=== PATIENT | male | born 1950 | race Caucasian/White ===

== ENCOUNTER → 2016-05-31 | Outpatient (CLI) | payer MEDICARE, OTHER ==
[~2016-05-31] MED LIST: /WARF25TA OR; /WARF5TA OR; ACTO15TA OR; ACTOPLUS MET; ACTOPLUS MET OR; AMLO10TA OR; ASPI81TA83 OR; AZOPT 1% OD; B6 OR; BACT800T5 PO; BYST2.5T2 PO; BYSTOLIC OR; BYSTOLIC PO; CELE100C OR; CHLORTHALIDONE OR; CIAL20TA PO; CLON1TAB PO; COMBIGAN OD; Cyclobenzaprine OR; DILT240C75 PO; DIOV160T5 OR; DIOVAN OR; DITR1TAB PO; GINSING OR; GLUC850T OR; HCT OR; HYDR25TA6 OR; LASI20TA PO; LEVE1INJ5 SC; MAGN250T OR; MELOXICAM 15 MG OR; METF1000 PO; MIRA1TAB3 PO; MULTCAP PO; MULTIVIT OR; NEUR600T OR; NEVANAC OD; NORV5TAB OR; OMEGA 3 OR; OMEP10CA45 PO; OMEP20TA7 OR; PLAV75TA2 OR; PRAV1TAB39 PO; PRAVASTATIN OR; PREDNISOLINE OD; PREG50CA PO; Potassium Chloride PO; REQU2TAB3 OR; REQU4TAB3 OR; ROPI2TAB PO; SKEL-29 PO; SPIR25TA2 PO; TORS10TA3 PO; TRAM50TA2 OR; TYLE500T78 PO; VALS1TAB47 PO; VICT18IN SC; VICTOZA SQ; VOLT1GEL24 TOP; XARE20TA PO; ZEBE5TAB OR; ZYMAR OD; [UNRECOGNIZED DRUG - OTHER]; hydrochlorothiazide OR; potassium chloride PO
--- NOTE | 2016-06-12 00:10 | ECWPNPC ---
PATIENT NAME: QUINTEN STONE : 1950 GENDER: MALE VISIT DATE: 05/31/2016 DISCHARGE DATE: 05/31/16 1018 VISIT LOCKED DATE TIME: PHYSICIAN: REINA MELTON RESOURCE: REINA MELTON REASON FOR APPOINTMENT 1. F/U POST PROC HISTORY OF PRESENT ILLNESS HISTORY OF PRESENT ILLNESS: HERE FOR POST PROCEDURE F/U.HAD BILAT. L4/5-L5/S1 THERAPEUTIC FACET BLOCK ON 01-24-16.REPORTS >3 MONTHS IMPROVEMENT IN PAIN .PAIN RETURNED 2WEEKS AGO AFTER DOING YARDWORK.PAIN IS LOCATED LOW BACK WITH RADIATION INTO LEFT THIGH.RATING PAIN VAS 7/10. PAIN THE PATIENT DESCRIBES THE PAIN... FALL RISK SCREENING: SCREENING :NO FALLS IN THE PAST YEAR CURRENT MEDICATIONS TAKING TORSEMIDE 10 MG TABLET 1 TABLET ORALLY EVERY OTHER DAY TAKING CIALIS 20 MG TABLET 1 TABLET ORALLY NEEDED TAKING CLONAZEPAM 1 MG TABLET 1 TABLET ORALLY TID TAKING DILTIAZEM HCL 240 MG ORALLY DAILY TAKING METFORMIN HCL 1000 MG TABLET 1 TABLET WITH MEALS ORALLY TWICE A DAY TAKING LEVEMIR 100 UNIT/ML SOLUTION 64 UNITS SUBCUTANEOUS DAILY TAKING MULTIVITAMIN ORALLY TWICE DAILY TAKING OMEPRAZOLE 20 MG 1 CAPSULE ORALLY ONCE A DAY TAKING REQUIP 2 MG TABLET 2 TABS AT 6 P.M. AND 2 @ HS ORALLY DIRECTED TAKING SPIRONOLACTONE 25 MG TABLET 1 TABLET ORALLY DAILY TAKING DIOVAN 160 MG TABLET 1 TABLET ORALLY ONCE A DAY TAKING BYSTOLIC 2.5 MG TABLET 1 TABLET ORALLY ONCE A DAY TAKING PRAVASTATIN SODIUM 20 MG TABLET 1 TABLET ORALLY ONCE A DAY TAKING VICTOZA 18 MG/3ML SOLUTION 1.8 SUBCUTANEOUS ONCE A DAY TAKING XARELTO 20 MG TABLET 1 TABLET WITH FOOD ORALLY ONCE A DAY TAKING OXYBUTYNIN CHLORIDE ER 10 MG TABLET EXTENDED RELEASE 24 HOUR 1 TABLET ORALLY ONCE A DAY TAKING TIZANIDINE HCL 2 MG TABLET 1 TABLET NEEDED ORALLY TWICE DAILY NEEDED TAKING LYRICA 50 MG CAPSULE 1 CAPSULE ORALLY 2 TABS AT 6 P.M AND 2 AT HS MEDICATION LIST REVIEWED AND RECONCILED WITH THE PATIENT PAST MEDICAL HISTORY STROKE NEUROPATHY RESTLESS LEG AGENT ORANGE EXPOSURE DIABETIC ERECTILE DYSFUNCTION CATARACTS SLEEP APNEA - USES CPAP ATRIAL FIBRILLATION HTN ALLERGIES N.K.D.A. SOCIAL HISTORY GENERAL: PAIN CLINIC PFS, CLERGY, PUBLIC HEALTH REFERRALS CLERGY REFERRAL NEEDED?NO WAS THE PROVIDER NOTIFIED OF ANY PERTINENT INFO?NO PFS REFERRAL NEEDED?NO PUBLIC HEALTH REFERRAL NEEDED?NO PATIENT: ____. REVIEW OF SYSTEMS CONSTITUTIONAL: ANY CHANGE IN YOUR MEDICAL CONDITION? NO . CHILLS NO . FEVER NO . INFECTION: DO YOU HAVE NEW INFECTIONS? NO . DO YOU HAVE HISTORY OF MRSA? NO . MUSCULOSKELETAL: ANY NEW PATTERNS OF PAIN OR NUMBNESS? NO . GASTROENTEROLOGY: ANY NEW CHANGE IN BOWEL CONTROL? NO . GENITOURINARY: ANY NEW CHANGE IN BLADDER CONTROL? NO . IS THERE A CHANCE YOU COULD BE ? NO . HEMATOLOGY/LYMPH: DO YOU TAKE ANY BLOOD THINNERS? (FOR EXAMPLE- COUMADIN, PLAVIX, AGGRENOX, PLATEL, PRADAXA, OR XARELTO) NO . WHEN WAS YOUR LAST DOSE? DATE: TIME: . NEUROLOGY: HAVE YOU FALLEN IN THE PAST 6 MONTHS? NO . ANY NEW EXTREMITY NUMBNESS OR WEAKNESS? NO . CARDIOLOGY: DO YOU HAVE A PACEMAKER OR DEFIBRILLATOR? NO . RESPIRATORY: HAVE YOU BEEN SICK IN THE PAST WEEK? NO . FEVER NO . FLU LIKE SYMPTOMS? NO . COUGH NO . INTEGUMENTARY: DO YOU HAVE ANY RASHES OR OPEN SORES? NO . ALLERGIC/IMMUNO: ARE YOU ALLERGIC TO SHELLFISH OR IV DYE? NO . ANY NEW ALLERGIES? NO . PSYCHIATRIC: DO YOU HAVE THOUGHTS OF HURTING YOURSELF OR SOMEONE ELSE? NO . ARE YOU ABUSED, NEGLECTED, OR IN AN UNSAFE ENVIRONMENT? NO . ENDOCRINOLOGY: ARE YOU DIABETIC? YES . OTHER: DO YOU NEED ANY PRESCRIPTIONS? NO . IF YES, PLEASE LIST: ____ . ANY NEW PROBLEMS WITH YOUR MEDICATIONS? NO . WHEN DID YOU LAST EAT? ____ . WHEN DID YOU LAST DRINK? ____ . WHAT DID YOU LAST DRINK? ____ . NAME OF PERSON DRIVING YOU HOME? ____ . DO YOU HAVE ANY OTHER QUESTIONS OR CONCERNS HAD SPASMS IN LEFT HAND AND ARMS--L. [employer]ICKEY SAFETY TECHNICIAN STARTED HIM ON TIZANIDINE WHICH HAS SEEMED TO HELP. THE FACET 01/24/16 GAVE HIM RELIEF UP TO 2-3 WEEKS AGO. HE HAS BEEN DOING YARD WORK WHICH HAS AGGREVATED EVERYTHING. . REVIEWED BY: PROVIDER: REINA BRISCOE . VITAL SIGNS WT 272.8 LBS, HT 71.5 IN, BMI 37.51 INDEX, BP 135/71 MM HG, HR 67 /MIN, RR 16 /MIN, TEMP 97.6 F, OXYGEN SAT % 97%, NA INITIALS AW 0906, REVIEWED BY: AD. EXAMINATION GENERAL EXAMINATION: LUNGS:LUNG SOUNDS ARE CLEAR. HEART:HEART RATE REGULAR. MUSCULOSKELETAL:*, MUSCLE STRENGTH TESTING 5/5 BILATERAL LOWER EXTREMITIES. PALPATION:POSITIVE FOR PAIN WITH PALPATION OVER RIGHT LUMBAR PARASPINAL.NEGATIVE FOR PAIN OVER LEFT PARASPINAL REGION.. ASSESSMENTS PROTRUSION OF LUMBAR INTERVERTEBRAL DISC - M51.26 (PRIMARY) LUMBAR FACET ARTHROPATHY - M46.96 TREATMENT PROTRUSION OF LUMBAR INTERVERTEBRAL DISC LUMBAR FACET REINA HESS 05/31/2016 10:05:27 AM > L4/5-L5/S1 NOTES: PATIENT WAS ADVISED TO START A WALKING PROGRAM TO STRENGTHEN LUMBAR PARASPINAL MUSCLES AND IMPROVE MOBILITY. THEY WERE ADVISED THAT THIS WILL IMPROVE WEIGHT LOSS AND ALSO DEPRESSION/FIBROMYALGIA SYMPTOMS. ADVISED TO WALK 10 MINUTES EVERY OTHER DAY ON A FLAT SURFACE. EMPHASIZED THE IMPORTANCE OF DOING THIS CONSISTANTLY AND NOT SPORATICALLY TO AVOID INJURY. STRONGLY ADVISED NOT TO DO MORE THAN 10 MINUTES EVERY OTHER DAY FOR THE FIRST 4 WEEKS. CLINICAL NOTES: INFORMATION ON HCP GIVEN TO PATIENT. PREVENTIVE MEDICINE PAIN CLINIC TEACHING: PROCEDURE TEACHING PATIENT DECLINED PRINTED INFORMATION ON FACET BLOCK STATING HE HAS HAD THEM AND IS FAMILIAR WITH IT. PRE-PROCEDURE INSTRUCTIONS REVIEWED WITH PATIENT AND HE VERBALIZED UNDERSTANDING. AD. PROCEDURE CODES FA211 ESTABILISHED PATIENT [facility] FACILITY CHARGE G8783 BP SCR PRFRM RCMDD DEFIND SCR INTVL G8730 PAIN ASSESS POS TOOL F/U PLAN DOC 3016F PT SCRND UNHLTHY [place] USE 1123F ACP DISCUSS/DSCN MKR DOCD 1036F TOBACCO NON-USER 0518F FALL PLAN OF CARE DOCD G8427 DOC MEDS VERIFIED W/PT OR RE G8417 BMI >=30 CALCUATE W/FOLLOWUP 3288F FALL RISK ASSESSMENT DOCD DISPOSITION & COMMUNICATION FOLLOW UP 2WK POST (REASON: L4/5-L5/S1 BILAT. LUMBAR THERAPEUTIC FACET BLOCK) ELECTRONICALLY SIGNED BY LUIS FELIPE DAHL ON 06/11/2016 AT 12:15 PM EDT DISCLAIMER : THIS IS A VISIT SUMMARY EXTRACTED FROM THE [employer] CHART. IT IS NOT A COPY OF THE [employer] PROGRESS NOTE. MTDD
== END | disposition home or self-care (01) ==
LOC: M PAIN 09:00
PROVIDERS: ATTEND Nurse Practitioner Family
DX: G89.29 Other chronic pain (principal); M51.26 Other intervertebral disc displacement, lumbar region; M46.96 Unspecified inflammatory spondylopathy, lumbar region; I10 Essential (primary) hypertension; E11.40 Type 2 diabetes mellitus with diabetic neuropathy, unspecified; G47.30 Sleep apnea, unspecified; I48.91 Unspecified atrial fibrillation; N52.9 Male erectile dysfunction, unspecified; Z79.899 Other long term (current) drug therapy; Z79.84 Long term (current) use of oral hypoglycemic drugs; Z79.4 Long term (current) use of insulin; Z79.01 Long term (current) use of anticoagulants

== ENCOUNTER → 2016-06-14 | Outpatient (CLI) | payer MEDICARE, OTHER ==
[~2016-06-14] MED LIST changes: +BUPIVACAINE HCL 0.25% 30 ML VIAL As Ordered ONE; +ISOVUE-M 300 61% 15ML VIAL (Q9967) As Ordered ONE; +LIDOCAINE 1% SDV INJ 30 ML VIAL As Ordered ONE; +TRIAMCINOLONE ACETONIDE SUSP 40 MG/ML VIAL (J3301) As Ordered ONE
--- NOTE | 2016-06-14 18:11 | REP ---
FACET BLOCK: The images were reviewed with Dr. Herrera. The patient has a history of low back pain. The portable C-ARM was provided in the OR for Dr. Damon for fluoroscopic guidance. 2 intraoperative fluoroscopic spot films were obtained for needle placement verification for bilateral lumbar facet injection. The films are on the PACs system and are available for review. 12 seconds of fluoroscopic time was utilized for this procedure. Reviewed by MATTHIEU Corado 06/15/2016 08:27 AEdited and Signed by Shahram Herrera MD 06/15/2016 05:08 P
--- NOTE | 2016-06-19 01:17 | ECWPNPC ---
PATIENT NAME: QUINTEN STONE : 1950 GENDER: MALE VISIT DATE: 06/14/2016 DISCHARGE DATE: 06/14/16 1135 VISIT LOCKED DATE TIME: PHYSICIAN: CONNIE CALLAWAY RESOURCE: CONNIE CALLAWAY REASON FOR APPOINTMENT 1. BILAT. LUMBAR THERAPEUTIC FACET BLOCK HISTORY OF PRESENT ILLNESS HISTORY OF PRESENT ILLNESS: PAIN THE PATIENT DESCRIBES THE PAIN... FALL RISK SCREENING: SCREENING :NO FALLS IN THE PAST YEAR CURRENT MEDICATIONS TAKING TORSEMIDE 10 MG TABLET 1 TABLET ORALLY EVERY OTHER DAY, NOTES: 06-12-16799 TAKING CIALIS 20 MG TABLET 1 TABLET ORALLY NEEDED, NOTES: NONE TAKING CLONAZEPAM 1 MG TABLET 1 TABLET ORALLY TID, NOTES: 06-13-162099 TAKING DILTIAZEM HCL 240 MG ORALLY DAILY, NOTES: 06-13-16799 TAKING METFORMIN HCL 1000 MG TABLET 1 TABLET WITH MEALS ORALLY TWICE A DAY, NOTES: 06-13-162099 TAKING LEVEMIR 100 UNIT/ML SOLUTION 64 UNITS SUBCUTANEOUS DAILY, NOTES: 06-13-16799 TAKING MULTIVITAMIN ORALLY TWICE DAILY, NOTES: 06-13-162099 TAKING OMEPRAZOLE 20 MG 1 CAPSULE ORALLY ONCE A DAY, NOTES: 06-13-16799 TAKING REQUIP 2 MG TABLET 2 TABS AT 6 P.M. AND 2 @ HS ORALLY DIRECTED, NOTES: 06-13-162099 TAKING SPIRONOLACTONE 25 MG TABLET 1 TABLET ORALLY DAILY, NOTES: 06-13-16799 TAKING DIOVAN 160 MG TABLET 1 TABLET ORALLY ONCE A DAY, NOTES: 06-13-162099 TAKING BYSTOLIC 2.5 MG TABLET 1 TABLET ORALLY ONCE A DAY, NOTES: 06-13-16799 TAKING PRAVASTATIN SODIUM 20 MG TABLET 1 TABLET ORALLY ONCE A DAY, NOTES: 06-13-16799 TAKING VICTOZA 18 MG/3ML SOLUTION 1.8 SUBCUTANEOUS ONCE A DAY, NOTES: 06-13-16799 TAKING XARELTO 20 MG TABLET 1 TABLET WITH FOOD ORALLY ONCE A DAY, NOTES: 2299 TAKING OXYBUTYNIN CHLORIDE ER 10 MG TABLET EXTENDED RELEASE 24 HOUR 1 TABLET ORALLY ONCE A DAY, NOTES: 06-13-16799 TAKING TIZANIDINE HCL 2 MG TABLET 1 TABLET NEEDED ORALLY TWICE DAILY NEEDED, NOTES: 06-13-162099 TAKING LYRICA 50 MG CAPSULE 1 CAPSULE ORALLY 2 TABS AT 6 P.M AND 2 AT HS, NOTES: 06-13-162099 TAKING TRULICITY 1.5 MG/0.5ML SOLUTION PEN-INJECTOR 0.5 ML SUBCUTANEOUS WEEKLY, NOTES: NEW MED MEDICATION LIST REVIEWED AND RECONCILED WITH THE PATIENT PAST MEDICAL HISTORY STROKE NEUROPATHY RESTLESS LEG AGENT ORANGE EXPOSURE DIABETIC ERECTILE DYSFUNCTION CATARACTS SLEEP APNEA - USES CPAP ATRIAL FIBRILLATION HTN ALLERGIES CODEINE SULFATE: JITTERY: SIDE EFFECTS REVIEW OF SYSTEMS CONSTITUTIONAL: ANY CHANGE IN YOUR MEDICAL CONDITION? NO . CHILLS NO . FEVER NO . INFECTION: DO YOU HAVE NEW INFECTIONS? NO . DO YOU HAVE HISTORY OF MRSA? NO . MUSCULOSKELETAL: ANY NEW PATTERNS OF PAIN OR NUMBNESS? NO . GASTROENTEROLOGY: ANY NEW CHANGE IN BOWEL CONTROL? NO . GENITOURINARY: ANY NEW CHANGE IN BLADDER CONTROL? NO . IS THERE A CHANCE YOU COULD BE ? NO . HEMATOLOGY/LYMPH: DO YOU TAKE ANY BLOOD THINNERS? (FOR EXAMPLE- COUMADIN, PLAVIX, AGGRENOX, PLATEL, PRADAXA, OR XARELTO) YES, XARELTO 06-10-162299 . WHEN WAS YOUR LAST DOSE? DATE: TIME: 06-10-162299 . NEUROLOGY: HAVE YOU FALLEN IN THE PAST 6 MONTHS? NO . ANY NEW EXTREMITY NUMBNESS OR WEAKNESS? NO . CARDIOLOGY: DO YOU HAVE A PACEMAKER OR DEFIBRILLATOR? NO . RESPIRATORY: HAVE YOU BEEN SICK IN THE PAST WEEK? NO . FEVER NO . FLU LIKE SYMPTOMS? NO . COUGH NO . INTEGUMENTARY: DO YOU HAVE ANY RASHES OR OPEN SORES? NO . ALLERGIC/IMMUNO: ARE YOU ALLERGIC TO SHELLFISH OR IV DYE? NO . ANY NEW ALLERGIES? NO . PSYCHIATRIC: DO YOU HAVE THOUGHTS OF HURTING YOURSELF OR SOMEONE ELSE? NO . ARE YOU ABUSED, NEGLECTED, OR IN AN UNSAFE ENVIRONMENT? NO . ENDOCRINOLOGY: ARE YOU DIABETIC? YES, FSBS 121 CHANGING MEDS. . OTHER: DO YOU NEED ANY PRESCRIPTIONS? NO . IF YES, PLEASE LIST: ____ . ANY NEW PROBLEMS WITH YOUR MEDICATIONS? NO . WHEN DID YOU LAST EAT? 06-13-16 9PM . WHEN DID YOU LAST DRINK? 06-14-16 MIDNIGHT . WHAT DID YOU LAST DRINK? WATER . NAME OF PERSON DRIVING YOU HOME? GABINO QUINTANA . DO YOU HAVE ANY OTHER QUESTIONS OR CONCERNS NO . REVIEWED BY: PROVIDER: . VITAL SIGNS WT 272.8 LBS, HT 71.5 IN, BMI 37.51 INDEX, BP 145/67 MM HG, HR 63 /MIN, RR 16 /MIN, TEMP 97.6 F, OXYGEN SAT % 97%, NA INITIALS SC 09:25, REVIEWED BY: CM. ASSESSMENTS SPONDYLOSIS WITHOUT MYELOPATHY OR RADICULOPATHY, LUMBAR REGION - M47.816 (PRIMARY) SPONDYLOSIS WITHOUT MYELOPATHY OR RADICULOPATHY, LUMBOSACRAL REGION - M47.817 PROCEDURES PN LUMBAR FACET BLOCK THERAPEUTIC PRE PROCEDURE DIAGNOSIS LUMBAR SPONDYLOSIS, LUMBOSACRAL SPONDYLOSIS POST PROCEDURE DIAGNOSIS LUMBAR SPONDYLOSIS, LUMBOSACRAL SPONDYLOSIS PROCEDURE BILATERAL L4-L5 AND L5-S1 LUMBAR FACET THERAPEUTIC BLOCK SURGEON DR. OCNNIE CALLAWAY CATALOGUE MAKER NONE ANESTHESIA LOCAL PRE PROCEDURE NOTE THE PATIENT HAS A HISTORY OF CHRONIC LOW BACK PAIN. I EVALUATE THE PATIENT AND REVIEWED THE CHART. I WENT OVER THE RISKS, ALTERNATIVES, AND BENEFITS ASSOCIATED WITH THIS PROCEDURE. THE PATIENT WOULD LIKE TO PROCEED AND GIVE CONSENT TO PERFORMED THE PROCEDURE. THE PATIENT DENIES UNEXPLAINABLE WEIGHT LOSS, FEVER, CHILLS, OR NEW CHANGES IN URINARY OR BOWEL CONTROL DESCRIPTION OF PROCEDURE THE PATIENT WAS BROUGHT TO THE PROCEDURE ROOM AND PLACED IN THE PRONE POSITION. THE LUMBOSACRAL AREA WAS CLEANED WITH CHLORAPREP SOLUTION AND DRAPED ASEPTICALLY. THE PROCEDURE WAS DONE UNDER STERILE CONDITIONS. I CHECKED LATERALITY AND THE LEVEL WHERE THE PROCEDURE WAS GOING TO BE PERFORMED WITH THE PATIENT AND THE SUPPORTING STAFF AT THE MOMENT OF THE TIME OUT IN THE PROCEDURE ROOM. UNDER FLUOROSCOPIC GUIDANCE, THE TARGET POINT WAS SELECTED AT THE RIGHT AND LEFT L4-L5 AND L5-S1 FACET JOINT. TARGET POINT WAS SELECTED AFTER LATERAL ROTATION AND TILT OF THE MAGNIFIER OF THE C-ARM. LIDOCAINE 0.5% WAS USED TO NUMB THE SKIN AND THE SUBCUTANEOUS TISSUE BELOW IT. SPINAL NEEDLES, 22-GAUGE, WERE ADVANCED UNDER FLUOROSCOPIC GUIDANCE AND FOLLOWING PATIENT FEEDBACK UNTIL THE TARGETS WERE TOUCHED. THE POSITION OF THE NEEDLES WAS VERIFIED WITH AP AND LATERAL VIEWS. AFTER PROPER POSITION OF THE NEEDLES WAS ACHIEVED, ISOVUE-M DYE 30% 0.1 ML WAS INJECTED SHOWING ADEQUATE SPREAD OF THE DYE. THEN A SOLUTION OF 1.9 ML OF BUPIVACAINE 0.125% OF KENALOG 10 MG WAS INJECTED AT EACH SITE. THERE WAS NO EVIDENCE OF BLOOD, PARESTHESIA OR CEREBROSPINAL FLUID DURING THE PROCEDURE. THE PATIENT WAS SENT TO THE RECOVERY ROOM. THE PATIENT WAS MOVING THE EXTREMITIES AND DOING WELL. THERE WAS NO COMPLICATION DURING THE PROCEDURE. FLUOROSCOPY TIME WAS 12 SECONDS POST PROCEDURE NOTE THE PATIENT WILL BE SEEN IN A FOLLOW UP IN THE NEXT FEW WEEKS. INSTRUCTIONS WERE GIVEN, QUESTIONS WERE ANSWERED, AND THE PATIENT EXPRESSED UNDERSTANDING AND AGREES WITH THE PLAN. I, ADAN DELGADO, DOCUMENTED THE ABOVE INFORMATION ACTING A SCRIBE FOR DR. CALLAWAY. I HAVE REVIEWED THE ABOVE DOCUMENT, WRITTEN BY ADAN DELGADO SCRIBE AND I VERIFY THAT IT IS ACCURATE. DIAGNOSTIC IMAGING [facility] FACET BLOCK (PAIN)[id number] PROCEDURE CODES 54698 INJ PARAVERT F JNT L/S 1 LEV 85569 INJ PARAVERT F JNT L/S 2 LEV 6045F RADXPS IN END [id number] PXD DISPOSITION & COMMUNICATION FOLLOW UP 3 WEEKS ELECTRONICALLY SIGNED BY CONNIE CALLAWAY MD ON 06/18/2016 AT 08:58 PM EDT DISCLAIMER : THIS IS A VISIT SUMMARY EXTRACTED FROM THE [employer] CHART. IT IS NOT A COPY OF THE [employer] PROGRESS NOTE. MTDD
== END | disposition home or self-care (01) ==
LOC: M PAIN 09:00
PROVIDERS: ATTEND Anesthesiology
DX: G89.29 Other chronic pain (principal); M47.816 Spondylosis without myelopathy or radiculopathy, lumbar region; M47.817 Spondylosis without myelopathy or radiculopathy, lumbosacral region; I10 Essential (primary) hypertension; E11.40 Type 2 diabetes mellitus with diabetic neuropathy, unspecified; G47.30 Sleep apnea, unspecified; I48.91 Unspecified atrial fibrillation; N52.9 Male erectile dysfunction, unspecified; Z79.899 Other long term (current) drug therapy; Z79.84 Long term (current) use of oral hypoglycemic drugs; Z79.4 Long term (current) use of insulin; Z79.01 Long term (current) use of anticoagulants; Z88.2 Allergy status to sulfonamides; Z88.5 Allergy status to narcotic agent
CPT/HCPCS: 64493; 64494; J3301; Q9967

== ENCOUNTER → 2016-06-25 | Outpatient (CLI) | payer MEDICARE, OTHER ==
[~2016-06-25] MED LIST changes: -BUPIVACAINE HCL 0.25% 30 ML VIAL As Ordered ONE; -ISOVUE-M 300 61% 15ML VIAL (Q9967) As Ordered ONE; -LIDOCAINE 1% SDV INJ 30 ML VIAL As Ordered ONE; -TRIAMCINOLONE ACETONIDE SUSP 40 MG/ML VIAL (J3301) As Ordered ONE
== END ==
LOC: M SMT 13:41
PROVIDERS: ATTEND Urology
DX: Z12.5 Encounter for screening for malignant neoplasm of prostate (principal)
CPT/HCPCS: 36415; G0103; G0463

== ENCOUNTER → 2016-09-13 | Outpatient (REF) | payer MEDICARE, OTHER ==
[~2016-09-13] MED LIST changes: -METF1000 PO; +METF10004 PO; -SKEL-29 PO; +SKEL800T97 PO; +VOLT1GEL15 TOP; -VOLT1GEL24 TOP
[2016-09-13 17:48] LABS: PERCENT SATURATION 21.4 % (19.7-50.0)
== END ==
LOC: M LAB REF 16:33
PROVIDERS: ATTEND Nurse Practitioner Adult Health
DX: D50.9 Iron deficiency anemia, unspecified (principal)

== ENCOUNTER 2017-01-06 13:18 | Inpatient (IN) | payer MEDICARE, OTHER ==
[~2017-01-06] VITALS: Ht 182.9 cm; Wt 111.6 kg
[2017-01-06] MEDS ORDERED: SKEL800T97 PO (13:54)
[2017-01-06] MEDS ORDERED: MECL-86 PO (13:54)
[2017-01-06] MEDS ORDERED: FLOM5CAP PO (13:54)
[2017-01-06] MEDS ORDERED: TRAM50TA2 PO (13:54)
[2017-01-06] MEDS ORDERED: TIZA2CAP3 PO (13:54)
[2017-01-06 14:38] LABS: BASO % 0.2 % (0.0-1.0); EOS # 0.1 10^3/uL (0.0-0.50); EOS % 1.1 % (0.0-3.0); IMMATURE GRANULOCYTE % 0.2 % (0-0); LYMPH # 0.4 10^3/uL (1.5-4.5); MEAN CORPUSCULAR HEMOGLOBIN 26.8 pg (27.0-33.0); MEAN CORPUSCULAR HGB CONC 32.6 g/dl (32.0-36.5); MEAN CORPUSCULAR VOLUME 82.3 fl (80.0-96.0); MONO # 0.8 10^3/uL (0.0-0.8); MONO % 6.1 % (0.0-5.0); NEUTROPHILS # 10.9 10^3/uL (1.8-7.7); NEUTROPHILS % 89.4 % (36.0-66.0); PLATELET COUNT, AUTOMATED 560 10^3/uL (150-450); RED CELL DISTRIBUTION WIDTH 13.7 % (11.5-14.5); WHITE BLOOD COUNT 12.2 10^3/uL (4.0-10.0)
[2017-01-06 14:48] LABS: INR 1.48
[2017-01-06 14:55] LABS: ANION GAP 9 MEQ/L (8-16); BLOOD UREA NITROGEN 18 MG/DL (7-18); CALCIUM LEVEL 9.1 MG/DL (8.8-10.2); CARBON DIOXIDE LEVEL 26 MEQ/L (21-32); CHLORIDE LEVEL 101 MEQ/L (98-107); CREATININE FOR GFR 0.76 MG/DL (0.70-1.30); GLOMERULAR FILTRATION RATE > 60.0 (>49); GLUCOSE, FASTING 160 MG/DL (80-110); POTASSIUM SERUM 4.3 MEQ/L (3.5-5.1); SODIUM LEVEL 136 MEQ/L (136-145)
--- NOTE | 2017-01-06 15:09 | REP ---
Clinical: Left calf pain with recent arthroplasty . Technique: Herrera scale and color Doppler evaluation using linear high frequency transducer. Findings: Ultrasound examination of the left lower extremity deep venous structures from the common femoral vein to the popliteal vein demonstrates normal compressibility flow and wave patterns in response to respiration and augmentation. There is no evidence for deep venous thrombosis. Impression: No evidence for deep venous thrombosis. Signed by Shawn Robledo MD 01/06/2017 03:01 P
[2017-01-06] MEDS ORDERED: ONDANSETRON 4MG/2ML VIAL (J2405) IV ONE (15:30)
[2017-01-06] MEDS ORDERED: VANCOMYCIN HCL 1,000 MG, VIAL MATE ADAPTER 1 EACH in D5W 250 ML IV ONE (16:00)
[2017-01-06] MEDS ORDERED: ROPI2TAB24 PO (16:52)
[2017-01-06] MEDS ORDERED: TIZA2TA PO (16:52)
[2017-01-06] MEDS ORDERED: ACET1TAB17 PO (16:52)
[2017-01-06] MEDS ORDERED: MYRB50TA PO (16:52)
[2017-01-06] MEDS ORDERED: CIAL20TA PO (16:52)
[2017-01-06] MEDS ORDERED: PERCOCET 5MG/325MG TAB PO ONE (18:30)
[2017-01-06] MEDS ORDERED: GLUCAGON FOR INJ 1 MG VIAL (J1610) SC PRN (20:00)
[2017-01-06] MEDS ORDERED: GLUCOSE 4 GM CHEW TABLET PO PRN (20:00)
[2017-01-06] MEDS ORDERED: DEXTROSE 50% 50 ML SYRINGE IV PRN (20:00)
[2017-01-06] MEDS ORDERED: traMADol 50 MG TAB PO PRN (20:00)
[2017-01-06] MEDS ORDERED: ISOVUE-370 76% 100ML VIAL (Q9967) As Ordered ONE (20:01)
[2017-01-06] MEDS ORDERED: ONDANSETRON 4MG/2ML VIAL (J2405) IV PRN (20:15)
--- NOTE | 2017-01-06 20:32 | REP ---
Clinical: Abdominal pain with nausea, vomiting and diarrhea. Technique: Axial contrast enhanced images from the lung bases to the pubic symphysis using 100 ml Isovue 370 intravenous contrast material with coronal and sagittal re-formations. Findings: Lung bases are clear. Atherosclerotic changes to the coronary arteries noted without evidence for cardiomegaly or pericardial effusion. Liver, spleen, pancreas, bilateral adrenal glands and kidneys are normal. Prior cholecystectomy with compensatory biliary ductal dilatation noted. The enteric system is without obstruction and a normal terminal ileum and appendix are identified in the right lower quadrant. Mild mural thickening to the small bowel in the left mid abdomen and pelvis may reflect a mild enteritis and should be correlated clinically. Pelvis demonstrates normal bladder and age appropriate prostate/seminal vesicles. No pelvic fluid or ascites. No adenopathy. No free air. Mild atherosclerotic changes of the aorta without aneurysm. Surrounding musculoskeletal structures demonstrate age-related degenerative changes without focal osseous abnormality. Impression: 1. Mild enteritis cannot be excluded and should be correlated clinically. No associated bowel obstruction, free air / perforation, or free fluid. 2. No further acute abdominopelvic pathology appreciated. 3. Chronic changes as noted above. Signed by Shawn Robledo MD 01/06/2017 08:22 P
--- NOTE | 2017-01-06 20:49 | REP ---
Clinical: Pain, swelling and redness with recent knee replacement. Technique: Axial contrast enhanced images extending from the distal femoral diaphysis to the proximal tibiofemoral metaphyses with coronal and sagittal re-formations using 100 ml Isovue 370 intravenous contrast material. Findings: Extensive soft tissue and subcutaneous inflammatory/infectious stranding is appreciated beginning above the visualized distal femoral diaphysis through the level of the knee and tibial metaphysis with a rim enhancing suprapatellar effusion measuring greater than 6.9 x 2.3 x 7.7 cm consistent with infected effusion/abscess. No subcutaneous emphysema. Further evaluation is significantly limited due to severe beam-hardening artifact despite the use of metallic artifact reduction algorithm (O-MAR technique). Impression: Findings are consistent with septic arthritis and synovitis including extensive soft tissue inflammatory/infectious stranding and a [id number] rim enhancing suprapatellar effusion. Signed by Shawn Robledo MD 01/06/2017 08:41 P
[2017-01-06] MEDS: HumaLOG INSULIN (NovoLOG) PER UNIT SC SCH (21:00)
[2017-01-06 21:45] VITALS: BP 126/75
--- NOTE | 2017-01-06 22:00 | PHACANCOPD ---
PHARMACY VANCOMYCIN DOSING Pt Demographics Demographics Patient Age:66 , Weight:113.900 , Gender: male Adjusted Body Weight Date: 01/06/17, Adjusted Body Weight: [90.2] Kg Events Past 24 Hours Events Past 24 Hours: NO: Dialysis, Diuretic Therapy, Change in CrCl, Fever, Elevation in WBC, Pending Diagnostics, Pending Procedures, Other Vancomycin Vancomycin Target Ranges: 15-20 mcg/ml Vancomycin Load Y/N: Yes Load Dose Date Time Vancomycin Load Dose: 1000MG each Date: 01-06 Time: 1700+2200 Vancomycin Dose Date: 01/06/17. Current Vancomycin Dose: [1000mg q8h] Intermittent Dosing?: No Labs Labs Item Value Date Time White Blood Count 12.2 10^3/uL H 01/06/17 1409 Creatinine 0.76 MG/DL 01/06/17 1409 Blood Urea Nitrogen 18 MG/DL 01/06/17 1409 Vital Signs Label Value Date Time Patient Temperature 98.3 degrees F 01/06/172144 Temperature Source Temporal 01/06/172144 Micro Microbiology 01/06/17 Gastrointestinal Tract Panel (PCR) - Final, Complete Creatinine Clearance Date:01/06/17. Creatinine Clearance: [78-103]. Pending Labs trough 11-27 @1300 Assessment and Plan Maintaining Current Dose?: Yes Reason for dose change: No Dose Change Pharmacist Note Pharmacist Note Date: 01/06/17. Pharmacist note:Dosed at 1000mg q8h with a trough ordered for 11 -27 @1300. Will continue to monitor and make adjustments as needed. [facility] Jan 06, 2017 22:00
[2017-01-06] MEDS: VALSARTAN 80 MG TAB (DIOVAN) PO SCH (22:26)
[2017-01-06] MEDS: rOPINIRole 1MG TAB PO SCH (22:26)
[2017-01-06] MEDS: PREGABALIN 50 MG CAP (LYRICA) PO SCH (22:26)
[2017-01-06] MEDS: RIVAROXABAN 20 MG TAB (XARELTO) PO SCH (22:26)
[2017-01-06] MEDS: VANCOMYCIN HCL 1,000 MG, VIAL MATE ADAPTER 1 EACH in D5W 250 ML IV SCH (22:27)
[2017-01-06] MEDS: MULTIVITAMINS/MINERALS THERAP 1 TAB PO SCH (22:27)
[2017-01-06] MEDS: LACTOBACILLUS ACIDOPHILUS CAP (BACID) PO SCH (22:27)
[2017-01-06] MEDS: clonazePAM 1 MG TAB PO SCH (22:27)
--- NOTE | 2017-01-06 22:47 | HPE ---
DATE OF ADMISSION: 01/06/2017 PRIMARY CARE PROVIDER: [facility] orthopedic surgeon, Dr. Brown, covered by Dr. Tejada. Inpatient orthopedic surgeon, Dr. Trevor Santana. CHIEF COMPLAINT: Nausea, vomiting and diarrhea, as well as left lower extremity erythema and warmth and pain. HISTORY OF PRESENT ILLNESS: This is a 66-year-old male patient with underlying medical history of atrial fibrillation on anticoagulation, previous history of cerebrovascular accident (CVA) with right upper and lower extremity weakness 2009, hypertension, dyslipidemia, low back pain, diabetes type 2, peripheral neuropathy, restless leg syndrome, recently had orthopedic surgery at [place] by Dr. Brown for left total knee replacement. Subsequently was discharged on 01/01 with an erythematous lesion on the mott of the left lower extremity that is getting progressively worse for the past one day. The patient also reported nausea, vomiting, and diarrhea about 5-6 times, greenish, watery for the past 24 hours, nausea and vomiting about three times since this morning with thin brownish stuff that is foul-smelling. Otherwise, the patient denies any chest pain, pressure or discomfort, fevers, chills, abdominal pain. Denies any sick contact. ALLERGIES: No known drug allergies. PAST MEDICAL HISTORY: 1. Atrial fibrillation on anticoagulation. 2. CVA with right-sided upper and lower extremity weakness 2009. 3. Hypertension. 4. Dyslipidemia. 5. Low back pain. 6. Diabetes type 2. 7. Neuropathy. 8. Restless leg syndrome. PAST SURGICAL HISTORY: 1. Previous surgery attempted gallbladder removal unsuccessful. 2. LASIK eye surgery both eyes. 3. Right total knee replacement surgery twice, as well as left knee repair of meniscus and left total knee replacement surgery that is recent in December 2016. SOCIAL HISTORY: The patient denies any history of smoking. Drinks a beer once in a while, but not every day. FAMILY HISTORY: Father with myocardial infarction (NH) age 69, mother with stroke age 70s. REVIEW OF SYSTEMS: Reported erythema and pain left lower extremity, and also nausea, vomiting and diarrhea. All other review of systems negative. HOME MEDICATIONS: - acetaminophen 975 by mouth every six hour as needed - clonazepam 1 mg by mouth twice a day - diltiazem 240 mg by mouth daily - Levemir insulin 45 units subcutaneous daily - Victoza 1.8 mg subcutaneous daily - metaxalone 800 mg by mouth three times a day as needed - metformin 1000 mg by mouth twice a day - mirabegron 50 mg by mouth daily - multivitamin one tablet by mouth twice a day - Bystolic 2.5 mg by mouth daily - pravastatin 20 mg by mouth daily - Lyrica 100 mg by mouth twice a day - Xarelto 20 mg by mouth at bedtime - Requip 4 mg by mouth twice a day - spironolactone 12.5 mg by mouth every morning - Cialis 20 mg by mouth daily as needed - Flomax 0.4 mg by mouth daily - tizanidine 2 mg by mouth three times a day - torsemide 10 mg by mouth every two days - tramadol 50 mg by mouth every six hours as needed - valsartan 160 mg by mouth at bedtime PHYSICAL EXAMINATION: VITAL SIGNS: Temperature 98.7, pulse 82, respirations 16, blood pressure 145/70, pulse oximetry 99% on room air. GENERAL: Patient alert and oriented times three, in no acute distress. HEENT: Normocephalic, atraumatic. PULMONARY: Bilaterally clear to auscultation. CARDIAC: Regular rate and rhythm. Normal S1, S2. ABDOMEN: Soft, nontender. Positive bowel sounds. EXTREMITIES: Left lower extremity surgical site intact. Mild warmth and mild swelling. Below the surgical site on the patient's mott, there is an area of erythema and warmth, 1+ edema left lower extremity, and trace edema right lower extremity. NEUROLOGIC: No focal deficits. IMAGING: Ultrasound Doppler negative for DVT. CT scan is suspicious for possible septic arthritis. Abdominal CT shows mild enteritis, questionable. LABORATORY DATA: WBC 12.2, hemoglobin and hematocrit 12.1 over 37.1. ESR 20. Sodium 136, potassium 4.3, chloride 101, bicarbonate 26, BUN 18, creatinine 0.76. C-reactive protein 0.7. ASSESSMENT AND PLAN: This is a 66-year-old male patient with underlying medical history of atrial fibrillation on anticoagulation, cerebrovascular accident (CVA) with right-sided weakness 2009, hypertension, dyslipidemia, chronic lower back pain, diabetes type 2, neuropathy, restless legs and recently had in December 2016, a left total knee replacement, presented with nausea, vomiting and diarrhea with erythematous patch on the patient's left lower mott. 1. Nausea, vomiting and diarrhea. Patient currently reported improvement. Gastrointestinal (GI) panel negative. The patient currently tolerating diet. CT scan appreciated. We will place the patient on diet, consistent carbohydrate, holding diuretics. Monitor. If patient's condition worsens, we will put the patient on clear liquid diet, Zofran as needed. Stool study has been sent. 2. Cellulitis of the patient's left lower extremity, recent surgery, possibly septic infected prosthesis with septic arthritis. CT scan appreciated. Consulted Dr. Trevor Santana. Initially the patient was offered to be transferred to [facility] as per Dr. Tejada, covering for Dr. Brown. The patient elected to stay at the hospital. The patient is aware of the potential delay for treatment, given the potential of infected prosthesis, but elected to stay at [facility] on intravenous (IV) antibiotics until they can reach Dr. Brown themselves. Subsequently the patient is aware of the risk in potentially delaying care. Risks and benefits have been discussed with patient and family, and Dr. Tejada is also aware. Patient placed on vancomycin. Erythrocyte sedimentation rate (ESR), C-reactive protein (CRP) only minimally elevated. Consider infectious disease consultation. Dr. Trevor Santana in-house orthopedics, was also consulted for further evaluation. Cultures were ordered. Vancomycin. If confirmed, will consider transfer. 3. History of atrial fibrillation. Continue diltiazem as well as Xarelto for anticoagulation. Continue to monitor. Continue Bystolic. 4. Previous cerebrovascular accident (CVA). Continue anticoagulation. Patient baseline has right-sided weakness. Will monitor patient closely. 5. Hypertension. Holding diuretics. Continue angiotensin receptor blockers (ARBs), Bystolic and Cardizem. Monitor blood pressure. Continue spironolactone. 6. Dyslipidemia. Continue statin. 7. History of cerebrovascular accident (CVA). Continue Xarelto and statin. 8. Type 2 diabetes. Basal bolus insulin at reduced dose. Followup fingersticks. Consistent carbohydrate diet. 9. Peripheral neuropathy. Continue current medication. 10. Restless leg syndrome. Continue current medication. 11. Benign prostatic hypertrophy (BPH). Continue current medication. 12. Deep venous thrombosis (DVT) prophylaxis. Patient on Xarelto for atrial fibrillation. DISPOSITION: Pending orthopedic consultation. Consider infectious disease (ID) consultation, and family will be contacting Dr. Brown for further recommendations. Potential for transfer to [facility] to patient's own orthopedic surgeon, but as of right now, patient and family refuse the transfer, even though the patient is accepted by an orthopedic surgeon, Dr. Tejada.
[2017-01-07] VITALS: BP 133/82
[2017-01-07] MEDS: METAXALONE 800 MG TABLET PO PRN ×3 (02:48→22:11)
[2017-01-07] MEDS: PERCOCET 5MG/325MG TAB PO PRN ×4 (02:48→22:12)
[2017-01-07] MEDS: VANCOMYCIN HCL 1,000 MG, VIAL MATE ADAPTER 1 EACH in D5W 250 ML IV SCH ×3 (06:11→22:09)
--- NOTE | 2017-01-07 07:08 | IPNPDOC ---
Text Note Date of Service The patient was seen on 01/07/17. NOTE Subjective: Patient seen and examined at bedside. Is feeling better today. N/V have resolved. His leg pain has much improved. He explained in detail his concerns regarding the care provided to him in [place]. He wishes to remain here at [facility], but is agreeable to be transferred if 'absolutely necessary'. PHYSICAL EXAMINATION: GENERAL: NAD, lying comfortably in bed, pleasant. HEENT: Normocephalic, atraumatic, EOMI, PERRL PULMONARY: Bilaterally clear to auscultation. CARDIAC: Irregular, +S1S2. ABDOMEN: Soft, nontender. Positive bowel sounds. EXTREMITIES: Left lower extremity surgical site intact. Mild warmth and mild swelling. Below the surgical site on the patient's mott, there is an area of erythema and warmth, improved from delineated markings, 1+ edema left lower extremity, and trace edema right lower extremity. NEUROLOGIC: No focal deficits. ASSESSMENT AND PLAN: This is a 66-year-old male patient with underlying medical history of atrial fibrillation on anticoagulation, cerebrovascular accident (CVA) with right-sided weakness 2009, hypertension, dyslipidemia, chronic lower back pain, diabetes type 2, neuropathy, restless legs and recently had in December 2016, a left total knee replacement, presented with nausea, vomiting and diarrhea with erythematous patch on the patient's left lower mott. 1. Nausea, vomiting and diarrhea. Resolved. GI panel negative. Tolerating diet. CT scan appreciated. Stool study has been sent. 2. Cellulitis of the patient's left lower extremity, recent surgery, possibly septic infected prosthesis with septic arthritis. CT scan appreciated. Initially the patient was offered to be transferred to [facility] as per Dr. Tejada, covering for Dr. Brown. The patient elected to stay at the hospital. The patient is aware of the potential delay for treatment, given the potential of infected prosthesis, but elected to stay at [facility] on intravenous (IV) antibiotics until they can reach Dr. Brown themselves. Subsequently the patient is aware of the risk in potentially delaying care. Risks and benefits have been discussed with patient and family, and Dr. Tejada is also aware. Patient placed on vancomycin. Erythrocyte sedimentation rate (ESR), C-reactive protein (CRP) only minimally elevated. ID consultation pending. Ortho c/s pending. 3. History of atrial fibrillation. Continue diltiazem as well as Xarelto for anticoagulation. Continue to monitor. Continue Bystolic. 4. Previous cerebrovascular accident (CVA). Continue anticoagulation. Patient baseline has right-sided weakness. Will monitor patient closely. 5. Hypertension. Holding diuretics. Continue angiotensin receptor blockers (ARBs), Bystolic and Cardizem. Monitor blood pressure. Continue spironolactone. 6. Dyslipidemia. Continue statin. 7. History of cerebrovascular accident (CVA). Continue Xarelto and statin. 8. Type 2 diabetes. Basal bolus insulin at reduced dose. Followup fingersticks. Consistent carbohydrate diet. 9. Peripheral neuropathy. Continue current medication. 10. Restless leg syndrome. Continue current medication. 11. Benign prostatic hypertrophy (BPH). Continue current medication. 12. Deep venous thrombosis (DVT) prophylaxis. Patient on Xarelto for atrial fibrillation. DISPOSITION: Pending ID and ortho c/s. Family will be contacting their orthopedist Dr. Brown for further recommendations, but still prefer to remain here. VS,Yanci, I+O VS, Yanci, I+O Laboratory Tests 01/06/17 14:09 Red Blood Count 4.51, Mean Corpuscular Volume 82.3, Mean Corpuscular Hemoglobin 26.8 L, Mean Corpuscular Hemoglobin Concent 32.6, Red Cell Distribution Width 13.7, Neutrophils (%) (Auto) 89.4 H, Lymphocytes (%) (Auto) 3.0 L, Monocytes (% ) (Auto) 6.1 H, Eosinophils (%) (Auto) 1.1, Basophils (%) (Auto) 0.2, Neutrophils # (Auto) 10.9 H, Lymphocytes # (Auto) 0.4 L, Monocytes # (Auto) 0.8 , Eosinophils # (Auto) 0.1, Basophils # (Auto) 0.0, Calcium Level 9.1 Vital Signs Date Time Temp Pulse Resp B/P (MAP) Pulse Ox O2 Delivery O2 Flow Rate FiO2 01/07/17 03:18 18 94 Room Air 01/07/17 00:00 98.5 81 133/82 (99) I&O- Last 24 Hours up to 6 AM 01/08/17 06:00 Intake Total 270 ml Balance 270 ml VINNIE POLLARD MD Jan 07, 2017 07:08
[2017-01-07 07:37] LABS: MEAN CORPUSCULAR HGB CONC 32.2 g/dl (32.0-36.5); MEAN CORPUSCULAR VOLUME 83.9 fl (80.0-96.0); PLATELET COUNT, AUTOMATED 524 10^3/uL (150-450); WHITE BLOOD COUNT 6.9 10^3/uL (4.0-10.0)
[2017-01-07 07:56] LABS: ANION GAP 7 MEQ/L (8-16); BLOOD UREA NITROGEN 10 MG/DL (7-18); CALCIUM LEVEL 8.6 MG/DL (8.8-10.2); CARBON DIOXIDE LEVEL 29 MEQ/L (21-32); CHLORIDE LEVEL 104 MEQ/L (98-107); CREATININE FOR GFR 0.78 MG/DL (0.70-1.30); GLOMERULAR FILTRATION RATE > 60.0 (>49); GLUCOSE, FASTING 129 MG/DL (80-110); MAGNESIUM LEVEL 1.8 MG/DL (1.8-2.4); POTASSIUM SERUM 4.3 MEQ/L (3.5-5.1); SODIUM LEVEL 140 MEQ/L (136-145)
[2017-01-07 08:00] VITALS: BP 128/77
[2017-01-07] MEDS: LACTOBACILLUS ACIDOPHILUS CAP (BACID) PO SCH ×2 (08:34→22:11)
[2017-01-07] MEDS: HumaLOG INSULIN (NovoLOG) PER UNIT SC SCH ×4 (08:34→21:00)
[2017-01-07] MEDS: NEBIVOLOL 5 MG TAB (BYSTOLIC) PO SCH (08:35)
[2017-01-07] MEDS: PRAVASTATIN 20 MG TAB PO SCH (08:35)
[2017-01-07] MEDS: MULTIVITAMINS/MINERALS THERAP 1 TAB PO SCH ×2 (08:35→22:11)
[2017-01-07] MEDS: TAMSULOSIN 0.4 MG CAP PO SCH (08:35)
[2017-01-07] MEDS: LEVEMIR (INSULIN DETEMIR) 1 UNITS/0.01ML SC SCH (08:36)
[2017-01-07] MEDS ORDERED: SPIRONOLACTONE 25 MG TAB PO SCH (09:00)
[2017-01-07] MEDS: SPIRONOLACTONE 12.5MG PER 1/2 TABLET PO SCH (10:12)
[2017-01-07] MEDS: ACETAMINOPHEN TAB 650MG DOSE (2X325MG) PO PRN ×2 (13:30→20:13)
--- NOTE | 2017-01-07 14:14 | PHACANCOPD ---
PHARMACY VANCOMYCIN DOSING Pt Demographics Demographics Patient Age:66 , Weight:111.591 , Gender: male Adjusted Body Weight Date: 01/06/17, Adjusted Body Weight: [90.2] Kg Events Past 24 Hours Events Past 24 Hours: NO: Dialysis, Diuretic Therapy, Change in CrCl, Fever, Elevation in WBC, Pending Diagnostics, Pending Procedures, Other Vancomycin Vancomycin Target Ranges: 15-20 mcg/ml Vancomycin Load Y/N: Yes Load Dose Date Time Vancomycin Load Dose: 1000MG each Date: 01-06 Time: 1700+2200 Vancomycin Dose Date: 01/06/17. Current Vancomycin Dose: [1000mg q8h] Intermittent Dosing?: No Labs Labs Vital Signs Label Value Date Time Patient Temperature 98.3 degrees F 01/07/17 0800 Temperature Source Temporal 01/07/17 0800 Patient Temperature 98.5 degrees F 01/07/17 0000 Temperature Source Temporal 01/07/17 0000 Patient Temperature 98.3 degrees F 01/06/17 2145 Temperature Source Temporal 01/06/17 2145 Item Value Date Time White Blood Count 6.9 10^3/uL 01/07/17 0649 White Blood Count 12.2 10^3/uL H 01/06/17 1409 Micro Microbiology 01/06/17 Blood Culture, Received Pending 01/06/17 Blood Culture, Received Pending 01/06/17 Gastrointestinal Tract Panel (PCR) - Final, Complete Creatinine Clearance Date:01/06/17. Creatinine Clearance: [78-103]. Pending Labs trough 01-07 @1300 Assessment and Plan Maintaining Current Dose?: Yes Reason for dose change: Trough too low Pharmacist Note Pharmacist Note 01/07/17: Trough drawn today @1259 came back at 12.6mcg/ml. This trough is below our goal of 15-20, however, patient is 110kg and will continue to accumulate. I have rescheduled the trough for tomorrow@1300. We will continue his current treatment of 1G Q8H. We will re-evaluate tomorrow after next scheduled trough. We will continue to monitor and adjust dose as needed. Date: 01/06/17. Pharmacist note:Dosed at 1000mg q8h with a trough ordered for @1300. Will continue to monitor and make adjustments as needed. HUSAM OROURKE PHARMACY Jan 07, 2017 14:14
[2017-01-07 16:00] VITALS: BP 104/56
[2017-01-07] MEDS: rOPINIRole 1MG TAB PO SCH ×2 (17:17→23:23)
[2017-01-07] MEDS: clonazePAM 1 MG TAB PO SCH ×2 (17:17→23:19)
[2017-01-07] MEDS: PREGABALIN 50 MG CAP (LYRICA) PO SCH ×2 (17:18→23:22)
[2017-01-07] MEDS ORDERED: LINE600T PO (17:51)
--- NOTE | 2017-01-07 19:03 | CR.PDOC ---
[facility] Consultation Consultation Infectious Disease Consult Note Date of Consultation: 01/07/2017 Reason for Consultation: Left mott cellulitis Referring Provider: Dr. Maicol Mcneil PCP: Medina Britt HISTORY OF PRESENT ILLNESS: Mr. Cruz is a 66-year-old male who recently had a left knee replacement performed on 12/20/[address] Brown orthopedic surgeon was associated with [facility]. Apparently after surgery he was roomed with another patient for approximately 4 days prior to discovering that this other patient had an infectious disease requiring contact precautions, the patient does believe that he may have contracted his current skin infection from that other patient with whom he shared a room, as he also did have multiple skin lesions that were being treated. Mr. Cruz was discharged from rehabilitation last Saturday, he felt fine until last Saturday/Saturday when he began to develop nausea , vomiting, and diarrhea as well as left lower extremity erythema and warmth and pain surrounding the site of 2 puncture wounds where a "satellite" was anchored during his knee surgery. He presented to the emergency department here at [facility] last night, and because of his previous experience did not wish to be transferred back to [place]. He was empirically started on IV vancomycin, and has shown interval improvement since last night; he no longer has any nausea or vomiting, his diarrhea has improved, and the area of erythema has receded approximately 1 inch on all margins as compared to the area demarcated in the emergency department ALLERGIES: No known drug allergies PAST MEDICAL HISTORY: Atrial fibrillation History of CVA with right-sided upper and lower extremity weakness since 2009 Hypertension Dyslipidemia Chronic low back pain Diabetes type 2 with neuropathy Restless leg syndrome PAST SURGICAL HISTORY: 1985 attempt a gallbladder removal which was unsuccessful, though the gallbladder removed the stones closes it again, and he has not had any problems since. Lasix eye surgery both eyes Right total knee replacement 2 Left knee meniscus repair in the past A recent left total knee replacement 12/20/2016 SOCIAL HISTORY: He does not smoke, drinks alcohol occasionally, and denies any recreational drug use FAMILY HISTORY: Father had a heart attack at the age of 69, mother had a stroke in her 70s REVIEW OF SYSTEMS: Constitutional: Patient currently denies fevers, chills, night sweats, recent weight gain/loss. HEENT: Patient denies blurred or double vision, denies hearing changes. Cardiovascular: Patient denies chest discomfort/pain, palpitations, exertional dyspnea, orthopnea. He does have chronic mild edema of the right lower extremity ever since his right knee surgery Respiratory: Patient denies dyspnea, wheezing, cough, hemoptysis, sputum production. Gastrointestinal: Patient currently denies nausea, vomiting, diarrhea, constipation, abdominal pain, melena, hematochezia, hematemesis, jaundice. Musculoskeletal: His left knee is still stiff from the surgery, however he does not have pain in the knee, and he is able to bend it and move around without pain. He does have pain in the anterior mott, although this is largely subsided unless it is palpated. PHYSICAL EXAMINATION: Vitals: Temperature 98.4, pulse 73, respiratory rate 18, blood pressure 104/56, pulse oximetry is 96% on room air General: Awake, alert, oriented 3. He is in no acute distress at this time. HEENT: Head normocephalic atraumatic, Hearing is grossly intact to conversation. Respiratory: Clear to auscultation bilaterally with no wheezes, rales, or rhonchi. Cardiovascular: Regular rate and rhythm, with no rubs, gallops, or murmur. Abdomen: Soft, nontender, nondistended, no hepatosplenomegaly appreciated. Bowel sounds present. Extremities: He does have an area of erythema surrounding the 2 puncture sites on the left anterior mid mott. The erythema extends from approximately 3 inches inferior of the knee incision down to just above the ankle at the sock line and it is approximately 3 inches wide at maximum medial to lateral diameter. He does have a large midline incision of the left knee that is covered in Steri- Strips, few the Steri-Strips were removed and the incision appears to be healing wonderfully, and there is no surrounding erythema or edema, there is no drainage, denice have already been removed, the joint itself does feel slightly warmer than his other knee. He is able to bend his knee approximately 30-40 and is limited by stiffness, no pain. 1+ pulses in the dorsalis pedis bilaterally. No evidence of clubbing or cyanosis. MICROBIOLOGY: Blood cultures are still pending, and GI panel negative ASSESSMENT/PLAN: 1. Cellulitis the left anterior mott. Given the story, and his response to vancomycin, we cannot rule out MRSA and we will need to treat it as such. There is no abscess or other site wherewith we can obtain a culture either. Therefore , I recommend switching him over to linezolid 600 mg twice a day 10 days upon discharge. I have already sent the prescription to his pharmacy [facility]. I would recommend calling the pharmacy in the morning to see if it will be covered under his insurance, if it is covered then he would be okay to be discharged from an infectious disease standpoint and he can follow up with me as an outpatient. If a prior approval is needed then we may need to ask PFS to see if they can get it approved. 2. Recent left total knee replacement. Given that he is able to move the knee without any pain, and the site does not look infected, I do not believe that he has a septic joint. Orthopedics has been consulted and I would defer to their judgment. My preceptor for this patient encounter was physically present in the building during the encounter and was fully available. As needed, all aspects of the patient interview, examination, medical decision making process, and medical care plan development were reviewed and approved by the preceptor. Preceptor is aware and concurs with the plan as stated in the body of this note and will attest to such by his/her cosignature. Laboratory Data Labs 24H Laboratory Tests 2 01/06/17 22:06: Bedside Glucose (Misc Panel) 118H 01/07/17 06:49: Nucleated Red Blood Cells % (auto) 0.0 01/07/17 06:53: Erythrocyte Sedimentation Rate 21H, Anion Gap 7L, Glomerular Filtration Rate > 60.0, Blood Urea Nitrogen 10, Creatinine 0.78, Sodium Level 140, Potassium Level 4.3, Chloride Level 104, Carbon Dioxide Level 29, Calcium Level 8.6L, Magnesium Level 1.8, C-Reactive Protein, Quantitative 3.02H, Hepatitis C Antibody Index 0.0, HIV Antigen/Antibody Combo Qual NEGATIVE 01/07/17 11:26: Bedside Glucose (Misc Panel) 108 01/07/17 12:59: Vancomycin Level Trough 12.6 01/07/17 16:59: Bedside Glucose (Misc Panel) 114 CBC/BMP Laboratory Tests 01/07/17 06:49 Red Blood Count 4.04 L, Mean Corpuscular Volume 83.9, Mean Corpuscular Hemoglobin 27.0, Mean Corpuscular Hemoglobin Concent 32.2, Red Cell Distribution Width 14.0 01/07/17 06:53 Calcium Level 8.6 L Microbiology Microbiology 01/06/17 Blood Culture, Received Pending 01/06/17 Blood Culture, Received Pending 01/06/17 Gastrointestinal Tract Panel (PCR) - Final, Complete Allergies Coded Allergies: No Known Allergies (Verified Allergy, Unknown, 01/13/03) Home Medications Scheduled (Multivitamins) 1 Cap Cap, 1 CAP PO BID, (Reported) Clonazepam (Clonazepam) 1 Mg Tab, 1 MG PO BID, (Reported) takes at 1800 and 2300 Diltiazem HCl (Diltiazem Cd) 240 Mg Cap, 240 MG PO DAILY, (Reported) Insulin Detemir (Levemir Flextouch) 100 Unit/Ml Inj, 45 UNIT SC DAILY, (Reported ) Linezolid (Linezolid) 600 Mg Tab, 600 MG PO BID for 10 Days, #20 Liraglutide (Victoza) 18 Mg/3 Ml Inj, 1.8 MG SC DAILY, (Reported) Metformin Hydrochloride (Metformin HCl) 1,000 Mg Tab, 1,000 MG PO BID, (Reported ) Mirabegron Base (Myrbetriq) 50 Mg Tab, 50 MG PO DAILY, (Reported) Nebivolol (Bystolic) 2.5 Mg Tab, 2.5 MG PO DAILY, (Reported) Pravastatin Sodium (Pravachol) 20 Mg Tab, 20 MG PO DAILY, (Reported) Pregabalin (Lyrica) 50 Mg Cap, 100 MG PO BID, (Reported) takes @1800 and at bedtime Rivaroxaban (Xarelto) 20 Mg Tab, 20 MG PO QHS, (Reported) Ropinirole Hydrochloride (Ropinirole ER) 2 Mg Tab, 4 MG PO BID, (Reported) TAKES 1800 AND AT BEDTIME Spironolactone (Spironolactone) 25 Mg Tab, 12.5 MG PO QAM, (Reported) Tamsulosin Hydrochloride (Flomax) 0.4 Mg Cap, 0.4 MG PO DAILY, (Reported) Tizanidine HCl (Tizanidine HCl) 2 Mg Tab, 2 MG PO TID, (Reported) Torsemide (Torsemide) 10 Mg Tab, 10 MG PO Q2D, (Reported) Valsartan (Valsartan) 160 Mg Tab, 160 MG PO QHS, (Reported) Scheduled PRN Acetaminophen (Acetaminophen) 325 Mg Tab, 975 MG PO Q6H PRN for PAIN, (Reported) Metaxalone (Skelaxin) 800 Mg Tab, 800 MG PO TID PRN for MUSCLE SPASMS, (Reported ) Tadalafil (Cialis) 20 Mg Tab, 20 MG PO DAILY PRN for ERECTILE DYSFUNCTION, ( Reported) Tramadol HCl (Tramadol HCl) 50 Mg Tab, 50 MG PO Q6H PRN for PAIN, (Reported) AZUCENA ADAM DO Jan 07, 2017 19:03
[2017-01-07 20:00] VITALS: BP 120/69
[2017-01-07] MEDS: VALSARTAN 80 MG TAB (DIOVAN) PO SCH (22:10)
[2017-01-07] MEDS: RIVAROXABAN 20 MG TAB (XARELTO) PO SCH (22:11)
[2017-01-08] VITALS: BP 105/62
[2017-01-08 04:00] VITALS: BP 121/74
[2017-01-08] MEDS: METAXALONE 800 MG TABLET PO PRN (05:37)
[2017-01-08] MEDS: PERCOCET 5MG/325MG TAB PO PRN ×2 (05:38→11:22)
[2017-01-08] MEDS: VANCOMYCIN HCL 1,000 MG, VIAL MATE ADAPTER 1 EACH in D5W 250 ML IV SCH (05:38)
[2017-01-08 07:33] LABS: MEAN CORPUSCULAR HEMOGLOBIN 27.1 pg (27.0-33.0); MEAN CORPUSCULAR HGB CONC 32.1 g/dl (32.0-36.5); MEAN CORPUSCULAR VOLUME 84.6 fl (80.0-96.0); PLATELET COUNT, AUTOMATED 441 10^3/uL (150-450); RED CELL DISTRIBUTION WIDTH 13.8 % (11.5-14.5); WHITE BLOOD COUNT 5.5 10^3/uL (4.0-10.0)
[2017-01-08 07:46] LABS: ANION GAP 6 MEQ/L (8-16); BLOOD UREA NITROGEN 11 MG/DL (7-18); CALCIUM LEVEL 8.3 MG/DL (8.8-10.2); CARBON DIOXIDE LEVEL 29 MEQ/L (21-32); CHLORIDE LEVEL 104 MEQ/L (98-107); CREATININE FOR GFR 0.68 MG/DL (0.70-1.30); GLOMERULAR FILTRATION RATE > 60.0 (>49); GLUCOSE, FASTING 156 MG/DL (80-110); MAGNESIUM LEVEL 1.8 MG/DL (1.8-2.4); POTASSIUM SERUM 3.6 MEQ/L (3.5-5.1); SODIUM LEVEL 139 MEQ/L (136-145)
[2017-01-08 08:00] VITALS: BP 117/62
[2017-01-08 08:55] LABS: ERYTHROCYTE SEDIMENTATION RATE 18 mm/hr (0-20)
[2017-01-08] MEDS ORDERED: PREVNAR 13 VACCINE SYRINGE (CPT CODE:90670) IM ONE (09:00)
[2017-01-08] MEDS ORDERED: PNEUMOCOCCAL VACCINE 0.5ML SYRINGE(90732) PNEUMOVAX 23 IM ONE (09:00)
[2017-01-08] MEDS: PRAVASTATIN 20 MG TAB PO SCH (09:05)
[2017-01-08] MEDS: MULTIVITAMINS/MINERALS THERAP 1 TAB PO SCH (09:05)
[2017-01-08] MEDS: SPIRONOLACTONE 12.5MG PER 1/2 TABLET PO SCH (09:05)
[2017-01-08] MEDS: LACTOBACILLUS ACIDOPHILUS CAP (BACID) PO SCH (09:05)
[2017-01-08] MEDS: HumaLOG INSULIN (NovoLOG) PER UNIT SC SCH ×2 (09:05→12:33)
[2017-01-08 09:06] VITALS: BP 117/62
[2017-01-08] MEDS: TAMSULOSIN 0.4 MG CAP PO SCH (09:06)
[2017-01-08] MEDS: NEBIVOLOL 5 MG TAB (BYSTOLIC) PO SCH (09:07)
[2017-01-08] MEDS: LEVEMIR (INSULIN DETEMIR) 1 UNITS/0.01ML SC SCH (09:08)
--- NOTE | 2017-01-08 11:39 | CR ---
DATE OF CONSULTATION: 01/07/2017 REASON FOR CONSULTATION: Rule out septic left knee. HISTORY OF PRESENT ILLNESS: He is a 66-year-old male who is about 3 weeks or so from left total knee arthroplasty, intraoperative navigation and he presented to the emergency room with some nausea and vomiting several days after being discharged from the rehabilitation unit. At the time of discharge, he noted there was some redness around what appears to be a puncture wound distally over his mott where the navigation device was inserted and he had noted in addition that it seems to have gotten more red as he was admitted through the emergency room for his nausea and vomiting. He was noted to have this redness and orthopedics was consulted. He has otherwise been doing well with his knee. Otherwise his past medical history consists of atrial fibrillation, history of right sided stroke, high blood pressure, hyperlipidemia, chronic back pain, type 2 diabetes with some neuropathy, restless leg syndrome he relates secondary to his [place] experience. PAST SURGICAL HISTORY: He has had: Cholecystectomy. Lasik surgery. Right total knee arthroplasty. Left total knee arthroplasty. He has had left knee arthroscopy in the past. He does not smoke or drink alcohol excessively. REVIEW OF SYSTEMS: Health survey is amended to the chart. When I examine him initially, he had no fevers and his nausea and vomiting had resolved. His vital signs when I initially examined him on 01/07/2017, temperature was 98.4 and his blood pressure 104/56, oxygen saturation 96% on room air. His left lower extremity showed a well healing left total knee arthroplasty incision. There is no significant swelling or erythema around the arthroplasty site. Minimal postsurgical tenderness as normally expected this far out from left total knee arthroplasty. Below that on his mott, there are two punctate holes. There is no drainage. There is some surrounding erythema, however, the erythema has been diminishing compared to how it was outlined through the emergency room and his skin is wrinkling nicely indicative of resolving induration and swelling. Distal neurovascular systems essentially showed good pulses. Normal motor strength. LABORATORY STUDIES: His Sed rate was normal at 20, CRP was just barely elevated at 0.7. White count was 6.9 down from 12.2 in the emergency room. IMPRESSION: My impression overall is he has a small resolving cellulitis around the navigation pin site over his distal mott. He has been placed on vancomycin. I discussed with Dr. Brown, his orthopedic surgeon in [place] and told him our plan and he agrees and we are going to continue to follow this on his antibiotics and probably send him home on an oral regimen. He is going to call Dr. Brown's office to make a sooner followup visit than 1 month just to follow the cellulitic area. cc: Fred Brown MD *Chidi Arshad MD
--- NOTE | 2017-01-09 11:28 | DS.PDOC ---
Discharge Summary General Date of Admission Jan 06, 2017 at 20:02 Date of Discharge 01/08/17 Attending Physician: Geovanny Specialist/Consultants Involve: Christina Santana Specialist/Consultants Involve NURIA - Dr. Castro Discharge Summary PROCEDURES PERFORMED DURING STAY: [None]. DISCHARGE DIAGNOSES: 1. Cellulitis, r/o septic arthritis. COMPLICATIONS/CHIEF COMPLAINT: Cellulitis,Gastroenteritis. HISTORY OF PRESENT ILLNESS: This is a 66-year-old male patient with underlying medical history of atrial fibrillation on anticoagulation, previous history of cerebrovascular accident (CVA) with right upper and lower extremity weakness 2009, hypertension, dyslipidemia, low back pain, diabetes type 2, peripheral neuropathy, restless leg syndrome, recently had orthopedic surgery at [facility] by Dr. Brown for left total knee replacement. Subsequently was discharged on 01/01 with an erythematous lesion on the mott of the left lower extremity that is getting progressively worse for the past one day. The patient also reported nausea, vomiting, and diarrhea about 5-6 times, greenish, watery for the past 24 hours, nausea and vomiting about three times since this morning with thin brownish stuff that is foul-smelling. Otherwise, the patient denies any chest pain, pressure or discomfort, fevers, chills, abdominal pain. Denies any sick contact. HOSPITAL COURSE: Patient was admitted for further evaluation and treatment with concerns for septic knee s/p recent knee surgery. Patient was adamant regarding his desire to remain at [facility] as he was not happy with his care in [place]. Patient was seen and evaluated by orthopedics and infectious disease. His infection was deemed to be cellulitic, and patient discharged home with oral antibiotics and outpatient follow up. Hospital stay otherwise unremarkable. DISCHARGE MEDICATIONS: Please see below. ALLERGIES: Please see below. PHYSICAL EXAMINATION ON DISCHARGE: VITAL SIGNS: Please see below. GENERAL: NAD, lying comfortably in bed, pleasant. HEENT: Normocephalic, atraumatic, EOMI, PERRL PULMONARY: Bilaterally clear to auscultation. CARDIAC: Irregular, +S1S2. ABDOMEN: Soft, nontender. Positive bowel sounds. EXTREMITIES: Left lower extremity surgical site intact. Mild warmth and mild swelling. Below the surgical site on the patient's mott, there is an area of erythema and warmth, much improved from delineated markings, 1+ edema left lower extremity, and trace edema right lower extremity. NEUROLOGIC: No focal deficits. LABORATORY DATA: Please see below. ACTIVITY: [As tolerated]. DIET: 2 gram sodium, carb consistent DISCHARGE PLAN: DISPOSITION: 01 Home, Self-Care. ITEMS TO FOLLOWUP ON ON OUTPATIENT: 1. Follow up with PCP in 1-5 days. 2. Follow up with orthopedics as scheduled. DISCHARGE CONDITION: [Stable]. TIME SPENT ON DISCHARGE: Greater than 30 minutes. Vital Signs/I&Os Vital Signs Date Time Temp Pulse Resp B/P (MAP) Pulse Ox O2 Delivery O2 Flow Rate FiO2 01/08/17 12:22 18 01/08/17 09:06 76 117/62 01/08/17 08:00 98.1 93 Room Air Microbiology Microbiology 01/06/17 Blood Culture - Preliminary, Resulted No Growth after 48 hours. All Specime... 01/06/17 Blood Culture - Preliminary, Resulted No Growth after 48 hours. All Specime... 01/06/17 Gastrointestinal Tract Panel (PCR) - Final, Complete Discharge Medications Scheduled (Multivitamins) 1 Cap Cap, 1 CAP PO BID, (Reported) Clonazepam (Clonazepam) 1 Mg Tab, 1 MG PO BID, (Reported) takes at 1800 and 2300 Diltiazem HCl (Diltiazem Cd) 240 Mg Cap, 240 MG PO DAILY, (Reported) Insulin Detemir (Levemir Flextouch) 100 Unit/Ml Inj, 45 UNIT SC DAILY, (Reported ) Linezolid (Linezolid) 600 Mg Tab, 600 MG PO BID Liraglutide (Victoza) 18 Mg/3 Ml Inj, 1.8 MG SC DAILY, (Reported) Metformin Hydrochloride (Metformin HCl) 1,000 Mg Tab, 1,000 MG PO BID, (Reported ) Mirabegron Base (Myrbetriq) 50 Mg Tab, 50 MG PO DAILY, (Reported) Nebivolol (Bystolic) 2.5 Mg Tab, 2.5 MG PO DAILY, (Reported) Pravastatin Sodium (Pravachol) 20 Mg Tab, 20 MG PO DAILY, (Reported) Pregabalin (Lyrica) 50 Mg Cap, 100 MG PO BID, (Reported) takes @1800 and at bedtime Rivaroxaban (Xarelto) 20 Mg Tab, 20 MG PO QHS, (Reported) Ropinirole Hydrochloride (Ropinirole ER) 2 Mg Tab, 4 MG PO BID, (Reported) TAKES 1800 AND AT BEDTIME Spironolactone (Spironolactone) 25 Mg Tab, 12.5 MG PO QAM, (Reported) Tamsulosin Hydrochloride (Flomax) 0.4 Mg Cap, 0.4 MG PO DAILY, (Reported) Tizanidine HCl (Tizanidine HCl) 2 Mg Tab, 2 MG PO TID, (Reported) Torsemide (Torsemide) 10 Mg Tab, 10 MG PO Q2D, (Reported) Valsartan (Valsartan) 160 Mg Tab, 160 MG PO QHS, (Reported) Scheduled PRN Acetaminophen (Acetaminophen) 325 Mg Tab, 975 MG PO Q6H PRN for PAIN, (Reported) Metaxalone (Skelaxin) 800 Mg Tab, 800 MG PO TID PRN for MUSCLE SPASMS, (Reported ) Tadalafil (Cialis) 20 Mg Tab, 20 MG PO DAILY PRN for ERECTILE DYSFUNCTION, ( Reported) Tramadol HCl (Tramadol HCl) 50 Mg Tab, 50 MG PO Q6H PRN for PAIN, (Reported) Allergies Coded Allergies: No Known Allergies (Verified Allergy, Unknown, 01/13/03) VINNIE POLLARD MD Jan 09, 2017 11:28
== END 2017-01-08 13:05 | disposition home or self-care (01) | DRG 863 ==
LOC: M ED 13:18 → M ED INP 20:02 → M PED 21:27
PROVIDERS: ADMIT Hospitalist; ATTEND Internal Medicine
DX: T81.4XXA Infection following a procedure, initial encounter (principal); I69.351 Hemiplegia and hemiparesis following cerebral infarction affecting right dominant side; L03.116 Cellulitis of left lower limb; R11.2 Nausea with vomiting, unspecified; R19.7 Diarrhea, unspecified; I48.91 Unspecified atrial fibrillation; I10 Essential (primary) hypertension; E78.5 Hyperlipidemia, unspecified; B95.62 Methicillin resistant Staphylococcus aureus infection as the cause of diseases classified elsewhere; M54.5 Low back pain; E11.42 Type 2 diabetes mellitus with diabetic polyneuropathy; N40.0 Benign prostatic hyperplasia without lower urinary tract symptoms; Y83.1 Surgical operation with implant of artificial internal device as the cause of abnormal reaction of the patient, or of later complication, without mention of misadventure at the time of the procedure; G25.81 Restless legs syndrome; Z96.653 Presence of artificial knee joint, bilateral; Z79.4 Long term (current) use of insulin; Z79.01 Long term (current) use of anticoagulants; Z79.891 Long term (current) use of opiate analgesic; Z79.899 Other long term (current) drug therapy

== ENCOUNTER 2017-01-14 10:35 | Outpatient (RCR) | payer MEDICARE, OTHER | END 2017-02-10 | LOC: M PT 10:35 | DX: Z96.652 Presence of left artificial knee joint (principal) | CPT/HCPCS: 97110 ==

== ENCOUNTER 2017-01-23 02:21 | Emergency (ER) | payer MEDICARE, OTHER ==
[~2017-01-23] VITALS: Ht 182.9 cm; Wt 112.3 kg
[~2017-01-23 02:21] MED LIST changes: +ACET1TAB17 PO; +FLOM5CAP PO; +LINE600T PO; +MECL-86 PO; +MYRB50TA PO; +ROPI2TAB24 PO; +TIZA2CAP3 PO; +TIZA2TA PO; +TRAM50TA2 PO
[2017-01-23 02:31] VITALS: BP 119/58
[2017-01-23] MEDS ORDERED: DITR1TAB PO (02:37)
[2017-01-23] MEDS ORDERED: OMEP20CA3 PO (02:37)
[2017-01-23] MEDS ORDERED: METOCLOPRAMIDE INJ 10MG/2ML VIAL (J2765) IV ONE (03:15)
[2017-01-23] MEDS ORDERED: NS 1,000 ML IV ONE (03:15)
[2017-01-23] MEDS: MORPHINE 4 MG/ML 1ML SYRINGE IV PRN ×2 (03:20→04:40)
[2017-01-23 03:38] LABS: BASO % 0.2 % (0.0-1.0); EOS # 0.4 10^3/uL (0.0-0.50); EOS % 4.9 % (0.0-3.0); IMMATURE GRANULOCYTE % 0.2 % (0-0); LYMPH # 1.1 10^3/uL (1.5-4.5); LYMPH % 12.8 % (24.0-44.0); MEAN CORPUSCULAR HEMOGLOBIN 27.6 pg (27.0-33.0); MEAN CORPUSCULAR HGB CONC 32.8 g/dl (32.0-36.5); MONO # 0.5 10^3/uL (0.0-0.8); MONO % 6.3 % (0.0-5.0); NEUTROPHILS # 6.4 10^3/uL (1.8-7.7); NEUTROPHILS % 75.6 % (36.0-66.0); PLATELET COUNT, AUTOMATED 233 10^3/uL (150-450); RED CELL DISTRIBUTION WIDTH 14.4 % (11.5-14.5); WHITE BLOOD COUNT 8.5 10^3/uL (4.0-10.0)
[2017-01-23 03:41] LABS: ALBUMIN 3.6 GM/DL (3.2-5.2); ALBUMIN/GLOBULIN RATIO 1.03 (1.00-1.93); ALKALINE PHOSPHATASE 128 U/L (45-117); ALT/SGPT 28 U/L (12-78); ANION GAP 8 MEQ/L (8-16); AST/SGOT 12 U/L (7-37); BILIRUBIN,DIRECT 0.2 MG/DL (0.0-0.2); BILIRUBIN,TOTAL 0.4 MG/DL (0.2-1.0); BLOOD UREA NITROGEN 16 MG/DL (7-18); CALCIUM LEVEL 8.4 MG/DL (8.8-10.2); CARBON DIOXIDE LEVEL 27 MEQ/L (21-32); CHLORIDE LEVEL 105 MEQ/L (98-107); CREATININE FOR GFR 0.76 MG/DL (0.70-1.30); GLOMERULAR FILTRATION RATE > 60.0 (>49); GLUCOSE, FASTING 175 MG/DL (80-110); POTASSIUM SERUM 3.9 MEQ/L (3.5-5.1); SODIUM LEVEL 140 MEQ/L (136-145); TOTAL PROTEIN 7.1 GM/DL (6.4-8.2)
[2017-01-23 04:03] LABS: ERYTHROCYTE SEDIMENTATION RATE 13 mm/hr (0-20)
--- NOTE | 2017-01-23 04:20 | REPUSA ---
CLINICAL HISTORY: Edema. COMMENTS: Real time sonography with duplex doppler of the left lower extremity was performed with attention to the major deep venous structures. Evaluation reveals the left common femoral, superficial femoral and popliteal veins to be completely compressible without intraluminal thrombus. There is normal spontaneous phasic flow and augmentation. The greater saphenous/common femoral vein junction is patent. IMPRESSION: No evidence of DVT in left lower extremity.. Thank you for your kind referral of this patient.
[2017-01-23] MEDS ORDERED: BACT800T5 PO ×2 (04:53→06:02)
[2017-01-23] MEDS ORDERED: ZOFR4TAB3 PO ×2 (04:53→06:02)
[2017-01-23] MEDS ORDERED: BACTRIM 160MG/800MG DS TAB PO ONE (05:00)
== END 2017-01-23 06:07 | disposition home or self-care (01) ==
LOC: EDBD 02:21 → M ED 02:21
DX: L03.116 Cellulitis of left lower limb (principal); M79.89 Other specified soft tissue disorders; F17.210 Nicotine dependence, cigarettes, uncomplicated; Z79.4 Long term (current) use of insulin; Z79.899 Other long term (current) drug therapy; Z79.84 Long term (current) use of oral hypoglycemic drugs; Z87.2 Personal history of diseases of the skin and subcutaneous tissue
CPT/HCPCS: 80048; 80076; 83690; 85025; 85652; 86140; 87040; 93971; 96374; 96375; 96376; 99284; J2765

== ENCOUNTER → 2017-02-06 | Outpatient (REF) | payer MEDICARE, OTHER | LOC: M LAB REF 16:56 | DX: L03.90 Cellulitis, unspecified (principal); L81.8 Other specified disorders of pigmentation | CPT/HCPCS: 86803 ==

== ENCOUNTER 2017-02-13 11:10 | Outpatient (RCR) | payer MEDICARE, OTHER | END 2017-03-13 | LOC: M PT 11:10 | DX: Z51.89 Encounter for other specified aftercare (principal); Z96.652 Presence of left artificial knee joint | CPT/HCPCS: 97110 ==

== ENCOUNTER → 2017-03-16 | Outpatient (CLI) | payer MEDICARE, OTHER ==
[2017-03-16 13:14] LABS: BLOOD UREA NITROGEN 15 MG/DL (7-18)
[2017-03-16 13:14] LABS: CREATININE FOR GFR 0.75 MG/DL (0.70-1.30); GLOMERULAR FILTRATION RATE > 60.0 (>49)
== END ==
LOC: M LAB 12:25
DX: I15.9 Secondary hypertension, unspecified (principal)
CPT/HCPCS: 82565

== ENCOUNTER 2017-03-18 11:20 | Outpatient (RCR) | payer MEDICARE, OTHER | END 2017-04-10 | LOC: M PT 11:20 | DX: Z51.89 Encounter for other specified aftercare (principal); Z96.652 Presence of left artificial knee joint | CPT/HCPCS: 97110 ==

== ENCOUNTER 2017-04-15 11:08 | Outpatient (RCR) | payer MEDICARE, OTHER | END 2017-05-11 | LOC: M PT 11:08 | DX: Z51.89 Encounter for other specified aftercare (principal); Z96.652 Presence of left artificial knee joint; S39.012D Strain of muscle, fascia and tendon of lower back, subsequent encounter; X58.XXXD Exposure to other specified factors, subsequent encounter; Y92.89 Other specified places as the place of occurrence of the external cause; M51.36 Other intervertebral disc degeneration, lumbar region; M79.9 Soft tissue disorder, unspecified | CPT/HCPCS: 97110 ==

== ENCOUNTER 2017-05-14 10:27 | Outpatient (RCR) | payer MEDICARE, OTHER | END 2017-06-10 | LOC: M PT 10:27 | DX: Z47.89 Encounter for other orthopedic aftercare (principal); Z96.652 Presence of left artificial knee joint | CPT/HCPCS: 97110 ==

== ENCOUNTER → 2017-12-29 | Outpatient (REF) | payer MEDICARE, OTHER | LOC: M LAB REF 21:31 | DX: L98.9 Disorder of the skin and subcutaneous tissue, unspecified (principal) | CPT/HCPCS: 87186 ==

== ENCOUNTER 2018-03-22 21:03 | Emergency (ER) | payer MEDICARE, OTHER ==
[~2018-03-22] VITALS: Ht 182.9 cm; Wt 122.3 kg
[~2018-03-22 21:03] MED LIST changes: -ACET1TAB17 PO; +ACET1TAB55 PO; +AUGM500T34 PO; -CLON1TAB PO; +CLON1TAB8 PO; +DILT240C14 PO; -DILT240C75 PO; +FLOM0.4C39 PO; -FLOM5CAP PO; -LASI20TA PO; +LASI20TA3 PO; -LINE600T PO; +LINE600T11 PO; +OMEP20CA3 PO; +SPIR-10 PO; -SPIR25TA2 PO; +TIZA2CAP PO; -TIZA2CAP3 PO; +ZOFR4TAB14 PO
[2018-03-22] MEDS ORDERED: DIOV160T6 PO (21:57)
[2018-03-22] MEDS ORDERED: ALB2.5NEB NEB (21:57)
[2018-03-22] MEDS ORDERED: SILD50TA PO (21:57)
[2018-03-22] MEDS ORDERED: MYRB50TA PO (21:57)
[2018-03-22] MEDS ORDERED: ASPIRIN 325 MG TAB PO ONE (22:15)
[2018-03-22 22:19] LABS: BASO # 0.1 10^3/uL (0.0-0.2); BASO % 0.6 % (0.0-1.0); EOS # 0.3 10^3/uL (0.0-0.50); EOS % 3.7 % (0.0-3.0); HEMATOCRIT 36.5 % (42.0-52.0); HEMOGLOBIN 12.2 g/dl (13.5-17.5); LYMPH # 1.8 10^3/uL (1.5-4.5); MEAN CORPUSCULAR HEMOGLOBIN 28.2 pg (27.0-33.0); MEAN CORPUSCULAR HGB CONC 33.4 g/dl (32.0-36.5); MEAN CORPUSCULAR VOLUME 84.5 fl (80.0-96.0); MONO # 0.5 10^3/uL (0.0-0.8); MONO % 5.9 % (0.0-5.0); NEUTROPHILS # 6.1 10^3/uL (1.8-7.7); NEUTROPHILS % 69.3 % (36.0-66.0); PLATELET COUNT, AUTOMATED 286 10^3/uL (150-450); RED BLOOD COUNT 4.32 10^6/uL (4.30-6.10); WHITE BLOOD COUNT 8.8 10^3/uL (4.0-10.0)
[2018-03-22 22:31] LABS: INR 1.55; PROTHROMBIN TIME 18.8 SECONDS (12.1-14.4)
[2018-03-22 22:32] LABS: PARTIAL THROMBOPLASTIN TIME 35.1 SECONDS (25.4-37.6)
--- NOTE | 2018-03-22 22:47 | REPVR ---
EXAM: CT Head Without Contrast EXAM DATE/TIME: 03/22/2018 10:32 PM CLINICAL HISTORY: 67 years old, male; Pain; Headache; Additional info: MYRES TECHNIQUE: Axial computed tomography images of the head/brain without contrast. All CT scans at this facility use at least one of these dose optimization techniques: automated exposure control; mA and/or kV adjustment per patient size (includes targeted exams where dose is matched to clinical indication); or iterative reconstruction. COMPARISON: CT Head without contrast 07/25/2015 12:41 PM FINDINGS: Brain: There is parenchymal volume loss. White matter changes are demonstrated in the subcortical, centrum semiovale and periventricular white matter consistent with small vessel white matter angiopathic gliosis. Chronic lacunar infarct left periventricular region. Ventricles: The degree of ventricular dilatation is normal for age. No pathologic enlargement demonstrated. Bones/joints: Unremarkable. No acute fracture. Sinuses: Visualized sinuses are unremarkable. No acute sinusitis. Mastoid air cells: Visualized mastoid air cells are unremarkable. No mastoid effusion. Soft tissues: Unremarkable. Vasculature: Atherosclerotic changes of the 4 segments of the vertebral arteries. Atherosclerotic changes in the basilar artery. Atherosclerotic changes in both intracranial carotid arteries. IMPRESSION: There is parenchymal volume loss. White matter changes are demonstrated in the subcortical, centrum semiovale and periventricular white matter consistent with small vessel white matter angiopathic gliosis. Electronically signed by: Ariel Araujo On 03/22/2018 22:47:21 PM
[2018-03-22 22:55] LABS: BLOOD UREA NITROGEN 27 MG/DL (7-18); CALCIUM LEVEL 8.1 MG/DL (8.8-10.2); CARBON DIOXIDE LEVEL 28 MEQ/L (21-32); CHLORIDE LEVEL 106 MEQ/L (98-107); CPK CREATINE PHOSPHOKINASE 129 U/L (39-308); CREATININE FOR GFR 1.27 MG/DL (0.70-1.30); GLUCOSE, FASTING 157 MG/DL (70-100); MB/CK RELATIVE INDEX 1.16 (< OR =4); POTASSIUM SERUM 3.9 MEQ/L (3.5-5.1); SODIUM LEVEL 140 MEQ/L (136-145); TROPONIN I < 0.02 NG/ML (< 0.10)
[2018-03-22] MEDS ORDERED: NS 500 ML IV ONE (23:00)
[2018-03-23 02:12] LABS: CPK CREATINE PHOSPHOKINASE 120 U/L (39-308); MB/CK RELATIVE INDEX 0.92 (< OR =4); TROPONIN I < 0.02 NG/ML (< 0.10)
[2018-03-23] MEDS ORDERED: KETOROLAC 30 MG/ML VIAL (J1885) IV ONE (02:30)
[2018-03-23] MEDS ORDERED: ISOVUE-370 76% 100ML VIAL (Q9967) As Ordered ONE (02:35)
--- NOTE | 2018-03-23 03:10 | REPVR ---
EXAM: CT Angiography Chest With Contrast EXAM DATE/TIME: 03/23/2018 2:53 AM CLINICAL HISTORY: 67 years old, male; Chest pain TECHNIQUE: Axial computed tomographic angiography images of the chest with intravenous contrast using CT angiography protocol. All CT scans at this facility use at least one of these dose optimization techniques: automated exposure control; mA and/or kV adjustment per patient size (includes targeted exams where dose is matched to clinical indication); or iterative reconstruction. Coronal and sagittal reformatted images were created and reviewed. MIP reconstructed images were created and reviewed. CONTRAST: 75 ml of ISOVUE 370 administered intravenously. COMPARISON: CR Chest, 1 view 03/22/2018 10:27 PM FINDINGS: Pulmonary arteries: No pulmonary embolism is identified. Aorta: There is no thoracic aortic aneurysm, pseudoaneurysm, penetrating atherosclerotic ulcer, or dissection. Thyroid: The thyroid gland is heterogeneous in appearance and contains a 17 mm nodule in the right lobe. There is also an 8 mm nodule in the left lobe of the thyroid gland. The thyroid gland was not fully imaged. Lungs: There is a 2 mm calcified granuloma in the right upper lobe (image 40 of the axial series 401). There is a 3 mm calcified granuloma in the right middle lobe (image 94 of the axial series 401). There is a 3 mm calcified granuloma in the left lower lobe (image 59 of the coronal MIP series 405). The lungs are otherwise clear. There is no lung consolidation, pulmonary infarct, or mass. No emphysematous changes or interstitial lung disease is noted. The major airways are patent. Pleural space: Normal. No pneumothorax. No pleural effusion. Heart: The heart is mildly enlarged. There are coronary artery calcifications. No pericardial effusion is noted. Mediastinum: No mediastinal mass, hemorrhage, or pneumomediastinum is noted. Gallbladder: There are surgical clips in the gallbladder fossa. Lymph nodes: Normal. No enlarged lymph nodes. Bones/joints: The imaged bony structures are intact. There is no suspicious osteolytic or osteoblastic lesion. There are bridging paraspinal osteophytes at multiple contiguous levels in the thoracic spine, which is compatible with diffuse idiopathic skeletal hyperostosis. Soft tissues: Unremarkable. IMPRESSION: 1. No acute findings in the chest. No pulmonary embolism. 2. Thyroid nodules as described above measuring up to 17 mm. Further evaluation with a thyroid ultrasound is recommended. COMMENT: Consistent with the [employer] [place] [employer]'s Incidental Findings Committee Report (J Am Jo Radiol 2015): Unless the patient has clinical risk factors for thyroid cancer or has suspicious findings characterized in this report, for patients under 35 years old any thyroid nodule less than 1.0 cm, and for patients at least 35 years old any thyroid nodule less than 1.5 cm is highly likely to be benign and does not require follow-up imaging or biopsy. Patients with limited life expectancy and/or comorbidities do not require follow up imaging or biopsy for nodules of any size. Consistent with the [employer] [place] [employer]'s Incidental Findings Committee Report (J Am Jo Radiol 2015): Thyroid nodules greater than or equal to 1 cm in patients under 35 years old, or greater than or equal to 1.5 cm in patients over 35 years old, should undergo ultrasound. Patients with limited life expectancy and/or comorbidities do not require follow up imaging or biopsy for nodules of any size. Electronically signed by: Christiano Zelaya On 03/23/2018 03:09:45 AM
[2018-03-23] MEDS ORDERED: PANTOPRAZOLE 40MG INJ (PROTONIX) (C9113) IV ONE (03:15)
[2018-03-23] MEDS ORDERED: GI COCKTAIL 50ML BTL(HYOSCYAMINE/MAALOX/LIDOCAINE VISCOUS)(1:3:1) PO ONE (03:15)
[2018-03-23 03:45] VITALS: BP 124/86
[2018-03-23] MEDS ORDERED: PROT1TAB2 PO (03:59)
--- NOTE | 2018-03-23 06:38 | ECGEPIP ---
Stationary ECG Study [facility] - ED Test Date: 2018-03-22 Pat Name: QUINTEN STONE Department: Room: - Gender: M Welfare Eligibility Interviewer: ARTEMIO : 1950 Requested By: DEEPTI KELLER Order Number: [id number] Reading MD: Jaime Cooper Measurements Intervals [place] Rate: 74 P: MI: 0 QRS: 43 QRSD: 120 T: 51 QT: 409 QTc: 456 Interpretive Statements ATRIAL FIBRILLATION MODERATE INTRAVENTRICULAR CONDUCTION DELAY ABNORMAL RHYTHM ECG PROLONGED QTC NONSPECIFIC ST T WAVE CHANGES CW 10/13/14 RATE INCREASED RHYHTM CHANGE CLINICALLY CORRELATE Electronically Signed On 03-23-2018 6:38:03 EST by Jaime Cooper
--- NOTE | 2018-03-23 06:43 | ECGEPIP ---
Stationary ECG Study [facility] - ED Test Date: 2018-03-23 Pat Name: QUINTEN STONE Department: Room: - Gender: M White Sourer: EDE : 1950 Requested By: DEEPTI KELLER Order Number: [id number] Reading MD: Jaime Cooper Measurements Intervals [place] Rate: 72 P: NV: 0 QRS: 45 QRSD: 116 T: 44 QT: 407 QTc: 448 Interpretive Statements ATRIAL FIBRILLATION MODERATE INTRAVENTRICULAR CONDUCTION DELAY ABNORMAL RHYTHM ECG NONSPECIFIC ST T WAVE CHANGES CW 03/22/[address] T WAVE CHANGES Electronically Signed On 03-23-2018 6:42:43 EST by Jaime Cooper
--- NOTE | 2018-03-24 11:34 | REP ---
CHEST: Single view. There is no evidence of acute infiltrate. No pleural effusion is seen. The heart is normal in size. The mediastinal silhouette is unremarkable. The visualized osseous structures are intact. IMPRESSION: No acute pulmonary disease. Electronically Signed by Shahram Herrera MD 03/24/2018 10:56 P
--- NOTE | 2018-03-25 09:07 | ED PDOC ---
Post-Departure Follow-Up [facility] faxed formal report of cta chest for fu Jaime Cabezas MD Mar 25, 2018 09:07
== END 2018-03-23 04:11 | disposition home or self-care (01) ==
LOC: EDBD 21:03 → M ED 21:03
DX: R07.89 Other chest pain (principal); K21.9 Gastro-esophageal reflux disease without esophagitis; R51 Headache; I48.91 Unspecified atrial fibrillation; I10 Essential (primary) hypertension; E78.5 Hyperlipidemia, unspecified; E11.9 Type 2 diabetes mellitus without complications; M54.9 Dorsalgia, unspecified; Z88.5 Allergy status to narcotic agent; Z79.899 Other long term (current) drug therapy; Z79.01 Long term (current) use of anticoagulants; Z79.4 Long term (current) use of insulin; Z79.84 Long term (current) use of oral hypoglycemic drugs
CPT/HCPCS: 70450; 71045; 71275; 80048; 82550; 82553; 84484; 85025; 85610; 85730; 93005; 93041; 94760; 96361; 96374; 96375; 99285; C9113; J1885; Q9967

== ENCOUNTER 2018-08-21 01:19 | Observation (INO) | payer MEDICARE, OTHER ==
[~2018-08-21] VITALS: Ht 182.9 cm; Wt 117.0 kg
[~2018-08-21 01:19] MED LIST changes: -/WARF25TA OR; -/WARF5TA OR; +ALB2.5NEB NEB; +COUM1TAB17 OR; +COUM1TAB18 OR; -DILT240C14 PO; +DILT240C82 PO; +DIOV160T6 PO; +LINE1TAB6 PO; -LINE600T11 PO; +OMEP10CA PO; -OMEP10CA45 PO; -OMEP20CA3 PO; +OMEP20CA4 PO; +PROT1TAB2 PO; +SILD50TA PO; -VALS1TAB47 PO; +VALS1TAB67 PO
[2018-08-21 02:33] LABS: BASO # 0.1 10^3/uL (0.0-0.2); BASO % 0.8 % (0.0-1.0); EOS # 0.3 10^3/uL (0.0-0.50); EOS % 4.9 % (0.0-3.0); HEMATOCRIT 35.6 % (42.0-52.0); HEMOGLOBIN 11.9 g/dl (13.5-17.5); LYMPH # 1.7 10^3/uL (1.5-4.5); MEAN CORPUSCULAR HEMOGLOBIN 29.3 pg (27.0-33.0); MEAN CORPUSCULAR HGB CONC 33.4 g/dl (32.0-36.5); MEAN CORPUSCULAR VOLUME 87.7 fl (80.0-96.0); MONO # 0.4 10^3/uL (0.0-0.8); MONO % 6.8 % (0.0-5.0); NEUTROPHILS # 3.5 10^3/uL (1.8-7.7); NEUTROPHILS % 59.3 % (36.0-66.0); PLATELET COUNT, AUTOMATED 221 10^3/uL (150-450); RED BLOOD COUNT 4.06 10^6/uL (4.30-6.10); WHITE BLOOD COUNT 5.9 10^3/uL (4.0-10.0)
[2018-08-21 02:52] LABS: BLOOD UREA NITROGEN 23 MG/DL (7-18); CALCIUM LEVEL 8.3 MG/DL (8.8-10.2); CARBON DIOXIDE LEVEL 28 MEQ/L (21-32); CHLORIDE LEVEL 108 MEQ/L (98-107); CREATININE FOR GFR 0.94 MG/DL (0.70-1.30); GLOMERULAR FILTRATION RATE > 60.0 (>49); GLUCOSE, FASTING 292 MG/DL (70-100); POTASSIUM SERUM 3.5 MEQ/L (3.5-5.1); SODIUM LEVEL 143 MEQ/L (136-145)
[2018-08-21 03:14] LABS: C REACTIVE PROTEIN QUANTITATIV 0.38 MG/DL (0.00-0.30)
[2018-08-21] MEDS ORDERED: GLUCOSE 4 GM CHEW TABLET PO PRN (04:15)
[2018-08-21] MEDS ORDERED: GLUCAGON FOR INJ 1 MG VIAL (J1610) SC PRN (04:15)
[2018-08-21] MEDS ORDERED: DEXTROSE 50% 50 ML SYRINGE IV PRN (04:15)
[2018-08-21] MEDS ORDERED: IPRATROPIUM 0.5MG/ALBUTEROL 2.5MG INH SOL UD 3ML (DUONEB)(J7620) NEB PRN (04:15)
[2018-08-21] MEDS ORDERED: VANCOMYCIN HCL 1,000 MG, VIAL MATE ADAPTER 1 EACH in D5W 250 ML IV ONE (04:30)
--- NOTE | 2018-08-21 04:45 | HPEPDOC ---
General Date of Admission Aug 21, 2018 at 04:07 Date of Service: Aug 21, 2018 Chief Complaint The patient is a 68-year-old male admitted with a reason for visit of Cellulitis. History of Present Illness 68-year-old male with past medical history of hypertension, dyslipidemia, diabetes, diabetic neuropathy, restless leg syndrome, CVA, obesity, and atrial fibrillation on anticoagulation presented to the ER with a chief complaint of lower extremity redness and pain. The patient states that he was painting on Saturday, and noticed that he was getting bitten by multiple mosquitoes. Over the next 24 hours, the patient states that both of his legs from the knees down or red and irritated, with the right extremity being worse. He denies any fevers, chills, chest pain, palpitations, shortness of breath, PND, orthopnea, abdominal pain, or any nausea/vomiting/diarrhea. Home Medications Scheduled Albuterol Sulfate (Albuterol Sulfate) 2.5 Mg/0.5 Ml Neb, 1 VIAL NEB Q6H for shortness of breath, (Reported) Clonazepam (Clonazepam) 1 Mg Tab, 1 MG PO BID, (Reported) takes at 1800 and 2300 Diltiazem HCl (Diltiazem 24Hr ER) 240 Mg Cap, 240 MG PO DAILY, (Reported) Insulin Detemir (Levemir Flextouch) 100 Unit/Ml Inj, 47 UNIT SC DAILY, (Reported) Liraglutide (Victoza 2-Tab) 18 Mg/3 Ml Inj, 1.8 MG SC DAILY, (Reported) Metformin HCl (Metformin HCl) 1,000 Mg Tab, 1,000 MG PO BID, (Reported) Mirabegron (Myrbetriq) 50 Mg Tab, 50 MG PO DAILY, (Reported) Multivitamin (Multivitamins) 1 Cap Cap, 1 CAP PO BID, (Reported) Nebivolol HCl (Bystolic) 2.5 Mg Tab, 2.5 MG PO DAILY, (Reported) Omeprazole (Omeprazole) 20 Mg Cap, 20 MG PO DAILY, (Reported) Pantoprazole Sodium (Protonix) 40 Mg Tab, 40 MG PO DAILY Pravastatin Sodium (Pravachol) 20 Mg Tab, 20 MG PO DAILY, (Reported) Pregabalin (Lyrica) 50 Mg Cap, 100 MG PO BID, (Reported) takes @1800 and at bedtime Rivaroxaban (Xarelto) 20 Mg Tab, 20 MG PO QHS, (Reported) Ropinirole HCl (Ropinirole ER) 2 Mg Tab, 4 MG PO BID, (Reported) TAKES 1800 AND AT BEDTIME Sildenafil Citrate (Viagra) 50 Mg Tab, 50 MG PO ASDIRECTED for erectile dysfunction, (Reported) 1 hour before sexual activity Spironolactone (Spironolactone) 25 Mg Tab, 12.5 MG PO QAM, (Reported) Tizanidine HCl (Tizanidine HCl) 2 Mg Tab, 2 MG PO TID, (Reported) Valsartan (Diovan) 160 Mg Tab, 160 MG PO DAILY, (Reported) Scheduled PRN Acetaminophen (Acetaminophen) 325 Mg Tab, 975 MG PO Q6H PRN for PAIN, (Reported) Tramadol HCl (Tramadol HCl) 50 Mg Tab, 50 MG PO Q6H PRN for PAIN, (Reported) Allergies Coded Allergies: codeine (Verified Allergy, Intermediate, jitters, 08/21/18) oxycodone (Verified Adverse Reaction, Mild, nightmares, 08/21/18) Past Medical History Medical History As noted in HPI. Surgical History 1. Previous surgery attempted gallbladder removal unsuccessful. 2. LASIK eye surgery both eyes. 3. Right total knee replacement surgery twice, as well as left knee repair of meniscus and left total knee replacement surgery in December 2016. Social History * Smoker: Denies Alcohol: Denies Review of Systems Other systems 10 point review of systems negative unless otherwise specified in HPI. Physical Examination General Exam: Positive: Alert, Cooperative, No Acute Distress ENT Exam: Positive: Atraumatic, Mucous membr. moist/pink Neck Exam: Negative: JVD Chest Exam: Positive: Clear to auscultation, Normal air movement Heart Exam: Positive: Rate Normal, Normal S1, Normal S2 Abdomen Exam: Positive: Soft; Negative: Tenderness Extremity Exam: Positive: Other (bilateral lower extremity erythematous changes consistent with cellulitis noted right greater than left extending from the distal aspect of the knee downward measuring approximately 6 cm across. No open wounds or drainage noted.) Psych Exam: Positive: Oriented x 3 Vital Signs Vital Signs Date Time Temp Pulse Resp B/P (MAP) Pulse Ox O2 Delivery O2 Flow Rate FiO2 08/21/18 04:01 74 16 148/96 (113) 97 08/21/18 01:20 96.5 Room Air Laboratory Data Labs 24H Laboratory Tests 2 08/21/18 02:24: Immature Granulocyte % (Auto) 0.2, White Blood Count 5.9, Red Blood Count 4.06L, Hemoglobin 11.9L, Hematocrit 35.6L, Mean Corpuscular Volume 87.7, Mean Corpuscular Hemoglobin 29.3, Mean Corpuscular Hemoglobin Concent 33.4, Red Cell Distribution Width 14.0, Platelet Count 221, Neutrophils (%) (Auto) 59.3, Lymphocytes (%) (Auto) 28.0, Monocytes (%) (Auto) 6.8H, Eosinophils (%) (Auto) 4.9H, Basophils (%) (Auto) 0.8, Neutrophils # (Auto) 3.5, Lymphocytes # (Auto) 1.7, Monocytes # (Auto) 0.4, Eosinophils # (Auto) 0.3, Basophils # (Auto) 0.1, Nucleated Red Blood Cells % (auto) 0.0, Anion Gap 7L, Glomerular Filtration Rate > 60.0, Blood Urea Nitrogen 23H, Creatinine 0.94, Sodium Level 143, Potassium Level 3.5, Chloride Level 108H, Carbon Dioxide Level 28, Calcium Level 8.3L, C- Reactive Protein, Quantitative 0.38H CBC/BMP Laboratory Tests 08/21/18 02:24 Red Blood Count 4.06 L, Mean Corpuscular Volume 87.7, Mean Corpuscular Hemoglobin 29.3, Mean Corpuscular Hemoglobin Concent 33.4, Red Cell Distribution Width 14.0, Neutrophils (%) (Auto) 59.3, Lymphocytes (%) (Auto) 28.0, Monocytes (%) (Auto) 6.8 H, Eosinophils (%) (Auto) 4.9 H, Basophils (%) (Auto) 0.8, Neutrophils # (Auto) 3.5, Lymphocytes # (Auto) 1.7, Monocytes # (Auto) 0.4, Eosinophils # (Auto) 0.3, Basophils # (Auto) 0.1, Calcium Level 8.3 L Microbiology Microbiology 08/21/18 Blood Culture, Received Pending 08/21/18 Blood Culture, Received Pending Plan / VTE VTE Prophylaxis Ordered?: Yes Plan Plan Lower Extremity Cellulitis WBC wnl, patient Afebrile CRP marker borderline elevated Offered the patient PO Abx and discharge from the ER, however he states that he has had multiple lower extremity cellulitic infections in the past that worsened and eventually required inpatient IV antibiotics. Blood cultures ordered in the ER IV Vanco for empiric coverage Diabetes mellitus Continue insulin regimen as ordered Hypertension Continue current regimen Atrial fibrillation Continue bystolic, xarelto Diabetic neuropathy Continue Lyrica GERD Continue PPI Dyslipidemia Continue statin DVT Prophylaxis On Xalynetteto LINDA CORDOVA MD Aug 21, 2018 04:45
[2018-08-21] MEDS ORDERED: ALBU83IN INH (04:58)
[2018-08-21] MEDS ORDERED: PREG100CA PO (04:58)
[2018-08-21] MEDS ORDERED: VITMTA PO (04:58)
[2018-08-21] MEDS ORDERED: ACET650T3 PO (04:58)
[2018-08-21] MEDS ORDERED: PILL CUTTER 1 EACH XX PRN (05:30)
[2018-08-21] MEDS ORDERED: VANCOMYCIN HCL 750 MG, VIAL MATE ADAPTER 1 EACH in D5W 250 ML IV ONE (05:30)
--- NOTE | 2018-08-21 06:30 | PHACANCOPD ---
PHARMACY VANCOMYCIN DOSING Pt Demographics Demographics Patient Age:68 , Weight:115.000 , Gender: male Adjusted Body Weight Date: 08/21/18, Adjusted Body Weight: [95.3] Kg Vancomycin Vancomycin indication: RIGHT LEG CELLULITIS Vancomycin Target Ranges: 10-20 mcg/ml Vancomycin Load Y/N: Yes Load Dose Date Time Vancomycin Load Dose: 1750MG Date: 08/20 Time: 2300 Vancomycin Dose Date: 08/21/18. Current Vancomycin Dose: [1 GM Q8H] Intermittent Dosing?: No Labs Labs Laboratory Tests 08/21/18 02:24 Red Blood Count 4.06 L, Mean Corpuscular Volume 87.7, Mean Corpuscular Hemoglobin 29.3, Mean Corpuscular Hemoglobin Concent 33.4, Red Cell Distribution Width 14.0, Neutrophils (%) (Auto) 59.3, Lymphocytes (%) (Auto) 28.0, Monocytes (%) (Auto) 6.8 H, Eosinophils (%) (Auto) 4.9 H, Basophils (%) (Auto) 0.8, Neutrophils # (Auto) 3.5, Lymphocytes # (Auto) 1.7, Monocytes # (Auto) 0.4, Eosinophils # (Auto) 0.3, Basophils # (Auto) 0.1, Calcium Level 8.3 L Micro Microbiology 08/21/18 Blood Culture, Received Pending 08/21/18 Blood Culture, Received Pending Creatinine Clearance Date:08/21/18. Creatinine Clearance: [99.9].CALCULATED Pending Labs Date: 08/21/18. Pharmacist note:68YOM ,SCR=0.94,CRCL=99.9ALLERGIES:CODEINE,OXYCODONE,ADMITTED W/ROGHT LEG CELLULITIS.ADMINISTERED VANCOMYCIN 1750MG LOAD,FOLLOWED BY REGIMEN OF 1 GRAM IV [id number].FIRST TROUGH IS SCHEDULED FOR 08/22@0500-PRIOR TO THE 4TH DOSE- WILL CONTINUE TO FOLLOW LABS AND ADJUST DOSE NEEDED Assessment and Plan Maintaining Current Dose?: Yes Reason for dose change: No Dose Change Pharmacist Note Pharmacist Note Date: 08/21/18. Pharmacist note: [facility] Aug 21, 2018 06:30
[2018-08-21] MEDS: HumaLOG INSULIN (NovoLOG) PER UNIT SC SCH ×4 (07:43→22:07)
[2018-08-21 09:00] VITALS: BP 139/93
[2018-08-21] MEDS: MULTIVITAMINS/MINERALS THERAP 1 TAB PO SCH ×2 (10:34→22:06)
[2018-08-21] MEDS: OMEPRAZOLE 20 MG CAP PO SCH (10:34)
[2018-08-21] MEDS: PRAVASTATIN 20 MG TAB PO SCH (10:34)
[2018-08-21] MEDS: tiZANidine 4 MG TAB PO SCH ×3 (10:35→22:05)
[2018-08-21] MEDS: NEBIVOLOL 5 MG TAB (BYSTOLIC) PO SCH (10:36)
[2018-08-21] MEDS: SPIRONOLACTONE 12.5MG PER 1/2 TABLET PO SCH (10:36)
[2018-08-21] MEDS: LEVEMIR (INSULIN DETEMIR) 1 UNITS/0.01ML SC SCH (10:47)
[2018-08-21] MEDS: ACETAMINOPHEN 650MG ER TAB (TYLENOL ARTHRITIS) PO PRN (13:56)
[2018-08-21 14:00] VITALS: BP 130/80
[2018-08-21] MEDS: VANCOMYCIN HCL 1,000 MG, VIAL MATE ADAPTER 1 EACH in D5W 250 ML IV SCH ×2 (14:51→22:06)
[2018-08-21] MEDS: diphenhydrAMINE 25 MG CAP PO PRN (15:41)
[2018-08-21 22:00] VITALS: BP 131/72
[2018-08-21] MEDS: rOPINIRole 2MG TAB PO SCH (22:02)
[2018-08-21] MEDS: traMADol 50 MG TAB PO PRN (22:03)
[2018-08-21] MEDS: VALSARTAN 80 MG TAB (DIOVAN) PO SCH (22:04)
[2018-08-21] MEDS: clonazePAM 1 MG TAB PO SCH (22:05)
[2018-08-21] MEDS: PREGABALIN 100 MG CAP (LYRICA) PO SCH (22:05)
[2018-08-21] MEDS: RIVAROXABAN 20 MG TAB (XARELTO) PO SCH (22:06)
[2018-08-22] MEDS: traMADol 50 MG TAB PO PRN (04:15)
[2018-08-22 05:42] LABS: HEMATOCRIT 33.8 % (42.0-52.0); HEMOGLOBIN 11.4 g/dl (13.5-17.5); MEAN CORPUSCULAR HEMOGLOBIN 28.5 pg (27.0-33.0); MEAN CORPUSCULAR HGB CONC 33.7 g/dl (32.0-36.5); MEAN CORPUSCULAR VOLUME 84.5 fl (80.0-96.0); PLATELET COUNT, AUTOMATED 201 10^3/uL (150-450); WHITE BLOOD COUNT 6.1 10^3/uL (4.0-10.0)
[2018-08-22 05:57] LABS: BLOOD UREA NITROGEN 12 MG/DL (7-18); CALCIUM LEVEL 8.1 MG/DL (8.8-10.2); CARBON DIOXIDE LEVEL 28 MEQ/L (21-32); CHLORIDE LEVEL 112 MEQ/L (98-107); CREATININE FOR GFR 0.85 MG/DL (0.70-1.30); GLOMERULAR FILTRATION RATE > 60.0 (>49); GLUCOSE, FASTING 123 MG/DL (70-100); MAGNESIUM LEVEL 1.7 MG/DL (1.8-2.4); POTASSIUM SERUM 3.6 MEQ/L (3.5-5.1); SODIUM LEVEL 144 MEQ/L (136-145); VANCOMYCIN LEVEL TROUGH 13.8 UG/ML (10.0-20.0)
[2018-08-22 06:00] VITALS: BP 113/73
[2018-08-22] MEDS: VANCOMYCIN HCL 1,000 MG, VIAL MATE ADAPTER 1 EACH in D5W 250 ML IV SCH ×3 (06:34→23:00)
[2018-08-22] MEDS: HumaLOG INSULIN (NovoLOG) PER UNIT SC SCH ×4 (08:14→21:00)
[2018-08-22] MEDS: SPIRONOLACTONE 12.5MG PER 1/2 TABLET PO SCH (08:14)
[2018-08-22] MEDS: OMEPRAZOLE 20 MG CAP PO SCH (08:15)
[2018-08-22] MEDS: tiZANidine 4 MG TAB PO SCH ×3 (08:15→21:55)
[2018-08-22] MEDS: PRAVASTATIN 20 MG TAB PO SCH (08:15)
[2018-08-22] MEDS: LEVEMIR (INSULIN DETEMIR) 1 UNITS/0.01ML SC SCH (08:15)
[2018-08-22] MEDS: MULTIVITAMINS/MINERALS THERAP 1 TAB PO SCH ×2 (08:15→21:55)
[2018-08-22] MEDS: NEBIVOLOL 5 MG TAB (BYSTOLIC) PO SCH (08:18)
[2018-08-22] MEDS: diphenhydrAMINE 25 MG CAP PO PRN (11:29)
[2018-08-22 14:00] VITALS: BP 126/69
--- NOTE | 2018-08-22 14:34 | PHACANCOPD ---
PHARMACY VANCOMYCIN DOSING Pt Demographics Demographics Patient Age:68 , Weight:117.000 , Gender: male Adjusted Body Weight Date: 08/21/18, Adjusted Body Weight: [95.3] Kg Events Past 24 Hours Events Past 24 Hours: NO: Dialysis, Diuretic Therapy, Change in CrCl, Fever, Elevation in WBC, Pending Diagnostics, Pending Procedures, Other Vancomycin Vancomycin indication: RIGHT LEG CELLULITIS Vancomycin Target Ranges: 10-20 mcg/ml Vancomycin Load Y/N: Yes Load Dose Date Time Vancomycin Load Dose: 1750MG Date: 08/20 Time: 2300 Vancomycin Dose Date: 08/21/18. Current Vancomycin Dose: [1 GM Q8H @14] Intermittent Dosing?: No Labs Labs Item Value Date Time White Blood Count 6.1 10^3/uL 08/22/18517 White Blood Count 5.9 10^3/uL 08/21/18 0224 Creatinine 0.94 MG/DL 08/21/18223 Creatinine 0.85 MG/DL 08/22/1818 Glomerular Filtration Rate > 60.0 08/22/18517 Glomerular Filtration Rate > 60.0 08/21/18 0224 C-Reactive Protein, Quantitative 0.30 MG/DL 08/22/1818 Vancomycin Level Trough 13.8 UG/ML 08/22/1818 Micro Microbiology 08/21/18 Blood Culture - Preliminary, Resulted No growth after 24 hours . All specim... 08/21/18 Blood Culture - Preliminary, Resulted No growth after 24 hours . All specim... Creatinine Clearance Date:08/21/18. Creatinine Clearance: [99.9].CALCULATED Pending Labs Date: 08/21/18. Pharmacist note:68YOM ,SCR=0.94,CRCL=99.9ALLERGIES:CODEINE,OX YCODONE,ADMITTED W/ROGHT LEG CELLULITIS.ADMINISTERED VANCOMYCIN 1750MG LOAD,FOLLOWED BY REGIMEN OF 1 GRAM IV [id number].FIRST TROUGH IS SCHEDULED FOR 08/22@0500-PRIOR TO THE 4TH DOSE- WILL CONTINUE TO FOLLOW LABS AND ADJUST DOSE NEEDED Assessment and Plan Maintaining Current Dose?: Yes Reason for dose change: No Dose Change Pharmacist Note Pharmacist Note Note: 08/22/18: Trough from today at 0500 came back at 13.8, well within the target range. No changes in patient status or severity of disease. If the prescriber decides to continue on the current vanco dosing, a trough was ordered for 08/23/18 @1300 to assess steady-state level. We will continue to monitor and make adjustments as needed. Date: 08/21/18. Pharmacist note:Date: 08/21/18. Pharmacist note:68YOM ,SCR=0.94,CRCL=99.9ALLERGIES:CODEINE,OXYCODONE,ADMITTED W/ROGHT LEG CELLULITIS.ADMINISTERED VANCOMYCIN 1750MG LOAD,FOLLOWED BY REGIMEN OF 1 GRAM IV [id number].FIRST TROUGH IS SCHEDULED FOR 08/22@0500-PRIOR TO THE 4TH DOSE- WILL CONTINUE TO FOLLOW LABS AND ADJUST DOSE NEEDED FAHAD [facility] Aug 22, 2018 14:34
--- NOTE | 2018-08-22 16:51 | IPNPDOC ---
Text Note Date of Service The patient was seen on 08/22/18. NOTE Mr. Cruz is a 68-year-old male admitted with bilateral lower extremity cell ulitis. He has had episodes in the past. He has no underlying history of zia-ukyfczd-gsuxlmwma diabetes mellitus. This episode appears to have been triggered by insect bites. Physical exam Vital signs: Please see below. HENT: Neck is supple with no adenopathy or thyromegaly, oral mucosa is moist, no scleral icterus or injection. Cardiovascular: Regular rate and rhythm with a normal S1 and S2. Respiratory: Clear to auscultation, no rhonchi, rales or wheezes. Abdomen: Soft, nondistended, moderate central obesity, bowel tones present. Extremities: Asymmetric edema, greater on the right than on the left, this is chronic, erythema to both lower extremities is receding within demarcation lines, patient reports intermittent burning sensation, distally, pedal pulses are palpable Neuro: Patient reports occasional paresthesias to his lower extremities, otherwise has no focal neuromotor deficit 1. Lower extremity cellulitispatient has been placed on vancomycin empirically based on past experience. He has not had fever, leukocytosis or positive cultures to date. C-reactive protein is 0.3. We will treat him for an additional day with IV and then transition to oral antibiotics. 2. Hqu-pztqogp-guyhgoffs diabetes mellitusthis likely makes him more susceptible to cellulitis. We currently have reasonable glycemic control with his current sliding scale insulin. VS,Fishbone, I+O VS, Fishbone, I+O Laboratory Tests 08/22/18 05:18 Red Blood Count 4.00 L, Mean Corpuscular Volume 84.5, Mean Corpuscular Hemoglobin 28.5, Mean Corpuscular Hemoglobin Concent 33.7, Red Cell Distribution Width 14.0, Calcium Level 8.1 L Vital Signs Date Time Temp Pulse Resp B/P (MAP) Pulse Ox O2 Delivery O2 Flow Rate FiO2 08/22/18 14:00 96.0 56 20 126/69 (88) 96 08/21/18 01:20 Room Air I&O- Last 24 Hours up to 6 AM 08/22/18 05:59 Intake Total 1020 ml Output Total 1975 ml Balance -955 ml ADONIS PARKINSON MD Aug 22, 2018 16:51
[2018-08-22] MEDS: RIVAROXABAN 20 MG TAB (XARELTO) PO SCH (21:55)
[2018-08-22] MEDS: clonazePAM 1 MG TAB PO SCH (21:55)
[2018-08-22] MEDS: rOPINIRole 2MG TAB PO SCH (21:56)
[2018-08-22] MEDS: PREGABALIN 100 MG CAP (LYRICA) PO SCH (21:56)
[2018-08-22] MEDS: VALSARTAN 80 MG TAB (DIOVAN) PO SCH (21:57)
[2018-08-22 22:00] VITALS: BP 123/78
[2018-08-23 06:00] VITALS: BP 151/88
[2018-08-23] MEDS: VANCOMYCIN HCL 1,000 MG, VIAL MATE ADAPTER 1 EACH in D5W 250 ML IV SCH (06:16)
[2018-08-23] MEDS: traMADol 50 MG TAB PO PRN (06:22)
[2018-08-23] MEDS: PRAVASTATIN 20 MG TAB PO SCH (07:39)
[2018-08-23] MEDS: SPIRONOLACTONE 12.5MG PER 1/2 TABLET PO SCH (07:39)
[2018-08-23] MEDS: OMEPRAZOLE 20 MG CAP PO SCH (07:41)
[2018-08-23 07:42] VITALS: BP 169/97
[2018-08-23] MEDS: tiZANidine 4 MG TAB PO SCH (07:42)
[2018-08-23] MEDS: MULTIVITAMINS/MINERALS THERAP 1 TAB PO SCH (07:42)
[2018-08-23] MEDS: NEBIVOLOL 5 MG TAB (BYSTOLIC) PO SCH (07:42)
[2018-08-23] MEDS: LEVEMIR (INSULIN DETEMIR) 1 UNITS/0.01ML SC SCH (07:43)
[2018-08-23] MEDS: HumaLOG INSULIN (NovoLOG) PER UNIT SC SCH (07:43)
[2018-08-23 09:01] VITALS: BP 125/75
[2018-08-23] MEDS: ACETAMINOPHEN 650MG ER TAB (TYLENOL ARTHRITIS) PO PRN (09:24)
[2018-08-23] MEDS: diphenhydrAMINE 25 MG CAP PO PRN (09:24)
[2018-08-23 09:33] VITALS: BP 125/75
[2018-08-23] MEDS ORDERED: CLIN150C14 PO (10:31)
--- NOTE | 2018-08-23 21:27 | DS.PDOC ---
Discharge Summary General Date of Admission Aug 21, 2018 at 04:07 Date of Discharge 08/23/2018 Discharge Summary PROCEDURES PERFORMED DURING STAY: None. ADMITTING DIAGNOSES: 1. Bilateral lower extremity cellulitis. DISCHARGE DIAGNOSES: 1. Bilateral lower extremity cellulitis resolving, iua-futjfwd-pejarolef diabetes mellitus, essential hypertension, chronic atrial fibrillation with chronic anticoagulation with Xarelto, gastroesophageal reflux disease, dyslipidemia. COMPLICATIONS/CHIEF COMPLAINT: Cellulitis. HISTORY OF PRESENT ILLNESS/HOSPITAL COURSE: This is a 68-year-old male who presented to the emergency room with bilateral lower extremity erythema. There is also pain and edema. Symptoms are greater to the right lower extremity than the left lower extremity. Findings were attributed to multiple insect bites. The patient was admitted to the medical floor. He was started on empiric antibiotics for cellulitis with vancomycin. The patient did not have any fever or chills. He did not have leukocytosis. He did not have remarkably elevated inflammatory indicators; CRP was normal at 0.3 The erythema to his legs did recede to within drawn demarcations. There is decreased sensitivity to the skin. Blood cultures obtained were negative. It was then felt the patient would be able to be transitioned to oral antibiotics for discharge to home.. DISCHARGE MEDICATIONS: Please see below. ALLERGIES: Please see below. PHYSICAL EXAMINATION ON DISCHARGE: VITAL SIGNS: Please see below. GENERAL: The patient appears younger than stated age HENT: Neck is supple with no adenopathy or thyromegaly, oral mucosa is moist, no scleral icterus or injection. Cardiovascular: Regular rate and rhythm with a normal S1 and S2. Respiratory: Clear to auscultation, no rhonchi, rales or wheezes. Abdomen: Soft, nondistended, moderate central obesity, bowel tones present. Extremities: Asymmetric edema, greater on the right than on the left, this is chronic, erythema to both lower extremities is receding within demarcation lines, patient reports intermittent burning sensation, distally, pedal pulses are palpable Neuro: Patient reports occasional paresthesias to his lower extremities, othe rwise has no focal neuromotor deficit LABORATORY DATA: Please see below. IMAGING: PROGNOSIS: Good ACTIVITY: As tolerated. DIET: Consistent carbohydrate DISCHARGE PLAN: The patient is stable for discharge to home. He has been transitioned to oral antibiotics in the form of clindamycin. He can follow-up with his primary care provider Medina Huang in one week. DISPOSITION: 01 Home, Self-Care. DISCHARGE INSTRUCTIONS: 1. . ITEMS TO FOLLOWUP ON ON OUTPATIENT: 1. . DISCHARGE CONDITION: Stable. TIME SPENT ON DISCHARGE: Greater than 35 minutes. Vital Signs/I&Os Vital Signs Date Time Temp Pulse Resp B/P (MAP) Pulse Ox O2 Delivery O2 Flow Rate FiO2 08/23/18 09:33 96.4 125/75 08/23/18 09:01 74 24 100 08/21/18 01:20 Room Air I&O- Last 24 Hours up to 6 AM 08/23/18 06:00 Intake Total 3280 ml Output Total 2825 ml Balance 455 ml Laboratory Data Labs 24H Laboratory Tests 2 08/23/18 05:59: Bedside Glucose (Misc Panel) 145H FSBS Laboratory Tests Test 08/23/18 05:59 Range/Units Bedside Glucose (Misc Panel) 145 80-115 MG/DL Microbiology Microbiology 08/21/18 Blood Culture - Preliminary, Resulted No Growth after 48 hours. All Specime... 08/21/18 Blood Culture - Preliminary, Resulted No Growth after 48 hours. All Specime... Discharge Medications Scheduled Clindamycin Hcl (Clindamycin HCl) 150 Mg Capsule, 2 CAP PO TID Clonazepam (Clonazepam) 1 Mg Tab, 2 MG PO QHS, (Reported) Diltiazem HCl (Diltiazem 24Hr ER) 240 Mg Cap, 240 MG PO DAILY, (Reported) Insulin Detemir (Levemir Flextouch) 100 Unit/Ml Inj, 47 UNIT SC DAILY, (Reported) Liraglutide (Victoza 2-Tab) 18 Mg/3 Ml Inj, 1.8 MG SC DAILY, (Reported) Metformin HCl (Metformin HCl) 1,000 Mg Tab, 1,000 MG PO BID, (Reported) Mirabegron (Myrbetriq) 50 Mg Tab, 50 MG PO DAILY, (Reported) Multivitamins (Thera M Plus Tablet) 1 Each Tablet, 1 TAB PO BID, (Reported) Nebivolol HCl (Bystolic) 2.5 Mg Tab, 2.5 MG PO DAILY, (Reported) Omeprazole (Omeprazole) 20 Mg Cap, 20 MG PO DAILY, (Reported) Pravastatin Sodium (Pravachol) 20 Mg Tab, 20 MG PO DAILY, (Reported) Pregabalin (Lyrica) 100 Mg Capsule, 200 MG PO QHS, (Reported) Rivaroxaban (Xarelto) 20 Mg Tab, 20 MG PO QHS, (Reported) Ropinirole HCl (Ropinirole ER) 2 Mg Tab, 6 MG PO QHS, (Reported) Spironolactone (Spironolactone) 25 Mg Tab, 12.5 MG PO QAM, (Reported) Tizanidine HCl (Tizanidine HCl) 2 Mg Tab, 2 MG PO TID, (Reported) Valsartan (Diovan) 160 Mg Tab, 160 MG PO QHS, (Reported) Scheduled PRN Acetaminophen (Pain Reliever) 650 Mg Tablet.er, 1,300 MG PO BID PRN for PAIN, (Reported) Albuterol Sulf (Albuterol Sulfate) 2.5 Mg/3 Ml Vial.neb, 2.5 MG INH QID PRN for SHORTNESS OF BREATH, (Reported) Tramadol HCl (Tramadol HCl) 50 Mg Tab, 50 MG PO Q6H PRN for PAIN, (Reported) Allergies Coded Allergies: codeine (Verified Allergy, Intermediate, jitters, 08/21/18) oxycodone (Verified Adverse Reaction, Mild, nightmares, 08/21/18) ADONIS PARKINSON MD Aug 23, 2018 21:27
== END 2018-08-23 11:20 | disposition home or self-care (01) ==
LOC: M ED 01:19 → M ED INP 04:07 → M MSPAV 09:03
PROVIDERS: ADMIT Internal Medicine; ATTEND Internal Medicine
DX: L03.115 Cellulitis of right lower limb (principal); L03.116 Cellulitis of left lower limb; M79.661 Pain in right lower leg; M79.662 Pain in left lower leg; W57.XXXA Bitten or stung by nonvenomous insect and other nonvenomous arthropods, initial encounter; Y92.89 Other specified places as the place of occurrence of the external cause; E11.40 Type 2 diabetes mellitus with diabetic neuropathy, unspecified; I10 Essential (primary) hypertension; I48.2 Chronic atrial fibrillation; K21.9 Gastro-esophageal reflux disease without esophagitis; E78.5 Hyperlipidemia, unspecified; G25.81 Restless legs syndrome; E66.9 Obesity, unspecified; Z79.899 Other long term (current) drug therapy; Z79.01 Long term (current) use of anticoagulants; Z79.2 Long term (current) use of antibiotics; Z79.4 Long term (current) use of insulin; Z88.5 Allergy status to narcotic agent
CPT/HCPCS: 36415; 80048; 80202; 83735; 85025; 85027; 86140; 87040; 96365; 96366; 96376; 99285; G0378; J3370

== ENCOUNTER → 2018-09-04 | Outpatient (REF) | payer MEDICARE, OTHER ==
[~2018-09-04] MED LIST changes: +ACET650T3 PO; +ALBU83IN INH; +CLIN150C14 PO; +PREG100CA PO; +VITMTA PO
== END ==
LOC: M LAB REF 12:39
PROVIDERS: ATTEND Internal Medicine Endocrinology, Diabetes & Metabolism
DX: E04.1 Nontoxic single thyroid nodule (principal)

== ENCOUNTER 2019-01-08 14:07 | Inpatient (IN) | payer MEDICARE, OTHER ==
[~2019-01-08] VITALS: Ht 182.9 cm; Wt 114.8 kg
[2019-01-08 14:34] LABS: BASO # 0.1 10^3/uL (0.0-0.2); BASO % 0.9 % (0.0-1.0); EOS # 0.3 10^3/uL (0.0-0.5); EOS % 3.7 % (0.0-3.0); HEMATOCRIT 43.6 % (42.0-52.0); HEMOGLOBIN 14.2 g/dl (13.5-17.5); LYMPH # 1.9 10^3/uL (1.5-5.0); LYMPH % 29.1 % (24.0-44.0); MEAN CORPUSCULAR HGB CONC 32.6 g/dl (32.0-36.5); MEAN CORPUSCULAR VOLUME 85.8 fl (80.0-96.0); MONO # 0.5 10^3/uL (0.0-0.8); MONO % 6.9 % (0.0-5.0); NEUTROPHILS # 3.9 10^3/uL (1.5-8.5); NEUTROPHILS % 59.1 % (36.0-66.0); PLATELET COUNT, AUTOMATED 233 10^3/uL (150-450); RED BLOOD COUNT 5.08 10^6/uL (4.30-6.10); WHITE BLOOD COUNT 6.7 10^3/uL (4.0-10.0)
--- NOTE | 2019-01-08 14:38 | REP ---
Clinical: Acute cerebrovascular accident. Comparison: 03/22/2018 . Findings: Age-related atrophy with periventricular leukomalacia is again appreciated and similar to prior examination. The ventricles, sulci, and cisterns are normal in position and appearance. No acute intracranial hemorrhage, mass/mass effect, pathology or trauma/injury. No evidence for acute infarction. No extra-axial fluid collection. Calvarium is intact. Paranasal sinuses and mastoid air cells are clear. Impression: Age-related atrophy and microvascular ischemic changes. Findings appear relatively stable compared to 03/22/2018. No acute intracranial hemorrhage or mass effect. Electronically Signed by Shawn Robledo MD 01/08/2019 02:29 P
[2019-01-08 14:45] LABS: INR 1.95
--- NOTE | 2019-01-08 14:55 | REP ---
Clinical: Acute cerebrovascular accident. Comparison: 03/22/2018. Findings: Lung aaron are relatively clear and without consolidation. No effusion or pneumothorax. Cardiac silhouette is normal/stable. Skeletal structures are intact. Impression: No obvious acute cardiopulmonary process appreciated. Electronically Signed by Shawn Robledo MD 01/08/2019 02:47 P
[2019-01-08 15:02] LABS: CK-MB VALUE MASS 1.4 NG/ML (<3.6); CPK CREATINE PHOSPHOKINASE 88 U/L (39-308); MB/CK RELATIVE INDEX 1.59 (< OR =4); TROPONIN I < 0.02 NG/ML (< 0.10)
[2019-01-08] MEDS ORDERED: TORS10TA3 PO (15:05)
[2019-01-08] MEDS ORDERED: LEVE750XR PO (15:09)
[2019-01-08] MEDS ORDERED: OXYC1TAB23 PO (15:09)
[2019-01-08] MEDS ORDERED: CVS250TA3 PO (15:10)
[2019-01-08] MEDS ORDERED: LEVE750T5 PO (15:59)
[2019-01-08] MEDS ORDERED: ROPI2TAB24 PO (15:59)
[2019-01-08] MEDS ORDERED: ZINC1TAB2 PO (15:59)
[2019-01-08] MEDS ORDERED: TUMS500C PO (15:59)
[2019-01-08] MEDS ORDERED: IRON65TA2 PO (15:59)
[2019-01-08] MEDS ORDERED: ASPIRIN 325 MG TAB PO ONE (16:00)
[2019-01-08] MEDS ORDERED: ATORVASTATIN 20 MG TAB PO ONE (16:00)
--- NOTE | 2019-01-08 16:14 | ECGEPIP ---
[facility] - ED Test Date: 2019-01-08 Pat Name: QUINTEN STONE Department: Room: - Gender: Male [employer] Operator: TC : 1950 Requested By: Maggie Patterson Order Number: [id number] Reading MD: Maggie Patterson Measurements Intervals [place] Rate: 75 P: MD: 0 QRS: 40 QRSD: 121 T: 17 QT: 406 QTc: 454 Interpretive Statements ATRIAL FIBRILLATION MODERATE INTRAVENTRICULAR CONDUCTION DELAY ABNORMAL RHYTHM ECG NSTTW abnormalities SIMILAR 03/23/18 Electronically Signed on 01-08-2019 16:14:32 EST by Maggie Patterson
[2019-01-08 17:24] VITALS: BP 133/81
--- NOTE | 2019-01-08 17:36 | REPVR ---
PROCEDURE INFORMATION: Exam: MR Angiogram Head Without Contrast, Arteries Exam date and time: 01/08/2019 4:35 PM Age: 68 years old Clinical history: Weakness; Patient HX: PT states lt sided tingling, slurred speech and feeling of being off balance. ; Additional info: Ataxia TECHNIQUE: Imaging protocol: MR angiogram head without contrast. Exam focused on the arteries. 3D rendering: MIP reconstructed images were created and reviewed. COMPARISON: CT Head without contrast 01/08/2019 2:23 PM FINDINGS: Right internal carotid artery: Intracranial segment is patent with no significant stenosis. No aneurysm. 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 Right middle cerebral artery: No occlusion or significant stenosis. No aneurysm. Right posterior cerebral artery: There is persistent origin of the right posterior cerebral artery. Right vertebral artery: No occlusion or significant stenosis. No aneurysm. Left internal carotid artery: Intracranial segment is patent with no significant stenosis. No aneurysm. Left anterior cerebral artery: No occlusion or significant stenosis. No aneurysm. Left middle cerebral artery: No occlusion or significant stenosis. No aneurysm. Left posterior cerebral artery: No occlusion or significant stenosis. No aneurysm. Left vertebral artery: No occlusion or significant stenosis. No aneurysm. Basilar artery: No occlusion or significant stenosis. No aneurysm. IMPRESSION: No acute abnormality. Electronically signed by: Bin Macario On 01/08/2019 17:35:47 PM
--- NOTE | 2019-01-08 17:38 | REPVR ---
PROCEDURE INFORMATION: Exam: MR Head Without Contrast Exam date and time: 01/08/2019 4:35 PM Age: 68 years old Clinical history: Weakness, facial; Patient HX: PT states lt sided tingling, slurred speach and feeling of being off balance. ; Additional info: Ataxia TECHNIQUE: Imaging protocol: MR of the head without contrast. COMPARISON: CT Head without contrast 01/08/2019 2:23 PM FINDINGS: Brain: No restricted diffusion is seen to suggest acute infarction. There is no acute intracranial hemorrhage, cerebral edema, or midline shift. Age-related cerebral and cerebellar substance loss is present. Scattered increased T2 and FLAIR signal within the periventricular and subcortical white matter is present. This is nonspecific but likely related to chronic microangiopathic ischemic change. Ventricles: No hydrocephalus. Bones/joints: Unremarkable. Soft tissues: Unremarkable. Sinuses: Normal as visualized. No acute sinusitis. Mastoid air cells: Normal as visualized. No mastoid effusion. Orbits: The patient is likely status post bilateral cataract surgery. IMPRESSION: 1. No acute intracranial abnormality. 2. Chronic findings as discussed above. Electronically signed by: Bin Macario On 01/08/2019 17:37:49 PM
[2019-01-08] MEDS ORDERED: ACETAMINOPHEN 650MG ER TAB (TYLENOL ARTHRITIS) PO PRN (18:00)
[2019-01-08] MEDS ORDERED: CALCIUM CARBONATE 500 MG CHEW U/D PO PRN (18:00)
[2019-01-08] MEDS ORDERED: PERCOCET 5MG/325MG TAB PO PRN (18:00)
--- NOTE | 2019-01-08 18:34 | REPVR ---
PROCEDURE INFORMATION: Exam: CT Cervical Spine Without Contrast Exam date and time: 01/08/2019 6:13 PM Age: 68 years old Clinical history: Injury or trauma; Fall; Initial encounter; Blunt trauma; Additional info: Fall S/P left radiculopathy TECHNIQUE: Imaging protocol: Computed tomography images of the cervical spine without contrast. Radiation optimization: All CT scans at this facility use at least one of these dose optimization techniques: automated exposure control; mA and/or kV adjustment per patient size (includes targeted exams where dose is matched to clinical indication); or iterative reconstruction. COMPARISON: CT Spine,cervical w/o contrast 07/25/2015 12:41 PM FINDINGS: Vertebrae: No acute fracture. Normal alignment. Discs/Spinal canal/Neural foramina: Mild degenerative changes of the cervical spine are present. There is no significant spinal canal stenosis. Soft tissues: Unremarkable. Thyroid: There is a nonspecific 18 mm right thyroid nodule. A follow-up nonemergent thyroid ultrasound is suggested. Lungs: Lung apices are normal. IMPRESSION: 1. No acute abnormality. 2. Chronic findings as discussed above. COMMENT: In patients aged 35 years and older with an incidental thyroid nodule equal to or greater than 1.[address], MRI or extrathyroidal US, further evaluation with dedicated thyroid US is recommended for patients with normal life expectancy and without comorbidities. For smaller nodules without suspicious features, no further evaluation or follow up is recommended. Electronically signed by: Bin Macario On 01/08/2019 18:33:36 PM
[2019-01-08] MEDS ORDERED: GLUCOSE 4 GM CHEW TABLET PO PRN (19:00)
[2019-01-08] MEDS ORDERED: DEXTROSE 50% 50 ML SYRINGE IV PRN (19:00)
[2019-01-08] MEDS ORDERED: GLUCAGON FOR INJ 1 MG VIAL (J1610) SC PRN (19:00)
--- NOTE | 2019-01-08 19:00 | REPVR ---
EXAM: US Duplex Bilateral Extracranial Arteries. CLINICAL HISTORY: Numbness / parasthesia; Left; Additional info: CVA TECHNIQUE: Real-time ultrasound scan of the bilateral carotid and vertebral arteries, 2-D lemon scale, with color Doppler flow and spectral waveform analysis. COMPARISON: None FINDINGS: Minimal atherosclerotic plaque is identified at the carotid bifurcations. No penetrating ulcer is seen. Normal pulsatile low resistance waveforms are noted in the common and internal carotid arteries. The peak systolic velocity within the right internal carotid artery measures up to 58 cm/sec. This corresponds to less than 50% stenosis. The peak systolic velocity within the left internal carotid artery measures up to 68 cm/sec. This corresponds to less than 50% stenosis. The bilateral vertebral arteries have antegrade flow. IMPRESSION: 1. Less than 50% stenosis involving the bilateral internal carotid arteries 2. Antegrade flow in the bilateral vertebral arteries The degree of stenosis is based on the following consensus criteria developed by the Society of [employer]iologists in Ultrasound (SRU): Normal: ICA peak systolic velocity (PSV) less than 125 cm/s without plaque <50% stenosis: PSV <125 cm/s with estimated plaque < 50% and ICA/CCA <2 50-69% stenosis: PSV 125-230 cm/s with estimated plaque > 50% and ICA/CCA 2-4 >70% but less than near occlusion: PSV >230 cm/s, plaque >50%, and ICA/CCA > 4 Near occlusion: PSV- high, low, or undetectable, marked luminal narrowing from plaque Total occlusion: Flow undetectable and occluded ICA lumen Electronically signed by: Bin Macario On 01/08/2019 18:59:45 PM
--- NOTE | 2019-01-08 19:25 | HPE ---
DATE OF ADMISSION: 01/08/2019 CHIEF COMPLAINT: Left arm numbness, difficulty walking. HISTORY OF PRESENT ILLNESS: This is a 68-year-old male with a history of atrial fibrillation, cerebrovascular accident (CVA) with chronic right-sided upper and lower extremity weakness since 2009, on chronic Eliquis and compliant with this. He was in his usual state of health until a month ago, when he started developing worsening lower extremity gait instability. According to the , patient walks unassisted without a cane or a walker but has been grasping, trying to grab on to things when he walks. It is worse when he is on uneven ground, especially grass on the lawn or gravel. Patient does much better when he is on a finished floor. Patient had been seen by Renetta grimes at [facility], where he complained of significant pain in his lower extremities from significant restless leg syndrome. He does continuous positive airway pressure (CPAP) for his sleep apnea and was found on a sleep study to have over 100 jerky movements throughout the night, and says that when he is sleeping in a recliner, his legs do jump about 2-3 feet up in the air involuntarily. His medications have recently been changed to discontinue his tramadol and to put him on Percocet, which has relieved some of the pain. According to the , patient walked in at around 1:30 p.m. today from getting ice outside, as they were expecting 19 people to come to Thanksgiving dinner. He came into the house and told the , "You're not going to like this." The said "Did you hit a deer. Did you get a speeding ticket," and the said, "No, I think I'm having a stroke." Patient describes feeling very dizzy and feeling like his left eye has some problems, and left upper arm had excruciating pain. The said that he looks like he is walking using the inside of his ankle bones, usually is supposed to wear a brace but has not been doing this, and he has had severe restless legs for the past week, worsened in the past week, but it has been going on for the past month. Patient appeared to be off balance when he came into the house at 1:30 p.m. today, holding onto things from side to side but no slurred speech or facial asymmetry. Patient otherwise denied any upper or lower extremity weakness and insisted on driving himself to the hospital and for the to stay behind and just come later, because they have people coming for Thanksgiving. Five to six weeks ago the said that he was putting an extension to the computer in their drop ceiling in the basement family room, and he fell backward and hit his right shoulder on part of the door. Two weeks later he was seen by his primary care doctor at [facility] who did an x-ray, and he was told that there was a scapular fracture which will heal on its own and does not require surgical intervention. Patient has been noticing also weight loss of about 30 pounds with a size change from a 44 waist to a 35 waist according to the . He tries to be as active as he can and usually tries to get under the car to fix things but has been unable to do this over the past few months. He usually changes the tractor to a core blower, but he has been unable to do this and now requiring much more help. According to the , patient is compliant with all his medications, but she is concerned that he is taking too many medications, and he has two organizers for this and has been very compliant. He is seen at the [facility] every 1-2 months and in [place] once a year. His issues appear to be 100% related to [place], and he is 100% disabled. According to the patient and his , he was given a prognosis of 3-5 years due to complications of [place], and this has not changed. That was given to them 5 years ago. According to the patient and his , he does not want to down size his home and limit his activities despite the weight loss and these new neurological findings. Evaluation in the emergency room (ER) included EKG, which showed chronic atrial fibrillation, ventricular rate of 75, irregular with intraventricular conduction delay. CT of the head was negative. Chest x-ray was negative. MRI of the brain and MRA of the brain both show no intracranial abnormality. Hospitalist was called to further evaluate the left upper arm pain, most likely unrelated to an acute cerebrovascular accident (CVA). May be related to a cervical radiculopathy. Per Dr. Floyd, who is soup person this evening for neurology, may proceed with CT of the cervical spine for now, and the patient can be resumed on his home medications. On telemetry he was noted to have a slow atrial fibrillation with ventricular rate of 39 during this episode. Blood pressure was well maintained at 111-130 systolic. He was speaking and giving a formal history without any complaints of dizziness, lightheadedness. His speech was fluent, and he did not have any episodes of near syncope of lightheadedness despite a heart rate of 39. PAST MEDICAL HISTORY: 1. CVA with chronic right-sided weakness. 2. Restless leg syndrome. 3. Atrial fibrillation, which is chronic, on Eliquis. 4. Hypertension. 5. Dyslipidemia. 6. Chronic low back pain. 7. Type 2 diabetes. 8. Neuropathy secondary to [place] and restless legs. 9. Obstructive sleep apnea, on CPAP. PAST SURGICAL HISTORY: 1. Attempted cholecystectomy, which was unsuccessful. 2. Lasix surgery, bilateral eyes. 3. Bilateral knee replacement. 4. Varicose surgeries, bilateral lower extremities. ALLERGIES: CODEINE and OXYCODONE, causing confusion. HOME MEDICATIONS: - diltiazem 240 daily - Bystolic 2.5 at bedtime - Levemir insulin 48 units subcutaneous daily - Victoza 1.8 mg subcutaneous daily - magnesium 250 by mouth four times a day - Myrbetriq 50 daily - ropinirole 6 mg at bedtime and 2 mg every morning - tizanidine 2 mg three times a day - zinc 50 mg daily - acetaminophen 650 twice a day as needed for pain - Tums 500 mg as needed for restless leg - clonazepam 1 mg tablet, 2 mg at bedtime - ferrous sulfate 325 daily - levetiracetam 375 by mouth at bedtime - metformin 1 gram by mouth twice a day - multivitamin one tablet twice a day - Prilosec 20 daily - oxycodone/acetaminophen one tablet every 6 as needed for pain - pravastatin 20 mg daily - Lyrica 200 mg at bedtime - Xarelto 20 mg at bedtime - spironolactone 12.5 every morning - torsemide 20 mg daily - valsartan/Diovan 160 mg at bedtime SOCIAL HISTORY: Patient retired. Worked for [employer] for about 30-34 years. for the past 31 years. Healthcare proxy is the patient's . Phone number is , home number [phone]. 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 Medical order for life-sustaining treatment (MOLST) form is at home. Patient lives with his . His son and fiance have [facility]. He has six children total, all of whom are in the area. FAMILY HISTORY: Father with myocardial infarction (CT), age 69. Mother, stroke in her 70s. REVIEW OF SYSTEMS: Per history of present illness (HPI). A 12-point system otherwise negative. PHYSICAL EXAMINATION: Temperature 96.4, pulse 55, respiratory rate 18, blood pressure 133/81, 100% on room air. GENERAL: Patient is awake, alert, oriented times three, answering questions appropriately. Speech is fluent. Pupils equal, round, and reactive to light and accommodation Extraocular muscles are intact. Face is symmetric. Tongue is midline. Uvula is midline. NECK: Supple. Full range of motion. No cervical lymphadenopathy or thyromegaly. Patient has limited range of motion in the right upper extremity. Only able to lift it about 30 degrees with lateral flexion and abduction. Unable to lift above the head. Motor function is 5/5 times four extremities. Drawer Maker is strong bilaterally. Patient has no cervical or thoracic spine tenderness. Patient has no paresthesias, bilateral upper extremities. Patient has diminished sensation, bilateral lower extremities, due to chronic neuropathy fdc up the leg toward the knee. He has chronic venous insufficiency with varicosities and bilateral knee scarring from previous knee replacements. Moist mucous membranes. Neck is supple. There is some thyromegaly, which the patient says has been biopsied, which was negative, and follows with Dr. Daria Nickerson, photo print specialist. No axillary lymphadenopathy. LUNGS: Clear to auscultation. No wheezing, rales, or rhonchi. HEART: S1, S2, irregularly irregular and bradycardic. No murmurs, rubs, or gallops. ABDOMEN: Soft, nontender, nondistended. Positive bowel sounds times four quadrants. EXTREMITIES: Has chronic 1+ pitting edema with varicosities and chronic venous stasis changes. Gait not tested. White count 6.7, hemoglobin 14, hematocrit 43, platelet count 233. Sodium 138, potassium 3.7, chloride 100, bicarbonate 27, BUN 14, creatinine 0.9, glucose 138, INR 1.95. IMAGING STUDIES: Cervical spine CT shows no acute abnormality. Chronic changes. Degenerative disease with no significant spinal stenosis. Lung apices are normal. A followup nonemergent thyroid ultrasound suggested with a nonspecific 18 mm right thyroid nodule, chronic findings. Vascular ultrasound of the carotids still pending. MRI/MRA of the brain: No acute intracranial findings. Chronic findings are noted. Chronic microangiopathic ischemic change noted. Chest x-ray: No acute cardiopulmonary process. CT of the head: No acute intracranial pathology. Findings appear relatively stable compared to 03/22/2018 with age-related atrophy and microvascular ischemic changes. ASSESSMENT AND PLAN: This is a 68-year-old male with a history of [place] exposure, atrial fibrillation with cerebrovascular accident (CVA), right upper and lower extremity weakness 2009, hypertension, diabetes, dyslipidemia, metabolic syndrome, obstructive sleep apnea (LLOYD), on CPAP, chronic low back pain, restless leg syndrome, chronic venous insufficiency with varicose surgery, presents with acute onset of left-sided arm pain with gait ataxia that has worsened in the past week. IMPRESSION: 1. Patient Left arm pain, most likely musculoskeletal versus cervical radiculopathy. Patient denies any paresthesias, however. Motor function is intact. Unlikely to be a pinched nerve or disc bulging but may benefit from MRI of the cervical spine at some point. Patient's MRI/MRA of the brain are clean. Neurology has been consulted for question of CVA. He is currently continued on his home dose of Eliquis and statin medications. 2. History of CVA with chronic right-sided weakness as well as gait ataxia. Patient is continued on his home dose of Pravachol and Xarelto. 3. Hypertension, stable. Continued on Diovan, spironolactone, and torsemide. 4. Dyslipidemia, on Pravachol. 5. Type 2 diabetes, on consistent-carbohydrate diet, insulin sliding scale with coverage and fingersticks before food, at bedtime. 6. Atrial fibrillation with low ventricular rate. Has Bystolic and diltiazem with holding parameters. 7. Restless legs, on iron, ropinirole, and tizanidine. 8. Chronic venous insufficiency. Outpatient followup. 9. Thyroid nodule has been evaluated with a biopsy and pathology as outpatient. Follows with Dr. Daria Nickerson. Biopsy result was negative according to the patient. This was done September 04, which shows groups of follicular cells and rare macrophages and colloid. Outpatient followup with his photo print specialist. 10. Weight loss. Patient says that he has had an outpatient colonoscopy in the past with polyps removed. No personal history of prostate enlargement, and thyroid nodule had recently been biopsied and benign according to the patient. 11. Gait ataxia. May benefit from acute rehabilitation or physical therapy (PT) as outpatient.
[2019-01-08 20:00] VITALS: BP 118/78
[2019-01-08] MEDS ORDERED: PILL CUTTER 1 EACH XX PRN (20:00)
[2019-01-08] MEDS: HumaLOG INSULIN (NovoLOG) PER UNIT SC SCH (21:00)
[2019-01-08] MEDS ORDERED: NEBIVOLOL 5 MG TAB (BYSTOLIC) PO SCH (21:00)
[2019-01-08] MEDS ORDERED: ENOXAPARIN 40 MG/0.4 ML SYRINGE (J1650) SC SCH (21:00)
[2019-01-08] MEDS ORDERED: NON-FORMULARY 1 EA EA PO SCH (21:00)
[2019-01-08] MEDS: tiZANidine 4 MG TAB PO SCH (21:35)
[2019-01-08] MEDS: levETIRAcetam 250MG TABLET (KEPPRA) PO SCH (21:36)
[2019-01-08] MEDS: PREGABALIN 100 MG CAP (LYRICA) PO SCH (21:36)
[2019-01-08] MEDS: MULTIVITAMINS/MINERALS THERAP 1 TAB PO SCH (21:38)
[2019-01-08] MEDS: MAGNESIUM GLUCONATE 500 MG TAB PO SCH (21:38)
[2019-01-08] MEDS: metFORMIN (GLUCOPHAGE) 1000 MG TABLET PO SCH (21:39)
[2019-01-08] MEDS: VALSARTAN 80 MG TAB (DIOVAN) PO SCH (21:39)
[2019-01-08] MEDS: clonazePAM 1 MG TAB PO SCH (21:41)
[2019-01-08] MEDS: RIVAROXABAN 20 MG TAB (XARELTO) PO SCH (21:42)
[2019-01-09] VITALS: BP 132/75
[2019-01-09 04:00] VITALS: BP 126/81
[2019-01-09 05:44] LABS: MEAN CORPUSCULAR HEMOGLOBIN 28.1 pg (27.0-33.0); MEAN CORPUSCULAR HGB CONC 32.5 g/dl (32.0-36.5); MEAN CORPUSCULAR VOLUME 86.4 fl (80.0-96.0); PLATELET COUNT, AUTOMATED 222 10^3/uL (150-450); RED BLOOD COUNT 4.63 10^6/uL (4.30-6.10); WHITE BLOOD COUNT 6.8 10^3/uL (4.0-10.0)
[2019-01-09 06:09] LABS: BLOOD UREA NITROGEN 12 MG/DL (7-18); CALCIUM LEVEL 8.5 MG/DL (8.8-10.2); CARBON DIOXIDE LEVEL 29 MEQ/L (21-32); CHLORIDE LEVEL 104 MEQ/L (98-107); CHOLESTEROL LEVEL 95 MG/DL (<200); CHOLESTEROL RISK RATIO 2.317 (<5); GLOMERULAR FILTRATION RATE > 60.0 (>49); GLUCOSE, FASTING 102 MG/DL (70-100); HDL CHOLESTEROL 41 MG/DL (>40); LDL CHOLESTEROL 27 MG/DL (<100); NON-HDL-C 54 MG/DL; POTASSIUM SERUM 3.5 MEQ/L (3.5-5.1); SODIUM LEVEL 141 MEQ/L (136-145); TRIGLYCERIDES LEVEL 135 MG/DL (<150)
[2019-01-09] MEDS ORDERED: SELF1KIT MC (07:34)
[2019-01-09 08:00] VITALS: BP 128/76
[2019-01-09] MEDS ORDERED: NON-FORMULARY 1 EA EA PO SCH (09:00)
[2019-01-09] MEDS ORDERED: VICTOZA SQ SCH (09:00)
[2019-01-09] MEDS: HumaLOG INSULIN (NovoLOG) PER UNIT SC SCH ×4 (09:22→21:00)
[2019-01-09] MEDS: rOPINIRole 1MG TAB PO SCH ×2 (09:23→22:26)
[2019-01-09] MEDS: SPIRONOLACTONE 12.5MG PER 1/2 TABLET PO SCH (09:23)
[2019-01-09] MEDS: LEVEMIR (INSULIN DETEMIR) 1 UNITS/0.01ML SC SCH (09:23)
[2019-01-09] MEDS: FERROUS SULFATE 325MG TAB PO SCH (09:23)
[2019-01-09] MEDS: tiZANidine 4 MG TAB PO SCH ×3 (09:23→22:27)
[2019-01-09] MEDS: OMEPRAZOLE 20 MG CAP PO SCH (09:24)
[2019-01-09] MEDS: TORSEMIDE 20 MG TAB PO SCH (09:24)
[2019-01-09] MEDS: metFORMIN (GLUCOPHAGE) 1000 MG TABLET PO SCH ×2 (09:24→22:24)
[2019-01-09] MEDS: MULTIVITAMINS/MINERALS THERAP 1 TAB PO SCH ×2 (09:24→22:26)
[2019-01-09] MEDS: PRAVASTATIN 20 MG TAB PO SCH (09:24)
[2019-01-09] MEDS: MAGNESIUM GLUCONATE 500 MG TAB PO SCH ×4 (09:24→22:26)
[2019-01-09 12:00] VITALS: BP 127/82
[2019-01-09] MEDS ORDERED: SLF 3 ML SYR IV PRN (12:15)
[2019-01-09] MEDS: rOPINIRole 2MG TAB PO SCH (13:49)
[2019-01-09] MEDS: SLF 3 ML SYR IV SCH ×2 (13:50→22:28)
[2019-01-09 16:00] VITALS: BP 133/76
[2019-01-09] MEDS: RIVAROXABAN 20 MG TAB (XARELTO) PO SCH (17:57)
[2019-01-09 20:00] VITALS: BP 147/84
[2019-01-09] MEDS: levETIRAcetam 250MG TABLET (KEPPRA) PO SCH (22:24)
[2019-01-09] MEDS: VALSARTAN 80 MG TAB (DIOVAN) PO SCH (22:24)
[2019-01-09] MEDS: PREGABALIN 100 MG CAP (LYRICA) PO SCH (22:25)
[2019-01-09] MEDS: clonazePAM 1 MG TAB PO SCH (22:25)
--- NOTE | 2019-01-09 22:25 | DSES ---
DATE OF ADMISSION: 01/08/2019 DATE OF DISCHARGE: PRIMARY DISCHARGE DIAGNOSIS: Atrial fibrillation with slow ventricular rate, sinus pause. BUILDING PRESSURE WASHER: Dr. Joshua Yuan, newspaper illustrator. Complains of left arm pain. Cerebrovascular accident (CVA) has been ruled out. History of CVA with right-sided weakness. Chronic gait ataxia. History of atrial fibrillation, on chronic Eliquis. Weight loss, which is unintentional. History of hypertension, dyslipidemia, chronic low back pain, type 2 diabetes, chronic neuropathy due to [place], intractable restless leg syndrome, obstructive sleep apnea, on chronic continuous positive airway pressure (CPAP). DISCHARGE MEDICATIONS: Dr. Yuan to decide on patient's Bystolic 2.5 mg at bedtime and diltiazem 240 daily, both of which have been held due to episode of sinus pause at 3.31 seconds last evening and atrial fibrillation with slow rate of 35-54. Patient may be resumed on all other home medications: - Tylenol 1300 mg twice a day as needed for pain - Tums 500 as needed for restless legs - clonazepam 2 mg at bedtime - ferrous sulfate 325 daily - Levemir insulin 48 units daily - levetiracetam 375 at bedtime - Victoza 1.8 mg subcutaneous daily - magnesium 250 mg by mouth four times a day - metformin 1 gram twice a day - Myrbetriq 50 daily - multivitamin one tablet twice a day - Prilosec 20 daily - oxycodone one tablet every 6 as needed for pain - pravastatin 20 daily - Lyrica 200 at bedtime - Xarelto 20 at bedtime - ropinirole 2 mg every morning, 6 mg at bedtime - spironolactone 12.5 every morning - tizanidine 2 mg three times a day - torsemide 20 daily - Diovan 160 at bedtime - zinc 50 mg daily Patient is to followup with Dr. Lavon Orellana regarding adjustment of his diltiazem and Bystolic due to episodes of sinus bradycardia of 3.1 seconds and atrial fibrillation with slow rate of 35-54 beats per minute to evaluate for pacer and adjustment of patient's medications. HOSPITAL COURSE: This is a 68-year-old male who came home yesterday after picking up some ice for Thanksgiving dinner for 19 people, when he complained of left arm pain. Patient was worried because of worsening gait dysfunction for the past 1 week but has been having problems with gait imbalance for the past 1 month. He also complains of unintentional weight loss. Was previously a size 44 waist to now a size 35 waist along with intractable restless legs. Patient was seen in the emergency room due to concerns of cerebrovascular accident (CVA). CT of the head was obtained, which was negative. Chest x-ray was negative. Patient says he is compliant with his Eliquis, but MRI/MRA were obtained, all of which were negative for acute CVA or aneurysm. Vascular ultrasound with carotid Dopplers were negative due to complaints of pain in the left arm without any weakness. Cervical spine CT was obtained, which was also negative. He was kept on his home dose of Eliquis 20 mg at bedtime. On telemetry he was noted to have bradycardia of 35- 54. He is on chronic diltiazem 240 daily and Bystolic 2.5 mg daily. He was asymptomatic during the episodes of slow rate with blood pressure well maintained, systolic pressure 118-132 systolic. He was providing the history while his heart rate was 35. Denied any lightheadedness or dizziness. Overnight he was noted to have a sinus pause of 3.1 seconds. Driver Service Technician, Dr. Joshua Yuan, was consulted for evaluate for pacer and adjustment of patient heart-control medications for atrial fibrillation. PHYSICAL EXAMINATION ON DISCHARGE: Temperature 979.2, pulse 54, respiratory rate 18, blood pressure 128/76, 98% on room air. In general, patient is awake, alert, oriented times three. Anicteric sclerae. No jaundice. Pupils round, reactive to light and accommodation. Extraocular muscles are intact. No jugular venous distention. No thyromegaly. Moist mucous membranes. Lungs are clear to auscultation. No wheezes, rales, or rhonchi. Heart: S1, S2, irregularly irregular and bradycardic. Abdomen is Soft, nontender, nondistended. Positive bowel sounds. Extremities: Patient has diminished sensation, bilateral lower extremities, with peripheral edema up to the mid mott, residential up toward the knee. He also has motor function 5/5 times four quadrants but limited abduction on the right shoulder due to recent scapular fracture. Patient has 5/5 market research assistant, bilateral lower extremities and hands. He has no decrease in sensation in the left forearm and left hand. LABORATORY DATA: White count 6.8, hemoglobin 13, hematocrit 40, platelet count 222. Sodium 141, potassium 3.5, chloride 104, bicarbonate 29, BUN 12, creatinine 0.9, glucose 102, calcium 8.5. Troponin less than 0.02. Triglyceride 135. Total cholesterol 95, LDL 27, and HDL 54, total HDL 41. IMAGING STUDIES: CT of the head 12/29/2018: Age-related atrophy, microvascular ischemic change, relatively stable from 03/22/2018. Chest x-ray 01/08/2019: No obvious acute cardiopulmonary process. MRI of the brain 01/08/2019: No acute abnormality. MRA of the brain: No acute abnormality. Chronic findings as discussed above. Vascular ultrasound, bilateral carotids: Less than 50% stenosis involving the bilateral internal carotid arteries, antegrade flow in bilateral vertebral arteries. CT of the cervical spine: No acute abnormality. Chronic findings. DISCHARGE INSTRUCTIONS: Patient is to follow instructions from Dr. Joshua Yuan, who will determine patient's cardiac medications for rate control, type, and dosage, as well as frequency and to evaluate for pacer. Followup with Dr. Lavon Orellana within 5-7 days of hospital discharge. OLE
[2019-01-10] VITALS: BP 120/82
[2019-01-10 04:00] VITALS: BP 119/66
[2019-01-10 04:36] LABS: HEMATOCRIT 38.7 % (42.0-52.0); HEMOGLOBIN 12.8 g/dl (13.5-17.5); MEAN CORPUSCULAR HEMOGLOBIN 28.3 pg (27.0-33.0); MEAN CORPUSCULAR HGB CONC 33.1 g/dl (32.0-36.5); MEAN CORPUSCULAR VOLUME 85.4 fl (80.0-96.0); PLATELET COUNT, AUTOMATED 214 10^3/uL (150-450); RED BLOOD COUNT 4.53 10^6/uL (4.30-6.10); WHITE BLOOD COUNT 6.1 10^3/uL (4.0-10.0)
[2019-01-10 04:59] LABS: BLOOD UREA NITROGEN 18 MG/DL (7-18); CALCIUM LEVEL 8.9 MG/DL (8.8-10.2); CARBON DIOXIDE LEVEL 30 MEQ/L (21-32); CHLORIDE LEVEL 104 MEQ/L (98-107); CREATININE FOR GFR 0.97 MG/DL (0.70-1.30); GLOMERULAR FILTRATION RATE > 60.0 (>49); GLUCOSE, FASTING 144 MG/DL (70-100); POTASSIUM SERUM 3.5 MEQ/L (3.5-5.1); SODIUM LEVEL 141 MEQ/L (136-145)
[2019-01-10] MEDS: SLF 3 ML SYR IV SCH ×2 (05:24→14:00)
[2019-01-10] MEDS: SPIRONOLACTONE 12.5MG PER 1/2 TABLET PO SCH (07:54)
[2019-01-10] MEDS: metFORMIN (GLUCOPHAGE) 1000 MG TABLET PO SCH (07:54)
[2019-01-10] MEDS: rOPINIRole 1MG TAB PO SCH (07:54)
[2019-01-10] MEDS: TORSEMIDE 20 MG TAB PO SCH (07:55)
[2019-01-10] MEDS: tiZANidine 4 MG TAB PO SCH (07:55)
[2019-01-10] MEDS: MAGNESIUM GLUCONATE 500 MG TAB PO SCH ×2 (07:55→12:43)
[2019-01-10] MEDS: FERROUS SULFATE 325MG TAB PO SCH (07:56)
[2019-01-10] MEDS: PRAVASTATIN 20 MG TAB PO SCH (07:56)
[2019-01-10] MEDS: MULTIVITAMINS/MINERALS THERAP 1 TAB PO SCH (07:56)
[2019-01-10] MEDS: OMEPRAZOLE 20 MG CAP PO SCH (07:56)
[2019-01-10] MEDS: LEVEMIR (INSULIN DETEMIR) 1 UNITS/0.01ML SC SCH (07:57)
[2019-01-10] MEDS: HumaLOG INSULIN (NovoLOG) PER UNIT SC SCH ×2 (07:57→12:46)
[2019-01-10 08:00] VITALS: BP 121/78
[2019-01-10] MEDS ORDERED: CARD40TA PO (08:54)
[2019-01-10] MEDS: rOPINIRole 2MG TAB PO SCH (12:43)
--- NOTE | 2019-01-10 13:15 | IPN ---
DATE OF SERVICE: 01/10/2019 Mr. Moisés Cruz was seen this morning. He was sitting up in bed in no acute distress at rest. He was initially seen yesterday because he was found to have a markedly slow heart rate at 2:13 in the morning and also early in the morning yesterday at 5. He has been on two AV blocking agents for his atrial fibrillation, and they have been normal since hospitalization on 01/08/2019. He also did not bring his continuous positive airway pressure (CPAP) machine and has used it yesterday. Today, he denies any chest pain or shortness of breath or palpitations. He has not been in any lightheadedness or tingling sensation on his left upper extremity. There is no report of bleeding. There is no new focal manifestation. He has no nausea, vomiting, diarrhea, melena, or hematemesis. He has no cough or hemoptysis. PHYSICAL EXAMINATION: The patient is alert and oriented, in no acute distress at rest. His vital signs this morning reveal blood pressure of 121/78 with a pulse of 70, respiration 18. His maximum temperature is 99% on 2 liters cannula. Examination of the head: Atraumatic. Neck is supple and no jugular venous distention (JVD) appreciated. The lungs did not reveal any wheezing or crackles. The heart examination revealed irregular heart sounds without gallops. The point of maximal impulse (PMI) is not displaced. There is no rub. Abdomen: Is soft and nontender. Extremities: Reveal trace lower leg edema. Neurological examination is negative for focal deficit. LABORATORIES: Complete blood count (CBC) done today revealed a WBC of 61, hemoglobin 12.8, hematocrit 38.7, and platelets 214,000. Basic metabolic profile (BMP) revealed a sodium of 141, potassium 3.5, chloride 104, CO2 30, BUN 18, creatinine 0.9, GFR more than 60, fasting glucose 144, and calcium 8.8. Telemetry revealed no significant pauses but atrial fibrillation. Ventricular rate has been good. Mr. Moisés Cruz has been stable from a cardiac point of view and no significant pauses noted since yesterday in the morning. The case was discussed earlier today with his hospitalist, Dr. Elias, and he may be discharged home, and he will be followed next week as outpatient. Will give him a clinical research monitor for further monitoring. He will stay away from the [facility] and will continue with the calcium-channel soheila but with a lower dose, short-acting at 30 mg by mouth three times a day. He will keep his appointment for his Watchman procedure evaluation. This was discussed with him. He is in agreement. To call the office over the weekend if any concern or any questions.
[2019-01-10 15:37] VITALS: BP 124/89
[2019-01-10 17:01] VITALS: BP 124/89
--- NOTE | 2019-01-10 18:26 | DSES ---
DATE OF ADMISSION: 01/08/2019 DATE OF DISCHARGE: 01/10/2019 Patient was kept overnight as recommended by convalescent sitter, Dr. Joshua Yuan, for further monitoring. His diltiazem and Bystolic were held. Overnight telemetry showed heart rate of 40. Patient's blood pressure was well maintained. He was sleeping at the time with no recurrent episodes of sinus pauses. Per Dr. Joshua Yuan this morning, patient is to be started on short-acting Cardizem 30 mg three times a day and discharged home with outpatient followup with Dr. Orellana for monitoring on Saturday. PHYSICAL EXAMINATION: On discharge: Temperature 97.1, pulse 70, respiratory rate 18, blood pressure 120/78, 99% on 2 liters nasal cannula. Generally: Awake, alert, oriented times three, answering questions appropriately. No jugular venous distention (JVD), no thyromegaly. Moist mucous membranes. Lungs: Clear to auscultation. No wheezing, rales, or rhonchi. Heart: S1, S2, irregularly irregular. Abdomen: Soft, nontender, nondistended. Positive bowel sounds. Extremities: Chronic venous stasis changes with 1+ edema. 01/10/2019 laboratory data: White count 6.1, hemoglobin 12, hematocrit 38, platelet count 214, sodium 141, potassium 3.5, chloride 104, bicarbonate 30, BUN 18, creatinine 0.97, glucose of 144. TIME SPENT ON DISCHARGE: 30 minutes MTDD
== END 2019-01-10 17:35 | disposition home or self-care (01) | DRG 309 ==
LOC: M ED 14:07 → M ED INP 15:23 → M PCU 17:30
PROVIDERS: ADMIT General Practice; ATTEND General Practice
DX: I48.20 Chronic atrial fibrillation, unspecified (principal); I69.351 Hemiplegia and hemiparesis following cerebral infarction affecting right dominant side; G25.81 Restless legs syndrome; I10 Essential (primary) hypertension; E78.5 Hyperlipidemia, unspecified; M54.5 Low back pain; R63.4 Abnormal weight loss; I69.09 Other sequelae of nontraumatic subarachnoid hemorrhage; E11.9 Type 2 diabetes mellitus without complications; G47.33 Obstructive sleep apnea (adult) (pediatric); G62.2 Polyneuropathy due to other toxic agents; Z96.653 Presence of artificial knee joint, bilateral; Z88.5 Allergy status to narcotic agent; Z79.4 Long term (current) use of insulin; Z79.01 Long term (current) use of anticoagulants; Z79.899 Other long term (current) drug therapy; Z57.5 Occupational exposure to toxic agents in other industries

== ENCOUNTER → 2019-03-19 | Outpatient (REF) | payer MEDICARE, OTHER ==
[~2019-03-19] MED LIST changes: +CARD40TA PO; +IRON65TA2 PO; +LEVE750T5 PO; +LEVE750XR PO; +MAGN250T22 PO; +OMEP1CAP73 PO; -OMEP20CA4 PO; +OXYC1TAB23 PO; -ROPI2TAB PO; +ROPI2TAB3 PO; +SELF1KIT MC; +TUMS500C PO; +ZINC1TAB2 PO
[2019-03-19 17:20] LABS: PERCENT SATURATION 23.8 % (19.7-50.0)
== END ==
LOC: M LAB REF 16:21
PROVIDERS: ATTEND Nurse Practitioner Adult Health
DX: D50.9 Iron deficiency anemia, unspecified (principal)

== ENCOUNTER 2019-07-21 13:30 | Emergency (ER) | payer MEDICARE, OTHER ==
[~2019-07-21] VITALS: Ht 182.9 cm; Wt 119.1 kg
[2019-07-21 14:38] LABS: BASO # 0.1 10^3/uL (0.0-0.2); EOS # 0.3 10^3/uL (0.0-0.5); HEMOGLOBIN 12.5 g/dl (13.5-17.5); LYMPH # 1.6 10^3/uL (1.5-5.0); LYMPH % 32.4 % (24.0-44.0); MEAN CORPUSCULAR HEMOGLOBIN 28.3 pg (27.0-33.0); MEAN CORPUSCULAR HGB CONC 32.9 g/dl (32.0-36.5); MEAN CORPUSCULAR VOLUME 86.2 fl (80.0-96.0); MONO # 0.4 10^3/uL (0.0-0.8); MONO % 8.4 % (0.0-5.0); NEUTROPHILS # 2.7 10^3/uL (1.5-8.5); PLATELET COUNT, AUTOMATED 242 10^3/uL (150-450); RED BLOOD COUNT 4.41 10^6/uL (4.30-6.10)
[2019-07-21 14:55] LABS: INR 1.39; PROTHROMBIN TIME 16.8 SECONDS (11.8-14.0)
[2019-07-21 14:56] LABS: PARTIAL THROMBOPLASTIN TIME 31.5 SECONDS (25.0-38.4)
[2019-07-21 15:02] LABS: ALBUMIN 3.4 GM/DL (3.2-5.2); BILIRUBIN,DIRECT 0.1 MG/DL (0.0-0.2); BILIRUBIN,TOTAL 0.4 MG/DL (0.2-1.0); C REACTIVE PROTEIN QUANTITATIV 0.38 MG/DL (0.00-0.30); TOTAL PROTEIN 6.6 GM/DL (6.4-8.2)
--- NOTE | 2019-07-21 15:06 | REP ---
Right lower extremity Duplex Doppler venous ultrasound: Real time compression and duplex Doppler interrogation of the right lower extremity deep venous system is performed. The right common femoral, superficial femoral and popliteal veins are fully compressible with transducer pressure and demonstrate normal spontaneous and phasic flow, without evidence of deep venous thrombosis. Impression: No evidence of deep venous thrombosis of the right lower extremity femoral popliteal venous system. Electronically Signed by Shahram Herrera MD 07/21/2019 02:57 P
[2019-07-21 15:09] LABS: ERYTHROCYTE SEDIMENTATION RATE 7 mm/hr (0-20)
[2019-07-21] MEDS ORDERED: DOXYCYCLINE HYCLATE 100 MG in D5W MINI-BAG PLUS 100 ML IV ONE (16:00)
[2019-07-21] MEDS ORDERED: DOXY100C37 PO (17:26)
[2019-07-21 17:36] VITALS: BP 117/77
== END 2019-07-21 17:39 | disposition home or self-care (01) ==
LOC: M ED 13:30
DX: L03.115 Cellulitis of right lower limb (principal); E11.40 Type 2 diabetes mellitus with diabetic neuropathy, unspecified; I48.91 Unspecified atrial fibrillation; I10 Essential (primary) hypertension; E78.5 Hyperlipidemia, unspecified; G25.81 Restless legs syndrome; G47.33 Obstructive sleep apnea (adult) (pediatric); K21.9 Gastro-esophageal reflux disease without esophagitis; M54.9 Dorsalgia, unspecified; N40.0 Benign prostatic hyperplasia without lower urinary tract symptoms; Z86.718 Personal history of other venous thrombosis and embolism; Z79.899 Other long term (current) drug therapy; Z79.01 Long term (current) use of anticoagulants; Z79.4 Long term (current) use of insulin; Z88.5 Allergy status to narcotic agent

== ENCOUNTER 2019-08-17 20:53 | Inpatient (IN) | payer MEDICARE, OTHER ==
[~2019-08-17] VITALS: Ht 193 cm; Wt 116.7 kg
[~2019-08-17 20:53] MED LIST changes: +DOXY100C37 PO
[2019-08-17] MEDS ORDERED: tiZANidine 4 MG TAB PO PRN (21:00)
[2019-08-17 21:47] LABS: BASO % 0.5 % (0.0-1.0); EOS # 0.2 10^3/uL (0.0-0.5); EOS % 3.6 % (0.0-3.0); HEMATOCRIT 38.8 % (42.0-52.0); LYMPH # 1.5 10^3/uL (1.5-5.0); MEAN CORPUSCULAR HEMOGLOBIN 28.8 pg (27.0-33.0); MEAN CORPUSCULAR HGB CONC 33.5 g/dl (32.0-36.5); MEAN CORPUSCULAR VOLUME 85.8 fl (80.0-96.0); MONO # 0.5 10^3/uL (0.0-0.8); MONO % 7.4 % (0.0-5.0); NEUTROPHILS # 3.9 10^3/uL (1.5-8.5); NEUTROPHILS % 63.2 % (36.0-66.0); PLATELET COUNT, AUTOMATED 224 10^3/uL (150-450); RED BLOOD COUNT 4.52 10^6/uL (4.30-6.10); WHITE BLOOD COUNT 6.1 10^3/uL (4.0-10.0)
[2019-08-17 21:55] LABS: INR 1.44; PROTHROMBIN TIME 17.3 SECONDS (11.8-14.0)
[2019-08-17 21:56] LABS: PARTIAL THROMBOPLASTIN TIME 30.3 SECONDS (25.0-38.4)
[2019-08-17 22:14] LABS: BLOOD UREA NITROGEN 16 MG/DL (7-18); CALCIUM LEVEL 8.5 MG/DL (8.8-10.2); CARBON DIOXIDE LEVEL 28 MEQ/L (21-32); CHLORIDE LEVEL 109 MEQ/L (98-107); CK-MB VALUE MASS 1.6 NG/ML (<3.6); CPK CREATINE PHOSPHOKINASE 117 U/L (39-308); CREATININE FOR GFR 0.86 MG/DL (0.70-1.30); ETHYL ALCOHOL (ETHANOL) < 0.003 % (0.000-0.010); FREE T4 0.89 NG/DL (0.76-1.46); GLOMERULAR FILTRATION RATE > 60.0 (>42); GLUCOSE, FASTING 175 MG/DL (70-100); MAGNESIUM LEVEL 1.7 MG/DL (1.8-2.4); MB/CK RELATIVE INDEX 1.37 (< OR =4); POTASSIUM SERUM 3.7 MEQ/L (3.5-5.1); SODIUM LEVEL 145 MEQ/L (136-145); THYROID STIMULATING HORMONE 0.555 uIU/ML (0.358-3.740); TROPONIN I < 0.02 NG/ML (< 0.10)
[2019-08-17] MEDS ORDERED: ISOVUE-370 76% 100ML VIAL As Ordered ONE (22:16)
--- NOTE | 2019-08-17 22:53 | REPVR ---
PROCEDURE INFORMATION: Exam: CT Angiography Neck With Contrast Exam date and time: 08/17/2019 10:20 PM Age: 69 years old Clinical indication: Other: CVA - nursing interventions must not delay CT TECHNIQUE: Imaging protocol: Computed tomography angiography of the neck with intravenous contrast. 3D rendering: MIP and/or 3D reconstructed images were created by the technologist. Radiation optimization: All CT scans at this facility use at least one of these dose optimization techniques: automated exposure control; mA and/or kV adjustment per patient size (includes targeted exams where dose is matched to clinical indication); or iterative reconstruction. Contrast material: ISOVUE 370; Contrast volume: 100 ml; Contrast route: INTRAVENOUS (IV); COMPARISON: CT Spine,cervical w/o contrast 08/17/2019 10:06 PM FINDINGS: Right common carotid artery: No significant stenosis. No dissection or occlusion. Right internal carotid artery: Extracranial segment is patent with no significant stenosis (0% stenosis by NASCET criteria). No dissection or occlusion. Right external carotid artery: No occlusion or significant stenosis. Right vertebral artery: No significant stenosis. No dissection or occlusion. Left common carotid artery: No significant stenosis. No dissection or occlusion. Left internal carotid artery: Extracranial segment is patent with no significant stenosis (0% stenosis by NASCET criteria). No dissection or occlusion. Left external carotid artery: No occlusion or significant stenosis. Left vertebral artery: No significant stenosis. No dissection or occlusion. Submandibular/Parotid glands: 1.6 cm partially fat containing lesion within the right parotid gland. Thyroid: 1.5 cm heterogeneous nodule in the right lobe of the thyroid gland. Bones/joints: Please refer to CT cervical spine performed on same date for details regarding the cervical spine. Soft tissues: Unremarkable. IMPRESSION: 1. No occlusion or significant stenosis in the arteries of the neck. 2. 1.5 cm heterogeneous nodule in the right lobe of the thyroid gland. Recommend further evaluation with nonemergent thyroid ultrasound. 3. 1.6 cm partially fat containing lesion within the right parotid gland. Recommend correlation with nonemergent right parotid ultrasound. COMMENTS: Consistent with the [employer]'s Incidental Findings Committee white paper (J Am Jo Radiol 2015): In patients aged 35 years and older with an incidental thyroid nodule equal to or greater than 1.[address], MRI or extrathyroidal US, further evaluation with dedicated thyroid US is recommended for patients with normal life expectancy and without comorbidities. For smaller nodules without suspicious features, no further evaluation or follow up is recommended. REFERENCES: NASCET CRITERIA. The degree of internal carotid artery stenosis is based on NASCET criteria. Normal is no stenosis. Mild is less than 50% stenosis. Moderate is 50-69% stenosis. Severe is 70% to 99% stenosis. Total occlusion is no detectable patent lumen. Electronically signed by: Moshe Lind On 08/17/2019 22:53:02 PM
--- NOTE | 2019-08-17 22:54 | REPVR ---
PROCEDURE INFORMATION: Exam: CT Head Without Contrast Exam date and time: 08/17/2019 10:09 PM Age: 69 years old Clinical indication: Syncope and collapse TECHNIQUE: Imaging protocol: Computed tomography of the head without contrast. Radiation optimization: All CT scans at this facility use at least one of these dose optimization techniques: automated exposure control; mA and/or kV adjustment per patient size (includes targeted exams where dose is matched to clinical indication); or iterative reconstruction. COMPARISON: CT Head without contrast 01/08/2019 2:23 PM FINDINGS: Brain: Small chronic bilateral basal ganglia and centrum semiovale lacunar infarcts. Nonspecific hypodensities of the periventricular and deep subcortical white matter, most likely secondary to chronic small vessel ischemic change. No intracranial hemorrhage or extra-axial fluid collection. No evidence of mass effect or midline shift. Herrera-white matter differentiation is normal. Ventricles: Mild prominence of the ventricles and sulci, most likely attributed to parenchymal volume loss. Bones/joints: No acute osseus lesion or fracture. Sinuses: Unremarkable as visualized. Mastoid air cells: Unremarkable. Soft tissues: Unremarkable. IMPRESSION: 1. No acute intracranial pathology. ASPECTS score 10. 2. Other chronic findings, as above. Electronically signed by: Moshe Lind On 08/17/2019 22:54:10 PM
--- NOTE | 2019-08-17 22:55 | REPVR ---
PROCEDURE INFORMATION: Exam: CT Cervical Spine Without Contrast Exam date and time: 08/17/2019 10:09 PM Age: 69 years old Clinical indication: Other: Syncope TECHNIQUE: Imaging protocol: Computed tomography images of the cervical spine without contrast. Radiation optimization: All CT scans at this facility use at least one of these dose optimization techniques: automated exposure control; mA and/or kV adjustment per patient size (includes targeted exams where dose is matched to clinical indication); or iterative reconstruction. COMPARISON: CT Spine,cervical w/o contrast 01/08/2019 6:10 PM FINDINGS: Vertebrae: Vertebral body heights are maintained. No locked or perched facets. Multilevel facet arthropathy. No acute cervical spine fracture. The dens is intact. Atlanto-axial intervals are normal. 0.6 cm well-marginated sclerotic lesion in the left aspect of the C2 vertebral body most likely represents small bone island. Discs/Spinal canal/Neural foramina: Multilevel degenerative changes with intervertebral disc height loss and osteophyte formation. No significant spinal stenosis. Soft tissues: Unremarkable. Lungs: Lung apices are clear. IMPRESSION: No acute findings in the cervical spine. Electronically signed by: Moshe Lind On 08/17/2019 22:55:32 PM
--- NOTE | 2019-08-17 22:57 | REPVR ---
PROCEDURE INFORMATION: Exam: CT Angiography Head With Contrast Exam date and time: 08/17/2019 10:20 PM Age: 69 years old Clinical indication: Syncope and collapse; Additional info: CVA - nursing interventions must not delay CT TECHNIQUE: Imaging protocol: Computed tomography angiography of the head with intravenous contrast. 3D rendering: MIP and/or 3D reconstructed images were created by the technologist. Radiation optimization: All CT scans at this facility use at least one of these dose optimization techniques: automated exposure control; mA and/or kV adjustment per patient size (includes targeted exams where dose is matched to clinical indication); or iterative reconstruction. Contrast material: [id number]; Contrast volume: 100 ml; Contrast route: INTRAVENOUS (IV); COMPARISON: CT Head without contrast 08/17/2019 10:06 PM FINDINGS: Anterior cerebral arteries: Hypoplastic right A1. Right A2 is patent. Left anterior cerebral artery is patent. Right internal carotid artery: Calcific atherosclerotic changes of the intracranial right internal carotid artery without evidence of hemodynamically significant stenosis. Right middle cerebral artery: No occlusion or significant stenosis. No aneurysm. Right posterior cerebral artery: Patent and type right posterior cerebral artery. Right vertebral artery: No occlusion or significant stenosis. No aneurysm. Left internal carotid artery: Calcific atherosclerotic changes of the intracranial left internal carotid artery without evidence of hemodynamically significant stenosis. Left middle cerebral artery: No occlusion or significant stenosis. No aneurysm. Left posterior cerebral artery: No occlusion or significant stenosis. No aneurysm. Left vertebral artery: No occlusion or significant stenosis. No aneurysm. Basilar artery: No occlusion or significant stenosis. No aneurysm. IMPRESSION: No intracranial arterial occlusion or significant stenosis. Electronically signed by: Moshe Lind On 08/17/2019 22:57:31 PM
[2019-08-17] MEDS ORDERED: ROPI2TAB24 PO ×2 (22:59)
[2019-08-17] MEDS ORDERED: OMEP1CAP73 PO (22:59)
[2019-08-17] MEDS ORDERED: CLON1TAB8 PO (22:59)
[2019-08-17] MEDS ORDERED: BYST2.5T2 PO (22:59)
[2019-08-17] MEDS ORDERED: MECL1TAB31 PO (22:59)
[2019-08-17] MEDS ORDERED: PREG100CA PO (22:59)
[2019-08-17] MEDS ORDERED: CARD240C5 PO (22:59)
[2019-08-17 23:54] LABS: AMPHETAMINES LEVEL URINE NEGATIVE (NEGATIVE); BARBITURATES URINE NEGATIVE (NEGATIVE); BENZODIAZEPINES URINE NEGATIVE (NEGATIVE); CANNABINOIDS URINE NEGATIVE (NEGATIVE); COCAINE METABOLITE URINE NEGATIVE (NEGATIVE); METHADONE URINE NEGATIVE (NEGATIVE); OPIATES URINE NEGATIVE (NEGATIVE); PHENCYCLIDINE URINE NEGATIVE (NEGATIVE)
--- NOTE | 2019-08-18 00:31 | HPEPDOC ---
[facility] Medical History & Physical Date of Admission Aug 18, 2019 Date of Service: Aug 18, 2019 Primary Care Physician: Medina Britt Attending Physician: ZOFIA SOSA MD History and Physical TIME OF SERVICE: 12:30 AM CHIEF COMPLAINT: Loss of consciousness HISTORY OF PRESENT ILLNESS: This is a 69-year-old gentleman who presented to the hospital after losing consciousness. He has never lost consciousness before. He woke up yesterday morning and had been gardening from around 9 AM to 5 PM.. He did eat breakfast or lunch and only had 1 bottle of Gatorade the whole day; he attributes the episode to not eating very much. His last saw him in his normal state at around 5 PM, but when she found him later on in the evening, he was unconscious. He denies having chest pain, nausea, vomiting, fever, chills or diarrhea prior to the episode. The only thing that he remembers is feeling dizzy and trying to sit down, but he missed the chair and hit the left side of his head. Per Dr. Richard when the patient arrived, he was out of the tPA window. EKG showed atrial fibrillation with a rate of [address] scans of the head, neck, along with CTA were unremarkable; pending completion of the MRI. Dr. Richard requested admission. REVIEW OF SYSTEMS: 12 point review of systems negative except as listed in HPI PAST MEDICAL/ SURGICAL HISTORY: CVA with residual right-sided weakness. 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 HOME MEDICATIONS: Please see below. PHYSICAL EXAMINATION: Vital Signs Date Time Temp Pulse Resp B/P (MAP) Pulse Ox O2 Delivery O2 Flow Rate FiO2 08/17/19 21:04 119/60 (79) 08/17/19 21:06 97.0 84 12 96 Room Air GEN: well-nourished / well developed/ NAD INTEGUMENT: not flushed/ not jaundice CVS: RRR/NMRG/ radial pulses intact LUNGS: able to speak full sentences without stopping to take a breath / lungs are clear to auscultation bilaterally on room air ABDOMEN: Contour (obese) MSK/EXTREMITIES: range of motion intact in all 4 extremities NEURO: CN 2-12 are grossly intact / speech is not dysarthric / strength is 5/5 PSYCH: alert and oriented to person place and time/ able to understand and follow all commands LABORATORY DATA: 08/17/19 21:33 Immature Granulocyte % (Auto) 0.3, Neutrophils (%) (Auto) 63.2, Lymphocytes (%) (Auto) 25.0, Monocytes (%) (Auto) 7.4H, Eosinophils (%) (Auto) 3.6H, Basophils (%) (Auto) 0.5, Neutrophils # (Auto) 3.9, Lymphocytes # (Auto) 1.5, Monocytes # (Auto) 0.5, Eosinophils # (Auto) 0.2, Basophils # (Auto) 0.0, Nucleated Red Blood Cells % (auto) 0.0, Prothrombin Time 17.3H, Prothromb Time International Ratio 1.44, Activated Partial Thromboplast Time 30.3, Anion Gap 8, Glomerular Filtration Rate > 60.0, Calcium Level 8.5L, Magnesium Level 1.7L, Total Creatine Kinase 117, Creatine Kinase MB 1.6, Creatine Kinase MB Relative Index 1.37, Troponin I < 0.02, Thyroid Stimulating Hormone (TSH) 0.555, Free Thyroxine 0.89, Ethyl Alcohol Level < 0.003 08/17/19 21:59: POC Total CO2 (Misc Panel) 28.0H 08/17/19 22:53: Bedside Glucose (Misc Panel) 166H 08/17/19 23:05: Urine Color YELLOW, Urine Appearance CLEAR, Urine pH 6.0, Urine Specific [place] 1.033, Urine Protein NEGATIVE, Urine Glucose (UA) NEGATIVE, Urine Ketones NEGATIVE, Urine Blood NEGATIVE, Urine Nitrite NEGATIVE, Urine Bilirubin NEGATIVE, Urine Urobilinogen 0.2, Urine Leukocyte Esterase NEGATIVE, Urine WBC (Auto) 0, Urine RBC (Auto) 1, Urine Hyaline Casts (Auto) 0, Urine Bacteria (Auto) NEGATIVE, Urine Squamous Epithelial Cells 0, Urine Sperm (Auto) , Urine Opiates Screen NEGATIVE, Urine Methadone Screen NEGATIVE, Urine Barbiturates Screen NEGATIVE, Urine Phencyclidine Screen NEGATIVE, Urine Amphetamines Screen NEGATIVE, Urine Benzodiazepines Screen NEGATIVE, Urine Cocaine Metabolite Screen NEGATIVE, Urine Cannabinoids Screen NEGATIVE IMAGING: CT head "IMPRESSION: 1. No acute intracranial pathology. ASPECTS score 10. 2. Other chronic findings, as above." CT cervical spine "IMPRESSION: No acute findings in the cervical spine." CTA neck "IMPRESSION: 1. No occlusion or significant stenosis in the arteries of the neck. 2. 1.5 cm heterogeneous nodule in the right lobe of the thyroid gland. Recommend further evaluation with nonemergent thyroid ultrasound. 3. 1.6 cm partially fat containing lesion within the right parotid gland. Recommend correlation with nonemergent right parotid ultrasound. COMMENTS: Consistent with the [employer]'s Incidental Findings Committee white paper (J Am Jo Radiol 2015): In patients aged 35 years and older with an incidental thyroid nodule equal to or greater than 1.[address], MRI or extrathyroidal US, further evaluation with dedicated thyroid US is recommended for patients with normal life expectancy and without comorbidities. For smaller nodules without suspicious features, no further evaluation or follow up is recommended. " CTA head "IMPRESSION: No intracranial arterial occlusion or significant stenosis. " MICROBIOLOGY: Please see below. ASSESSMENT: Mr. Cruz is a 69-year-old with a history of CVA, IDDM, neuropathy, LLOYD, HTN, atrial fibrillation, and chronic back pain who will be admitted for evaluation of syncope. PLAN: 1. Syncope Possibly 2/2 dehydration vs symptomatic bradycardia (per RN pt's HR was as low as 37) vs CVA/TIA Plan: admit to medical floor/telemetry/check orthostatics/PT eval / f/u MRI brain / the day time team can decide if an Echo w bubble study is indicated 2. Thyroid Nodule / Parotid Gland Nodule TSH wnl Plan: f/u w PCP for referal for FNA & dedicated US scans 3. Atrial fibrillation / hx of CVA Plan: Xarelto, diltiazem 4. Agent Mcduffie Induced Neuropathy Plan: pregabalin 5. IDDM Plan: diabetic diet / f/u accuchecks & A1C / hypoglycemia protocol / sliding scale insulin / hold oral anti-glycemics / Levemir 48 units daily , Victoza 6. LLOYD Plan: CPAP 7. Chronic Hypertension Plan: nebivolol, spirinolactone, torsemide, valsartan, diltiazem 8. Chronic back pain plan: lidocane patches 9. Obesity BMI 31.2 w co-existing DM and LLOYD complicates care 10. Low Mag likley 2/2 to renal loss due to torsemide and reduced absorption due to omeprazole Plan: mag oxide 11. Right Knee pain 2/2 trauma Plan: f/u knee xray / voltaren patch DVT PROPHYLAXIS: n/a on xarelto DISPOSITION: likely home after more than 2 midnight's stay including time in the ER Home Medications Scheduled Clonazepam (Clonazepam) 1 Mg Tab, 2 MG PO QHS Clonazepam (Clonazepam) 1 Mg Tablet, 1 MG PO QPM 1800 Ferrous Sulfate (Iron) 325 Mg Tablet, 325 MG PO DAILY Insulin Detemir (Levemir Flextouch) 100 Unit/Ml Inj, 48 UNIT SC DAILY Levetiracetam (Levetiracetam) 750 Mg Tablet, 750 MG PO QHS Liraglutide (Victoza 2-Tab) 18 Mg/3 Ml Inj, 1.8 MG SC DAILY Magnesium (Magnesium) 250 Mg Tablet, 250 MG PO TID MORNING, 1800, QHS Metformin HCl (Metformin HCl) 1,000 Mg Tab, 1,000 MG PO BID Multivitamins (Thera M Plus Tablet) 1 Each Tablet, 1 TAB PO BID Omeprazole (Omeprazole) 20 Mg Capsule.dr, 20 MG PO DAILY Oxybutynin Chloride (Ditropan Xl) 5 Mg Tab.er.24, 10 MG PO DAILY Pravastatin Sodium (Pravachol) 20 Mg Tab, 20 MG PO DAILY Pregabalin (Lyrica) 100 Mg Capsule, 200 MG PO DAILY Pregabalin (Lyrica) 100 Mg Capsule, 100 MG PO BID 1800, QHS Rivaroxaban (Xarelto) 20 Mg Tab, 20 MG PO QHS Ropinirole HCl (Ropinirole ER) 2 Mg Tab, 4 MG PO QHS Ropinirole HCl (Ropinirole ER) 2 Mg Tab.er.24h, 2 MG PO QPM 1800 Spironolactone (Spironolactone) 25 Mg Tab, 12.5 MG PO DAILY Tizanidine HCl (Tizanidine HCl) 2 Mg Tab, 2 MG PO TID MORNING, 1800, QHS Torsemide (Torsemide) 10 Mg Tablet, 20 MG PO DAILY Valsartan (Diovan) 160 Mg Tab, 160 MG PO QHS Zinc (Zinc) 50 Mg Tablet, 50 MG PO DAILY Scheduled PRN Acetaminophen (Pain Reliever) 650 Mg Tablet.er, 1,300 MG PO BID PRN for PAIN Calcium Carbonate (Tums) 200 Mg Tab.chew, 1,500 MG PO DAILY PRN for RESTLESS LEGS Meclizine HCl (Meclizine HCl) 25 Mg Tablet, 12.5 MG PO BID PRN for VERTIGO/DIZZINESS Oxycodone HCl/Acetaminophen (Oxycodone-Acetaminophen 5-325) 1 Each Tablet, 1 TAB PO Q6H PRN for PAIN Ropinirole HCl (Ropinirole ER) 2 Mg Tab.er.24h, 2 MG PO DAILY PRN for RESTLESSNESS Allergies Coded Allergies: codeine (Verified Adverse Reaction, Mild, jitters, 08/17/19) oxycodone (Verified Adverse Reaction, Mild, nightmares, 08/21/18) A-FIB/CHADSVASC A-FIB History Current/History of A-Fib/PAF?: Yes Current PO Anticoag Therapy: Yes ZOFIA SOSA MD Aug 18, 2019 00:31
[2019-08-18 00:43] VITALS: BP 155/81
[2019-08-18] MEDS ORDERED: MECLIZINE 12.5 MG TAB PO PRN (00:45)
[2019-08-18] MEDS ORDERED: rOPINIRole 2MG TAB PO SCH (00:45)
[2019-08-18] MEDS ORDERED: PERCOCET 5MG/325MG TAB PO PRN (00:45)
[2019-08-18] MEDS ORDERED: CALCIUM CARBONATE 500 MG CHEW U/D PO PRN (00:45)
[2019-08-18] MEDS ORDERED: PILL CUTTER 1 EACH XX PRN (01:45)
--- NOTE | 2019-08-18 01:48 | REPVR ---
PROCEDURE INFORMATION: Exam: MR Head Without Contrast Exam date and time: 08/18/2019 11:37 PM Age: 69 years old Clinical indication: Syncope and collapse; Additional info: CVA TECHNIQUE: Imaging protocol: MR of the head without contrast. COMPARISON: MRI-Brain without Contrast 01/08/2019 4:30 PM FINDINGS: Mild age-related volume loss. Major vascular flow voids at the skull base are preserved. No extra-axial fluid collection. No midline shift or intracranial mass effect. Nonspecific white matter gliosis, probable chronic microvascular ischemia. No diffusion restriction. Visualized paranasal sinuses and mastoid air cells are clear. IMPRESSION: No acute intracranial abnormality. Electronically signed by: Mick Juárez On 08/18/2019 01:47:53 AM
--- NOTE | 2019-08-18 01:50 | REPVR ---
PROCEDURE INFORMATION: Exam: MR Angiogram Head Without Contrast, Arteries Exam date and time: 08/18/2019 11:37 PM Age: 69 years old Clinical indication: Syncope and collapse; Additional info: CVA TECHNIQUE: Imaging protocol: MR angiogram head without contrast. Exam focused on the arteries. COMPARISON: MRA BRAIN W/O CONTRAST 01/08/2019 4:30 PM FINDINGS: Anterior cerebral arteries: Intracranial segment is patent with no significant stenosis. No aneurysm. Right internal carotid artery: Intracranial segment is patent with no significant stenosis. No aneurysm. Right middle cerebral artery: No occlusion or significant stenosis. No aneurysm. Right posterior cerebral artery: No occlusion or significant stenosis. No aneurysm. Right vertebral artery: No occlusion or significant stenosis. No aneurysm. Left internal carotid artery: Intracranial segment is patent with no significant stenosis. No aneurysm. Left middle cerebral artery: No occlusion or significant stenosis. No aneurysm. Left posterior cerebral artery: No occlusion or significant stenosis. No aneurysm. Left vertebral artery: No occlusion or significant stenosis. No aneurysm. Basilar artery: No occlusion or significant stenosis. No aneurysm. IMPRESSION: No hemodynamically significant stenosis or large vessel occlusion. Electronically signed by: Mick Juárez On 08/18/2019 01:50:13 AM
--- NOTE | 2019-08-18 02:01 | REPVR ---
PROCEDURE INFORMATION: Exam: US Duplex Bilateral Extracranial Arteries Exam date and time: 08/18/2019 1:40 AM Age: 69 years old Clinical indication: Speech disturbance; Slurred speech; Additional info: Slurred speech R/O CVA TECHNIQUE: Imaging protocol: Real-time Duplex ultrasound scan of the bilateral carotid and vertebral arteries combining lemon scale, color Doppler and spectral waveform analysis. Bilateral exam. COMPARISON: US Duplex,carotid (complete) 01/08/2019 4:54 PM FINDINGS: Right common carotid artery: Peak systolic velocity of the right common carotid artery is 85 cm/s. Right internal carotid artery: Peak systolic velocity of the right internal carotid artery is 88 cm/s. Minimal plaque formation at the proximal right ICA. Right ICA/CCA ratio: Within normal limits. Right external carotid artery: No stenosis in the origin. Right vertebral artery: Unremarkable. Antegrade flow. Left common carotid artery: Peak systolic velocity of the left common carotid artery is 67 cm/s. Left internal carotid artery: Peak systolic velocity of the left internal carotid artery is 59 cm/s. Minimal plaque formation at the proximal left ICA. Left ICA/CCA ratio: Left ICA CCA ratio is 1.0. Left ICA CCA ratio is 0.9. Left external carotid artery: No stenosis in the origin. Left vertebral artery: Unremarkable. Antegrade flow. IMPRESSION: Negative for hemodynamically significant stenosis. REFERENCES: SRU CRITERIA. The degree of internal carotid artery stenosis is based on criteria defined by the Society of Radiologists in Ultrasound (SRU). Normal is no stenosis. Mild is less than 50% stenosis. Moderate is 50-69% stenosis. Severe is greater than 69% stenosis to near occlusion. Near occlusion is a markedly narrowed lumen. Total occlusion is no detectable patent lumen. Electronically signed by: Mick Juárez On 08/18/2019 02:01:07 AM
[2019-08-18] MEDS: rOPINIRole 2MG TAB PO SCH ×2 (02:10→20:54)
[2019-08-18] MEDS: VALSARTAN 80 MG TAB (DIOVAN) PO SCH ×2 (02:33→20:54)
[2019-08-18] MEDS: PREGABALIN 100 MG CAP (LYRICA) PO SCH ×4 (02:33→20:53)
[2019-08-18] MEDS: RIVAROXABAN 20 MG TAB (XARELTO) PO SCH ×2 (02:34→20:54)
[2019-08-18] MEDS: levETIRAcetam 250MG TABLET (KEPPRA) PO SCH ×2 (02:34→20:54)
[2019-08-18] MEDS: clonazePAM 1 MG TAB PO SCH ×3 (02:34→20:53)
[2019-08-18] MEDS: rOPINIRole 2MG TAB PO PRN (04:37)
[2019-08-18] MEDS: DICLOFENAC EPOLAMINE 1.3 % PATCH TOP SCH ×3 (04:38→20:53)
[2019-08-18 08:00] VITALS: BP 155/90
--- NOTE | 2019-08-18 08:22 | ECGEPIP ---
[facility] - ED Test Date: 2019-08-17 Pat Name: QUINTEN STONE Department: Room: [place] [address] Gender: Male Line Driver: audrey : [id number] Requested By: JUSTIN Vasquez Order Number: [id number] Reading MD: Luis Angel Evans Measurements Intervals [place] Rate: 66 P: NV: 0 QRS: 50 QRSD: 124 T: 28 QT: 415 QTc: 435 Interpretive Statements ATRIAL FIBRILLATION MODERATE INTRAVENTRICULAR CONDUCTION DELAY NSTTW ABNORMALITIES SIMILAR TO 01/08/19 Electronically Signed on 08-18-2019 8:22:09 EDT by Luis Angel Evans
[2019-08-18] MEDS: SPIRONOLACTONE 12.5MG PER 1/2 TABLET PO SCH (09:00)
[2019-08-18] MEDS ORDERED: VICTOZA 18 MG/3 ML SC SCH (09:00)
[2019-08-18] MEDS ORDERED: ENTER DRUG NAME HERE (PATIENT'S OWN MED) PO SCH (09:00)
[2019-08-18] MEDS: LEVEMIR (INSULIN DETEMIR) 1 UNITS/0.01ML SC SCH (09:00)
[2019-08-18] MEDS: NEBIVOLOL 5 MG TAB (BYSTOLIC) PO SCH ×2 (09:00→09:01)
[2019-08-18] MEDS: FERROUS SULFATE 325MG TAB PO SCH (09:01)
[2019-08-18] MEDS: ACETAMINOPHEN TAB 650MG DOSE (2X325MG) PO PRN (09:01)
[2019-08-18] MEDS: PRAVASTATIN 20 MG TAB PO SCH (09:01)
[2019-08-18] MEDS: TORSEMIDE 20 MG TAB PO SCH (09:02)
[2019-08-18] MEDS: OMEPRAZOLE 20 MG CAP PO SCH (09:03)
[2019-08-18] MEDS ORDERED: MAG SULF 1GM/100ML (MAG RUN) 1 GM in IV 1 EA IV ONE (10:00)
--- NOTE | 2019-08-18 11:12 | REP ---
REASON FOR EXAM: Syncope. COMPARISON: Multiple, the latest 01/08/2019 The technique utilized in obtaining the radiograph has magnified the cardiac silhouette and accentuated the interstitial markings. There is cardiomegaly accentuated by technique. The lung aaron are stable. No acute patchy parenchymal opacities or pleural effusions have developed. The pleural angles remain sharp. The osseous structures are stable and intact. IMPRESSION: Cardiomegaly without evidence of acute cardiopulmonary disease or significant change compared to the prior exam. Electronically Signed by Bubba Good DO 08/18/2019 05:23 P
--- NOTE | 2019-08-18 11:53 | REP ---
REASON: Pain. COMPARISON: 07/25/2015 Note is again made of a total knee arthroplasty. . The alignment is unchanged. No abnormal periprosthetic lucencies have developed. There is no evidence of acute fracture. The exam is limited by only two views. IMPRESSION: Limited two-view exam showing no significant change in the appearance of the arthroplasty and no evidence of a gross fracture. Electronically Signed by Bubba Good DO 08/18/2019 05:24 P
[2019-08-18 12:00] VITALS: BP 140/89
--- NOTE | 2019-08-18 15:40 | IPNPDOC ---
Text Note Date of Service The patient was seen on 08/18/19. NOTE Subjective: Patient is a 69-year-old male with a PMHx of CVA w/ Residual R sided weakness, HTN, A. fib (on Xarelto), IDDM2, Neuropathy, LLOYD on CPAP, Chronic back pain, who presented to the hospital after experiencing a loss of consciousness. Patient reported that he had been gardening all day and did not consume much fluid. Patient was admitted to the hospitalist service for syncope. Patient was seen and examined at the bedside. Patient reports that he is feeling fine at the moment, he denies chest pain, shortness of breath or palpitations. Has not expense any nausea, vomiting, abdominal pain, diarrhea, or urinary discomfort. Objective: Vitals (See below) General: Lying in bed, appears comfortable, AAOx3 HEENT: NC, AT CVS: +S1S2 Lungs: Fair air entry b/l, no appreciable wheezing, rhonchi or rales Abdomen: Soft, nondistended and nontender Extremities: No evidence of LE edema, - Calf tenderness Assessment and plan: Syncope - likely 2/2 dehydration, possibly 2/2 bradycardia - Currently patient has been asymptomatic - Patient heart rate control medications have been adjusted while inpatient - ECHO pending - CT head 08/16: 1. No acute intracranial pathology. ASPECTS score 10. 2. Other ch ronic findings, as above. - CT cervical spine 08/16: No acute findings in the cervical spine. - CXR 08/16: Cardiomegaly without evidence of acute cardiopulmonary disease or significant change compared to the prior exam. - Neck CTA 08/16: 1. No occlusion or significant stenosis in the arteries of the neck. 2. 1.5 cm heterogeneous nodule in the right lobe of the thyroid gland. Recommend further evaluation with nonemergent thyroid ultrasound. 3. 1.6 cm partially fat containing lesion within the right parotid gland. Recommend correlation with nonemergent right parotid ultrasound. - CTA head 08/16: No intracranial arterial occlusion or significant stenosis. - Carotid duplex US 08/16: Negative for hemodynamically significant stenosis. - Brain MRI 08/16: No acute intracranial abnormality. - Brain MRA 08/16: No hemodynamically significant stenosis or large vessel occlusion. 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 - c/w Voltaren patch DVT prophylaxis - c/w full anticoagulation with Xarelto Disposition: - Anticipate discharge tomorrow VS,Yanci, I+O VS, Yanci, I+O Laboratory Tests 08/17/19 21:33 Vital Signs Date Time Temp Pulse Resp B/P (MAP) Pulse Ox O2 Delivery O2 Flow Rate FiO2 08/18/19 12:00 96.2 60 18 140/89 (106) 98 Room Air SHAW CARVAJAL MD Aug 18, 2019 15:40
[2019-08-18 16:00] VITALS: BP 130/77
[2019-08-18] MEDS: oxyBUTYnin *DITROPAN XL* 5 MG TABCR PO SCH (17:07)
[2019-08-18 20:00] VITALS: BP 125/70
[2019-08-19] VITALS (7 sets, daily range): BP systolic 117–150; BP diastolic 73–88
[2019-08-19] MEDS: rOPINIRole 2MG TAB PO PRN (03:07)
[2019-08-19 06:09] LABS: HEMATOCRIT 39.1 % (42.0-52.0); HEMOGLOBIN 12.9 g/dl (13.5-17.5); MEAN CORPUSCULAR HEMOGLOBIN 28.5 pg (27.0-33.0); MEAN CORPUSCULAR VOLUME 86.5 fl (80.0-96.0); PLATELET COUNT, AUTOMATED 204 10^3/uL (150-450); RED BLOOD COUNT 4.52 10^6/uL (4.30-6.10); WHITE BLOOD COUNT 5.9 10^3/uL (4.0-10.0)
[2019-08-19 06:35] LABS: BLOOD UREA NITROGEN 14 MG/DL (7-18); CALCIUM LEVEL 8.1 MG/DL (8.8-10.2); CARBON DIOXIDE LEVEL 31 MEQ/L (21-32); CHLORIDE LEVEL 107 MEQ/L (98-107); CREATININE FOR GFR 0.86 MG/DL (0.70-1.30); GLOMERULAR FILTRATION RATE > 60.0 (>42); GLUCOSE, FASTING 122 MG/DL (70-100); POTASSIUM SERUM 3.7 MEQ/L (3.5-5.1); SODIUM LEVEL 140 MEQ/L (136-145)
[2019-08-19] MEDS: ACETAMINOPHEN TAB 650MG DOSE (2X325MG) PO PRN ×2 (09:53→14:08)
[2019-08-19] MEDS: SPIRONOLACTONE 12.5MG PER 1/2 TABLET PO SCH (09:53)
[2019-08-19] MEDS: LEVEMIR (INSULIN DETEMIR) 1 UNITS/0.01ML SC SCH (09:53)
[2019-08-19] MEDS: OMEPRAZOLE 20 MG CAP PO SCH (09:54)
[2019-08-19] MEDS: FERROUS SULFATE 325MG TAB PO SCH (09:54)
[2019-08-19] MEDS: oxyBUTYnin *DITROPAN XL* 5 MG TABCR PO SCH (09:54)
[2019-08-19] MEDS: PREGABALIN 100 MG CAP (LYRICA) PO SCH ×3 (09:54→20:29)
[2019-08-19] MEDS: TORSEMIDE 20 MG TAB PO SCH (09:54)
[2019-08-19] MEDS: PRAVASTATIN 20 MG TAB PO SCH (09:54)
[2019-08-19] MEDS: DICLOFENAC EPOLAMINE 1.3 % PATCH TOP SCH ×2 (10:15→20:30)
--- NOTE | 2019-08-19 13:36 | IPNPDOC ---
Text Note Date of Service The patient was seen on 08/19/19. NOTE Subjective: Patient is a 69-year-old male with a PMHx of CVA w/ Residual R sided weakness, HTN, A. fib (on Xarelto), IDDM2, Neuropathy, LLOYD on CPAP, Chronic back pain, who presented to the hospital after experiencing a loss of consciousness. Patient reported that he had been gardening all day and did not consume much fluid. Patient was admitted to the hospitalist service for syncope. Patient was seen and examined at the bedside. Patient has an uneventful evening. Denies any chest pain, shortness breath, palpitations, has not expense any further episodes of loss of consciousness. Denies nausea, vomiting, abdominal pain, diarrhea, or urinary discomfort. Objective: Vitals (See below) General: Lying in bed, remains comfortable, awake, alert and oriented 3 HEENT: NC, AT CVS: +S1S2 Lungs: Air entry is fair bilaterally without evidence of rhonchi, crackles or wheezing Abdomen: Remains soft, without any distention or tenderness Extremities: Lower extremities are free of any edema, - Calf tenderness Assessment and plan: Syncope - likely 2/2 dehydration, possibly 2/2 bradycardia - Patient has remained asymptomatic - Rate appears to be controlled without medications - but has had periods of short pauses on telemetry; will continue to hold diltiazem - ECHO pending - CT head 08/16: 1. No acute intracranial pathology. ASPECTS score 10. 2. Other chronic findings, as above. - CT cervical spine 08/16: No acute findings in the cervical spine. - CXR 08/16: Cardiomegaly without evidence of acute cardiopulmonary disease or significant change compared to the prior exam. - Neck CTA 08/16: 1. No occlusion or significant stenosis in the arteries of the neck. 2. 1.5 cm heterogeneous nodule in the right lobe of the thyroid gland. Recommend further evaluation with nonemergent thyroid ultrasound. 3. 1.6 cm partially fat containing lesion within the right parotid gland. Recommend correlation with nonemergent right parotid ultrasound. - CTA head 08/16: No intracranial arterial occlusion or significant stenosis. - Carotid duplex US 08/16: Negative for hemodynamically significant stenosis. - Brain MRI 08/16: No acute intracranial abnormality. - Brain MRA 08/16: No hemodynamically significant stenosis or large vessel occlusion. - PT has evaluated patient; will likely clear shortly - Case discussed with Dr. 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 - c/w Voltaren patch DVT prophylaxis - c/w full anticoagulation with Xarelto Disposition: - Possible discharge tomorrow VS,Abele, I+O VS, Fishbone, I+O Laboratory Tests 08/19/19 05:30 Vital Signs Date Time Temp Pulse Resp B/P (MAP) Pulse Ox O2 Delivery O2 Flow Rate FiO2 08/19/19 12:00 96.6 79 20 145/73 (97) 98 Room Air I&O- Last 24 Hours up to 6 AM 08/19/19 06:00 Intake Total 1960 ml Output Total 4000 ml Balance -0 ml SHAW CARVAJAL MD Aug 19, 2019 13:36
[2019-08-19] MEDS: clonazePAM 1 MG TAB PO SCH ×2 (17:49→20:30)
[2019-08-19] MEDS: rOPINIRole 2MG TAB PO SCH (20:28)
[2019-08-19] MEDS: RIVAROXABAN 20 MG TAB (XARELTO) PO SCH (20:29)
[2019-08-19] MEDS: VALSARTAN 80 MG TAB (DIOVAN) PO SCH (20:29)
[2019-08-19] MEDS: levETIRAcetam 250MG TABLET (KEPPRA) PO SCH (20:30)
[2019-08-20] MEDS: ACETAMINOPHEN TAB 650MG DOSE (2X325MG) PO PRN (04:31)
[2019-08-20 06:00] VITALS: BP 128/82
[2019-08-20 07:48] LABS: BASO # 0.1 10^3/uL (0.0-0.2); EOS # 0.3 10^3/uL (0.0-0.5); EOS % 4.2 % (0.0-3.0); HEMATOCRIT 42.6 % (42.0-52.0); HEMOGLOBIN 14.1 g/dl (13.5-17.5); LYMPH # 1.5 10^3/uL (1.5-5.0); LYMPH % 24.8 % (24.0-44.0); MEAN CORPUSCULAR HEMOGLOBIN 28.7 pg (27.0-33.0); MEAN CORPUSCULAR HGB CONC 33.1 g/dl (32.0-36.5); MEAN CORPUSCULAR VOLUME 86.8 fl (80.0-96.0); MONO # 0.4 10^3/uL (0.0-0.8); NEUTROPHILS # 3.7 10^3/uL (1.5-8.5); NEUTROPHILS % 62.7 % (36.0-66.0); PLATELET COUNT, AUTOMATED 224 10^3/uL (150-450); RED BLOOD COUNT 4.91 10^6/uL (4.30-6.10); WHITE BLOOD COUNT 5.9 10^3/uL (4.0-10.0)
[2019-08-20 08:01] LABS: BLOOD UREA NITROGEN 16 MG/DL (7-18); CALCIUM LEVEL 8.3 MG/DL (8.8-10.2); CARBON DIOXIDE LEVEL 31 MEQ/L (21-32); CHLORIDE LEVEL 106 MEQ/L (98-107); GLOMERULAR FILTRATION RATE > 60.0 (>42); GLUCOSE, FASTING 126 MG/DL (70-100); MAGNESIUM LEVEL 2.1 MG/DL (1.8-2.4); POTASSIUM SERUM 3.9 MEQ/L (3.5-5.1); SODIUM LEVEL 142 MEQ/L (136-145)
[2019-08-20] MEDS: TORSEMIDE 20 MG TAB PO SCH (08:13)
[2019-08-20] MEDS: PREGABALIN 100 MG CAP (LYRICA) PO SCH (08:13)
[2019-08-20] MEDS: PRAVASTATIN 20 MG TAB PO SCH (08:13)
[2019-08-20] MEDS: OMEPRAZOLE 20 MG CAP PO SCH (08:13)
[2019-08-20] MEDS: FERROUS SULFATE 325MG TAB PO SCH (08:13)
[2019-08-20] MEDS: oxyBUTYnin *DITROPAN XL* 5 MG TABCR PO SCH (08:14)
[2019-08-20] MEDS: rOPINIRole 2MG TAB PO PRN (08:14)
[2019-08-20] MEDS: DICLOFENAC EPOLAMINE 1.3 % PATCH TOP SCH (08:15)
[2019-08-20] MEDS: LEVEMIR (INSULIN DETEMIR) 1 UNITS/0.01ML SC SCH (08:15)
[2019-08-20] MEDS: SPIRONOLACTONE 12.5MG PER 1/2 TABLET PO SCH (08:19)
[2019-08-20] MEDS ORDERED: DITR5TAB PO (11:29)
--- NOTE | 2019-08-20 11:37 | DS.PDOC ---
Discharge Summary General Date of Admission Aug 18, 2019 at 00:25 Date of Discharge 08/20/2019 Discharge Summary PROCEDURES PERFORMED DURING STAY: [None]. 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 HISTORY OF PRESENT ILLNESS: Syncope - likely 2/2 dehydration, possibly 2/2 bradycardia - Patient has remained asymptomatic - Rate appears to be controlled without medications - but has had periods of short pauses on telemetry; will continue to hold diltiazem - ECHO complete; report pending - will have outpatient follow up - CT head 08/16: 1. No acute intracranial pathology. ASPECTS score 10. 2. Other chronic findings, as above. - CT cervical spine 08/16: No acute findings in the cervical spine. - CXR 08/16: Cardiomegaly without evidence of acute cardiopulmonary disease or significant change compared to the prior exam. - Neck CTA 08/16: 1. No occlusion or significant stenosis in the arteries of the neck. 2. 1.5 cm heterogeneous nodule in the right lobe of the thyroid gland. Recommend further evaluation with nonemergent thyroid ultrasound. 3. 1.6 cm partially fat containing lesion within the right parotid gland. Recommend correlation with nonemergent right parotid ultrasound. - CTA head 08/16: No intracranial arterial occlusion or significant stenosis. - Carotid duplex US 08/16: Negative for hemodynamically significant stenosis. - Brain MRI 08/16: No acute intracranial abnormality. - Brain MRA 08/16: No hemodynamically significant stenosis or large vessel occlusion. - PT has been cleared for DC home - Discussed with Dr. Orellana; will have outpatient follow up within 7 days and will remain off rate control given his episodes of bradycardia / pauses while on diltiazem Thyroid Nodule / Parotid Gland Nodule - Thyroid function noted - Results of imaging have been given to patient; he has verbalized understanding for need to for follow up imaging / evaluation - Will have outpatient follow up with PCP for FNA referral & dedicated US scans Atrial fibrillation / Hx of CVA - c/w full anticoagulation with Xarelto - Will discontinue rate control medications - Discussed with Dr. 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 - c/w Voltaren patch while inpatient - c/w Tylenol PRN as an outpatient DVT prophylaxis - c/w full anticoagulation with Xarelto HOSPITAL COURSE: Patient is a 69-year-old male with a PMHx of CVA w/ Residual R sided weakness, HTN, A. fib (on Xarelto), IDDM2, Neuropathy, LLOYD on CPAP, Chronic back pain, who presented to the hospital after experiencing a loss of consciousness. Patient reported that he had been gardening all day and did not consume much fluid. Patient was admitted to the hospitalist service for syncope. DISCHARGE MEDICATIONS: Please see below. ALLERGIES: Please see below. PHYSICAL EXAMINATION ON DISCHARGE: Vitals (See below) General: Lying in bed, appears to be comfortable, awake and oriented 3 HEENT: NC, AT CVS: +S1S2 Lungs: Fair air entry bilaterally without evidence of rhonchi, wheezing Abdomen: Abdomen is soft, without any distention or tenderness Extremities: Lower extremities are free of any edema, - Calf tenderness LABORATORY DATA: Please see below. ACTIVITY: [As tolerated]. DISCHARGE PLAN: Follow up with PCP and Cardiology within 7 days Remain complaint with treatment plan and medications Return to the ER if you experience any problems DISPOSITION: Home DISCHARGE CONDITION: [Stable]. TIME SPENT ON DISCHARGE: 35 minutes. Vital Signs/I&Os Vital Signs Date Time Temp Pulse Resp B/P (MAP) Pulse Ox O2 Delivery O2 Flow Rate FiO2 08/20/19 06:00 98.0 69 20 128/82 (97) 97 Room Air I&O- Last 24 Hours up to 6 AM 08/20/19 06:00 Intake Total 2640 ml Output Total 4000 ml Balance -1360 ml Laboratory Data Labs 24H Laboratory Tests 2 08/20/19 07:12: Immature Granulocyte % (Auto) 0.3, Neutrophils (%) (Auto) 62.7, Lymphocytes (%) (Auto) 24.8, Monocytes (%) (Auto) 7.0H, Eosinophils (%) (Auto) 4.2H, Basophils (%) (Auto) 1.0, Neutrophils # (Auto) 3.7, Lymphocytes # (Auto) 1.5, Monocytes # (Auto) 0.4, Eosinophils # (Auto) 0.3, Basophils # (Auto) 0.1, Nucleated Red Blood Cells % (auto) 0.0, Anion Gap 5L, Glomerular Filtration Rate > 60.0, Calcium Level 8.3L, Magnesium Level 2.1 CBC/BMP Laboratory Tests 08/20/19 07:12 Discharge Medications Scheduled Clonazepam (Clonazepam) 1 Mg Tab, 2 MG PO QHS, (Reported) Clonazepam (Clonazepam) 1 Mg Tablet, 1 MG PO QPM, (Reported) 1800 Ferrous Sulfate (Iron) 325 Mg Tablet, 325 MG PO DAILY, (Reported) Insulin Detemir (Levemir Flextouch) 100 Unit/Ml Inj, 48 UNIT SC DAILY, (Reported) Levetiracetam (Levetiracetam) 750 Mg Tablet, 750 MG PO QHS, (Reported) Liraglutide (Victoza 2-Tab) 18 Mg/3 Ml Inj, 1.8 MG SC DAILY, (Reported) Magnesium (Magnesium) 250 Mg Tablet, 250 MG PO TID, (Reported) MORNING, 1800, QHS Metformin HCl (Metformin HCl) 1,000 Mg Tab, 1,000 MG PO BID, (Reported) Multivitamins (Thera M Plus Tablet) 1 Each Tablet, 1 TAB PO BID, (Reported) Omeprazole (Omeprazole) 20 Mg Capsule.dr, 20 MG PO DAILY, (Reported) Oxybutynin Chloride (Ditropan Xl) 5 Mg Tab.er.24, 10 MG PO DAILY Pravastatin Sodium (Pravachol) 20 Mg Tab, 20 MG PO DAILY, (Reported) Pregabalin (Lyrica) 100 Mg Capsule, 200 MG PO DAILY, (Reported) Pregabalin (Lyrica) 100 Mg Capsule, 100 MG PO BID, (Reported) 1800, QHS Rivaroxaban (Xarelto) 20 Mg Tab, 20 MG PO QHS, (Reported) Ropinirole HCl (Ropinirole ER) 2 Mg Tab, 4 MG PO QHS, (Reported) Ropinirole HCl (Ropinirole ER) 2 Mg Tab.er.24h, 2 MG PO QPM, (Reported) 1800 Spironolactone (Spironolactone) 25 Mg Tab, 12.5 MG PO DAILY, (Reported) Tizanidine HCl (Tizanidine HCl) 2 Mg Tab, 2 MG PO TID, (Reported) MORNING, 1800, QHS Torsemide (Torsemide) 10 Mg Tablet, 20 MG PO DAILY, (Reported) Valsartan (Diovan) 160 Mg Tab, 160 MG PO QHS, (Reported) Zinc (Zinc) 50 Mg Tablet, 50 MG PO DAILY, (Reported) Scheduled PRN Acetaminophen (Pain Reliever) 650 Mg Tablet.er, 1,300 MG PO BID PRN for PAIN, (Reported) Calcium Carbonate (Tums) 200 Mg Tab.chew, 1,500 MG PO DAILY PRN for RESTLESS LEGS, (Reported) Meclizine HCl (Meclizine HCl) 25 Mg Tablet, 12.5 MG PO BID PRN for VERTIGO/DIZZINESS, (Reported) Oxycodone HCl/Acetaminophen (Oxycodone-Acetaminophen 5-325) 1 Each Tablet, 1 TAB PO Q6H PRN for PAIN, (Reported) Ropinirole HCl (Ropinirole ER) 2 Mg Tab.er.24h, 2 MG PO DAILY PRN for RESTLESSNESS, (Reported) Allergies Coded Allergies: codeine (Verified Adverse Reaction, Mild, jitters, 08/17/19) oxycodone (Verified Adverse Reaction, Mild, nightmares, 08/21/18) SHAW CARVAJAL MD Aug 20, 2019 11:37
--- NOTE | 2019-08-21 13:35 | ECHO ---
DATE OF PROCEDURE: 08/19/2019 DATE OF : 1950 AGE: 69 PATIENT LOCATION: Room 3217 REFERRING PROVIDER: Dr. Ibeth Schmitz 2-D MEASUREMENTS: IVS: 1.2 cm LV: 3.7 cm LVPW: 1.1 cm LA: 4.4 cm Aorta: 3.6 cm DOPPLER MEASUREMENTS: Maximum tricuspid valve velocity: 2.4 m/s 2-D COMMENTS: 1. Normal left ventricular size, wall thickness, and normal global left ventricular systolic function. The estimated left ventricular systolic ejection fraction is 60-65%. 2. Mildly dilated left atrium at 4.4 cm. The right atrium also appeared to be mildly enlarged. The right ventricle in limited view also appeared to be mildly enlarged. The right ventricular free wall was not well visualized. 3. The atrial septum appeared to be normal without evidence of defect or shunt. 4. Normal aortic root. 5. No pericardial effusion. 6. The aortic valve, mitral valve and tricuspid valve appeared to be normal. The pulmonic valve was not well visualized as well as the proximal pulmonary artery branches. 7. The inferior vena cava was not well visualized. DOPPLER: No significant valvular abnormalities detected, but trace to mild tricuspid regurgitation. The calculated pulmonary artery systolic pressure varies between 30-40 mmHg. Assessment of the left ventricular diastolic function was limited in view of underlying arrhythmias. IMPRESSIONS: 1. Normal global left ventricular systolic function. 2. Mildly enlarged left atrium, isolated. Probably related to the underlying cardiac arrhythmia/atrial fibrillation. 3. Mild tricuspid regurgitation with mild pulmonary hypertension. The right heart chambers appeared to be mildly enlarged.
== END 2019-08-20 14:07 | disposition home or self-care (01) | DRG 641 ==
LOC: EDBD 20:53 → M ED 20:53 → M ED INP 08-18 00:25 → ENRESERV 08-18 00:42 → M PCU 08-18 02:05 → M MSPAV 08-19 23:39
PROVIDERS: ADMIT Internal Medicine; ATTEND Internal Medicine
DX: E86.0 Dehydration (principal); I69.354 Hemiplegia and hemiparesis following cerebral infarction affecting left non-dominant side; R55 Syncope and collapse; E04.1 Nontoxic single thyroid nodule; I48.91 Unspecified atrial fibrillation; E11.40 Type 2 diabetes mellitus with diabetic neuropathy, unspecified; G47.33 Obstructive sleep apnea (adult) (pediatric); I10 Essential (primary) hypertension; M54.9 Dorsalgia, unspecified; R00.1 Bradycardia, unspecified; E66.9 Obesity, unspecified; G62.2 Polyneuropathy due to other toxic agents; E83.42 Hypomagnesemia; Z96.653 Presence of artificial knee joint, bilateral; Z79.4 Long term (current) use of insulin; Z79.01 Long term (current) use of anticoagulants; Z79.899 Other long term (current) drug therapy; Z88.5 Allergy status to narcotic agent; Z68.31 Body mass index [BMI] 31.0-31.9, adult; T60.3X1S Toxic effect of herbicides and fungicides, accidental (unintentional), sequela

== ENCOUNTER 2019-10-07 19:29 | Inpatient (IN) | payer MEDICARE, OTHER ==
[~2019-10-07] VITALS: Ht 182.9 cm; Wt 115.7 kg
[~2019-10-07 19:29] MED LIST changes: +CARD240C5 PO; +DITR5TAB PO; +MECL1TAB31 PO
[2019-10-07] MEDS ORDERED: VICT18IN SC (19:43)
[2019-10-07] MEDS ORDERED: TORS20TA2 PO (19:43)
[2019-10-07] MEDS ORDERED: XARE20TA PO (19:43)
[2019-10-07] MEDS ORDERED: K-TA10TA PO (19:43)
[2019-10-07] MEDS ORDERED: NS 500 ML IV ONE (20:15)
[2019-10-07 20:50] LABS: BASO % 0.4 % (0.0-1.0); EOS # 0.2 10^3/uL (0.0-0.5); EOS % 2.3 % (0.0-3.0); HEMATOCRIT 38.9 % (42.0-52.0); HEMOGLOBIN 13.2 g/dl (13.5-17.5); LYMPH # 1.6 10^3/uL (1.5-5.0); LYMPH % 17.1 % (24.0-44.0); MEAN CORPUSCULAR HEMOGLOBIN 29.4 pg (27.0-33.0); MEAN CORPUSCULAR HGB CONC 33.9 g/dl (32.0-36.5); MEAN CORPUSCULAR VOLUME 86.6 fl (80.0-96.0); MONO # 0.6 10^3/uL (0.0-0.8); NEUTROPHILS # 6.9 10^3/uL (1.5-8.5); NEUTROPHILS % 73.8 % (36.0-66.0); PLATELET COUNT, AUTOMATED 220 10^3/uL (150-450); RED BLOOD COUNT 4.49 10^6/uL (4.30-6.10); WHITE BLOOD COUNT 9.3 10^3/uL (4.0-10.0)
[2019-10-07 21:23] LABS: ACETAMINOPHEN LEVEL < 2.0 UG/ML (10.0-30.0); ALBUMIN 3.9 GM/DL (3.2-5.2); ALT/SGPT 30 U/L (12-78); BILIRUBIN,DIRECT 0.2 MG/DL (0.0-0.2); BILIRUBIN,TOTAL 0.5 MG/DL (0.2-1.0); BLOOD UREA NITROGEN 31 MG/DL (7-18); CALCIUM LEVEL 8.4 MG/DL (8.8-10.2); CARBON DIOXIDE LEVEL 35 MEQ/L (21-32); CHLORIDE LEVEL 99 MEQ/L (98-107); CK-MB VALUE MASS 1.8 NG/ML (<3.6); CPK CREATINE PHOSPHOKINASE 71 U/L (39-308); CREATININE FOR GFR 1.04 MG/DL (0.70-1.30); ETHYL ALCOHOL (ETHANOL) < 0.003 % (0.000-0.010); GLOMERULAR FILTRATION RATE > 60.0 (>42); GLUCOSE, FASTING 170 MG/DL (70-100); MB/CK RELATIVE INDEX 2.54 (< OR =4); POTASSIUM SERUM 3.5 MEQ/L (3.5-5.1); SALICYLATE LEVEL < 1.7 MG/DL (5.0-30.0); SODIUM LEVEL 137 MEQ/L (136-145); THYROID STIMULATING HORMONE 0.241 uIU/ML (0.358-3.740); TOTAL PROTEIN 7.7 GM/DL (6.4-8.2); TROPONIN I < 0.02 NG/ML (< 0.10)
--- NOTE | 2019-10-07 22:07 | REPVR ---
PROCEDURE INFORMATION: Exam: CT Head Without Contrast Exam date and time: 10/07/2019 9:12 PM Age: 69 years old Clinical indication: Altered mental status/memory loss TECHNIQUE: Imaging protocol: Computed tomography of the head without contrast. Axial and coronal reformatted images were created and reviewed. Radiation optimization: All CT scans at this facility use at least one of these dose optimization techniques: automated exposure control; mA and/or kV adjustment per patient size (includes targeted exams where dose is matched to clinical indication); or iterative reconstruction. COMPARISON: CT Head without contrast 08/17/2019 10:06 PM FINDINGS: Brain: Patchy areas of hypoattenuation in the periventricular and subcortical white matter, consistent with chronic small vessel ischemic disease. Focal, well-circumscribed hypodensities in the basal ganglia, consistent with chronic lacunar infarcts. No CT evidence of acute intracranial hemorrhage or acute territorial infarction. No significant mass effect or midline shift. Basal cisterns patent. Ventricles: Prominence of the cortical sulci, cisterns and ventricular system, consistent with cerebral and cerebellar volume loss. Bones/joints: No acute osseous abnormality. Sinuses: Mild ethmoid mucosal thickening. Mastoid air cells: Grossly unremarkable. Vasculature: Calcific atherosclerotic disease in the cavernous internal carotid arteries, as well as the vertebro-basilar system. Soft tissues: Grossly unremarkable. IMPRESSION: 1. No CT evidence of acute intracranial pathology. 2. Additional findings, as above. Electronically signed by: Chano Verduzco On 10/07/2019 22:07:29 PM
[2019-10-07] MEDS ORDERED: ACETAMINOPHEN TAB 650MG DOSE (2X325MG) PO PRN (23:30)
[2019-10-07] MEDS ORDERED: MOM 30ML SUSPENSION UDC PO PRN (23:30)
[2019-10-07 23:50] LABS: FREE T4 0.77 NG/DL (0.76-1.46)
[2019-10-07 23:54] LABS: AMPHETAMINES LEVEL URINE NEGATIVE (NEGATIVE); BARBITURATES URINE NEGATIVE (NEGATIVE); BENZODIAZEPINES URINE NEGATIVE (NEGATIVE); CANNABINOIDS URINE NEGATIVE (NEGATIVE); COCAINE METABOLITE URINE NEGATIVE (NEGATIVE); METHADONE URINE NEGATIVE (NEGATIVE); OPIATES URINE NEGATIVE (NEGATIVE); PHENCYCLIDINE URINE NEGATIVE (NEGATIVE)
[2019-10-08] VITALS (11 sets, daily range): BP systolic 107–150; BP diastolic 67–88
[2019-10-08] MEDS ORDERED: HM P99TA PO (00:34)
[2019-10-08] MEDS ORDERED: MECL12.589 PO (00:34)
[2019-10-08] MEDS ORDERED: XARE20TA PO (00:34)
[2019-10-08] MEDS ORDERED: PREG150C PO (00:34)
[2019-10-08] MEDS ORDERED: ROPI2TAB3 PO ×2 (00:34)
[2019-10-08] MEDS ORDERED: DICL1GEL3 TOP (00:34)
--- NOTE | 2019-10-08 00:59 | HPEPDOC ---
[facility] Medical History & Physical Date of Admission Oct 07, 2019 Date of Service: Oct 08, 2019 Primary Care Physician: Medina Britt Attending Physician: ZOFIA SOSA MD History and Physical TIME OF SERVICE: 1201 AM CHIEF COMPLAINT: fatigue and difficulties standing HISTORY OF PRESENT ILLNESS: This 69 yr old M was last admitted on August 17 for evaluation of syncope thought to be due to dehydration or bradycardia; he was discharged 2 days later with instructions to hold his diltiazem and follow up with . He followed up with , had a holter monitor done and reports that his diltiazem, nebivolol and mirabegron were discontinued. Today he presented w c/o having terrible balance, falling down when he tries to stand up. When he was able to stand he had to hold on to objects to avoid falling down. He has also been feeling very tired, and spontaneously falling asleep while talking with friend and eating dinner. He denied losing consciousness. He has also been feeling weak and has dropped objects from his right hand. He admitted to feeling dizzy, short of breath, and like his mind was slow. He denied having chest pain, palpitations or changes in his chronic lower extremity edema. He was scheduled to see today but he missed his appointment because he fell asleep. Per d/w HOSPICE/HOME HEALTH AIDE Gerry the patients EKG showed afib w prolonged pauses. On te lemetry in the ER he has been in afib w a HR as low as 35 to 40. REVIEW OF SYSTEMS: 12 point review of systems negative except as listed in HPI PAST MEDICAL/ SURGICAL HISTORY: Atrial fibrillation on Xarelto CVA with residual right-sided weakness. 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 HOME MEDICATIONS: Please see below. PHYSICAL EXAMINATION: Vital Signs Date Time Temp Pulse Resp B/P (MAP) Pulse Ox O2 Delivery O2 Flow Rate FiO2 10/07/19 19:30 97.0 58 16 141/75 (97) 95 Room Air GENERAL APPEARANCE: well-nourished / well developed / NAD HEENT: EOMI / mucus membranes dry CARDIOVASCULAR: HR irregularly irregular w HR ranging from 35 to 75 w prolonged pauses / + BLE edema more prominent on right LUNGS: CTAB on RA ABDOMEN: distended MUSCULOSKELETAL: GETACHEW x 4 INTEGUMENT: lips slightly cyanotic / no generalized pallor NEUROLOGICAL: CN 2-12 grossly intact / speech not dysarthric PSYCHIATRIC: A&O /listless LABORATORY DATA: 10/07/19 20:27 Glomerular Filtration Rate > 60.0, Calcium Level 8.4L, Total Bilirubin 0.5, Direct Bilirubin 0.2, Aspartate Amino Transf (AST/SGOT) 16, Alanine A minotransferase (ALT/SGPT) 30, Alkaline Phosphatase 117, Total Creatine Kinase 71, Creatine Kinase MB 1.8, Creatine Kinase MB Relative Index 2.54, Troponin I < 0.02, Total Protein 7.7, Albumin 3.9, Albumin/Globulin Ratio 1.0, Thyroid Stimulating Hormone (TSH) 0.241L, Free Thyroxine 0.77, Salicylates Level < 1.7L, Acetaminophen Level < 2.0L, Ethyl Alcohol Level < 0.003 10/07/19 23:20: Urine Opiates Screen NEGATIVE, Urine Methadone Screen NEGATIVE, Urine Barbiturates Screen NEGATIVE, Urine Phencyclidine Screen NEGATIVE, Urine Amphetamines Screen NEGATIVE, Urine Benzodiazepines Screen NEGATIVE, Urine Cocaine Metabolite Screen NEGATIVE, Urine Cannabinoids Screen NEGATIVE 10/08/19 00:00: Troponin I < 0.02 IMAGING: CT head: no acute process chronic small vessel ischemic disease. Focal, well- circumscribed hyperdensities in the basal ganglia, consistent with chronic lacunar infarcts. MICROBIOLOGY: Please see below. ASSESSMENT: Mr. Cruz is a 69-year-old with a history of CVA, IDDM, LLOYD, HTN, & atrial fibrillation, who presented with c/o fatigue, weakness and near-syncope who will be admitted for evaluation of slow afib w prolonged pauses and weakness. PLAN: 1. Symptomatic atrial fibrillation with slow ventricular response and prolonged pauses Plan: admit to ICU / telemetry / fall precautions / atropine PRN /f/u serial trops / c/w xarelto / Cardio Consult (Dr.Kwabena) 2. Right upper extremity weakness CT head unremarkable but he has a hx of CVA Plan: f/u MRI brain / f/u serum phosphorus to ensure hypophosphatemia is not contributing to generalized weakness 3. Encephalopathy ? / Somnolence Plan: hold tizanidine, ropinorole meclizine & clonazepam which can all cause sedation/ continuous pulse ox / f/u VBG to check PCO2 / if mental status doesn't improve despite holding these meds and the intial work up is negative the day time team can consider checking his ammonia level 4. Partially Decompensated Diastolic CHF H2FPEF score is 8 based on presence of BMI, HTN, A fib, Pulm HTN and age = greater than 90 % probability of HFpEF Plan: f/u Is and Os / daily weights / give extra dose of torsemide tonight / c/w spironolactone and torsemide / f/u BNP & chest xray report 5. Low TSH Plan: f/u free T4 6. Chronic Hypertension Plan: spironolactone, torsemide with K and Mag supplements, valsartan 7. IDDM Plan: diabetic diet / f/u accuchecks & A1C / hypoglycemia protocol / sliding scale insulin / hold oral anti-glycemics / decrease Levemir from 48 units daily to 30 units daily / Victoza 8. Seizure Disorder Plan: Keppra 9. 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 Chronic back pain Plan: c/w Nelson PRN & add scheduled Flector patches 12. Obesity BMI increased from 31.2 to 35.9 He has co-existing DM and LLOYD which complicates his care DVT Px n/a bc pt is on Xarelto Dispo: likely home after more than 2 midnights stay Home Medications Scheduled Ferrous Sulfate (Iron) 325 Mg Tablet, 325 MG PO DAILY Insulin Detemir (Levemir Flextouch) 100 Unit/Ml Inj, 48 UNIT SC DAILY Levetiracetam (Levetiracetam) 750 Mg Tablet, 750 MG PO QHS Liraglutide (Victoza 2-Tab) 0.6 Mg/0.1 Ml Pen.injctr, 1.2 MG SC DAILY Magnesium (Magnesium) 250 Mg Tablet, 250 MG PO TID MORNING, 1800, QHS Metformin HCl (Metformin HCl) 1,000 Mg Tab, 1,000 MG PO BIDPC Multivitamins (Thera M Plus Tablet) 1 Each Tablet, 1 TAB PO BID Potassium Gluconate (Potassium) 99 Mg Tablet, 595 MG PO DAILY Pregabalin (Pregabalin) 150 Mg Capsule, 150 MG PO TID MORNING, 1800, QHS Rivaroxaban (Xarelto) 20 Mg Tablet, 20 MG PO DAILY Ropinirole HCl (Ropinirole ER) 2 Mg Tab, 4 MG PO QHS Ropinirole HCl (Ropinirole HCl) 2 Mg Tablet, 2 MG PO DAILY Ropinirole HCl (Ropinirole HCl) 2 Mg Tablet, 6 MG PO QHS Spironolactone (Spironolactone) 25 Mg Tab, 12.5 MG PO DAILY Tizanidine HCl (Tizanidine HCl) 2 Mg Tab, 2 MG PO TID MORNING, 1800, QHS Torsemide (Torsemide) 10 Mg Tablet, 20 MG PO DAILY Valsartan (Diovan) 160 Mg Tab, 80 MG PO QHS Scheduled PRN Calcium Carbonate (Tums) 200 Mg Tab.chew, 1,500 MG PO DAILY PRN for RESTLESS LEGS Clonazepam (Clonazepam) 1 Mg Tablet, 1 MG PO TID PRN for ANXIETY Diclofenac Sodium (Diclofenac Sodium) 1% 100GM Gel..gram., 4 GM TOP TID PRN for PAIN APPLIES TO KNEES AND LOWER BACK Meclizine HCl (Meclizine HCl) 12.5 Mg Tablet, 12.5 MG PO TID PRN for VERTIGO/DIZZINESS Oxycodone HCl/Acetaminophen (Oxycodone-Acetaminophen 5-325) 1 Each Tablet, 1 TAB PO BID PRN for PAIN Allergies Coded Allergies: codeine (Verified Adverse Reaction, Mild, jitters, 08/17/19) oxycodone (Verified Adverse Reaction, Mild, nightmares, 08/21/18) A-FIB/CHADSVASC A-FIB History Current/History of A-Fib/PAF?: Yes Current PO Anticoag Therapy: Yes ZOFIA SOSA MD Oct 08, 2019 00:59
[2019-10-08] MEDS ORDERED: ATROPINE SULF 1MG/10ML SYRINGE (J0461) IV PRN (01:00)
[2019-10-08] MEDS ORDERED: MECLIZINE 12.5 MG TAB PO PRN (04:00)
[2019-10-08] MEDS ORDERED: clonazePAM 1 MG TAB PO PRN (04:00)
[2019-10-08] MEDS ORDERED: CALCIUM CARBONATE 500 MG CHEW U/D PO PRN (04:00)
[2019-10-08] MEDS ORDERED: PERCOCET 5MG/325MG TAB PO PRN (04:00)
[2019-10-08] MEDS ORDERED: levETIRAcetam 250MG TABLET (KEPPRA) PO ONE (04:00)
[2019-10-08] MEDS: levETIRAcetam 250MG TABLET (KEPPRA) PO SCH ×2 (04:15→22:01)
[2019-10-08] MEDS ORDERED: DEXTROSE 50% 50 ML SYRINGE IV PRN (04:15)
[2019-10-08] MEDS ORDERED: GLUCAGON INJ 1MG VIAL SC PRN (04:15)
[2019-10-08] MEDS ORDERED: GLUCOSE 4GM CHEW TABLET PO PRN (04:15)
[2019-10-08] MEDS: VALSARTAN 80 MG TAB (DIOVAN) PO SCH ×2 (04:57→22:02)
[2019-10-08] MEDS ORDERED: TORSEMIDE 10 MG TABLET PO ONE (05:15)
[2019-10-08] MEDS ORDERED: rOPINIRole 2MG TAB PO ONE (06:45)
[2019-10-08] MEDS: HumaLOG INSULIN (NovoLOG) PER UNIT SC SCH ×4 (07:30→21:00)
[2019-10-08 08:28] LABS: VENOUS PARTIAL PRESSURE CO2 44.6 mmHg (38.0-50.0); VENOUS PARTIAL PRESSURE O2 133.6 mmHg (30.0-50.0); VENOUS PH 7.395 UNITS (7.330-7.430); VENOUS TOTAL CO2 28.1 MEQ/L (24.0-28.0)
[2019-10-08 08:29] LABS: VENOUS BASE EXCESS 1.4 (-2.0-2.0); VENOUS HCO3 26.7 MEQ/L (23.0-27.0); VENOUS O2 SATURATION 98.4 % (60.0-80.0); VENOUS STANDARD HCO3 25.7 MEQ/L
[2019-10-08 08:45] LABS: HEMATOCRIT 42.8 % (42.0-52.0); HEMOGLOBIN 14.6 g/dl (13.5-17.5); MEAN CORPUSCULAR HEMOGLOBIN 29.4 pg (27.0-33.0); MEAN CORPUSCULAR HGB CONC 34.1 g/dl (32.0-36.5); MEAN CORPUSCULAR VOLUME 86.1 fl (80.0-96.0); PLATELET COUNT, AUTOMATED 215 10^3/uL (150-450); RED BLOOD COUNT 4.97 10^6/uL (4.30-6.10); WHITE BLOOD COUNT 7.8 10^3/uL (4.0-10.0)
[2019-10-08] MEDS ORDERED: SPIRONOLACTONE 25 MG TAB PO SCH (09:00)
[2019-10-08] MEDS ORDERED: RIVAROXABAN 20 MG TAB (XARELTO) PO SCH (09:00)
[2019-10-08] MEDS ORDERED: VICTOZA 1.2 MG SC SCH (09:00)
[2019-10-08] MEDS ORDERED: rOPINIRole 2MG TAB PO SCH ×2 (09:00→21:00)
[2019-10-08] MEDS: POTASSIUM CHLORIDE 10% LIQ 20 MEQ/15 ML UDC PO SCH (09:10)
[2019-10-08] MEDS: MAGNESIUM OXIDE 400 MG TAB (MAG-OX) PO SCH ×3 (09:11→22:00)
[2019-10-08] MEDS: FERROUS SULFATE 325MG TAB PO SCH (09:11)
[2019-10-08] MEDS: TORSEMIDE 20 MG TAB PO SCH (09:11)
[2019-10-08] MEDS: DICLOFENAC EPOLAMINE 1.3 % PATCH TOP SCH ×2 (09:12→22:05)
[2019-10-08 09:19] LABS: BLOOD UREA NITROGEN 26 MG/DL (7-18); CALCIUM LEVEL 8.4 MG/DL (8.8-10.2); CARBON DIOXIDE LEVEL 31 MEQ/L (21-32); CHLORIDE LEVEL 102 MEQ/L (98-107); CREATININE FOR GFR 0.86 MG/DL (0.70-1.30); GLOMERULAR FILTRATION RATE > 60.0 (>42); GLUCOSE, FASTING 122 MG/DL (70-100); POTASSIUM SERUM 3.8 MEQ/L (3.5-5.1); SODIUM LEVEL 140 MEQ/L (136-145); TROPONIN I < 0.02 NG/ML (< 0.10)
[2019-10-08 11:05] LABS: PHOSPHORUS LEVEL 3.3 MG/DL (2.5-4.9)
[2019-10-08 11:23] LABS: HEMOGLOBIN A1c 7.4 %
[2019-10-08] MEDS: LEVEMIR (INSULIN DETEMIR) 1 UNITS/0.01ML SC SCH (11:26)
[2019-10-08] MEDS: PREGABALIN 75 MG CAP(LYRICA) PO SCH ×3 (11:29→22:01)
[2019-10-09] VITALS: BP 118/64
[2019-10-09 04:00] VITALS: BP 131/84
[2019-10-09 04:56] LABS: HEMATOCRIT 40.4 % (42.0-52.0); HEMOGLOBIN 13.4 g/dl (13.5-17.5); MEAN CORPUSCULAR HEMOGLOBIN 28.5 pg (27.0-33.0); MEAN CORPUSCULAR HGB CONC 33.2 g/dl (32.0-36.5); MEAN CORPUSCULAR VOLUME 85.8 fl (80.0-96.0); PLATELET COUNT, AUTOMATED 234 10^3/uL (150-450); RED BLOOD COUNT 4.71 10^6/uL (4.30-6.10); WHITE BLOOD COUNT 7.4 10^3/uL (4.0-10.0)
[2019-10-09 05:02] LABS: BLOOD UREA NITROGEN 22 MG/DL (7-18); CALCIUM LEVEL 7.9 MG/DL (8.8-10.2); CARBON DIOXIDE LEVEL 29 MEQ/L (21-32); CHLORIDE LEVEL 104 MEQ/L (98-107); CREATININE FOR GFR 0.92 MG/DL (0.70-1.30); GLOMERULAR FILTRATION RATE > 60.0 (>42); GLUCOSE, FASTING 206 MG/DL (70-100); POTASSIUM SERUM 3.9 MEQ/L (3.5-5.1); SODIUM LEVEL 140 MEQ/L (136-145)
[2019-10-09 05:09] LABS: MAGNESIUM LEVEL 2.3 MG/DL (1.8-2.4); PHOSPHORUS LEVEL 2.6 MG/DL (2.5-4.9)
[2019-10-09 08:00] VITALS: BP 133/69
[2019-10-09] MEDS: FERROUS SULFATE 325MG TAB PO SCH (08:34)
[2019-10-09] MEDS: MAGNESIUM OXIDE 400 MG TAB (MAG-OX) PO SCH ×3 (08:34→20:27)
[2019-10-09] MEDS: TORSEMIDE 20 MG TAB PO SCH (08:34)
[2019-10-09] MEDS: POTASSIUM CHLORIDE 10% LIQ 20 MEQ/15 ML UDC PO SCH (08:34)
[2019-10-09] MEDS: PREGABALIN 75 MG CAP(LYRICA) PO SCH ×3 (08:37→20:28)
[2019-10-09] MEDS: LEVEMIR (INSULIN DETEMIR) 1 UNITS/0.01ML SC SCH (08:38)
[2019-10-09] MEDS: HumaLOG INSULIN (NovoLOG) PER UNIT SC SCH ×4 (08:40→20:32)
[2019-10-09] MEDS: DICLOFENAC EPOLAMINE 1.3 % PATCH TOP SCH ×2 (08:41→20:29)
[2019-10-09] MEDS ORDERED: SPIRONOLACTONE 12.5MG PER 1/2 TABLET PO SCH (09:00)
--- NOTE | 2019-10-09 10:26 | IPNPDOC ---
Subjective Date Seen The patient was seen on 10/09/19. Subjective Chief Complaint/HPI pt could not sleep due to resetless legs last night,no othjer complaints General: Denies: ROS Unobtainable, Chills, Night Sweats, Fatigue, Malaise, Normal Appetite, Other Symptoms Constitutional: Denies: Chills, Fever, Malaise, Night Sweats, Weakness, Fatigue, Weight Loss, Lethargy, Other Skin: Denies: Rash, Lesions, Jaundice, Bruising, Itching, Dry, Breakdown, Nail Changes, Other Pulmonary: Denies: Dyspnea, Cough, Pleuritic Chest Pain, Other Symptoms Cardiovascular: Denies: Chest Pain, Palpitations, Orthopnea, Paroxysmal Noc. Dy spnea, Edema, Lt Headedness, Other Symptoms Gastrointestinal: Denies: Nausea, Vomiting, Abdominal Pain, Diarrhea, Constipation, Melena, Hematochezia, Other Symptoms Musculoskeletal: Reports: Other Symptoms (restless legs) Neurological: Denies: Weakness, Numbness, Incoordination, Change in speech, Confusion, Seizures, Other Symptoms Objective Physical Examination Eye Exam: Positive: PERRLA, Conjunctiva & lids normal Neck Exam: Positive: Supple Chest Exam: Positive: Clear to auscultation Heart Exam: Positive: Rate Normal, Irregular Rhythm, Normal S1, Normal S2 Abdomen Exam: Positive: Normal bowel sounds Skin Exam: Positive: Nl turgor and temperature Neuro Exam: Positive: Strength at 5/5 X4 ext, Sensation Intact, Cranial Nerves 3-12 NL Assessment /Plan Problems (1) Syncope Status: Acute Problem Text: Syncope secondary to atrial fibrillation with slow ventricular response and prolonged pauses Pt admitted to ICU for close monitoring Discussed with Dr Yuan, he will speak with dr Javier for PPM placement Pts Xarelto is on hold for anticipated procedure. (2) Diabetes Status: Chronic Problem Text: FSBS with coverage contine all present meds (3) Hypertension Status: Chronic Problem Text: Continue all present meds (4) Atrial fibrillation Status: Chronic Problem Text: As per #1 Cardiology (Dr Yuan) on the case (5) RLS (restless legs syndrome) Status: Chronic Problem Text: will restart his home meds with close monitoring Plan/VTE VTE Prophylaxis Ordered?: Yes VS, I&O, 24H, Fishbone Vital Signs/I&O Vital Signs Date Time Temp Pulse Resp B/P (MAP) Pulse Ox O2 Delivery O2 Flow Rate FiO2 10/09/19 06:00 98 Room Air 10/09/19 04:00 97.5 73 18 131/84 (100) I&O- Last 24 Hours up to 6 AM 10/09/19 06:00 Intake Total 2030 ml Output Total 4050 ml Balance -2020 ml Laboratory Data 24H LABS Laboratory Tests 2 10/09/19 04:20: Nucleated Red Blood Cells % (auto) 0.0, Anion Gap 7L, Glomerular Filtration Rate > 60.0, Calcium Level 7.9L, Phosphorus Level 2.6#, Magnesium Level 2.3 CBC/BMP Laboratory Tests 10/09/19 04:20 HILL PUGH MD Oct 09, 2019 10:26
[2019-10-09 12:00] VITALS: BP 135/70
[2019-10-09 17:50] VITALS: BP 141/81
[2019-10-09 20:00] VITALS: BP 143/89
[2019-10-09] MEDS: rOPINIRole 2MG TAB PO SCH (20:25)
[2019-10-09] MEDS: VALSARTAN 80 MG TAB (DIOVAN) PO SCH (20:27)
[2019-10-09] MEDS: levETIRAcetam 250MG TABLET (KEPPRA) PO SCH (20:28)
[2019-10-09] MEDS ORDERED: tiZANidine 4 MG TAB PO ONE (21:45)
[2019-10-10] VITALS (8 sets, daily range): BP systolic 105–153; BP diastolic 62–88
[2019-10-10] MEDS ORDERED: NS 1,000 ML IV SCH (02:15)
[2019-10-10 05:17] LABS: MAGNESIUM LEVEL 2.2 MG/DL (1.8-2.4); PHOSPHORUS LEVEL 2.6 MG/DL (2.5-4.9)
[2019-10-10] MEDS: LEVEMIR (INSULIN DETEMIR) 1 UNITS/0.01ML SC SCH (08:12)
[2019-10-10] MEDS: POTASSIUM CHLORIDE 10% LIQ 20 MEQ/15 ML UDC PO SCH (08:14)
[2019-10-10] MEDS: HumaLOG INSULIN (NovoLOG) PER UNIT SC SCH ×4 (08:14→20:39)
[2019-10-10] MEDS: PREGABALIN 75 MG CAP(LYRICA) PO SCH ×3 (08:15→20:39)
[2019-10-10] MEDS: SPIRONOLACTONE 12.5MG PER 1/2 TABLET PO SCH (08:15)
[2019-10-10] MEDS: MAGNESIUM OXIDE 400 MG TAB (MAG-OX) PO SCH ×3 (08:15→20:37)
[2019-10-10] MEDS: TORSEMIDE 20 MG TAB PO SCH (08:15)
[2019-10-10] MEDS: DICLOFENAC EPOLAMINE 1.3 % PATCH TOP SCH ×2 (08:16→20:40)
[2019-10-10] MEDS: FERROUS SULFATE 325MG TAB PO SCH (08:16)
--- NOTE | 2019-10-10 09:43 | IPNPDOC ---
Subjective Date Seen The patient was seen on 10/10/19. Subjective Chief Complaint/HPI Pt is very upset, angry, he is calling pt advocate regarding a complaint aginst one of the deputy sheriff generalist. He is awaiting second opinion from Dr live regarding PPM placement. He has no other complaints at present. General: Denies: ROS Unobtainable, Chills, Night Sweats, Fatigue, Malaise, Normal Appetite, Other Symptoms Constitutional: Denies: Chills, Fever, Malaise, Night Sweats, Weakness, Fatigue, Weight Loss, Lethargy, Other Pulmonary: Denies: Dyspnea, Cough, Pleuritic Chest Pain, Other Symptoms Cardiovascular: Denies: Chest Pain, Palpitations, Orthopnea, Paroxysmal Noc. Dyspnea, Edema, Lt Headedness, Other Symptoms Gastrointestinal: Denies: Nausea, Vomiting, Abdominal Pain, Diarrhea, Constipation, Melena, Hematochezia, Other Symptoms Hematologic: Denies: Bruising, Bleeding Excessively, Petecchia, Purpura, Enlarged Lymph Nodes, Other Hematologic Endocrine: Denies: Polydipsia, Polyphagia, Polyuria, Heat Intolerance, Cold Intolerance, Other Endocrine Sx Musculoskeletal: Denies: Neck Pain, Back Pain, Shoulder Pain, Arm Pain, Hand Pain, Leg Pain, Foot Pain, Joint Pain, Muscle Pain, Spasms, Other Symptoms Neurological: Denies: Weakness, Numbness, Incoordination, Change in speech, Confusion, Seizures, Other Symptoms Objective Physical Examination Eye Exam: Positive: PERRLA, Conjunctiva & lids normal Neck Exam: Positive: Supple Chest Exam: Positive: Clear to auscultation Heart Exam: Positive: Rate Normal, Irregular Rhythm, Normal S1, Normal S2 Abdomen Exam: Positive: Normal bowel sounds Skin Exam: Positive: Nl turgor and temperature Assessment /Plan Problems (1) Syncope Status: Acute Problem Text: Syncope secondary to atrial fibrillation with slow ventricular response and prolonged pauses Pt admitted to ICU for close monitoring He has been clinically stable Pt to be seen by Dr Live for further opinion regarding PPM placement Pts Xarelto is on hold for anticipated procedure. Continue all present meds (2) Diabetes Status: Chronic Problem Text: FSBS with coverage contine all present meds (3) Hypertension Status: Chronic Problem Text: Continue all present meds (4) Atrial fibrillation Status: Chronic Problem Text: As per #1 Cardiology (Dr Yuan) on the case (5) RLS (restless legs syndrome) Status: Chronic Problem Text: will restart his home meds with close monitoring Plan/VTE VTE Prophylaxis Ordered?: Yes VS, I&O, 24H, Fishbone Vital Signs/I&O Vital Signs Date Time Temp Pulse Resp B/P (MAP) Pulse Ox O2 Delivery O2 Flow Rate FiO2 10/10/19 04:00 97.2 73 18 111/68 (82) 98 Room Air I&O- Last 24 Hours up to 6 AM 10/10/19 06:00 Intake Total 1620 ml Output Total 4300 ml Balance -2680 ml Laboratory Data 24H LABS Laboratory Tests 2 10/10/19 04:32: Phosphorus Level 2.6, Magnesium Level 2.2 HILL PUGH MD Oct 10, 2019 09:43
[2019-10-10] MEDS: levETIRAcetam 250MG TABLET (KEPPRA) PO SCH (20:37)
[2019-10-10] MEDS: rOPINIRole 2MG TAB PO SCH (20:38)
[2019-10-10] MEDS: VALSARTAN 80 MG TAB (DIOVAN) PO SCH (20:40)
[2019-10-11] VITALS: BP 140/75
[2019-10-11 04:00] VITALS: BP 143/87
[2019-10-11 08:00] VITALS: BP 144/85
[2019-10-11] MEDS: POTASSIUM CHLORIDE 10% LIQ 20 MEQ/15 ML UDC PO SCH (08:51)
[2019-10-11] MEDS: DICLOFENAC EPOLAMINE 1.3 % PATCH TOP SCH (08:53)
[2019-10-11] MEDS: LEVEMIR (INSULIN DETEMIR) 1 UNITS/0.01ML SC SCH (08:53)
[2019-10-11] MEDS: PREGABALIN 75 MG CAP(LYRICA) PO SCH (08:55)
[2019-10-11] MEDS: TORSEMIDE 20 MG TAB PO SCH (08:55)
[2019-10-11] MEDS: SPIRONOLACTONE 12.5MG PER 1/2 TABLET PO SCH (08:55)
[2019-10-11] MEDS: HumaLOG INSULIN (NovoLOG) PER UNIT SC SCH (08:55)
[2019-10-11] MEDS: MAGNESIUM OXIDE 400 MG TAB (MAG-OX) PO SCH (08:56)
[2019-10-11] MEDS: FERROUS SULFATE 325MG TAB PO SCH (08:56)
--- NOTE | 2019-10-11 11:08 | DS.PDOC ---
Discharge Summary General Date of Admission Oct 07, 2019 at 23:19 Date of Discharge 10/11/19 Discharge Summary PROCEDURES PERFORMED DURING STAY: [None]. ADMITTING DIAGNOSES: 1. [Afib, synope]. DISCHARGE DIAGNOSES: 1. [Recurrent syncope, afib with Slow vent rate (Lowest 30/Hr) with 2.1second pauses,DM,HTN,RLS]. COMPLICATIONS/CHIEF COMPLAINT: Syncope. HISTORY OF PRESENT ILLNESS: [This 69 yr old M was last admitted on August 17 for evaluation of syncope thought to be due to dehydration or bradycardia; he was discharged 2 days later with instructions to hold his diltiazem and follow up with . He followed up with , had a holter monitor done and reports that his diltiazem, nebivolol and mirabegron were discontinued. Today he presented w c/o having terrible balance, falling down when he tries to stand up. When he was able to stand he had to hold on to objects to avoid falling down. He has also been feeling very tired, and spontaneously falling asleep while talking with friend and eating dinner. He denied losing consciousness. He has also been feeling weak and has dropped objects from his right hand. He admitted to feeling dizzy, short of breath, and like his mind was slow. He denied having chest pain, palpitations or changes in his chronic lower extremity edema. He was scheduled to see today but he missed his appointment because he fell asleep. Per d/w GAMBLING BOX PERSON Gerry the patients EKG showed afib w prolonged pauses. On telemetry in the ER he has been in afib w a HR as low as 35 to 40.]. HOSPITAL COURSE: [Pt was admitted twice with recurrent syncopal episode. He was found to have Afib with Slow VR, all chronotropic agents including Cardizem were DCed on first admission and DC home but admitted again with similar symptoms.This time pt was found to have HR btw 30-32 with long pauses. Pt was admitted to ICU for close monitoring, he remained asymptomatic during his stay, his xarelto was on hold for possible PPM placement. He was seen by Dr Javier yesterday and he decided that pt does not require PPM. Discussed with Dr Yuan this am, as per dr Yuan, pt can be DC with holter monitor, but unfortunately Holter monitors are not available today and besides pt does not wish to be discharged as he is very concerned about his syncopal episodes and is requesting second opinion. Pt and family are very upset that pt has slow heart rate with frequent symptoms and syncopal episodes, he also developes similar episodes when driving, they wished a second opinion to be obtained from a different facility. [facility] called, Discussed with Dr León(cardiology) he accepted pt to [facility] for further evaluation, also spoke with Dr Anthony (Hospitalist), he accepted pt to [facility]. Pt will be transferred to [facility] today, discussed with Pt. and his , both agreed for transfer. ]. DISCHARGE MEDICATIONS: Please see below. ALLERGIES: Please see below. PHYSICAL EXAMINATION ON DISCHARGE: VITAL SIGNS: Please see below. GENERAL: [WNL] HEENT: [ANGELITA/EOMI] NECK: [Supple] CARDIOVASCULAR EXAMINATION: [S1 S2 Reg] RESPIRATORY EXAMINATION: [Clear to A&P] ABDOMINAL EXAMINATION: [Benign] EXTREMITIES: [No CCE] SKIN: [NL] NEUROLOGICAL EXAMINATION: [No focal motor sensory deficits] PSYCHIATRIC EXAMINATION: [NL] LABORATORY DATA: Please see below. IMAGING: [CT head:IMPRESSION: 1. No CT evidence of acute intracranial pathology. 2. Additional findings, as above. ] PROGNOSIS: [good] ACTIVITY: [As tolerated]. DIET: [Cardiac] DISCHARGE PLAN: [DC to [facility]] DISPOSITION: .[facility] for second opinion from EP flanger DISCHARGE INSTRUCTIONS: 1. [As above]. ITEMS TO FOLLOWUP ON ON OUTPATIENT: 1. [ per [facility]]. DISCHARGE CONDITION: [Stable]. TIME SPENT ON DISCHARGE: 60 minutes. Vital Signs/I&Os Vital Signs Date Time Temp Pulse Resp B/P (MAP) Pulse Ox O2 Delivery O2 Flow Rate FiO2 10/11/19 08:00 97.1 68 18 144/85 (104) 97 Room Air I&O- Last 24 Hours up to 6 AM 10/11/19 06:00 Intake Total 970 ml Output Total 4075 ml Balance -3105 ml Discharge Medications Scheduled Ferrous Sulfate (Iron) 325 Mg Tablet, 325 MG PO DAILY, (Reported) Insulin Detemir (Levemir Flextouch) 100 Unit/Ml Inj, 48 UNIT SC DAILY, (Reported) Levetiracetam (Levetiracetam) 750 Mg Tablet, 750 MG PO QHS, (Reported) Liraglutide (Victoza 2-Tab) 0.6 Mg/0.1 Ml Pen.injctr, 1.2 MG SC DAILY, (Reported) Magnesium (Magnesium) 250 Mg Tablet, 250 MG PO TID, (Reported) MORNING, 1800, QHS Metformin HCl (Metformin HCl) 1,000 Mg Tab, 1,000 MG PO BIDPC, (Reported) Multivitamins (Thera M Plus Tablet) 1 Each Tablet, 1 TAB PO BID, (Reported) Potassium Gluconate (Potassium) 99 Mg Tablet, 595 MG PO DAILY, (Reported) Pregabalin (Pregabalin) 150 Mg Capsule, 150 MG PO TID, (Reported) MORNING, 1800, QHS Rivaroxaban (Xarelto) 20 Mg Tablet, 20 MG PO DAILY, (Reported) Ropinirole HCl (Ropinirole ER) 2 Mg Tab, 4 MG PO QHS, (Reported) Ropinirole HCl (Ropinirole HCl) 2 Mg Tablet, 2 MG PO DAILY, (Reported) Ropinirole HCl (Ropinirole HCl) 2 Mg Tablet, 6 MG PO QHS, (Reported) Spironolactone (Spironolactone) 25 Mg Tab, 12.5 MG PO DAILY, (Reported) Tizanidine HCl (Tizanidine HCl) 2 Mg Tab, 2 MG PO TID, (Reported) MORNING, 1800, QHS Torsemide (Torsemide) 10 Mg Tablet, 20 MG PO DAILY, (Reported) Valsartan (Diovan) 160 Mg Tab, 80 MG PO QHS, (Reported) Scheduled PRN Calcium Carbonate (Tums) 200 Mg Tab.chew, 1,500 MG PO DAILY PRN for RESTLESS LEGS, (Reported) Clonazepam (Clonazepam) 1 Mg Tablet, 1 MG PO TID PRN for ANXIETY, (Reported) Diclofenac Sodium (Diclofenac Sodium) 1% 100GM Gel..gram., 4 GM TOP TID PRN for PAIN, (Reported) APPLIES TO KNEES AND LOWER BACK Meclizine HCl (Meclizine HCl) 12.5 Mg Tablet, 12.5 MG PO TID PRN for VERTIGO/DIZZINESS, (Reported) Oxycodone HCl/Acetaminophen (Oxycodone-Acetaminophen 5-325) 1 Each Tablet, 1 TAB PO BID PRN for PAIN, (Reported) Allergies Coded Allergies: codeine (Verified Adverse Reaction, Mild, jitters, 08/17/19) oxycodone (Verified Adverse Reaction, Mild, nightmares, 08/21/18) HILL PUGH MD Oct 11, 2019 11:08
[2019-10-11 11:20] VITALS: BP 123/66
--- NOTE | 2019-10-15 11:56 | REP ---
PORTABLE CHEST X-RAY: HISTORY: Altered mental status. FINDINGS: Cardiomegaly is suggested. Lung aaron are clear without focal consolidation, effusion or pneumothorax. Skeletal structures appear intact. IMPRESSION: Cardiomegaly. No focal consolidation or effusion. MTDD
--- NOTE | 2019-10-21 13:53 | ECGEPIP ---
[facility] - ED Test Date: 2019-10-07 Pat Name: QUINTEN STONE Department: Room: [place] [address] Gender: Male [place] Applier: Meron : [id number] Requested By: ANSLEY BRISCOE Order Number: [id number] Reading MD: Maggie Patterson Measurements Intervals Brule Rate: 74 P: IN: 0 QRS: 44 QRSD: 120 T: 40 QT: 398 QTc: 442 Interpretive Statements ATRIAL FIBRILLATION MODERATE INTRAVENTRICULAR CONDUCTION DELAY ABNORMAL RHYTHM ECG NSTTW ABNORMALITIES SEE SCANNED DOWNTIME REPORT
== END 2019-10-11 11:30 | disposition short-term general hospital (02) | DRG 308 ==
LOC: M ED 19:29 → M ED INP 23:19 → M ICU 10-08 03:45
PROVIDERS: ADMIT Internal Medicine; ATTEND Internal Medicine
DX: I48.20 Chronic atrial fibrillation, unspecified (principal); I50.33 Acute on chronic diastolic (congestive) heart failure; I69.351 Hemiplegia and hemiparesis following cerebral infarction affecting right dominant side; G93.40 Encephalopathy, unspecified; E11.40 Type 2 diabetes mellitus with diabetic neuropathy, unspecified; G62.2 Polyneuropathy due to other toxic agents; G47.33 Obstructive sleep apnea (adult) (pediatric); Z77.098 Contact with and (suspected) exposure to other hazardous, chiefly nonmedicinal, chemicals; I27.20 Pulmonary hypertension, unspecified; I11.0 Hypertensive heart disease with heart failure; E04.1 Nontoxic single thyroid nodule; G25.81 Restless legs syndrome; R60.0 Localized edema; R26.81 Unsteadiness on feet; G40.909 Epilepsy, unspecified, not intractable, without status epilepticus; M54.9 Dorsalgia, unspecified; E66.9 Obesity, unspecified; Z68.35 Body mass index [BMI] 35.0-35.9, adult; Z96.653 Presence of artificial knee joint, bilateral; Z79.01 Long term (current) use of anticoagulants; Z79.4 Long term (current) use of insulin; Z79.899 Other long term (current) drug therapy; Z88.5 Allergy status to narcotic agent

== ENCOUNTER 2020-01-22 16:47 | Emergency (ER) | payer MEDICARE, OTHER ==
[~2020-01-22] VITALS: Ht 182.9 cm; Wt 116.8 kg
[~2020-01-22 16:47] MED LIST changes: +DICL1GEL3 TOP; +HM P99TA PO; +K-TA10TA PO; +MECL12.590 PO; +PREG150C PO; +TORS20TA2 PO
[2020-01-22] MEDS ORDERED: DIOV80TA3 PO (17:51)
[2020-01-22] MEDS ORDERED: PRAV20TA2 PO (17:51)
--- NOTE | 2020-01-22 18:11 | REPVR ---
PROCEDURE INFORMATION: Exam: CT Head Without Contrast Exam date and time: 01/22/2020 5:51 PM Age: 69 years old Clinical indication: Condition or disease; Other: Cerebellar hemorrhage on mri yesterday on xarelto; Patient HX: Mri done yesterday was done at [facility] which this institution does not have access to the images at this time TECHNIQUE: Imaging protocol: Computed tomography of the head without contrast. Radiation optimization: All CT scans at this facility use at least one of these dose optimization techniques: automated exposure control; mA and/or kV adjustment per patient size (includes targeted exams where dose is matched to clinical indication); or iterative reconstruction. COMPARISON: CT Head without contrast 10/07/2019 9:09 PM FINDINGS: Brain: Hyperdense focus with central lucent region demonstrated in the right cerebellar hemisphere measures 1.4 x 1.8 x 1.1 cm. No significant mass effect. There is mild age related parenchymal volume loss. Mild white matter changes are demonstrated consistent with age related small vessel white matter ischemic changes. Cerebral ventricles: No ventriculomegaly. Bones/joints: Unremarkable. No acute fracture. Paranasal sinuses: Visualized sinuses are unremarkable. No fluid levels. Mastoid air cells: Visualized mastoid air cells are well aerated. Vasculature: Atherosclerotic calcifications are demonstrated in the intracranial carotid arteries bilaterally as well as in the vertebral basilar system. Soft tissues: Unremarkable. IMPRESSION: 1. Hyperdense focus with central lucent region demonstrated in the right cerebellar hemisphere measures 1.4 x 1.8 x 1.1 cm. Differential diagnosis includes subacute hemorrhage, and less likely abscess and neoplasm based on reported MRI findings. Review of those images is not possible at this time. 2. There is mild age related parenchymal volume loss. Mild white matter changes are demonstrated consistent with age related small vessel white matter ischemic changes. Electronically signed by: Ariel Araujo On 01/22/2020 18:11:22 PM
[2020-01-22 18:24] LABS: HEMATOCRIT 42.1 % (42.0-52.0); HEMOGLOBIN 13.9 g/dl (13.5-17.5); MEAN CORPUSCULAR HEMOGLOBIN 28.1 pg (27.0-33.0); MEAN CORPUSCULAR VOLUME 85.1 fl (80.0-96.0); PLATELET COUNT, AUTOMATED 264 10^3/uL (150-450); RED BLOOD COUNT 4.95 10^6/uL (4.30-6.10); WHITE BLOOD COUNT 7.5 10^3/uL (4.0-10.0)
[2020-01-22 18:47] LABS: BLOOD UREA NITROGEN 14 MG/DL (7-18); CALCIUM LEVEL 9.2 MG/DL (8.8-10.2); CARBON DIOXIDE LEVEL 33 MEQ/L (21-32); CHLORIDE LEVEL 103 MEQ/L (98-107); CREATININE FOR GFR 0.93 MG/DL (0.70-1.30); GLOMERULAR FILTRATION RATE > 60.0 (>42); GLUCOSE, FASTING 105 MG/DL (70-100); POTASSIUM SERUM 3.6 MEQ/L (3.5-5.1); SODIUM LEVEL 141 MEQ/L (136-145)
[2020-01-22 22:01] VITALS: BP 168/87
== END 2020-01-22 22:22 | disposition short-term general hospital (02) ==
LOC: M ED 16:47
DX: I61.4 Nontraumatic intracerebral hemorrhage in cerebellum (principal); I69.331 Monoplegia of upper limb following cerebral infarction affecting right dominant side; I11.0 Hypertensive heart disease with heart failure; I50.9 Heart failure, unspecified; I48.91 Unspecified atrial fibrillation; E11.9 Type 2 diabetes mellitus without complications; G47.33 Obstructive sleep apnea (adult) (pediatric); Z99.89 Dependence on other enabling machines and devices; Z96.653 Presence of artificial knee joint, bilateral; Z88.5 Allergy status to narcotic agent; Z79.01 Long term (current) use of anticoagulants; Z79.899 Other long term (current) drug therapy; Z79.4 Long term (current) use of insulin

== ENCOUNTER → 2020-01-25 | Outpatient (REF) | payer MEDICARE, OTHER ==
[~2020-01-25] MED LIST changes: +DIOV80TA3 PO; +PRAV20TA2 PO
== END ==
LOC: M LABSMT 15:40
PROVIDERS: ATTEND Urology
DX: Z12.5 Encounter for screening for malignant neoplasm of prostate (principal)
CPT/HCPCS: G0103; G0463

== ENCOUNTER → 2020-02-19 | Outpatient (CLI) | payer MEDICARE, OTHER ==
--- NOTE | 2020-02-19 09:49 | REP ---
INDICATION: OTH NONTRAUMATIC INTRACERBRAL HEMORRAGHE COMPARISON: 01/22/2020, 10/07/2019 TECHNIQUE: Axial noncontrast images from the skull base to the thoracic inlet with coronal reformations. This CT examination was performed using the following dose reduction techniques: Automated exposure control, adjustment of mA and/or kv according to the patient's size, and use of iterative reconstruction technique. FINDINGS: Round hyperdense focus in the right cerebellar hemisphere currently measures 9.2 mm diameter and appears decreased in size from prior examination suggesting small resolving hemorrhagic focus. No surrounding vasogenic edema or mass effect is otherwise noted. No other lesions are identified. Age-related atrophy with periventricular leukomalacia and microvascular ischemic changes are again appreciated and essentially unchanged. The ventricles and sulci are symmetric. Herrera-white differentiation is maintained. No extra-axial fluid collection. Calvarium is intact. Paranasal sinuses and mastoid air cells are clear. IMPRESSION: 1. 9.2 mm hyperdense focus in the right cerebellar hemisphere is decreased in size from prior examination suggesting resolving parenchymal hematoma underlying mass cannot definitively be excluded. In the absence of acute symptoms or suspicions for underlying pathology, follow-up examination at 1-3 months may be warranted to confirm resolution. 2. Age related atrophy and microvascular ischemic changes. <Electronically signed by Shawn Robledo > 02/19/20 [id number]
== END ==
LOC: M RAD 08:59
PROVIDERS: ATTEND Physician Assistant Medical
DX: I61.8 Other nontraumatic intracerebral hemorrhage (principal); G31.9 Degenerative disease of nervous system, unspecified; I67.82 Cerebral ischemia

== ENCOUNTER → 2020-05-09 | Outpatient (CLI) | payer MEDICARE, OTHER ==
[~2020-05-09] MED LIST changes: -CLIN150C14 PO; +CLIN150C15 PO; +MECL-136 PO; -MECL12.590 PO
--- NOTE | 2020-05-09 10:16 | REPVR ---
PROCEDURE INFORMATION: Exam: CT Head Without Contrast Exam date and time: 05/09/2020 9:45 AM Age: 69 years old Clinical indication: Condition or disease; Other: Hemmorage; Additional info: Other non traumatic intercerbral hemmorage TECHNIQUE: Imaging protocol: Computed tomography of the head without contrast. Radiation optimization: All CT scans at this facility use at least one of these dose optimization techniques: automated exposure control; mA and/or kV adjustment per patient size (includes targeted exams where dose is matched to clinical indication); or iterative reconstruction. COMPARISON: 1. CT Head without contrast 02/19/2020 9:[address] Head without contrast 01/22/2020 5:47:12 PM 3. MRI-Brain without Contrast 08/18/2019 12:52:05 AM FINDINGS: Brain: Low-density across brainstem and posterior fossa appears to represent artifact. In region of rounded hyperdensity seen on prior CTs, with no lesion identified on older prior MRI, there is a smaller punctate hyperdensity measuring approximately 2-3 mm. This shows no surrounding edema. No evidence of acute intracranial hemorrhage. No extra-axial fluid collections. There is mild lucency in the cerebral white matter, consistent with microvascular disease. There are more focal lucency skin chronic lacunar infarcts in bilateral basal ganglia and adjacent to body of left lateral ventricle. Herrera white differentiation is intact. Cerebral ventricles: No ventriculomegaly. Bones/joints: No acute fracture. Paranasal sinuses: Visualized sinuses are unremarkable. No fluid levels. Mastoid air cells: No significant mastoid effusion. Vasculature: There is vascular calcification. Soft tissues: Unremarkable as visualized. IMPRESSION: 1. Punctate residual hyperdensity in region of prior larger rounded lesion in right cerebellar hemisphere likely represents calcification given length of time from prior examination. 2. Microvascular disease. Electronically signed by: Lolita Handy On 05/09/2020 10:16:11 AM
== END ==
LOC: M RAD 09:39
PROVIDERS: ATTEND Physician Assistant Medical
DX: I61.8 Other nontraumatic intracerebral hemorrhage (principal)

== ENCOUNTER → 2020-08-13 | Outpatient (CLI) | payer MEDICARE, OTHER ==
[~2020-08-13] MED LIST changes: -DOXY100C37 PO; +DOXY1CAP62 PO; -HM P99TA PO; +POTA99TA14 PO
== END ==
LOC: M LABSMTC 09:46
PROVIDERS: ATTEND Pediatrics
DX: Z11.52 Encounter for screening for COVID-19 (principal)

== ENCOUNTER 2020-09-09 19:09 | Emergency (ER) | payer MEDICARE, OTHER ==
[~2020-09-09] VITALS: Ht 180.3 cm; Wt 114.1 kg
[2020-09-09 19:25] VITALS: BP 119/60
[2020-09-09] MEDS ORDERED: NS 1,000 ML IV ONE (19:55)
[2020-09-09 20:41] LABS: BASO # 0.1 10^3/uL (0.0-0.2); BASO % 0.5 % (0.0-1.0); EOS # 0.2 10^3/uL (0.0-0.5); EOS % 2.2 % (0.0-3.0); HEMATOCRIT 34.3 % (42.0-52.0); LYMPH # 1.1 10^3/uL (1.5-5.0); LYMPH % 10.5 % (24.0-44.0); MEAN CORPUSCULAR HEMOGLOBIN 27.6 pg (27.0-33.0); MEAN CORPUSCULAR HGB CONC 32.1 g/dl (32.0-36.5); MONO # 0.7 10^3/uL (0.0-0.8); MONO % 6.4 % (2.0-8.0); NEUTROPHILS # 8.4 10^3/uL (1.5-8.5); NEUTROPHILS % 79.8 % (36.0-66.0); PLATELET COUNT, AUTOMATED 230 10^3/uL (150-450); RED BLOOD COUNT 3.99 10^6/uL (4.30-6.10); WHITE BLOOD COUNT 10.6 10^3/uL (4.0-10.0)
[2020-09-09 20:52] LABS: INR 1.22; PROTHROMBIN TIME 15.8 SECONDS (12.7-14.5)
[2020-09-09] MEDS ORDERED: FARX1TAB3 PO (20:54)
[2020-09-09] MEDS ORDERED: ASPI81CH33 PO (20:54)
[2020-09-09] MEDS ORDERED: SILD100T PO (20:54)
[2020-09-09] MEDS ORDERED: JARD1TAB3 PO (20:54)
[2020-09-09 21:18] LABS: ALBUMIN 3.1 GM/DL (3.2-5.2); ALT/SGPT 34 U/L (12-78); BILIRUBIN,DIRECT 0.2 MG/DL (0.0-0.2); BILIRUBIN,TOTAL 0.6 MG/DL (0.2-1.0); CK-MB VALUE MASS < 1.0 NG/ML (<3.6); CPK CREATINE PHOSPHOKINASE 63 U/L (39-308); LIPASE 113 U/L (73-393); MB/CK RELATIVE INDEX 1.59 (< OR =4); RSV AMPLIFICATION NEGATIVE (NEGATIVE); TOTAL PROTEIN 6.5 GM/DL (6.4-8.2); TROPONIN I < 0.02 NG/ML (< 0.10)
[2020-09-09] MEDS ORDERED: ISOVUE-370 76% 100ML VIAL As Ordered ONE (21:40)
--- NOTE | 2020-09-09 23:08 | REPVR ---
PROCEDURE INFORMATION: Exam: CTA Chest With Contrast Exam date and time: 09/09/2020 10:14 PM Age: 70 years old Clinical indication: Shortness of breath; Additional info: recent cardiac surgery, right incision infection TECHNIQUE: Imaging protocol: Computed tomographic angiography of the chest with contrast. 3D rendering (Not supervised by radiologist): MIP and/or 3D reconstructed images were created by the technologist. Radiation optimization: All CT scans at this facility use at least one of these dose optimization techniques: automated exposure control; mA and/or kV adjustment per patient size (includes targeted exams where dose is matched to clinical indication); or iterative reconstruction. Contrast material: ISOVUE 370; Contrast volume: 100 ml; Contrast route: INTRAVENOUS (IV); COMPARISON: CT ANGIO CHEST 03/23/2018 2:38 AM FINDINGS: Limitations: Respiratory motion artifact degrades the image quality. Pulmonary arteries: There are filling defects in the distal portions of both main pulmonary arteries (image 79 of the axial series 401) and the pulmonary arteries supplying the posterior segment of the right lower lobe (images 102-103 of the axial series 401) and the lingula (images 70-83 of the axial series 401), which are compatible with acute pulmonary emboli. Aorta: The thoracic aorta is intact and patent. There is no thoracic aortic aneurysm, pseudoaneurysm, penetrating atherosclerotic ulcer, intramural hematoma, or dissection. There are mild atherosclerotic calcifications. Thyroid: The thyroid gland is heterogeneous in appearance and there is a 17 mm nodule in the right lobe and an 8 mm nodule in the left lobe, which are stable compared to the prior CTA chest on 03/23/2018. Trachea: Normal. Bronchial tree: Normal. Lungs: There is consolidation in the posterior segment of the right lower lobe. Small metallic density foci is seen in the periphery of the right middle lobe with mild surrounding consolidation. There are small calcified granulomas in the right upper lobe, right middle lobe, and left lower lobe. Pleural spaces: There is a trace right pleural effusion. No pneumothorax. Heart: The heart is enlarged. The ratio of the diameter of the right ventricle to the diameter of the left ventricle measures greater than 1, which is abnormally elevated and suggestive of a right ventricular strain. Coronary artery calcifications are present. There is a focus of metallic density which causes streak artifact in the right ventricle. Mediastinal space: No mediastinal mass, fluid collection, or pneumomediastinum. Lymph nodes: Normal. No enlarged lymph nodes. Diaphragm: Intact. Gallbladder and bile ducts: There has been a cholecystectomy. There is no fluid collection in the gallbladder fossa. No dilation of the bile ducts is noted. No calcified stones are seen in the common bile duct. Spleen: Unremarkable. No splenomegaly is noted. Incidental note is made of a small accessory spleen. Adrenal glands: Normal. No adrenal mass is noted. Bones/joints: The imaged bony structures are intact. There is no suspicious osteolytic or osteoblastic lesion. There are bridging paraspinal osteophytes at multiple contiguous levels in the thoracic spine, which are findings compatible with diffuse idiopathic skeletal hyperostosis. Soft tissues: There is soft tissue swelling, reticulation of the subcutaneous tissues, and a trace amount of fluid in the right anterior and lateral lower chest wall. No discrete rim enhancing drainable soft tissue fluid collection is identified. No soft tissue gas is noted. Other findings: For details regarding the abdominal and pelvic findings, refer to the CT abdomen and pelvis report on 09/09/2020. IMPRESSION: 1. Acute bilateral pulmonary emboli and CT evidence for a right ventricular strain. 2. Consolidation in the posterior segment of the right lower lobe, which may indicate a pulmonary infarct or pneumonia. 3. Trace right pleural effusion. 4. Cellulitis in the right anterior and lateral lower chest wall. No abscess identified. 5. Thyroid nodules, which are stable compared to the prior CTA chest on 03/23/2018. COMMENTS: Consistent with the [employer]'s Incidental Findings Committee white paper (J Am Jo Radiol 2015): In patients aged 35 years and older with an incidental thyroid nodule equal to or greater than 1.[address], MRI or extrathyroidal US, further evaluation with dedicated thyroid US is recommended for patients with normal life expectancy and without comorbidities. For smaller nodules without suspicious features, no further evaluation or follow up is recommended. Electronically signed by: Christiano Zelaya On 09/09/2020 23:03:30 PM
--- NOTE | 2020-09-09 23:19 | REPVR ---
PROCEDURE INFORMATION: Exam: CT Abdomen And Pelvis With Contrast Exam date and time: 09/09/2020 10:14 PM Age: 70 years old Clinical indication: SOB, recent cardiac surgery, right incision infection TECHNIQUE: Imaging protocol: Computed tomography of the abdomen and pelvis with contrast. Radiation optimization: All CT scans at this facility use at least one of these dose optimization techniques: automated exposure control; mA and/or kV adjustment per patient size (includes targeted exams where dose is matched to clinical indication); or iterative reconstruction. Contrast material: ISOVUE 370; Contrast volume: 100 ml; Contrast route: INTRAVENOUS (IV); COMPARISON: CT ABD/PEL W/IV CONTRAST ONLY 01/06/2017 8:02 PM FINDINGS: Lungs: For details regarding the lungs, refer to the CTA chest report on 09/09/2020. Pleural spaces: There is a trace right pleural effusion. Heart: For details regarding the heart, refer to the CTA chest report on 09/09/2020. Liver: Unremarkable. No liver lesion is identified. The contour of the liver is smooth. No hepatomegaly is noted. Gallbladder and bile ducts: There has been a cholecystectomy. There is no fluid collection in the gallbladder fossa. There is mild chronic dilation of the central intrahepatic biliary ducts and common bile duct, which is stable compared to the prior CT abdomen and pelvis on 01/06/2017. Pancreas: Normal. No dilation of the main pancreatic duct is noted. Spleen: The spleen is heterogeneous in appearance, which is likely secondary to the arterial timing of the contrast bolus. No splenomegaly. Incidental note is made of two small accessory spleens. Adrenal glands: Normal. No adrenal mass is noted. Kidneys and ureters: The kidneys are normal in appearance. No renal lesion is noted. No stones are noted in the kidneys or ureters. There is no hydronephrosis or hydroureter. There are no wedge-shaped areas of low attenuation in the kidneys to suggest pyelonephritis. There is no renal abscess or perinephric fluid collection. Stomach and bowel: The stomach and small bowel are unremarkable. There is no evidence for a bowel obstruction, diverticulosis, diverticulitis, colitis, perforated viscus, pneumatosis intestinalis, intussusception, or volvulus. There is a moderate amount of formed stool in the cecum, ascending colon, transverse colon, and descending colon. A mild amount of formed stool is present in the sigmoid colon. Appendix: There are no findings to suggest acute appendicitis. Intraperitoneal space: No free air. No ascites. No abscess. Retroperitoneal space: No fluid collection. No mass. Vasculature: No abdominal aortic aneurysm is present. There are moderate atherosclerotic calcifications. Lymph nodes: No enlarged lymph nodes. Urinary bladder: The partially distended urinary bladder is unremarkable. No stones or masses are seen in the bladder. Reproductive: There are calcifications in the prostate gland. The seminal vesicles are unremarkable. Bones/joints: There is no fracture or dislocation. No suspicious osteolytic or osteoblastic lesion. There are degenerative changes involving the lumbar spine. There is moderate osteoarthritis of both hips. Soft tissues: There is a 4.5 cm x 2.7 cm x 8.2 cm water density fluid collection in the left groin with overlying scarring and surgical clips. Scar tissue and surgical clips are also noted in the right groin. There is soft tissue swelling and edema in the right anterior and lateral lower chest and right lateral abdominal wall. IMPRESSION: 1. Cellulitis in the right anterior and lateral lower chest and right lateral abdominal wall. 2. 4.5 cm x 2.7 cm x 8.2 cm fluid collection in the left groin, which may represent a postoperative seroma or abscess. THIS REPORT CONTAINS FINDINGS THAT MAY BE CRITICAL TO PATIENT CARE. The exam findings were verbally communicated by me to MACRINA Car via telephone conference at 11:15 PM EDT on 09/09/2020. The findings were acknowledged and understood. Electronically signed by: Christiano Zelaya On 09/09/2020 23:19:39 PM
[2020-09-10] MEDS ORDERED: HEPARIN DRIP 25,000 UNITS in IV 1 EA IV SCH (00:10)
[2020-09-10] MEDS ORDERED: cefTRIAXone SOD 1 GM in D5W MINI-BAG PLUS 50 ML IV ONE (00:10)
[2020-09-10] MEDS ORDERED: HEPARIN SOD (PORCINE) 5000UNITS/ML 1ML VIAL/SYRINGE IV ONE (00:10)
--- NOTE | 2020-09-10 09:34 | ECGEPIP ---
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
== END 2020-09-10 02:18 | disposition short-term general hospital (02) ==
LOC: M ED 19:09
DX: I82.413 Acute embolism and thrombosis of femoral vein, bilateral (principal); T81.49XA Infection following a procedure, other surgical site, initial encounter; L03.313 Cellulitis of chest wall; I48.91 Unspecified atrial fibrillation; I45.4 Nonspecific intraventricular block; Z79.4 Long term (current) use of insulin; Z79.899 Other long term (current) drug therapy; Z88.5 Allergy status to narcotic agent
CPT/HCPCS: 71275; 74177; 80047; 80076; 82550; 82553; 83605; 83690; 84484; 85025; 85610; 85730; 86140; 87040; 87631; 93005; 93041; 96361; 96365; 99285; J0696; Q9967

== ENCOUNTER 2020-10-24 10:16 | Observation (INO) | payer MEDICARE, OTHER ==
[~2020-10-24 10:16] MED LIST changes: +ASPI81CH33 PO; -CLIN150C15 PO; +CLIN150C17 PO; +FARX1TAB3 PO; +JARD1TAB3 PO; +SILD100T PO
[2020-10-24 12:12] LABS: BASO # 0.1 10^3/uL (0.0-0.2); BASO % 0.5 % (0.0-1.0); EOS # 0.2 10^3/uL (0.0-0.5); EOS % 1.8 % (0.0-3.0); HEMATOCRIT 43.4 % (42.0-52.0); HEMOGLOBIN 13.4 g/dl (13.5-17.5); LYMPH # 1.1 10^3/uL (1.5-5.0); LYMPH % 11.3 % (24.0-44.0); MEAN CORPUSCULAR HEMOGLOBIN 24.9 pg (27.0-33.0); MEAN CORPUSCULAR HGB CONC 30.9 g/dl (32.0-36.5); MEAN CORPUSCULAR VOLUME 80.5 fl (80.0-96.0); MONO # 0.5 10^3/uL (0.0-0.8); NEUTROPHILS % 81.1 % (36.0-66.0); PLATELET COUNT, AUTOMATED 270 10^3/uL (150-450); RED BLOOD COUNT 5.39 10^6/uL (4.30-6.10); WHITE BLOOD COUNT 9.9 10^3/uL (4.0-10.0)
[2020-10-24 12:23] LABS: INR 0.99; PROTHROMBIN TIME 13.5 SECONDS (12.7-14.5)
--- NOTE | 2020-10-24 12:24 | REP ---
INDICATION: CHEST PAIN. COMPARISON: 10/07/2019. TECHNIQUE: Single portable AP view of the chest was performed. FINDINGS: There is no acute infiltrate. Cardiomegaly is unchanged. Mediastinal silhouette is unchanged. IMPRESSION: No acute pulmonary disease.Stable cardiomegaly. <Electronically signed by Shahram Herrera > 10/24/20 [id number]
[2020-10-24] MEDS ORDERED: ISOVUE-370 76% 100ML VIAL As Ordered ONE (12:57)
[2020-10-24 13:17] LABS: ALBUMIN 3.5 GM/DL (3.2-5.2); ALT/SGPT 18 U/L (12-78); BILIRUBIN,DIRECT < 0.1 MG/DL (0.0-0.2); BILIRUBIN,TOTAL 0.4 MG/DL (0.2-1.0); BLOOD UREA NITROGEN 14 MG/DL (7-18); CALCIUM LEVEL 8.9 MG/DL (8.8-10.2); CARBON DIOXIDE LEVEL 27 MEQ/L (21-32); CHLORIDE LEVEL 107 MEQ/L (98-107); CREATININE FOR GFR 0.82 MG/DL (0.70-1.30); FREE T4 0.82 NG/DL (0.76-1.46); GLOMERULAR FILTRATION RATE > 60.0 (>42); GLUCOSE, FASTING 146 MG/DL (70-100); LIPASE 80 U/L (73-393); POTASSIUM SERUM 3.9 MEQ/L (3.5-5.1); SODIUM LEVEL 140 MEQ/L (136-145); THYROID STIMULATING HORMONE 0.508 uIU/ML (0.358-3.740)
[2020-10-24 13:33] LABS: RSV AMPLIFICATION NEGATIVE (NEGATIVE)
--- NOTE | 2020-10-24 14:11 | REP ---
INDICATION: ro pe. COMPARISON: 09/09/2020. TECHNIQUE: CT angiogram chest performed following the intravenous administration of 100 cc of Isovue 370. Sagittal and coronal reconstruction images are performed. FINDINGS: Lungs: There are scattered bilateral interstitial fibrotic changes. Mediastinum: No adenopathy. Pulmonary arteries: No evidence of pulmonary embolism. Cynthia: No adenopathy. Axilla: No adenopathy. Pleura: No effusion. Heart: Mildly enlarged. Thoracic aorta: No aneurysm or dissection. Upper abdominal structures: Metallic clips are seen in the region of the gallbladder fossa. There is fluid density in that region which may represent a gallbladder remnant or dilated cystic duct remnant.. Visualized osseous structures: There are degenerative changes of the spine without compression deformity. Inflammatory changes in the right chest wall have improved. IMPRESSION: No CT evidence of pulmonary embolism. No infiltrate seen. <Electronically signed by Shahram Herrera > 10/24/20 [id number]
[2020-10-24 16:09] LABS: NT-PRO BNP 625 PG/ML (<125)
[2020-10-24] MEDS ORDERED: MAGN400T2 PO (18:48)
[2020-10-24] MEDS ORDERED: OXYC1TAB23 PO (18:48)
[2020-10-24] MEDS ORDERED: CLON1TAB8 PO (18:48)
[2020-10-24] MEDS ORDERED: OXYB-54 PO (18:48)
[2020-10-24] MEDS ORDERED: OXCA150T21 PO (18:48)
[2020-10-24] MEDS ORDERED: HOME MED LIST COMPLETE! XX SCH (18:50)
[2020-10-24] MEDS ORDERED: clonazePAM 1 MG TAB PO PRN (19:30)
[2020-10-24] MEDS ORDERED: PERCOCET 5MG/325MG TAB PO PRN (19:30)
[2020-10-24] MEDS ORDERED: MECLIZINE 12.5 MG TAB PO PRN (19:30)
[2020-10-24] MEDS ORDERED: ACETAMINOPHEN TAB 650MG DOSE (2X325MG) PO PRN (19:30)
--- NOTE | 2020-10-24 19:37 | ECGEPIP ---
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
--- NOTE | 2020-10-24 19:50 | ECGEPIP ---
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
--- NOTE | 2020-10-24 20:07 | HPEPDOC ---
General Date of Admission October 24, 2020 Date of Service: Oct 24, 2020 Chief Complaint The patient is a 70-year-old male admitted with a reason for visit of Chest Pain. Source: Patient History of Present Illness Mr. Cruz is a 70-year-old male with history of hemorrhagic CVA, atrial fibrillation on anticoagulation due to hemorrhagic CVA, and failed watchman procedure x2 who presents with substernal chest pain. Last night around dinnertime, patient was resting in recliner. While at rest, he develops substernal chest pain that is pressure-like in nature. He had associated nausea and shortness of breath. He tried taking Tums and Mylanta, but did not get better. He checked his pulse ox, but it was good. He went to bed. Then at 3 AM, his chest pressure felt like a 500 pound elephant was sitting on his chest. Rated the pain 8 out of 10. He tried to go back to bed. At 5:30 AM he felt nauseous again. At 7 AM, he vomited. The chest pressure was continuous. Not worse with activity. At 10 AM, he was brought to the ED for evaluation. While here, his EKG demonstrated A. fib. No ST elevations or depressions. Initial troponin was 0 and the 6-hour troponin was 0.09. I spoke with cardiology, Dr. Yuan. I let him know that he had a history of hemorrhagic CVA. Dr. Yuan suggested atorvastatin and topical nitro to help with the pain. Patient was already on aspirin. Recommend following troponin and if troponin rises to transfer the patient. Patient be placed in observation for chest pain rule out ACS. Home Medications Scheduled Aspirin (Aspirin) 81 Mg Tab.chew, 81 MG PO QHS, (Reported) Clonazepam (Clonazepam) 1 Mg Tablet, 2 MG PO QHS, (Reported) Empagliflozin (Jardiance) 25 Mg Tablet, 25 MG PO DAILY, (Reported) Insulin Detemir (Levemir Flextouch) 100 Unit/Ml Inj, 54 UNIT SC DAILY, (Reporte d) Levetiracetam (Levetiracetam) 750 Mg Tablet, 750 MG PO QHS, (Reported) Magnesium Oxide (Magnesium Oxide) 400 Mg Tablet, 400 MG PO TID, (Reported) Metformin HCl (Metformin HCl) 1,000 Mg Tab, 1,000 MG PO BID, (Reported) Multivitamins (Thera M Plus Tablet) 1 Each Tablet, 1 TAB PO BID, (Reported) Oxcarbazepine (Oxcarbazepine) 150 Mg Tablet, 150 MG PO QHS, (Reported) Oxybutynin Chloride (Oxybutynin Chloride ER) 5 Mg Tab.er.24, 5 MG PO DAILY, (Reported) Pregabalin (Pregabalin) 150 Mg Capsule, 150 MG PO TID, (Reported) MORNING, 1800, QHS Ropinirole HCl (Ropinirole HCl) 2 Mg Tablet, 2 MG PO TID, (Reported) Sildenafil Citrate (Sildenafil Citrate) 100 Mg Tablet, 100 MG PO ASDIRECTED, (Reported) Spironolactone (Spironolactone) 25 Mg Tab, 12.5 MG PO DAILY, (Reported) Torsemide (Torsemide) 10 Mg Tablet, 20 MG PO DAILY, (Reported) Valsartan (Diovan) 80 Mg Tablet, 80 MG PO DAILY, (Reported) Scheduled PRN Clonazepam (Clonazepam) 1 Mg Tablet, 1 MG PO QPM PRN for ANXIETY, (Reported) @ 1800 Diclofenac Sodium (Diclofenac Sodium) 1% 100GM Gel..gram., 4 GM TOP TID PRN for PAIN, (Reported) APPLIES TO KNEES AND LOWER BACK Meclizine HCl (Meclizine HCl) 12.5 Mg Tablet, 12.5 MG PO TID PRN for VERTIGO/DIZZINESS, (Reported) Oxycodone HCl/Acetaminophen (Oxycodone-Acetaminophen 5-325) 1 Each Tablet, 1 TAB PO BID PRN for PAIN LEVEL 5-10, (Reported) Allergies Coded Allergies: codeine (Verified Adverse Reaction, Mild, jitters, 08/17/19) oxycodone (Verified Adverse Reaction, Mild, nightmares, 08/21/18) Past Medical History Medical History 1. Multiple subsegmental pulmonary emboli 2. History of hemorrhagic CVA (per patient January 24 2020) 3. Persistent atrial fibrillation not on anticoagulation due to history of hemorrhagic CVA 4. Hypertension 5. Type 2 diabetes mellitus 6. Chronic diastolic heart failure 7. Mixed hyperlipidemia 8. Bilateral carotid artery stenosis 9. Sleep apnea 10. Restless leg syndrome 11. Agent orange exposure 12. GERD 13. Lumbar disc disease with radiculopathy 14. Obesity 15. Pain foramen ovale Surgical History 1. Status post left total knee replacement 2. IVC filter placement on 09/12/2020 3. Failed watchman procedure x2 4. Right mini thoracotomy in an attempt to retrieve the watchman device that got dislodged from left atrium 5. Retrieval of watchman device from descending aorta by vascular surgery 6. Lasix eye surgery 7. Bilateral knee replacement 8. Attempted cholecystectomy which was unsuccessful 9. Varicose vein surgery on both lower extremities Family History Family history includes CAD and CVA Social History * Smoker: non-smoker Alcohol: occationally Drugs: denies A-FIB/CHADSVASC A-FIB History Current/History of A-Fib/PAF?: Yes Current PO Anticoag Therapy: No Treatment Reason Anticoagulant not given: Other (History of hemorrhagic CVA) Other reason anticoagulant not: Patient has history of hemorrhagic CVA less than a year ago Review of Systems Constitutional: Denies: Chills, Fever Eyes: Denies: Vision change ENT: Denies: Sore Throat Skin: Denies: Rash Pulmonary: Reports: Dyspnea (When chest pain was severe) Cardiovascular: Reports: Chest Pain (Pressure-like pain that substernal) Gastrointestinal: Reports: Nausea (When chest pain was severe); Denies: Abdominal Pain, Diarrhea Genitourinary: Denies: Dysuria Hematologic: Denies: Bruising Neurological: Reports: Other Symptoms (Neuropathy of feet and beginning to develop neuropathy of hands) Psych: Denies: Anxiety, Depression Physical Examination General Exam: Positive: Alert, Cooperative Eye Exam: Positive: EOMI; Negative: Sclera icteric ENT Exam: Positive: Atraumatic Neck Exam: Positive: Supple Chest Exam: Positive: Clear to auscultation Heart Exam: Positive: Rate Normal, Irregular Rhythm Abdomen Exam: Positive: Normal bowel sounds, Soft; Negative: Tenderness Extremity Exam: Positive: Edema (Bilateral pitting edema) Neuro Exam: Positive: Other (Left facial droop) Psych Exam: Positive: Mental status NL, Mood NL Vital Signs Vital Signs Date Time Temp Pulse Resp B/P (MAP) Pulse Ox O2 Delivery O2 Flow Rate FiO2 10/24/20 18:37 98.4 65 16 156/89 (111) 98 Room Air Laboratory Data Labs 24H Laboratory Tests 2 10/24/20 12:03: POC Glucose (Misc Panel) 154H, POC Sodium (Misc Panel) 142, POC Potassium (Misc Panel) 3.8, POC Chloride (Misc Panel) 104, POC Total CO2 (Misc Panel) 27.0, POC Blood Urea Nitrogen (Misc Panel 14, POC Ionized Calcium (Misc Panel) 4.6, POC Creatinine (Misc Panel) 0.7, POC Hematocrit (Misc Panel) 43.0 10/24/20 12:04: Immature Granulocyte % (Auto) 0.3, Neutrophils (%) (Auto) 81.1H, Lymphocytes (%) (Auto) 11.3L, Monocytes (%) (Auto) 5.0, Eosinophils (%) (Auto) 1.8, Basophils (%) (Auto) 0.5, Neutrophils # (Auto) 8.0, Lymphocytes # (Auto) 1.1L, Monocytes # (Auto) 0.5, Eosinophils # (Auto) 0.2, Basophils # (Auto) 0.1, Nucleated Red Blood Cells % (auto) 0.0, Prothrombin Time 13.5, Prothromb Time International Ratio 0.99, Activated Partial Thromboplast Time 20.0L, Anion Gap 6L, Glomerular Filtration Rate > 60.0, Calcium Level 8.9, Total Bilirubin 0.4, Direct Bilirubin < 0.1, Aspartate Amino Transf (AST/SGOT) 22, Alanine Aminotransferase (ALT/SGPT) 18, Alkaline Phosphatase 124H, HF-Cay-W-Type Natriuretic Peptide 625H, Total Protein 8.0, Albumin 3.5, Albumin/Globulin Ratio 0.8, Lipase 80, Thyroid Stimulating Hormone (TSH) 0.508, Free Thyroxine 0.82, Coronavirus (COVID- 19)(PCR) NEGATIVE, Influenza Type A (RT-PCR) NEGATIVE, Influenza Type B (RT-PCR) NEGATIVE, Respiratory Syncytial Virus (PCR) NEGATIVE 10/24/20 12:05: POC Troponin I (Misc) 0.00 10/24/20 17:08: POC Troponin I (Misc) 0.09H CBC/BMP Laboratory Tests 10/24/20 12:04 Assessment/Plan Mr. Cruz is a 70-year-old male with history of hemorrhagic CVA, atrial fibrillation on anticoagulation due to hemorrhagic CVA, and failed watchman procedure x2 who presents with substernal chest pain. Quality of chest pain is suspicious for cardiac causes of chest pain. It is a substernal pressure-like pain with associated nausea and shortness of breath. I consulted cardiology, Dr. Yuan. At this time we will monitor troponins, start topical nitroglycerin for chest pain, and start atorvastatin. Patient is already on aspirin. If troponins were to rise, patient will need transfer. Plan / VTE VTE Prophylaxis Ordered?: Yes Plan Plan 1. Unstable angina/NSTEMI Patient symptoms suggest angina Improved from initial event, currently 2 out of 10 Cardiology, Dr. Yuan, consulted, recommendations appreciated Monitor troponins and if it elevates transfer patient Start Nitro-Bid half-inch every 6 hours. I placed holding parameters for systolic blood pressure less than 100 Start atorvastatin Continue aspirin and valsartan Patient will be on a clear liquid diet in case he needs an urgent cardiac cath 2. History of hemorrhagic CVA Patient has residual left-sided facial droop Patient tells me he had a hemorrhagic stroke in January 2020 Continue Keppra and Trileptal 3. Persistent atrial fibrillation Due to history of hemorrhagic stroke, not on anticoagulation Had 2 failed watchman procedures 4. 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 Restless leg syndrome Continue ropinirole 7. DVT prophylaxis SCDs and teds Disposition: Pending troponin trend JAH GERBER DO Oct 24, 2020 20:07
[2020-10-24] MEDS ORDERED: ROPI2TAB3 PO (20:21)
[2020-10-24 20:33] LABS: CK-MB VALUE MASS 1.7 NG/ML (<3.6); CPK CREATINE PHOSPHOKINASE 61 U/L (39-308); MB/CK RELATIVE INDEX 2.79 (< OR =4); TROPONIN I < 0.02 NG/ML (< 0.10)
[2020-10-24] MEDS ORDERED: clonazePAM 1 MG TAB PO SCH (21:00)
[2020-10-24] MEDS ORDERED: OXcarbazepine 150 MG TAB PO SCH (21:00)
[2020-10-24] MEDS ORDERED: ASPIRIN 81 MG CHEW TABLET PO SCH (21:00)
[2020-10-24] MEDS ORDERED: levETIRAcetam 250MG TABLET (KEPPRA) PO SCH (21:00)
[2020-10-24] MEDS ORDERED: ATORVASTATIN 20 MG TAB PO SCH (21:00)
[2020-10-24] MEDS: NITROGLYCERIN 2% OINT 1 GM *U/D* PKT TOP SCH (21:51)
[2020-10-24] MEDS: MULTIVITAMINS/MINERALS THERAP 1 TAB PO SCH (21:53)
[2020-10-24] MEDS: PREGABALIN 75 MG CAP(LYRICA) PO SCH (21:54)
[2020-10-24] MEDS: MAGNESIUM OXIDE 400MG TAB (MAG-OX) PO SCH (21:54)
[2020-10-24] MEDS: rOPINIRole 2MG TAB PO SCH (21:58)
[2020-10-24 23:29] LABS: CK-MB VALUE MASS 1.3 NG/ML (<3.6); CPK CREATINE PHOSPHOKINASE 58 U/L (39-308); MB/CK RELATIVE INDEX 2.24 (< OR =4); TROPONIN I < 0.02 NG/ML (< 0.10)
[2020-10-25] MEDS: NITROGLYCERIN 2% OINT 1 GM *U/D* PKT TOP SCH ×3 (02:21→14:00)
[2020-10-25 02:32] LABS: CK-MB VALUE MASS 1.8 NG/ML (<3.6); CPK CREATINE PHOSPHOKINASE 51 U/L (39-308); MB/CK RELATIVE INDEX 3.53 (< OR =4); TROPONIN I < 0.02 NG/ML (< 0.10)
[2020-10-25 06:36] LABS: HEMATOCRIT 37.7 % (42.0-52.0); HEMOGLOBIN 11.6 g/dl (13.5-17.5); MEAN CORPUSCULAR HEMOGLOBIN 24.6 pg (27.0-33.0); MEAN CORPUSCULAR HGB CONC 30.8 g/dl (32.0-36.5); MEAN CORPUSCULAR VOLUME 79.9 fl (80.0-96.0); PLATELET COUNT, AUTOMATED 254 10^3/uL (150-450); RED BLOOD COUNT 4.72 10^6/uL (4.30-6.10); WHITE BLOOD COUNT 5.1 10^3/uL (4.0-10.0)
[2020-10-25 07:02] LABS: BLOOD UREA NITROGEN 17 MG/DL (7-18); CALCIUM LEVEL 8.5 MG/DL (8.8-10.2); CARBON DIOXIDE LEVEL 27 MEQ/L (21-32); CHLORIDE LEVEL 108 MEQ/L (98-107); CPK CREATINE PHOSPHOKINASE 62 U/L (39-308); CREATININE FOR GFR 0.65 MG/DL (0.70-1.30); GLOMERULAR FILTRATION RATE > 60.0 (>42); GLUCOSE, FASTING 118 MG/DL (70-100); MB/CK RELATIVE INDEX 1.61 (< OR =4); POTASSIUM SERUM 3.9 MEQ/L (3.5-5.1); SODIUM LEVEL 141 MEQ/L (136-145); TROPONIN I < 0.02 NG/ML (< 0.10)
[2020-10-25] MEDS: SUCRALFATE 1 GM TAB PO SCH ×2 (08:48→12:00)
[2020-10-25] MEDS ORDERED: oxyBUTYnin *DITROPAN XL* 5 MG TABCR PO SCH (09:00)
[2020-10-25] MEDS ORDERED: SPIRONOLACTONE 12.5MG PER 1/2 TABLET PO SCH (09:00)
[2020-10-25] MEDS ORDERED: OMEPRAZOLE 20 MG CAP PO SCH (09:00)
[2020-10-25] MEDS ORDERED: TORSEMIDE 10 MG TABLET PO SCH (09:00)
[2020-10-25] MEDS ORDERED: VALSARTAN 80 MG TAB (DIOVAN) PO SCH (09:00)
[2020-10-25 10:09] LABS: CHOLESTEROL LEVEL 116 MG/DL (<200); CHOLESTEROL RISK RATIO 2.468 (<5); HDL CHOLESTEROL 47 MG/DL (>40); LDL CHOLESTEROL 51 MG/DL (<100); NON-HDL-C 69 MG/DL; TRIGLYCERIDES LEVEL 88 MG/DL (<150)
[2020-10-25] MEDS: MAGNESIUM OXIDE 400MG TAB (MAG-OX) PO SCH (10:22)
[2020-10-25] MEDS: PREGABALIN 75 MG CAP(LYRICA) PO SCH (10:23)
[2020-10-25] MEDS: MULTIVITAMINS/MINERALS THERAP 1 TAB PO SCH (10:23)
[2020-10-25] MEDS: rOPINIRole 2MG TAB PO SCH (10:24)
[2020-10-25] MEDS ORDERED: amLODIPine 5 MG TAB PO ONE (11:15)
[2020-10-25 11:35] VITALS: BP 125/75
[2020-10-25] MEDS ORDERED: SUCR1TA PO (11:39)
[2020-10-25] MEDS ORDERED: OMEP-218 PO (11:39)
[2020-10-25 14:00] VITALS: BP 143/77
--- NOTE | 2020-10-25 15:10 | DSES ---
DISCHARGE SUMMARY DATE OF ADMISSION: 10/24/2020 DATE OF DISCHARGE: 10/25/2020 PRIMARY DISCHARGE DIAGNOSIS: 1. Atypical chest pain, [place] and PE both ruled out. 2. History of atrial fibrillation. 3. History of hemorrhagic CVA. 4. History of failed Watchman procedure x2. 5. Hypertension, uncontrolled. 6. Type 2 diabetes. 7. Chronic diastolic heart failure, compensated. 8. Mixed hyperlipidemia. 9. History of multiple subsegmental pulmonary emboli with negative CT chest on 10/24/2020. 10.History of bilateral carotid artery stenosis. 11.Obstructive sleep apnea. 12.Restless leg syndrome. 13.History of [place] exposure. 14.Gastroesophageal reflux disease. 15.Obesity. 16.Patent foramen ovale. 17.Lumbar disc disease with radiculopathy. DISCHARGE MEDICATIONS: 1. Aspirin 81 mg q.h.s. 2. Clonazepam 1 mg q. p.m. 3. Clonazepam 2 mg q.h.s. 4. Diclofenac sodium 4 grams topically t.i.d. as needed for pain. 5. Jardiance 25 daily. 6. Levemir insulin 54 units daily. 7. Levetiracetam 750 q.h.s. 8. Mag-Ox 400 t.i.d. 9. Meclizine 12.5 b.i.d. as needed. 10.Metformin 1 gram b.i.d. 11.Multivitamin one tablet b.i.d. 12.Oxcarbazepine 150 q.h.s. 13.Oxybutynin 5 daily. 14.Oxycodone/acetaminophen one tablet b.i.d. 5/325. 15.Pregabalin 150 t.i.d. 16.Ropinirole 2 mg b.i.d. 17.Sildenafil 100 as directed. 18.Spironolactone 12.5 daily. 19.Furosemide 20 daily. 20.Valsartan 80 daily. 21.Prilosec 40 daily. 22.Carafate 1 gram a.c. and h.s. DISCHARGE INSTRUCTIONS: Primary care and Dr. Orellana follow-up appointments within seven days of hospital discharge to evaluate for chest pain. HOSPITAL COURSE: This is a 49-year-old male with failed Watchman procedure x2, history of PE, not on anticoagulation, history of hemorrhagic CVA who presented with complaints of chest pain on 10/24 described as substernal and pressure like in nature. Troponins were negative. Dr. Yuan, voice coach position classifier was consulted who suggested atorvastatin, topical Nitroglycerin to help with the pain. Patient was observed overnight with resolution of chest pain. He was ruled out for PE and pneumonia. CT of the chest was negative for pulmonary embolism, pneumonia or heart failure. No adenopathy. Chest pain resolved. Patient had uncontrolled blood pressure, his repeat blood pressure here was 125/75 on discharge. Patient had an appointment that was missed over in [place], he said he would like to go to Dr. Steele at [facility]. PHYSICAL EXAMINATION: Temperature is 97, pulse is 75, blood pressure is 125/75, respiratory rate is 16, 97% on room air. General: Awake, alert and oriented to person, place and time, answering questions appropriately. Lungs are clear to auscultation. No wheezing, rales or rhonchi. Heart: S1 and S2, sinus rhythm. Abdomen is soft, nontender and nondistended. Positive bowel sounds x4 quadrants. Extremities: No cyanosis or clubbing. LABORATORY DATA/MICROBIOLOGY AND IMAGING STUDIES: Please see the chart. Time spent on discharge is 30 minutes.
--- NOTE | 2020-10-26 12:20 | ECHO ---
ECHOCARDIOGRAM DATE OF PROCEDURE: 10/25/2020 Age: Gender: Height: 180 cm Weight: 116 kg REFERRING PHYSICIAN: Dr. Jose Cruz Saenz. INDICATION: Chest pain. MEASUREMENTS: IVS 1.1 cm LV 4.0 cm LVPW 1.3 cm LA 5.2 cm Aorta 3.8 cm Left atrium volume index 45 ml/m2 FINDINGS: This study is rather difficult technical quality with limited visualization, most likely due to underlying body habitus. Patient is in sinus rhythm with frequent supraventricular and ventricular ectopic beats. Left ventricle is normal size and grossly has preserved systolic function. I certainly cannot rule out subtle wall motion abnormalities based on technical quality of the study, but overall LVEF is likely normal. Right ventricle also appears to have normal size and systolic function. Left atrium is severely enlarged based on left atrium volume index calculation. Right atrium was poorly seen. Aortic valve is sclerotic, but it is tricuspid and has preserved mobility. There are mild degenerative abnormalities of mitral valve with mitral annular calcifications. Tricuspid and pulmonic valves appear grossly normal. No pericardial effusion is seen. Inferior vena cava was not visualized. Aortic root is borderline dilated at 3.8 cm. Aortic arch appears grossly normal. Abdominal aorta was not seen. Doppler interrogation reveals all four cardiac valves to be functionally competent without significant stenosis or insufficiency. Evaluation of diastolic function was not sufficiently performed. CONCLUSIONS: 1. Study is of fair technical quality. Underlying sinus rhythm with frequent ectopy. 2. Normal LV size with borderline LVH and overall normal LV systolic function. 3. Aortic sclerosis without significant stenosis or insufficiency. 4. Unable to estimate central venous pressure and pulmonary artery pressure. 5. Borderline dilated aortic root, 3.8 cm.
== END 2020-10-25 15:30 | disposition home or self-care (01) ==
LOC: M ED 10:16 → M ED INP 10:17
PROVIDERS: ADMIT Internal Medicine; ATTEND Internal Medicine
DX: R07.89 Other chest pain (principal); I11.0 Hypertensive heart disease with heart failure; R11.0 Nausea; R06.02 Shortness of breath; I48.19 Other persistent atrial fibrillation; E11.9 Type 2 diabetes mellitus without complications; I50.32 Chronic diastolic (congestive) heart failure; E78.2 Mixed hyperlipidemia; Z86.711 Personal history of pulmonary embolism; I65.23 Occlusion and stenosis of bilateral carotid arteries; G47.33 Obstructive sleep apnea (adult) (pediatric); G25.81 Restless legs syndrome; K21.9 Gastro-esophageal reflux disease without esophagitis; Q21.1 Atrial septal defect; E66.9 Obesity, unspecified; M51.16 Intervertebral disc disorders with radiculopathy, lumbar region; F32.9 Major depressive disorder, single episode, unspecified; F41.9 Anxiety disorder, unspecified; Z77.29 Contact with and (suspected) exposure to other hazardous substances; Z79.899 Other long term (current) drug therapy; Z79.82 Long term (current) use of aspirin; Z79.4 Long term (current) use of insulin; Z79.891 Long term (current) use of opiate analgesic; Z88.5 Allergy status to narcotic agent; Z95.810 Presence of automatic (implantable) cardiac defibrillator
CPT/HCPCS: 36415; 71045; 71275; 80047; 80048; 80061; 80076; 82550; 82553; 83690; 83880; 84439; 84443; 84484; 85025; 85027; 85610; 85730; 87631; 93005; 93041; 93306; 94760; 99285; G0378; Q9967

== ENCOUNTER 2021-03-04 12:28 | Emergency (ER) | payer MEDICARE, OTHER ==
[~2021-03-04] VITALS: Ht 182.9 cm; Wt 115.4 kg
[~2021-03-04 12:28] MED LIST changes: +DOXY-443 PO; -DOXY1CAP62 PO; +MAGN400T2 PO; +OMEP-173 PO; +OXCA150T21 PO; +OXYB-54 PO; +SUCR1TA PO
[2021-03-04] MEDS ORDERED: METO1TAB87 PO (13:04)
[2021-03-04 13:28] LABS: HEMATOCRIT 43.5 % (42.0-52.0); MEAN CORPUSCULAR HEMOGLOBIN 25.1 pg (27.0-33.0); MEAN CORPUSCULAR HGB CONC 32.2 g/dl (32.0-36.5); MEAN CORPUSCULAR VOLUME 78.1 fl (80.0-96.0); PLATELET COUNT, AUTOMATED 189 10^3/uL (150-450); RED BLOOD COUNT 5.57 10^6/uL (4.30-6.10); WHITE BLOOD COUNT 8.8 10^3/uL (4.0-10.0)
[2021-03-04 13:43] LABS: BLOOD UREA NITROGEN 24 MG/DL (7-18); CALCIUM LEVEL 8.9 MG/DL (8.8-10.2); CARBON DIOXIDE LEVEL 23 MEQ/L (21-32); CHLORIDE LEVEL 104 MEQ/L (98-107); CREATININE FOR GFR 1.14 MG/DL (0.70-1.30); GLOMERULAR FILTRATION RATE > 60.0 (>42); GLUCOSE, FASTING 355 MG/DL (70-100); POTASSIUM SERUM 4.5 MEQ/L (3.5-5.1); SODIUM LEVEL 135 MEQ/L (136-145)
[2021-03-04] MEDS ORDERED: CYCLOBENZAPRINE 5MG TABLET PO ONE (18:00)
[2021-03-04] MEDS ORDERED: SKEL800T97 PO (18:18)
[2021-03-04 18:59] VITALS: BP 149/114
[2021-03-05] MEDS ORDERED: PRAV20TA2 PO (17:50)
[2021-03-05] MEDS ORDERED: OXYB15TA14 PO (18:43)
[2021-03-05] MEDS ORDERED: ROPI2TAB3 PO (18:43)
[2021-03-05] MEDS ORDERED: TORS20TA2 PO (18:43)
[2021-03-05] MEDS ORDERED: OMEP40CA5 PO (18:43)
== END 2021-03-04 19:00 | disposition home or self-care (01) ==
LOC: M ED 12:28 → EDBD 12:28 → M ED 19:00
DX: M48.061 Spinal stenosis, lumbar region without neurogenic claudication (principal); M51.26 Other intervertebral disc displacement, lumbar region; M79.651 Pain in right thigh; M79.652 Pain in left thigh; I48.91 Unspecified atrial fibrillation; I10 Essential (primary) hypertension; E11.9 Type 2 diabetes mellitus without complications; Z88.6 Allergy status to analgesic agent

== ENCOUNTER 2021-03-05 13:52 | Inpatient (IN) | payer MEDICARE, OTHER ==
[~2021-03-05] VITALS: Ht 172.7 cm; Wt 112.4 kg
[~2021-03-05 13:52] MED LIST changes: +METO1TAB87 PO
[2021-03-05 14:33] LABS: VENOUS HCO3 16.2 MEQ/L (23.0-27.0); VENOUS O2 SATURATION 43.4 % (60.0-80.0); VENOUS PARTIAL PRESSURE CO2 44.8 mmHg (38.0-50.0); VENOUS PARTIAL PRESSURE O2 29.1 mmHg (30.0-50.0); VENOUS PH 7.176 UNITS (7.330-7.430); VENOUS STANDARD HCO3 14.2 MEQ/L; VENOUS TOTAL CO2 17.6 MEQ/L (24.0-28.0)
[2021-03-05 14:37] LABS: BASO # 0.1 10^3/uL (0.0-0.2); EOS # 0.4 10^3/uL (0.0-0.5); EOS % 2.5 % (0.0-3.0); HEMATOCRIT 49.4 % (42.0-52.0); HEMOGLOBIN 15.2 g/dl (13.5-17.5); LYMPH # 1.1 10^3/uL (1.5-5.0); LYMPH % 7.8 % (24.0-44.0); MEAN CORPUSCULAR HEMOGLOBIN 24.6 pg (27.0-33.0); MEAN CORPUSCULAR HGB CONC 30.8 g/dl (32.0-36.5); MEAN CORPUSCULAR VOLUME 80.1 fl (80.0-96.0); MONO # 0.6 10^3/uL (0.0-0.8); NEUTROPHILS % 82.8 % (36.0-66.0); PLATELET COUNT, AUTOMATED 170 10^3/uL (150-450); RED BLOOD COUNT 6.17 10^6/uL (4.30-6.10); WHITE BLOOD COUNT 14.5 10^3/uL (4.0-10.0)
[2021-03-05 14:55] LABS: INR 1.18; PROTHROMBIN TIME 15.4 SECONDS (12.7-14.5)
[2021-03-05 15:04] LABS: CK-MB VALUE MASS 3.5 NG/ML (<3.6); MB/CK RELATIVE INDEX 2.19 (< OR =4)
[2021-03-05 15:29] LABS: ABG BASE EXCESS -7.8 (-2.0-2.0); ABG HCO3 16.5 MEQ/L (22.0-26.0); ABG O2 SATURATION 98.5 % (95.0-99.0); ABG PARTIAL PRESSURE CO2 30.8 mmHg (35.0-45.0); ABG PARTIAL PRESSURE O2 122.2 mmHg (75.0-100.0); ABG STANDARD HCO3 18.2 MEQ/L (22.0-26.0); ABG TOTAL CO2 17.4 MEQ/L (23.0-31.0); ABG pH (ARTERIAL) 7.346 UNITS (7.350-7.450)
[2021-03-05 15:53] LABS: ALBUMIN 4.3 GM/DL (3.2-5.2); BILIRUBIN,DIRECT 0.2 MG/DL (0.0-0.2); BILIRUBIN,TOTAL 0.6 MG/DL (0.2-1.0); CALCIUM LEVEL 9.3 MG/DL (8.8-10.2); CREATININE FOR GFR 1.82 MG/DL (0.70-1.30); GLOMERULAR FILTRATION RATE 39.3 (>42); POTASSIUM SERUM 5.2 MEQ/L (3.5-5.1); THYROID STIMULATING HORMONE 2.24 uIU/ML (0.358-3.740); TOTAL PROTEIN 9.1 GM/DL (6.4-8.2)
[2021-03-05] MEDS ORDERED: cefTRIAXone SOD 2 GM in D5W MINI-BAG PLUS 50 ML IV ONE (17:10)
[2021-03-05] MEDS ORDERED: LIDOCAINE 2% 5ML JELLY UROJET TOP ONE (17:45)
[2021-03-05] MEDS ORDERED: PRAV20TA2 PO (17:50)
[2021-03-05] MEDS ORDERED: ROPI2TAB3 PO (18:43)
[2021-03-05] MEDS ORDERED: OMEP40CA5 PO (18:43)
[2021-03-05] MEDS ORDERED: OXYB15TA14 PO (18:43)
[2021-03-05] MEDS ORDERED: TORS20TA2 PO (18:43)
[2021-03-05] MEDS ORDERED: HOME MED LIST COMPLETE! XX SCH (18:45)
[2021-03-05] MEDS ORDERED: NS 1,000 ML IV SCH (19:00)
[2021-03-05] MEDS ORDERED: DEXTROSE 50% 50 ML SYRINGE IV PRN (19:15)
[2021-03-05] MEDS ORDERED: GLUCOSE 4GM CHEW TABLET PO PRN (19:15)
[2021-03-05] MEDS ORDERED: MECLIZINE 12.5 MG TAB PO PRN (19:15)
[2021-03-05] MEDS ORDERED: GLUCAGON INJ 1MG VIAL SC PRN (19:15)
[2021-03-05] MEDS ORDERED: rOPINIRole 1MG TAB PO SCH (21:00)
[2021-03-05] MEDS ORDERED: PILL CUTTER 1 EACH XX PRN (22:20)
[2021-03-05] MEDS: HumaLOG INSULIN (NovoLOG) PER UNIT SC SCH (22:33)
[2021-03-05] MEDS: rOPINIRole 2MG TAB PO SCH (22:34)
[2021-03-05] MEDS: METOPROLOL TART 25 MG TABLET PO SCH (22:37)
[2021-03-05] MEDS: MAGNESIUM OXIDE 400MG TAB (MAG-OX) PO SCH (22:38)
[2021-03-05] MEDS: PRAVASTATIN 20 MG TAB PO SCH (22:38)
[2021-03-05] MEDS: OXcarbazepine 150 MG TAB PO SCH (22:38)
[2021-03-05] MEDS: MULTIVITAMINS/MINERALS THERAP 1 TAB PO SCH (22:38)
[2021-03-05] MEDS: levETIRAcetam 250MG TABLET (KEPPRA) PO SCH (22:38)
[2021-03-06] MEDS: ACETAMINOPHEN TAB 650MG DOSE (2X325MG) PO PRN ×2 (06:16→16:30)
[2021-03-06 06:50] LABS: HEMATOCRIT 42.9 % (42.0-52.0); HEMOGLOBIN 13.5 g/dl (13.5-17.5); MEAN CORPUSCULAR HEMOGLOBIN 25.2 pg (27.0-33.0); MEAN CORPUSCULAR HGB CONC 31.5 g/dl (32.0-36.5); MEAN CORPUSCULAR VOLUME 80.2 fl (80.0-96.0); PLATELET COUNT, AUTOMATED 107 10^3/uL (150-450); RED BLOOD COUNT 5.35 10^6/uL (4.30-6.10); WHITE BLOOD COUNT 11.2 10^3/uL (4.0-10.0)
[2021-03-06 07:08] LABS: ALBUMIN 3.5 GM/DL (3.2-5.2); ALT/SGPT 19 U/L (12-78); BILIRUBIN,TOTAL 0.5 MG/DL (0.2-1.0); BLOOD UREA NITROGEN 39 MG/DL (7-18); CALCIUM LEVEL 8.7 MG/DL (8.8-10.2); CARBON DIOXIDE LEVEL 18 MEQ/L (21-32); CHLORIDE LEVEL 105 MEQ/L (98-107); CREATININE FOR GFR 1.17 MG/DL (0.70-1.30); GLOMERULAR FILTRATION RATE > 60.0 (>42); GLUCOSE, FASTING 269 MG/DL (70-100); MAGNESIUM LEVEL 2.6 MG/DL (1.8-2.4); POTASSIUM SERUM 5.2 MEQ/L (3.5-5.1); SODIUM LEVEL 135 MEQ/L (136-145); TOTAL PROTEIN 7.6 GM/DL (6.4-8.2)
[2021-03-06] MEDS ORDERED: NS 1,000 ML IV SCH ×2 (07:25→15:10)
[2021-03-06] MEDS: HumaLOG INSULIN (NovoLOG) PER UNIT SC SCH ×4 (08:16→21:17)
[2021-03-06 08:55] VITALS: BP 133/79
[2021-03-06] MEDS ORDERED: TORSEMIDE 20 MG TAB PO SCH (09:00)
[2021-03-06] MEDS ORDERED: SPIRONOLACTONE 12.5MG PER 1/2 TABLET PO SCH (09:00)
[2021-03-06] MEDS: METOPROLOL TART 25 MG TABLET PO SCH ×2 (09:12→21:18)
[2021-03-06] MEDS: MULTIVITAMINS/MINERALS THERAP 1 TAB PO SCH ×2 (09:12→21:18)
[2021-03-06] MEDS: oxyBUTYnin *DITROPAN XL* 5 MG TABCR PO SCH (09:12)
[2021-03-06] MEDS: MAGNESIUM OXIDE 400MG TAB (MAG-OX) PO SCH ×4 (09:12→21:00)
[2021-03-06] MEDS: OXcarbazepine 150 MG TAB PO SCH ×2 (10:45→21:18)
[2021-03-06] MEDS: rOPINIRole 2MG TAB PO SCH ×2 (10:45→17:21)
[2021-03-06 12:00] VITALS: BP 129/88
[2021-03-06 16:00] VITALS: BP 143/73
[2021-03-06] MEDS: rOPINIRole 1MG TAB PO ONE ×2 (17:21→17:26)
[2021-03-06 20:00] VITALS: BP 130/72
[2021-03-06] MEDS: PRAVASTATIN 20 MG TAB PO SCH (21:18)
[2021-03-06] MEDS: DICLOFENAC EPOLAMINE 1.3 % PATCH TOP SCH (21:18)
[2021-03-06] MEDS: levETIRAcetam 250MG TABLET (KEPPRA) PO SCH (21:18)
[2021-03-06] MEDS ORDERED: NS 1,000 ML IV ONE (21:50)
[2021-03-07] VITALS: BP 138/72
[2021-03-07] MEDS: ACETAMINOPHEN TAB 650MG DOSE (2X325MG) PO PRN (00:15)
[2021-03-07] MEDS ORDERED: PERCOCET 5MG/325MG TAB PO PRN (01:35)
[2021-03-07 04:00] VITALS: BP 163/78
[2021-03-07 05:26] LABS: HEMATOCRIT 37.8 % (42.0-52.0); HEMOGLOBIN 12.1 g/dl (13.5-17.5); MEAN CORPUSCULAR HEMOGLOBIN 24.9 pg (27.0-33.0); MEAN CORPUSCULAR VOLUME 77.9 fl (80.0-96.0); PLATELET COUNT, AUTOMATED 111 10^3/uL (150-450); RED BLOOD COUNT 4.85 10^6/uL (4.30-6.10); WHITE BLOOD COUNT 9.3 10^3/uL (4.0-10.0)
[2021-03-07 05:48] LABS: BLOOD UREA NITROGEN 27 MG/DL (7-18); CALCIUM LEVEL 8.4 MG/DL (8.8-10.2); CARBON DIOXIDE LEVEL 24 MEQ/L (21-32); CHLORIDE LEVEL 104 MEQ/L (98-107); CREATININE FOR GFR 0.85 MG/DL (0.70-1.30); GLOMERULAR FILTRATION RATE > 60.0 (>42); GLUCOSE, FASTING 282 MG/DL (70-100); MAGNESIUM LEVEL 2.6 MG/DL (1.8-2.4); POTASSIUM SERUM 4.4 MEQ/L (3.5-5.1); SODIUM LEVEL 134 MEQ/L (136-145)
[2021-03-07] MEDS: rOPINIRole 2MG TAB PO SCH ×2 (06:07→17:11)
[2021-03-07 08:00] VITALS: BP 138/80
[2021-03-07] MEDS: HumaLOG INSULIN (NovoLOG) PER UNIT SC SCH ×4 (09:08→20:52)
[2021-03-07] MEDS: OXcarbazepine 150 MG TAB PO SCH ×2 (09:08→20:10)
[2021-03-07] MEDS: MULTIVITAMINS/MINERALS THERAP 1 TAB PO SCH ×2 (09:09→20:10)
[2021-03-07] MEDS: oxyBUTYnin *DITROPAN XL* 5 MG TABCR PO SCH (09:09)
[2021-03-07] MEDS: METOPROLOL TART 25 MG TABLET PO SCH ×2 (09:09→20:11)
[2021-03-07] MEDS: DICLOFENAC EPOLAMINE 1.3 % PATCH TOP SCH ×2 (09:10→20:11)
[2021-03-07] MEDS: PERCOCET 5MG/325MG TAB PO PRN ×3 (10:09→22:28)
[2021-03-07 12:00] VITALS: BP 150/71
[2021-03-07] MEDS: LACTULOSE 20 GM/30 ML SYRUP UD PO SCH ×2 (12:49→17:11)
[2021-03-07 16:00] VITALS: BP 133/76
[2021-03-07 20:00] VITALS: BP 136/78
[2021-03-07] MEDS: levETIRAcetam 250MG TABLET (KEPPRA) PO SCH (20:10)
[2021-03-07] MEDS: PRAVASTATIN 20 MG TAB PO SCH (20:11)
[2021-03-08] VITALS (7 sets, daily range): BP systolic 123–144; BP diastolic 71–78
[2021-03-08] MEDS: PERCOCET 5MG/325MG TAB PO PRN ×4 (04:39→21:50)
[2021-03-08] MEDS: LACTULOSE 20 GM/30 ML SYRUP UD PO SCH ×4 (06:00→17:20)
[2021-03-08] MEDS: rOPINIRole 2MG TAB PO SCH ×2 (07:00→17:21)
[2021-03-08] MEDS: METOPROLOL TART 25 MG TABLET PO SCH ×2 (08:29→21:32)
[2021-03-08] MEDS: MULTIVITAMINS/MINERALS THERAP 1 TAB PO SCH ×2 (08:29→21:33)
[2021-03-08] MEDS: oxyBUTYnin *DITROPAN XL* 5 MG TABCR PO SCH (08:30)
[2021-03-08] MEDS: OXcarbazepine 150 MG TAB PO SCH ×2 (08:30→21:49)
[2021-03-08] MEDS: DICLOFENAC EPOLAMINE 1.3 % PATCH TOP SCH ×2 (08:31→21:49)
[2021-03-08] MEDS: HumaLOG INSULIN (NovoLOG) PER UNIT SC SCH ×4 (08:31→21:00)
[2021-03-08 08:50] LABS: BASO # 0.1 10^3/uL (0.0-0.2); BASO % 0.9 % (0.0-1.0); EOS # 0.2 10^3/uL (0.0-0.5); EOS % 2.8 % (0.0-3.0); HEMATOCRIT 39.6 % (42.0-52.0); HEMOGLOBIN 12.5 g/dl (13.5-17.5); LYMPH # 0.7 10^3/uL (1.5-5.0); LYMPH % 8.2 % (24.0-44.0); MEAN CORPUSCULAR HEMOGLOBIN 25.2 pg (27.0-33.0); MEAN CORPUSCULAR HGB CONC 31.6 g/dl (32.0-36.5); MEAN CORPUSCULAR VOLUME 79.7 fl (80.0-96.0); MONO # 0.6 10^3/uL (0.0-0.8); MONO % 6.3 % (2.0-8.0); NEUTROPHILS # 6.9 10^3/uL (1.5-8.5); PLATELET COUNT, AUTOMATED 122 10^3/uL (150-450); RED BLOOD COUNT 4.97 10^6/uL (4.30-6.10); WHITE BLOOD COUNT 8.7 10^3/uL (4.0-10.0)
[2021-03-08 09:19] LABS: BLOOD UREA NITROGEN 21 MG/DL (7-18); CALCIUM LEVEL 8.5 MG/DL (8.8-10.2); CARBON DIOXIDE LEVEL 24 MEQ/L (21-32); CHLORIDE LEVEL 103 MEQ/L (98-107); CREATININE FOR GFR 0.85 MG/DL (0.70-1.30); GLOMERULAR FILTRATION RATE > 60.0 (>42); GLUCOSE, FASTING 272 MG/DL (70-100); MAGNESIUM LEVEL 2.4 MG/DL (1.8-2.4); POTASSIUM SERUM 4.3 MEQ/L (3.5-5.1); SODIUM LEVEL 134 MEQ/L (136-145)
[2021-03-08] MEDS ORDERED: HEPARIN SOD (PORCINE) 5000UNITS/ML 1ML VIAL/SYRINGE IV PRN (13:05)
[2021-03-08] MEDS: HEPARIN DRIP 25,000 UNITS in IV 1 EA IV SCH (15:00)
[2021-03-08] MEDS: levETIRAcetam 250MG TABLET (KEPPRA) PO SCH (21:32)
[2021-03-08] MEDS: PRAVASTATIN 20 MG TAB PO SCH (21:33)
[2021-03-09] VITALS: BP 144/79
[2021-03-09] MEDS: ACETAMINOPHEN TAB 650MG DOSE (2X325MG) PO PRN (00:38)
[2021-03-09] MEDS: LACTULOSE 20 GM/30 ML SYRUP UD PO SCH ×5 (00:38→23:11)
[2021-03-09] MEDS: HEPARIN DRIP 25,000 UNITS in IV 1 EA IV SCH ×2 (03:10→16:03)
[2021-03-09 04:00] VITALS: BP 132/78
[2021-03-09] MEDS: rOPINIRole 2MG TAB PO SCH ×2 (05:20→17:11)
[2021-03-09] MEDS: PERCOCET 5MG/325MG TAB PO PRN ×3 (05:21→18:23)
[2021-03-09 05:28] LABS: BASO # 0.1 10^3/uL (0.0-0.2); EOS # 0.4 10^3/uL (0.0-0.5); EOS % 4.9 % (0.0-3.0); HEMATOCRIT 36.5 % (42.0-52.0); HEMOGLOBIN 11.6 g/dl (13.5-17.5); LYMPH # 1.1 10^3/uL (1.5-5.0); LYMPH % 14.2 % (24.0-44.0); MEAN CORPUSCULAR HGB CONC 31.8 g/dl (32.0-36.5); MEAN CORPUSCULAR VOLUME 78.7 fl (80.0-96.0); MONO # 0.6 10^3/uL (0.0-0.8); MONO % 7.4 % (2.0-8.0); NEUTROPHILS # 5.5 10^3/uL (1.5-8.5); NEUTROPHILS % 69.9 % (36.0-66.0); PLATELET COUNT, AUTOMATED 138 10^3/uL (150-450); RED BLOOD COUNT 4.64 10^6/uL (4.30-6.10); WHITE BLOOD COUNT 7.8 10^3/uL (4.0-10.0)
[2021-03-09 05:53] LABS: BLOOD UREA NITROGEN 25 MG/DL (7-18); CARBON DIOXIDE LEVEL 24 MEQ/L (21-32); CHLORIDE LEVEL 106 MEQ/L (98-107); CREATININE FOR GFR 0.86 MG/DL (0.70-1.30); GLOMERULAR FILTRATION RATE > 60.0 (>42); GLUCOSE, FASTING 286 MG/DL (70-100); MAGNESIUM LEVEL 2.4 MG/DL (1.8-2.4); POTASSIUM SERUM 4.4 MEQ/L (3.5-5.1); SODIUM LEVEL 136 MEQ/L (136-145)
[2021-03-09 07:23] VITALS: BP 133/83
[2021-03-09] MEDS: HumaLOG INSULIN (NovoLOG) PER UNIT SC SCH ×4 (09:00→20:21)
[2021-03-09] MEDS: oxyBUTYnin *DITROPAN XL* 5 MG TABCR PO SCH (09:29)
[2021-03-09] MEDS: OXcarbazepine 150 MG TAB PO SCH ×2 (09:29→20:22)
[2021-03-09] MEDS: MULTIVITAMINS/MINERALS THERAP 1 TAB PO SCH ×2 (09:30→20:22)
[2021-03-09] MEDS: METOPROLOL TART 25 MG TABLET PO SCH ×2 (09:30→20:22)
[2021-03-09] MEDS: DICLOFENAC EPOLAMINE 1.3 % PATCH TOP SCH ×2 (11:52→20:23)
[2021-03-09 11:54] VITALS: BP 134/79
[2021-03-09] MEDS ORDERED: LOVE0.01 SC (15:41)
[2021-03-09 16:00] VITALS: BP 143/71
[2021-03-09 20:00] VITALS: BP 127/84
[2021-03-09] MEDS: PRAVASTATIN 20 MG TAB PO SCH (20:22)
[2021-03-09] MEDS: levETIRAcetam 250MG TABLET (KEPPRA) PO SCH (20:22)
[2021-03-10] VITALS: BP_SYST 122; BP_DIAS 70; BP_DIAS 81
[2021-03-10 04:00] VITALS: BP 134/77
[2021-03-10] MEDS: HEPARIN DRIP 25,000 UNITS in IV 1 EA IV SCH ×2 (04:05→17:17)
[2021-03-10] MEDS: LACTULOSE 20 GM/30 ML SYRUP UD PO SCH ×4 (05:26→23:16)
[2021-03-10] MEDS: rOPINIRole 2MG TAB PO SCH ×2 (05:45→17:13)
[2021-03-10 07:14] VITALS: BP 140/70
[2021-03-10] MEDS: HumaLOG INSULIN (NovoLOG) PER UNIT SC SCH ×4 (08:29→20:36)
[2021-03-10] MEDS: DICLOFENAC EPOLAMINE 1.3 % PATCH TOP SCH ×2 (08:29→20:37)
[2021-03-10] MEDS: OXcarbazepine 150 MG TAB PO SCH ×2 (08:29→20:39)
[2021-03-10] MEDS: oxyBUTYnin *DITROPAN XL* 5 MG TABCR PO SCH (08:30)
[2021-03-10] MEDS: METOPROLOL TART 25 MG TABLET PO SCH ×2 (08:30→20:38)
[2021-03-10] MEDS: MULTIVITAMINS/MINERALS THERAP 1 TAB PO SCH ×2 (08:31→20:39)
[2021-03-10 08:35] LABS: BASO # 0.1 10^3/uL (0.0-0.2); BASO % 0.9 % (0.0-1.0); EOS # 0.4 10^3/uL (0.0-0.5); EOS % 4.1 % (0.0-3.0); HEMATOCRIT 36.5 % (42.0-52.0); HEMOGLOBIN 11.6 g/dl (13.5-17.5); LYMPH # 0.8 10^3/uL (1.5-5.0); LYMPH % 9.8 % (24.0-44.0); MEAN CORPUSCULAR HEMOGLOBIN 25.3 pg (27.0-33.0); MEAN CORPUSCULAR HGB CONC 31.8 g/dl (32.0-36.5); MEAN CORPUSCULAR VOLUME 79.7 fl (80.0-96.0); MONO # 0.5 10^3/uL (0.0-0.8); MONO % 6.1 % (2.0-8.0); NEUTROPHILS # 6.5 10^3/uL (1.5-8.5); NEUTROPHILS % 76.4 % (36.0-66.0); PLATELET COUNT, AUTOMATED 146 10^3/uL (150-450); RED BLOOD COUNT 4.58 10^6/uL (4.30-6.10); WHITE BLOOD COUNT 8.6 10^3/uL (4.0-10.0)
[2021-03-10 09:23] LABS: BLOOD UREA NITROGEN 20 MG/DL (7-18); CALCIUM LEVEL 8.5 MG/DL (8.8-10.2); CARBON DIOXIDE LEVEL 26 MEQ/L (21-32); CHLORIDE LEVEL 101 MEQ/L (98-107); CREATININE FOR GFR 0.79 MG/DL (0.70-1.30); GLOMERULAR FILTRATION RATE > 60.0 (>42); GLUCOSE, FASTING 360 MG/DL (70-100); MAGNESIUM LEVEL 2.3 MG/DL (1.8-2.4); POTASSIUM SERUM 4.4 MEQ/L (3.5-5.1); SODIUM LEVEL 135 MEQ/L (136-145)
[2021-03-10] MEDS: PERCOCET 5MG/325MG TAB PO PRN ×3 (10:29→22:42)
[2021-03-10 12:30] VITALS: BP 135/83
[2021-03-10 16:32] VITALS: BP 131/82
[2021-03-10 19:55] VITALS: BP 129/77
[2021-03-10] MEDS: ACETAMINOPHEN TAB 650MG DOSE (2X325MG) PO PRN (20:37)
[2021-03-10] MEDS: PRAVASTATIN 20 MG TAB PO SCH (20:39)
[2021-03-10] MEDS: levETIRAcetam 250MG TABLET (KEPPRA) PO SCH (20:39)
[2021-03-11 00:37] VITALS: BP 119/74
[2021-03-11 04:00] VITALS: BP 128/75
[2021-03-11] MEDS: LACTULOSE 20 GM/30 ML SYRUP UD PO SCH (05:13)
[2021-03-11] MEDS: rOPINIRole 2MG TAB PO SCH (05:14)
[2021-03-11 05:29] LABS: BASO # 0.1 10^3/uL (0.0-0.2); BASO % 1.3 % (0.0-1.0); EOS # 0.5 10^3/uL (0.0-0.5); EOS % 6.7 % (0.0-3.0); HEMATOCRIT 36.9 % (42.0-52.0); HEMOGLOBIN 11.8 g/dl (13.5-17.5); LYMPH % 14.8 % (24.0-44.0); MEAN CORPUSCULAR HEMOGLOBIN 25.2 pg (27.0-33.0); MEAN CORPUSCULAR VOLUME 78.7 fl (80.0-96.0); MONO # 0.6 10^3/uL (0.0-0.8); MONO % 9.1 % (2.0-8.0); NEUTROPHILS # 4.4 10^3/uL (1.5-8.5); NEUTROPHILS % 64.3 % (36.0-66.0); PLATELET COUNT, AUTOMATED 195 10^3/uL (150-450); RED BLOOD COUNT 4.69 10^6/uL (4.30-6.10); WHITE BLOOD COUNT 6.8 10^3/uL (4.0-10.0)
[2021-03-11 05:32] LABS: BLOOD UREA NITROGEN 16 MG/DL (7-18); CALCIUM LEVEL 8.1 MG/DL (8.8-10.2); CARBON DIOXIDE LEVEL 26 MEQ/L (21-32); CHLORIDE LEVEL 104 MEQ/L (98-107); CREATININE FOR GFR 0.72 MG/DL (0.70-1.30); GLOMERULAR FILTRATION RATE > 60.0 (>42); GLUCOSE, FASTING 265 MG/DL (70-100); MAGNESIUM LEVEL 2.3 MG/DL (1.8-2.4); SODIUM LEVEL 136 MEQ/L (136-145)
[2021-03-11 08:10] VITALS: BP 127/64
[2021-03-11] MEDS ORDERED: ENOXAPARIN 120MG/0.8ML SYRINGE (J1650 PER 10MG) SC SCH (09:00)
[2021-03-11] MEDS: HumaLOG INSULIN (NovoLOG) PER UNIT SC SCH (09:30)
[2021-03-11] MEDS: OXcarbazepine 150 MG TAB PO SCH (09:30)
[2021-03-11] MEDS: DICLOFENAC EPOLAMINE 1.3 % PATCH TOP SCH (09:30)
[2021-03-11] MEDS: oxyBUTYnin *DITROPAN XL* 5 MG TABCR PO SCH (09:30)
[2021-03-11 09:31] VITALS: BP 127/64
[2021-03-11] MEDS: METOPROLOL TART 25 MG TABLET PO SCH (09:31)
[2021-03-11] MEDS: MULTIVITAMINS/MINERALS THERAP 1 TAB PO SCH (09:31)
== END 2021-03-11 12:10 | disposition home health service (06) | DRG 299 ==
LOC: EDBD 13:52 → M ED 13:52 → M ED INP 17:52 → ENRESERV 19:33 → M PCU 03-06 08:50
PROVIDERS: ADMIT Family Medicine; ATTEND Internal Medicine
DX: I82.412 Acute embolism and thrombosis of left femoral vein (principal); G92.8 Other toxic encephalopathy; N17.9 Acute kidney failure, unspecified; I48.19 Other persistent atrial fibrillation; I50.32 Chronic diastolic (congestive) heart failure; E87.2 Acidosis; E87.1 Hypo-osmolality and hyponatremia; I11.0 Hypertensive heart disease with heart failure; I82.432 Acute embolism and thrombosis of left popliteal vein; E11.9 Type 2 diabetes mellitus without complications; E78.2 Mixed hyperlipidemia; I65.23 Occlusion and stenosis of bilateral carotid arteries; G25.81 Restless legs syndrome; K21.9 Gastro-esophageal reflux disease without esophagitis; M51.16 Intervertebral disc disorders with radiculopathy, lumbar region; G47.33 Obstructive sleep apnea (adult) (pediatric); E66.9 Obesity, unspecified; Z96.653 Presence of artificial knee joint, bilateral; Z95.828 Presence of other vascular implants and grafts; E87.5 Hyperkalemia; K59.00 Constipation, unspecified; R53.1 Weakness; R33.0 Drug induced retention of urine; R09.02 Hypoxemia; Z86.73 Personal history of transient ischemic attack (TIA), and cerebral infarction without residual deficits; Z86.711 Personal history of pulmonary embolism; Z79.4 Long term (current) use of insulin; Z68.37 Body mass index [BMI] 37.0-37.9, adult; Z79.899 Other long term (current) drug therapy; Z88.5 Allergy status to narcotic agent; T43.8X5A Adverse effect of other psychotropic drugs, initial encounter

== ENCOUNTER → 2021-05-10 | Outpatient (REF) | payer MEDICARE, OTHER ==
[~2021-05-10] MED LIST changes: +LOVE0.01 SC; +OMEP40CA5 PO; +OXYB15TA14 PO
== END ==
LOC: M LAB REF 16:21
PROVIDERS: ATTEND Nurse Practitioner Adult Health
DX: S81.802S Unspecified open wound, left lower leg, sequela (principal)

== ENCOUNTER 2021-06-09 16:09 | Emergency (ER) | payer MEDICARE, OTHER ==
[~2021-06-09] VITALS: Ht 182.9 cm; Wt 122.7 kg
[~2021-06-09 16:09] MED LIST changes: +ELIQ5TAB PO; +LIDO5DIS41 TD; +MEDR4PAK PO; +[UNRECOGNIZED DRUG - OTHER] PO
[2021-06-09 19:10] LABS: BASO # 0.1 10^3/uL (0.0-0.2); BASO % 0.5 % (0.0-1.0); EOS # 0.1 10^3/uL (0.0-0.5); EOS % 0.8 % (0.0-3.0); HEMATOCRIT 40.3 % (42.0-52.0); HEMOGLOBIN 12.5 g/dl (13.5-17.5); LYMPH % 10.1 % (24.0-44.0); MEAN CORPUSCULAR HEMOGLOBIN 25.2 pg (27.0-33.0); MEAN CORPUSCULAR VOLUME 81.1 fl (80.0-96.0); MONO % 9.8 % (2.0-8.0); NEUTROPHILS # 7.8 10^3/uL (1.5-8.5); NEUTROPHILS % 78.1 % (36.0-66.0); PLATELET COUNT, AUTOMATED 209 10^3/uL (150-450); RED BLOOD COUNT 4.97 10^6/uL (4.30-6.10)
[2021-06-09 19:35] LABS: ALBUMIN 3.2 GM/DL (3.2-5.2); BILIRUBIN,DIRECT 0.2 MG/DL (0.0-0.2); BILIRUBIN,TOTAL 0.5 MG/DL (0.2-1.0); CALCIUM LEVEL 8.9 MG/DL (8.8-10.2); CREATININE FOR GFR 1.27 MG/DL (0.70-1.30); GLOMERULAR FILTRATION RATE 59.3 (>42); POTASSIUM SERUM 4.1 MEQ/L (3.5-5.1); TOTAL PROTEIN 7.1 GM/DL (6.4-8.2)
[2021-06-09 19:49] LABS: RSV AMPLIFICATION NEGATIVE (NEGATIVE)
[2021-06-09 20:15] VITALS: BP 112/59
== END 2021-06-09 22:00 | disposition home or self-care (01) ==
LOC: M ED 16:09
DX: S09.90XA Unspecified injury of head, initial encounter (principal); W18.30XA Fall on same level, unspecified, initial encounter; E11.9 Type 2 diabetes mellitus without complications; E78.5 Hyperlipidemia, unspecified; I11.0 Hypertensive heart disease with heart failure; I48.91 Unspecified atrial fibrillation; I50.9 Heart failure, unspecified; Z79.01 Long term (current) use of anticoagulants; Z88.6 Allergy status to analgesic agent

== ENCOUNTER 2021-06-11 20:49 | Inpatient (IN) | payer MEDICARE, OTHER ==
[~2021-06-11] VITALS: Ht 182.9 cm; Wt 116.7 kg
[2021-06-11] MEDS: HumaLOG INSULIN (NovoLOG) PER UNIT SC SCH (21:00)
[2021-06-11] MEDS ORDERED: VANCOMYCIN HCL 1,000 MG in IV FLUID PLACE HOLDER 1 EA IV ONE (22:50)
[2021-06-11] MEDS ORDERED: PIPERACILLIN/TAZOBACTAM SOD 3.375 GM in D5W MINI-BAG PLUS 50 ML IV ONE (22:50)
[2021-06-11 23:09] LABS: BASO % 0.3 % (0.0-1.0); EOS # 0.1 10^3/uL (0.0-0.5); EOS % 0.5 % (0.0-3.0); HEMATOCRIT 40.5 % (42.0-52.0); HEMOGLOBIN 12.9 g/dl (13.5-17.5); LYMPH # 0.4 10^3/uL (1.5-5.0); LYMPH % 3.9 % (24.0-44.0); MEAN CORPUSCULAR HEMOGLOBIN 24.9 pg (27.0-33.0); MEAN CORPUSCULAR HGB CONC 31.9 g/dl (32.0-36.5); MEAN CORPUSCULAR VOLUME 78.2 fl (80.0-96.0); MONO # 0.8 10^3/uL (0.0-0.8); MONO % 7.2 % (2.0-8.0); NEUTROPHILS # 9.8 10^3/uL (1.5-8.5); NEUTROPHILS % 87.5 % (36.0-66.0); PLATELET COUNT, AUTOMATED 233 10^3/uL (150-450); RED BLOOD COUNT 5.18 10^6/uL (4.30-6.10); WHITE BLOOD COUNT 11.2 10^3/uL (4.0-10.0)
[2021-06-11] MEDS ORDERED: NS 1,000 ML IV ONE ×2 (23:15)
[2021-06-11 23:29] LABS: INR 1.24
[2021-06-11 23:42] LABS: CK-MB VALUE MASS < 1.0 NG/ML (<3.6); CPK CREATINE PHOSPHOKINASE 143 U/L (39-308)
[2021-06-11 23:56] LABS: RSV AMPLIFICATION NEGATIVE (NEGATIVE)
[2021-06-12 00:47] LABS: BILIRUBIN,DIRECT 0.3 MG/DL (0.0-0.2); BILIRUBIN,TOTAL 0.6 MG/DL (0.2-1.0); CALCIUM LEVEL 8.4 MG/DL (8.8-10.2); CREATININE FOR GFR 1.41 MG/DL (0.70-1.30); GLOMERULAR FILTRATION RATE 52.6 (>42); TOTAL PROTEIN 6.9 GM/DL (6.4-8.2)
[2021-06-12] MEDS: NS 1,000 ML IV SCH ×2 (00:50→09:37)
[2021-06-12] MEDS ORDERED: MOM 30ML SUSPENSION UDC PO PRN (00:50)
[2021-06-12] MEDS ORDERED: MAALOX 30 ML SUSP *UDC PO PRN (00:50)
[2021-06-12] MEDS ORDERED: GLUCAGON INJ 1MG VIAL SC PRN (00:50)
[2021-06-12] MEDS ORDERED: DEXTROSE 50% 50 ML SYRINGE IV PRN (00:50)
[2021-06-12] MEDS ORDERED: GLUCOSE 4GM CHEW TABLET PO PRN (00:50)
[2021-06-12] MEDS ORDERED: VANCOMYCIN HCL 1,000 MG, VIAL MATE ADAPTER 1 EACH in NS 250 ML IV SCH (00:50)
[2021-06-12] MEDS ORDERED: VANCOMYCIN HCL 1,000 MG, VIAL MATE ADAPTER 1 EACH in NS 250 ML IV ONE ×4 (01:00)
[2021-06-12 01:19] LABS: PARTIAL THROMBOPLASTIN TIME 36.1 SECONDS (25.9-37.0)
[2021-06-12] MEDS ORDERED: MECLIZINE 12.5 MG TAB PO PRN (01:20)
[2021-06-12] MEDS ORDERED: HOME MED LIST COMPLETE! XX SCH (01:20)
[2021-06-12] MEDS: PERCOCET 5MG/325MG TAB PO PRN (04:40)
[2021-06-12] MEDS: PIPERACILLIN/TAZOBACTAM SOD 3.375 GM in D5W MINI-BAG PLUS 50 ML IV SCH ×4 (05:00→23:19)
[2021-06-12 08:36] LABS: HEMATOCRIT 40.1 % (42.0-52.0); HEMOGLOBIN 12.7 g/dl (13.5-17.5); MEAN CORPUSCULAR HEMOGLOBIN 25.6 pg (27.0-33.0); MEAN CORPUSCULAR HGB CONC 31.7 g/dl (32.0-36.5); MEAN CORPUSCULAR VOLUME 80.8 fl (80.0-96.0); PLATELET COUNT, AUTOMATED 267 10^3/uL (150-450); RED BLOOD COUNT 4.96 10^6/uL (4.30-6.10); WHITE BLOOD COUNT 11.3 10^3/uL (4.0-10.0)
[2021-06-12 08:43] LABS: BLOOD UREA NITROGEN 41 MG/DL (7-18); CALCIUM LEVEL 9.1 MG/DL (8.8-10.2); CARBON DIOXIDE LEVEL 24 MEQ/L (21-32); CHLORIDE LEVEL 102 MEQ/L (98-107); CREATININE FOR GFR 1.12 MG/DL (0.70-1.30); GLOMERULAR FILTRATION RATE > 60.0 (>42); GLUCOSE, FASTING 208 MG/DL (70-100); MAGNESIUM LEVEL 2.4 MG/DL (1.8-2.4); SODIUM LEVEL 136 MEQ/L (136-145)
[2021-06-12] MEDS ORDERED: SPIRONOLACTONE 25 MG TAB PO SCH (09:00)
[2021-06-12] MEDS: HumaLOG INSULIN (NovoLOG) PER UNIT SC SCH ×4 (09:30→20:26)
[2021-06-12] MEDS: OXcarbazepine 150 MG TAB PO SCH ×2 (09:53→20:21)
[2021-06-12] MEDS: clonazePAM 1 MG TAB PO SCH ×3 (09:53→20:21)
[2021-06-12] MEDS: METOPROLOL TART 25 MG TABLET PO SCH ×2 (09:54→20:21)
[2021-06-12] MEDS: PREGABALIN 75 MG CAP(LYRICA) PO SCH ×2 (09:54→20:21)
[2021-06-12] MEDS: DOCUSATE SODIUM 100MG CAPSULE PO SCH ×2 (09:54→20:20)
[2021-06-12] MEDS: rOPINIRole 2MG TAB PO SCH ×3 (09:59→20:20)
[2021-06-12] MEDS: oxyBUTYnin *DITROPAN XL* 5 MG TABCR PO SCH (09:59)
[2021-06-12] MEDS ORDERED: VANCOMYCIN HCL 750 MG, VIAL MATE ADAPTER 1 EACH in NS 250 ML IV SCH (12:00)
[2021-06-12] MEDS ORDERED: VANCOMYCIN HCL 500 MG in D5W MINI-BAG PLUS 100 ML IV SCH (13:00)
[2021-06-12] MEDS: VANCOMYCIN HCL 1,000 MG, VIAL MATE ADAPTER 1 EACH in NS 250 ML IV SCH (13:19)
[2021-06-12 15:00] VITALS: BP 126/68
[2021-06-12 19:00] VITALS: BP 107/66
[2021-06-12] MEDS: PRAVASTATIN 20 MG TAB PO SCH (20:21)
[2021-06-12 22:00] VITALS: BP 106/65
[2021-06-13] MEDS: VANCOMYCIN HCL 1,000 MG, VIAL MATE ADAPTER 1 EACH in NS 250 ML IV SCH (00:26)
[2021-06-13] MEDS: PIPERACILLIN/TAZOBACTAM SOD 3.375 GM in D5W MINI-BAG PLUS 50 ML IV SCH ×2 (04:37→12:09)
[2021-06-13 06:00] VITALS: BP 109/57
[2021-06-13 06:10] VITALS: BP 119/65
[2021-06-13 07:24] LABS: HEMATOCRIT 37.5 % (42.0-52.0); HEMOGLOBIN 11.6 g/dl (13.5-17.5); MEAN CORPUSCULAR HEMOGLOBIN 25.3 pg (27.0-33.0); MEAN CORPUSCULAR HGB CONC 30.9 g/dl (32.0-36.5); MEAN CORPUSCULAR VOLUME 81.7 fl (80.0-96.0); PLATELET COUNT, AUTOMATED 238 10^3/uL (150-450); RED BLOOD COUNT 4.59 10^6/uL (4.30-6.10); WHITE BLOOD COUNT 11.5 10^3/uL (4.0-10.0)
[2021-06-13 07:34] LABS: BLOOD UREA NITROGEN 32 MG/DL (7-18); CALCIUM LEVEL 8.6 MG/DL (8.8-10.2); CARBON DIOXIDE LEVEL 21 MEQ/L (21-32); CHLORIDE LEVEL 106 MEQ/L (98-107); CREATININE FOR GFR 1.03 MG/DL (0.70-1.30); GLOMERULAR FILTRATION RATE > 60.0 (>42); GLUCOSE, FASTING 196 MG/DL (70-100); MAGNESIUM LEVEL 2.4 MG/DL (1.8-2.4); POTASSIUM SERUM 3.9 MEQ/L (3.5-5.1); SODIUM LEVEL 138 MEQ/L (136-145)
[2021-06-13] MEDS: PREGABALIN 75 MG CAP(LYRICA) PO SCH ×2 (08:16→20:46)
[2021-06-13] MEDS: OXcarbazepine 150 MG TAB PO SCH ×2 (08:16→20:46)
[2021-06-13] MEDS: clonazePAM 1 MG TAB PO SCH ×3 (08:16→20:47)
[2021-06-13] MEDS: DOCUSATE SODIUM 100MG CAPSULE PO SCH ×2 (08:16→20:46)
[2021-06-13] MEDS: rOPINIRole 2MG TAB PO SCH ×3 (08:17→20:46)
[2021-06-13] MEDS: HumaLOG INSULIN (NovoLOG) PER UNIT SC SCH ×4 (08:17→20:23)
[2021-06-13] MEDS: oxyBUTYnin *DITROPAN XL* 5 MG TABCR PO SCH (08:17)
[2021-06-13] MEDS: METOPROLOL TART 25 MG TABLET PO SCH ×2 (08:17→20:47)
[2021-06-13] MEDS: PERCOCET 5MG/325MG TAB PO PRN ×2 (08:23→16:54)
[2021-06-13] MEDS: APIXABAN 5 MG TAB (ELIQUIS) PO SCH ×2 (12:10→20:46)
[2021-06-13] MEDS ORDERED: VANCOMYCIN HCL 750 MG, VIAL MATE ADAPTER 1 EACH in NS 250 ML IV SCH (13:00)
[2021-06-13 14:00] VITALS: BP 117/71
[2021-06-13] MEDS ORDERED: VANCOMYCIN HCL 500 MG in D5W MINI-BAG PLUS 100 ML IV SCH ×4 (14:00)
[2021-06-13] MEDS ORDERED: FUROSEMIDE 40MG/4ML VIAL (J1940) IV ONE (19:45)
[2021-06-13 20:00] VITALS: BP 137/66
[2021-06-13] MEDS: PRAVASTATIN 20 MG TAB PO SCH (20:46)
[2021-06-13] MEDS ORDERED: carisoprodoL 350 MG TAB PO ONE (23:00)
[2021-06-14 06:00] VITALS: BP 126/75
[2021-06-14 06:08] LABS: HEMATOCRIT 35.4 % (42.0-52.0); HEMOGLOBIN 11.1 g/dl (13.5-17.5); MEAN CORPUSCULAR HEMOGLOBIN 25.1 pg (27.0-33.0); MEAN CORPUSCULAR HGB CONC 31.4 g/dl (32.0-36.5); MEAN CORPUSCULAR VOLUME 79.9 fl (80.0-96.0); PLATELET COUNT, AUTOMATED 263 10^3/uL (150-450); RED BLOOD COUNT 4.43 10^6/uL (4.30-6.10); WHITE BLOOD COUNT 9.3 10^3/uL (4.0-10.0)
[2021-06-14 06:41] LABS: BLOOD UREA NITROGEN 27 MG/DL (7-18); CALCIUM LEVEL 8.3 MG/DL (8.8-10.2); CARBON DIOXIDE LEVEL 26 MEQ/L (21-32); CHLORIDE LEVEL 108 MEQ/L (98-107); CREATININE FOR GFR 0.99 MG/DL (0.70-1.30); GLOMERULAR FILTRATION RATE > 60.0 (>42); GLUCOSE, FASTING 253 MG/DL (70-100); MAGNESIUM LEVEL 2.3 MG/DL (1.8-2.4); POTASSIUM SERUM 4.1 MEQ/L (3.5-5.1); SODIUM LEVEL 141 MEQ/L (136-145)
[2021-06-14] MEDS ORDERED: FUROSEMIDE 40MG/4ML VIAL (J1940) IV SCH ×2 (08:00→17:00)
[2021-06-14] MEDS: HumaLOG INSULIN (NovoLOG) PER UNIT SC SCH ×4 (08:40→20:53)
[2021-06-14] MEDS: rOPINIRole 2MG TAB PO SCH ×3 (08:41→21:09)
[2021-06-14] MEDS: APIXABAN 5 MG TAB (ELIQUIS) PO SCH ×2 (08:41→21:08)
[2021-06-14] MEDS: OXcarbazepine 150 MG TAB PO SCH ×2 (08:41→21:09)
[2021-06-14] MEDS: oxyBUTYnin *DITROPAN XL* 5 MG TABCR PO SCH (08:41)
[2021-06-14] MEDS: PREGABALIN 75 MG CAP(LYRICA) PO SCH ×2 (08:41→21:08)
[2021-06-14] MEDS: DOCUSATE SODIUM 100MG CAPSULE PO SCH ×2 (08:41→21:09)
[2021-06-14] MEDS: clonazePAM 1 MG TAB PO SCH ×3 (08:41→21:09)
[2021-06-14] MEDS: SPIRONOLACTONE 25 MG TAB PO SCH (08:42)
[2021-06-14] MEDS: METOPROLOL TART 25 MG TABLET PO SCH ×2 (08:43→21:09)
[2021-06-14] MEDS ORDERED: TORSEMIDE 20 MG TAB PO SCH (09:00)
[2021-06-14] MEDS: PERCOCET 5MG/325MG TAB PO PRN (10:27)
[2021-06-14] MEDS: POTASSIUM CHLORIDE 10MEQ SR TABLET PO SCH (12:38)
[2021-06-14 14:00] VITALS: BP 114/74
[2021-06-14] MEDS: PRAVASTATIN 20 MG TAB PO SCH (21:09)
[2021-06-14 21:35] VITALS: BP 114/70
[2021-06-15] MEDS: PERCOCET 5MG/325MG TAB PO PRN (02:30)
[2021-06-15] MEDS: ACETAMINOPHEN TAB 650MG DOSE (2X325MG) PO PRN ×2 (05:02→10:41)
[2021-06-15 06:00] VITALS: BP 111/79
[2021-06-15 06:02] LABS: HEMATOCRIT 35.3 % (42.0-52.0); HEMOGLOBIN 11.1 g/dl (13.5-17.5); MEAN CORPUSCULAR HEMOGLOBIN 24.7 pg (27.0-33.0); MEAN CORPUSCULAR HGB CONC 31.4 g/dl (32.0-36.5); MEAN CORPUSCULAR VOLUME 78.4 fl (80.0-96.0); PLATELET COUNT, AUTOMATED 316 10^3/uL (150-450); WHITE BLOOD COUNT 7.3 10^3/uL (4.0-10.0)
[2021-06-15 06:27] LABS: BLOOD UREA NITROGEN 28 MG/DL (7-18); CALCIUM LEVEL 8.5 MG/DL (8.8-10.2); CARBON DIOXIDE LEVEL 27 MEQ/L (21-32); CHLORIDE LEVEL 105 MEQ/L (98-107); CREATININE FOR GFR 0.91 MG/DL (0.70-1.30); GLOMERULAR FILTRATION RATE > 60.0 (>42); GLUCOSE, FASTING 209 MG/DL (70-100); MAGNESIUM LEVEL 2.2 MG/DL (1.8-2.4); SODIUM LEVEL 141 MEQ/L (136-145)
[2021-06-15] MEDS: rOPINIRole 2MG TAB PO SCH (09:32)
[2021-06-15] MEDS: HumaLOG INSULIN (NovoLOG) PER UNIT SC SCH ×2 (09:32→13:45)
[2021-06-15] MEDS: APIXABAN 5 MG TAB (ELIQUIS) PO SCH (09:32)
[2021-06-15] MEDS: PREGABALIN 75 MG CAP(LYRICA) PO SCH (09:33)
[2021-06-15] MEDS: DOCUSATE SODIUM 100MG CAPSULE PO SCH (09:33)
[2021-06-15] MEDS: clonazePAM 1 MG TAB PO SCH (09:33)
[2021-06-15] MEDS: oxyBUTYnin *DITROPAN XL* 5 MG TABCR PO SCH (09:33)
[2021-06-15] MEDS: SPIRONOLACTONE 25 MG TAB PO SCH (09:33)
[2021-06-15] MEDS: OXcarbazepine 150 MG TAB PO SCH (09:33)
[2021-06-15] MEDS: POTASSIUM CHLORIDE 10MEQ SR TABLET PO SCH (09:33)
[2021-06-15 09:34] VITALS: BP 111/79
[2021-06-15] MEDS: METOPROLOL TART 25 MG TABLET PO SCH (09:34)
[2021-06-15 12:05] LABS: DRVV SCREEN 86.6 SEC
[2021-06-15 12:15] LABS: PTT LUPUS TYPE ANTICOAG SCREEN 2.3 (0-1.2)
[2021-06-15 12:24] LABS: DRVV CONFIRM 77.2 SEC
[2021-06-15 12:30] LABS: NORMALIZED RATIO 1.15 (0.00-1.20)
[2021-06-15 13:09] LABS: ANTINUCLEAR ANTIBODIES DIRECT Negative (Negative)
[2021-06-19 15:08] LABS: ANCA-ATYPICAL <1:20 titer (Neg:<1:20); ANTI THROMBIN 3 ANTIGEN IMMUNO 91 % (72-124); ANTI THROMBIN 3 FUNCT ACTIVITY 105 % (75-135); CARDIOLIPIN IGA ANTIBODY <9 APL U/mL (0-11); CARDIOLIPIN IGG ANTIBODY <9 GPL U/mL (0-14); CARDIOLIPIN IGM ANTIBODY 9 MPL U/mL (0-12); CYTOPLASMIC NEUTROP AB ANCA-C <1:20 titer (Neg:<1:20); HOMOCYST(E)INE SERUM 11.7 umol/L (0.0-19.2); PERINUCLEAR AB ANCA-P <1:20 titer (Neg:<1:20); PROTEIN C ANTIGEN 106 % (60-150); PROTEIN S ANTIGEN FREE 99 % (61-136); PROTEIN S ANTIGEN TOTAL 120 % (60-150); SSA SJOGRENS A <0.2 AI (0.0-0.9); SSB SJOGRENS B <0.2 AI (0.0-0.9)
== END 2021-06-15 14:59 | disposition home health service (06) | DRG 593 ==
LOC: M ED 20:49 → M ED INP 06-12 00:47 → ENRESERV 06-12 13:38 → M MSPAV 06-12 14:56
PROVIDERS: ADMIT Family Medicine; ATTEND Internal Medicine Nephrology
DX: L97.218 Non-pressure chronic ulcer of right calf with other specified severity (principal); I50.32 Chronic diastolic (congestive) heart failure; I69.351 Hemiplegia and hemiparesis following cerebral infarction affecting right dominant side; I48.20 Chronic atrial fibrillation, unspecified; N17.9 Acute kidney failure, unspecified; L97.228 Non-pressure chronic ulcer of left calf with other specified severity; E11.51 Type 2 diabetes mellitus with diabetic peripheral angiopathy without gangrene; I11.0 Hypertensive heart disease with heart failure; G47.33 Obstructive sleep apnea (adult) (pediatric); R26.81 Unsteadiness on feet; E04.1 Nontoxic single thyroid nodule; I27.20 Pulmonary hypertension, unspecified; K21.9 Gastro-esophageal reflux disease without esophagitis; G62.2 Polyneuropathy due to other toxic agents; E66.9 Obesity, unspecified; M51.16 Intervertebral disc disorders with radiculopathy, lumbar region; E11.622 Type 2 diabetes mellitus with other skin ulcer; E11.40 Type 2 diabetes mellitus with diabetic neuropathy, unspecified; G25.81 Restless legs syndrome; N32.81 Overactive bladder; I87.2 Venous insufficiency (chronic) (peripheral); Z86.718 Personal history of other venous thrombosis and embolism; Z86.711 Personal history of pulmonary embolism; Z95.0 Presence of cardiac pacemaker; Z79.01 Long term (current) use of anticoagulants; Z79.899 Other long term (current) drug therapy; Z79.84 Long term (current) use of oral hypoglycemic drugs; Z95.820 Peripheral vascular angioplasty status with implants and grafts; Z88.5 Allergy status to narcotic agent; Z96.653 Presence of artificial knee joint, bilateral; Z68.35 Body mass index [BMI] 35.0-35.9, adult

== ENCOUNTER → 2021-07-28 | Outpatient (REF) | payer MEDICARE, OTHER ==
[~2021-07-28] MED LIST changes: +ALBU2.5V10 INH; -ALBU83IN INH
== END ==
LOC: M LAB REF 16:24
PROVIDERS: ATTEND Nurse Practitioner Adult Health
DX: G89.4 Chronic pain syndrome (principal)

== ENCOUNTER → 2021-08-01 | Outpatient (REF) | payer MEDICARE, OTHER ==
[2021-08-01 17:19] LABS: PERCENT SATURATION 11.5 % (19.7-50.0)
== END ==
LOC: M LAB REF 16:30
PROVIDERS: ATTEND Nurse Practitioner Adult Health
DX: R71.8 Other abnormality of red blood cells (principal)

== ENCOUNTER → 2021-08-17 | Outpatient (CLI) | payer MEDICARE, OTHER | LOC: M RAD 14:57 | PROVIDERS: ATTEND Nurse Practitioner Adult Health | DX: R91.1 Solitary pulmonary nodule (principal) ==

== ENCOUNTER → 2021-09-12 | Outpatient (REF) | payer MEDICARE, OTHER | LOC: M LAB REF 16:17 | PROVIDERS: ATTEND Nurse Practitioner Adult Health | DX: R35.0 Frequency of micturition (principal) ==

== ENCOUNTER 2021-09-21 20:13 | Observation (INO) | payer MEDICARE, OTHER ==
[~2021-09-21] VITALS: Ht 182.9 cm; Wt 121.3 kg
[2021-09-21 21:11] LABS: BASO # 0.1 10^3/uL (0.0-0.2); BASO % 0.7 % (0.0-1.0); EOS # 0.6 10^3/uL (0.0-0.5); EOS % 7.3 % (0.0-3.0); HEMATOCRIT 47.2 % (42.0-52.0); HEMOGLOBIN 14.8 g/dl (13.5-17.5); LYMPH # 1.1 10^3/uL (1.5-5.0); LYMPH % 14.1 % (24.0-44.0); MEAN CORPUSCULAR HGB CONC 31.4 g/dl (32.0-36.5); MONO # 0.6 10^3/uL (0.0-0.8); MONO % 7.3 % (2.0-8.0); NEUTROPHILS # 5.4 10^3/uL (1.5-8.5); NEUTROPHILS % 70.1 % (36.0-66.0); PLATELET COUNT, AUTOMATED 239 10^3/uL (150-450); RED BLOOD COUNT 5.49 10^6/uL (4.30-6.10); WHITE BLOOD COUNT 7.7 10^3/uL (4.0-10.0)
[2021-09-21 21:48] LABS: CALCIUM LEVEL 9.6 MG/DL (8.8-10.2); CREATININE FOR GFR 1.53 MG/DL (0.70-1.30); GLOMERULAR FILTRATION RATE 47.9 (>42); THYROID STIMULATING HORMONE 0.875 uIU/ML (0.358-3.740)
[2021-09-21 21:50] LABS: CK-MB VALUE MASS 1.3 NG/ML (<3.6); MB/CK RELATIVE INDEX 0.9 (< OR =4)
[2021-09-21] MEDS ORDERED: ISOVUE-370 76% 100ML VIAL As Ordered ONE (22:07)
[2021-09-21 22:50] LABS: CK-MB VALUE MASS 1.5 NG/ML (<3.6); MB/CK RELATIVE INDEX 1.09 (< OR =4)
[2021-09-21] MEDS ORDERED: rOPINIRole 2MG TAB PO STA (23:01)
[2021-09-21] MEDS ORDERED: PREGABALIN 75 MG CAP(LYRICA) PO STA (23:37)
[2021-09-21] MEDS ORDERED: clonazePAM 1 MG TAB PO ONE (23:40)
[2021-09-22 00:33] LABS: RSV AMPLIFICATION NEGATIVE (NEGATIVE)
[2021-09-22 00:35] LABS: CK-MB VALUE MASS 1.4 NG/ML (<3.6); MB/CK RELATIVE INDEX 1.18 (< OR =4)
[2021-09-22] MEDS ORDERED: ROPI2TAB3 PO (02:07)
[2021-09-22] MEDS ORDERED: RA T500C2 PO (02:07)
[2021-09-22] MEDS ORDERED: MECL-86 PO (02:07)
[2021-09-22] MEDS ORDERED: CAYE450C3 PO (02:07)
[2021-09-22] MEDS ORDERED: PREG200C PO (02:07)
[2021-09-22] MEDS ORDERED: ROPI2TAB PO (02:07)
[2021-09-22] MEDS ORDERED: VALS1TAB66 PO (02:07)
[2021-09-22] MEDS ORDERED: GLIM2TAB4 PO (02:07)
[2021-09-22] MEDS ORDERED: FLOM0.4C39 PO (02:07)
[2021-09-22] MEDS ORDERED: VITATAB73 PO (02:07)
[2021-09-22] MEDS ORDERED: INSUDET SC (02:07)
[2021-09-22] MEDS ORDERED: DICL1GEL3 TOP (02:07)
[2021-09-22] MEDS ORDERED: GARL500C2 PO (02:07)
[2021-09-22] MEDS ORDERED: VITA200044 PO (02:07)
[2021-09-22] MEDS ORDERED: TRAM50TA2 PO (02:07)
[2021-09-22] MEDS ORDERED: CLON1TAB8 PO (02:07)
[2021-09-22] MEDS ORDERED: MULTTAB61 PO (02:07)
[2021-09-22] MEDS ORDERED: KEPP1TAB2 PO (02:07)
[2021-09-22] MEDS ORDERED: DEXT4TAB15 PO (02:09)
[2021-09-22] MEDS ORDERED: ASPIRIN 81 MG CHEW TABLET PO ONE (02:10)
[2021-09-22] MEDS ORDERED: DEXTROSE 50% 50 ML SYRINGE IV PRN (02:10)
[2021-09-22] MEDS ORDERED: HOME MED LIST COMPLETE! XX SCH (02:10)
[2021-09-22] MEDS ORDERED: GLUCAGON INJ 1MG VIAL SC PRN (02:10)
[2021-09-22] MEDS ORDERED: GLUCOSE 4GM CHEW TABLET PO PRN (02:10)
[2021-09-22] MEDS ORDERED: NS 1,000 ML IV SCH (02:40)
[2021-09-22 04:56] VITALS: BP 130/91
[2021-09-22 07:05] LABS: BLOOD UREA NITROGEN 30 MG/DL (7-18); CALCIUM LEVEL 8.6 MG/DL (8.8-10.2); CARBON DIOXIDE LEVEL 31 MEQ/L (21-32); CHLORIDE LEVEL 100 MEQ/L (98-107); CREATININE FOR GFR 1.24 MG/DL (0.70-1.30); GLOMERULAR FILTRATION RATE > 60.0 (>42); GLUCOSE, FASTING 254 MG/DL (70-100); MAGNESIUM LEVEL 2.3 MG/DL (1.8-2.4); POTASSIUM SERUM 3.3 MEQ/L (3.5-5.1); SODIUM LEVEL 138 MEQ/L (136-145)
[2021-09-22] MEDS ORDERED: MECLIZINE 25 MG TABLET PO PRN (07:40)
[2021-09-22] MEDS: clonazePAM 1 MG TAB PO SCH (09:23)
[2021-09-22] MEDS: SPIRONOLACTONE 12.5MG PER 1/2 TABLET PO SCH (09:24)
[2021-09-22] MEDS: TAMSULOSIN 0.4 MG CAP PO SCH (09:24)
[2021-09-22] MEDS: INSULIN LISPRO (NovoLOG) PER UNIT SC SCH ×3 (09:24→18:42)
[2021-09-22] MEDS: APIXABAN 5 MG TAB (ELIQUIS) PO SCH ×2 (09:24→20:47)
[2021-09-22] MEDS: ACETAMINOPHEN TAB 650MG DOSE (2X325MG) PO PRN (09:27)
[2021-09-22 09:34] LABS: ALBUMIN 3.1 GM/DL (3.2-5.2); ALT/SGPT 18 U/L (12-78); BILIRUBIN,DIRECT 0.2 MG/DL (0.0-0.2); BILIRUBIN,TOTAL 0.5 MG/DL (0.2-1.0); TOTAL PROTEIN 6.8 GM/DL (6.4-8.2)
[2021-09-22] MEDS ORDERED: POTASSIUM CHLORIDE 10% LIQ 20 MEQ/15 ML UDC PO ONE (10:30)
[2021-09-22] MEDS: OXcarbazepine 150 MG TAB PO SCH ×2 (11:07→20:48)
[2021-09-22] MEDS: rOPINIRole 2MG TAB PO SCH (11:07)
[2021-09-22 11:44] VITALS: BP_SYST 119; BP_SYST 120; BP_SYST 121; BP_DIAS 73; BP_DIAS 76
[2021-09-22 15:45] VITALS: BP 129/74
[2021-09-22 20:48] VITALS: BP 132/72
[2021-09-22 21:00] VITALS: BP 132/72
[2021-09-22] MEDS ORDERED: INSULIN LISPRO (NovoLOG) PER UNIT SC SCH (21:00)
[2021-09-22] MEDS ORDERED: levETIRAcetam 250MG TABLET (KEPPRA) PO SCH (21:00)
[2021-09-22] MEDS ORDERED: clonazePAM 1 MG TAB PO SCH (21:00)
[2021-09-22] MEDS ORDERED: rOPINIRole 2MG TAB PO SCH (21:00)
[2021-09-22] MEDS ORDERED: VALSARTAN 80 MG TAB (DIOVAN) PO SCH (21:00)
[2021-09-23] MEDS: ACETAMINOPHEN TAB 650MG DOSE (2X325MG) PO PRN (01:01)
[2021-09-23 07:54] LABS: HEMATOCRIT 43.7 % (42.0-52.0); HEMOGLOBIN 13.8 g/dl (13.5-17.5); MEAN CORPUSCULAR HEMOGLOBIN 27.3 pg (27.0-33.0); MEAN CORPUSCULAR HGB CONC 31.6 g/dl (32.0-36.5); MEAN CORPUSCULAR VOLUME 86.5 fl (80.0-96.0); PLATELET COUNT, AUTOMATED 241 10^3/uL (150-450); RED BLOOD COUNT 5.05 10^6/uL (4.30-6.10); WHITE BLOOD COUNT 5.5 10^3/uL (4.0-10.0)
[2021-09-23] MEDS: APIXABAN 5 MG TAB (ELIQUIS) PO SCH (08:05)
[2021-09-23] MEDS: TAMSULOSIN 0.4 MG CAP PO SCH (08:05)
[2021-09-23] MEDS: rOPINIRole 2MG TAB PO SCH (08:06)
[2021-09-23] MEDS: clonazePAM 1 MG TAB PO SCH (08:06)
[2021-09-23] MEDS: INSULIN LISPRO (NovoLOG) PER UNIT SC SCH ×2 (08:07→12:55)
[2021-09-23] MEDS: OXcarbazepine 150 MG TAB PO SCH (08:08)
[2021-09-23] MEDS: SPIRONOLACTONE 12.5MG PER 1/2 TABLET PO SCH (08:18)
[2021-09-23 08:30] LABS: BLOOD UREA NITROGEN 22 MG/DL (7-18); CALCIUM LEVEL 8.6 MG/DL (8.8-10.2); CARBON DIOXIDE LEVEL 26 MEQ/L (21-32); CHLORIDE LEVEL 107 MEQ/L (98-107); CREATININE FOR GFR 0.91 MG/DL (0.70-1.30); GLOMERULAR FILTRATION RATE > 60.0 (>42); GLUCOSE, FASTING 200 MG/DL (70-100); PHOSPHORUS LEVEL 2.8 MG/DL (2.5-4.9); SODIUM LEVEL 138 MEQ/L (136-145)
[2021-09-23] MEDS ORDERED: ASPIRIN 81MG ENTERIC TABLET PO SCH (09:00)
[2021-09-23] MEDS ORDERED: ROSU10TA6 PO (12:16)
[2021-09-23] MEDS ORDERED: ASPI81CH33 PO (12:16)
[2021-09-23] MEDS ORDERED: LEVEMIR (INSULIN DETEMIR) 1 UNITS/0.01ML SC SCH (21:00)
[2021-09-25 14:07] LABS: LEVETIRACETAM (KEPPRA) 3.7 ug/mL (10.0-40.0)
== END 2021-09-23 13:33 | disposition home or self-care (01) ==
LOC: M ED 20:13 → M ED INP 20:14 → UNDOADMOB 09-22 02:06 → M MSPAV 09-22 02:06 → M ED INP 09-22 03:35 → UNDODISOB 09-23 13:33
PROVIDERS: ADMIT Internal Medicine; ATTEND Internal Medicine
DX: R40.4 Transient alteration of awareness (principal); Z86.73 Personal history of transient ischemic attack (TIA), and cerebral infarction without residual deficits; I48.91 Unspecified atrial fibrillation; N17.9 Acute kidney failure, unspecified; I50.30 Unspecified diastolic (congestive) heart failure; Z86.711 Personal history of pulmonary embolism; Z79.01 Long term (current) use of anticoagulants; Z88.5 Allergy status to narcotic agent; E11.9 Type 2 diabetes mellitus without complications; I11.9 Hypertensive heart disease without heart failure; G25.81 Restless legs syndrome; G40.909 Epilepsy, unspecified, not intractable, without status epilepticus; Z91.14 Patient's other noncompliance with medication regimen; L97.909 Non-pressure chronic ulcer of unspecified part of unspecified lower leg with unspecified severity; Z79.899 Other long term (current) drug therapy; Z79.84 Long term (current) use of oral hypoglycemic drugs; Z79.82 Long term (current) use of aspirin
CPT/HCPCS: 36415; 70450; 70496; 70498; 71045; 72110; 80048; 80076; 80180; 80183; 82550; 82553; 83735; 84100; 84443; 84484; 85025; 85027; 87631; 93005; 93041; 93306; 94760; 96360; 96361; 97162; 97165; 99285; G0378; J1815; Q9967

== ENCOUNTER 2021-09-27 16:57 | Emergency (ER) | payer MEDICARE, OTHER ==
[~2021-09-27] VITALS: Ht 182.9 cm; Wt 121.8 kg
[~2021-09-27 16:57] MED LIST changes: +CAYE450C3 PO; +DEXT4TAB15 PO; +GARL500C2 PO; +GLIM2TAB4 PO; +INSUDET SC; +KEPP1TAB2 PO; +MULTTAB61 PO; +PREG200C PO; +RA T500C2 PO; +ROPI2TAB PO; +ROSU10TA6 PO; +VALS1TAB66 PO; +VITA200044 PO; +VITATAB73 PO
[2021-09-27 16:58] VITALS: BP 138/78
== END 2021-09-27 19:49 | disposition left against medical advice (07) ==
LOC: M ED 16:57
DX: Z53.21 Procedure and treatment not carried out due to patient leaving prior to being seen by health care provider (principal)

== ENCOUNTER → 2022-02-07 | Outpatient (REF) | payer MEDICARE, OTHER ==
[~2022-02-07] MED LIST changes: +ALBU8.5H INH
[2022-02-07 12:25] LABS: PROTHROMBIN TIME 13.4 SECONDS (12.5-14.5)
== END ==
LOC: M LAB REF 11:30
PROVIDERS: ATTEND Nurse Practitioner Adult Health
DX: Z01.818 Encounter for other preprocedural examination (principal)

== ENCOUNTER 2022-09-07 13:53 | Inpatient (IN) | payer MEDICARE, OTHER ==
[~2022-09-07] VITALS: Ht 182.9 cm; Wt 131.6 kg
[~2022-09-07 13:53] MED LIST changes: +INSU100I6 SC; -K-TA10TA PO; -LEVE1INJ5 SC; +POTA-164 PO; -ROPI2TAB3 PO; +ROPI2TAB46 PO
[2022-09-07] MEDS ORDERED: NS 1,000 ML IV SCH (14:15)
[2022-09-07 15:09] LABS: BASO # 0.1 10^3/uL (0.0-0.2); BASO % 0.8 % (0.0-1.0); EOS # 0.3 10^3/uL (0.0-0.5); EOS % 5.3 % (0.0-3.0); HEMATOCRIT 41.2 % (42.0-52.0); HEMOGLOBIN 13.8 g/dl (13.5-17.5); LYMPH % 15.2 % (24.0-44.0); MEAN CORPUSCULAR HEMOGLOBIN 28.6 pg (27.0-33.0); MEAN CORPUSCULAR HGB CONC 33.5 g/dl (32.0-36.5); MEAN CORPUSCULAR VOLUME 85.3 fl (80.0-96.0); MONO # 0.5 10^3/uL (0.0-0.8); MONO % 8.3 % (2.0-8.0); NEUTROPHILS # 4.5 10^3/uL (1.5-8.5); NEUTROPHILS % 70.1 % (36.0-66.0); PLATELET COUNT, AUTOMATED 215 10^3/uL (150-450); RED BLOOD COUNT 4.83 10^6/uL (4.30-6.10); WHITE BLOOD COUNT 6.4 10^3/uL (4.0-10.0)
[2022-09-07 15:26] LABS: RSV AMPLIFICATION NEGATIVE (NEGATIVE)
[2022-09-07 15:31] LABS: ETHYL ALCOHOL (ETHANOL) < 0.003 % (0.000-0.010)
[2022-09-07 15:32] LABS: SALICYLATE LEVEL < 3.0 MG/DL (<30)
[2022-09-07 15:33] LABS: ACETAMINOPHEN LEVEL < 2.0 UG/ML (10.0-20.0); ALBUMIN 3.8 G/DL (3.2-5.2); ALKALINE PHOSPHATASE 141 U/L (46-116); ALT/SGPT 17 U/L (7.0-40); AST/SGOT 13 U/L (<34); BILIRUBIN,DIRECT 0.2 MG/DL (<0.4); BILIRUBIN,TOTAL 0.6 MG/DL (0.3-1.2); BLOOD UREA NITROGEN 21 MG/DL (9-23); CALCIUM LEVEL 8.9 MG/DL (8.3-10.6); CARBON DIOXIDE LEVEL 31 MMOL/L (20-31); CHLORIDE LEVEL 99 MMOL/L (98-107); CK-MB VALUE MASS < 1.0 NG/ML (<3.6); CREATININE FOR GFR 0.93 MG/DL (0.70-1.30); GLOMERULAR FILTRATION RATE > 60.0 (>42); GLUCOSE, FASTING 128 MG/DL (74-106); POTASSIUM SERUM 4.1 MMOL/L (3.5-5.1); SODIUM LEVEL 138 MMOL/L (136-145); TOTAL PROTEIN 7.1 G/DL (5.7-8.2)
[2022-09-07 15:35] LABS: THYROID STIMULATING HORMONE 1.419 uIU/ML (0.55-4.78)
[2022-09-07 15:40] LABS: CPK CREATINE PHOSPHOKINASE 89 U/L (46-171); MB/CK RELATIVE INDEX 1.12 (< OR =4)
[2022-09-07] MEDS ORDERED: ISOVUE-370 76% 100ML VIAL As Ordered ONE (16:39)
[2022-09-07] MEDS ORDERED: clonazePAM 1 MG TAB PO ONE (17:55)
[2022-09-07 17:56] LABS: PROLACTIN 2.23 NG/ML (2.1-17.7)
[2022-09-07 20:50] LABS: AMPHETAMINES LEVEL URINE NEGATIVE (NEGATIVE); PHENCYCLIDINE URINE NEGATIVE (NEGATIVE)
[2022-09-07 20:51] LABS: BARBITURATES URINE NEGATIVE (NEGATIVE); BENZODIAZEPINES URINE NEGATIVE (NEGATIVE); CANNABINOIDS URINE NEGATIVE (NEGATIVE); COCAINE METABOLITE URINE NEGATIVE (NEGATIVE); METHADONE URINE NEGATIVE (NEGATIVE); OPIATES URINE NEGATIVE (NEGATIVE)
[2022-09-07] MEDS: INSULIN LISPRO (NovoLOG) PER UNIT SC SCH (21:00)
[2022-09-07] MEDS ORDERED: rOPINIRole 2MG TAB PO SCH (21:00)
[2022-09-07] MEDS: ceFAZolin SOD 1 GM in D5W MINI-BAG PLUS 50 ML IV SCH (21:09)
[2022-09-07] MEDS ORDERED: ROSU20TA61 PO (21:16)
[2022-09-07] MEDS ORDERED: TRAM50TA2 PO (21:16)
[2022-09-07] MEDS ORDERED: OXYB-54 PO (21:16)
[2022-09-07] MEDS ORDERED: HOME MED LIST COMPLETE! XX SCH (21:20)
[2022-09-07] MEDS ORDERED: DEXTROSE 50% 50ML SYRINGE IV PRN (21:25)
[2022-09-07] MEDS ORDERED: GLUCOSE 4GM CHEW TABLET PO PRN (21:25)
[2022-09-07] MEDS ORDERED: GLUCAGON INJ 1MG VIAL SC PRN (21:25)
[2022-09-07] MEDS: OXcarbazepine 150 MG TAB PO SCH (22:24)
[2022-09-07] MEDS: VALSARTAN 80 MG TAB (DIOVAN) PO SCH (22:24)
[2022-09-07] MEDS: levETIRAcetam 250MG TABLET (KEPPRA) PO SCH (22:24)
[2022-09-07] MEDS: APIXABAN 5 MG TAB (ELIQUIS) PO SCH (22:24)
[2022-09-07] MEDS: METOPROLOL TART 25 MG TABLET PO SCH (22:25)
[2022-09-07 23:05] VITALS: BP 133/77; TEMP 96.2; O2SAT 96
[2022-09-07 23:38] LABS: CHOLESTEROL LEVEL 93 MG/DL (<200); CHOLESTEROL RISK RATIO 2.15 (<5); HDL CHOLESTEROL 43.2 MG/DL (>40); LDL CHOLESTEROL 18.8 MG/DL (<100); NON-HDL-C 49.8 MG/DL; TRIGLYCERIDES LEVEL 155 MG/DL (<150)
[2022-09-07 23:41] LABS: VITAMIN B12 LEVEL 346 PG/ML (211-911)
[2022-09-08 01:05] LABS: HEMOGLOBIN A1c 8.4 % (4.0-6.0)
[2022-09-08 03:27] VITALS: BP 120/67; TEMP 96.6; O2SAT 98
[2022-09-08] MEDS: ceFAZolin SOD 1 GM in D5W MINI-BAG PLUS 50 ML IV SCH ×3 (05:15→20:09)
[2022-09-08 06:01] LABS: HEMATOCRIT 39.8 % (42.0-52.0); HEMOGLOBIN 12.6 g/dl (13.5-17.5); MEAN CORPUSCULAR HEMOGLOBIN 27.8 pg (27.0-33.0); MEAN CORPUSCULAR HGB CONC 31.7 g/dl (32.0-36.5); MEAN CORPUSCULAR VOLUME 87.7 fl (80.0-96.0); PLATELET COUNT, AUTOMATED 176 10^3/uL (150-450); RED BLOOD COUNT 4.54 10^6/uL (4.30-6.10); WHITE BLOOD COUNT 5.4 10^3/uL (4.0-10.0)
[2022-09-08 06:19] LABS: BLOOD UREA NITROGEN 19 MG/DL (9-23); CALCIUM LEVEL 7.8 MG/DL (8.3-10.6); CARBON DIOXIDE LEVEL 30 MMOL/L (20-31); CHLORIDE LEVEL 102 MMOL/L (98-107); CREATININE FOR GFR 0.89 MG/DL (0.70-1.30); GLOMERULAR FILTRATION RATE > 60.0 (>42); GLUCOSE, FASTING 155 MG/DL (74-106); MAGNESIUM LEVEL 1.9 MG/DL (1.8-2.4); POTASSIUM SERUM 3.9 MMOL/L (3.5-5.1); SODIUM LEVEL 141 MMOL/L (136-145)
[2022-09-08 06:52] LABS: PROCALCITONIN <0.04 ng/ml
[2022-09-08 08:00] VITALS: BP 126/72; TEMP 96.5; O2SAT 96
[2022-09-08 08:17] VITALS: BP 126/72; TEMP 96.5; O2SAT 16; O2SAT 96
[2022-09-08] MEDS: ASPIRIN 81MG ENTERIC TABLET PO SCH (08:29)
[2022-09-08] MEDS: INSULIN LISPRO (NovoLOG) PER UNIT SC SCH ×4 (08:29→21:00)
[2022-09-08] MEDS: rOPINIRole 2MG TAB PO SCH ×4 (08:29→20:08)
[2022-09-08] MEDS: TORSEMIDE 20 MG TAB PO SCH (08:30)
[2022-09-08] MEDS: APIXABAN 5 MG TAB (ELIQUIS) PO SCH ×2 (08:30→20:09)
[2022-09-08] MEDS: OXcarbazepine 150 MG TAB PO SCH ×2 (08:30→20:09)
[2022-09-08] MEDS: METOPROLOL TART 25 MG TABLET PO SCH ×2 (08:31→20:10)
[2022-09-08] MEDS: oxyBUTYnin *DITROPAN XL* 5 MG TABCR PO SCH (08:31)
[2022-09-08 09:40] LABS: T UPTAKE 37.9 % (22.5-37.0); THYROID STIMULATING HORMONE 0.896 uIU/ML (0.55-4.78); THYROXINE (T4) 5.2 UG/DL (4.5-10.9)
[2022-09-08 11:40] VITALS: BP 115/61; TEMP 95.9; O2SAT 96
[2022-09-08 16:11] VITALS: BP 124/61; TEMP 97; O2SAT 94
[2022-09-08 20:00] VITALS: BP 118/65; TEMP 97.8; O2SAT 98
[2022-09-08] MEDS: VALSARTAN 80 MG TAB (DIOVAN) PO SCH (20:09)
[2022-09-08] MEDS: ROSUVASTATIN 10 MG TAB (CRESTOR) PO SCH (20:09)
[2022-09-08] MEDS: levETIRAcetam 250MG TABLET (KEPPRA) PO SCH (20:09)
[2022-09-09] VITALS (11 sets, daily range): BP systolic 116–142; BP diastolic 60–88; TEMP 97–98; O2SAT 95–98
[2022-09-09] MEDS: traMADol 50 MG TAB PO PRN (02:02)
[2022-09-09] MEDS: ceFAZolin SOD 1 GM in D5W MINI-BAG PLUS 50 ML IV SCH ×3 (05:25→21:10)
[2022-09-09] MEDS: ACETAMINOPHEN TAB 650MG DOSE (2X325MG) PO PRN (05:31)
[2022-09-09 08:27] LABS: HEMATOCRIT 40.7 % (42.0-52.0); MEAN CORPUSCULAR HEMOGLOBIN 27.8 pg (27.0-33.0); MEAN CORPUSCULAR HGB CONC 31.9 g/dl (32.0-36.5); PLATELET COUNT, AUTOMATED 185 10^3/uL (150-450); RED BLOOD COUNT 4.68 10^6/uL (4.30-6.10); WHITE BLOOD COUNT 5.1 10^3/uL (4.0-10.0)
[2022-09-09] MEDS: rOPINIRole 2MG TAB PO SCH ×4 (08:36→21:09)
[2022-09-09] MEDS: ASPIRIN 81MG ENTERIC TABLET PO SCH (08:37)
[2022-09-09] MEDS: OXcarbazepine 150 MG TAB PO SCH ×2 (08:37→21:09)
[2022-09-09] MEDS: APIXABAN 5 MG TAB (ELIQUIS) PO SCH ×2 (08:37→21:09)
[2022-09-09] MEDS: TORSEMIDE 20 MG TAB PO SCH (08:37)
[2022-09-09] MEDS: oxyBUTYnin *DITROPAN XL* 5 MG TABCR PO SCH (08:37)
[2022-09-09] MEDS: METOPROLOL TART 25 MG TABLET PO SCH ×2 (08:37→21:10)
[2022-09-09] MEDS: INSULIN LISPRO (NovoLOG) PER UNIT SC SCH ×4 (08:38→21:10)
[2022-09-09 08:55] LABS: BLOOD UREA NITROGEN 18 MG/DL (9-23); CALCIUM LEVEL 7.9 MG/DL (8.3-10.6); CARBON DIOXIDE LEVEL 28 MMOL/L (20-31); CHLORIDE LEVEL 104 MMOL/L (98-107); CREATININE FOR GFR 0.77 MG/DL (0.70-1.30); GLOMERULAR FILTRATION RATE > 60.0 (>42); GLUCOSE, FASTING 163 MG/DL (74-106); POTASSIUM SERUM 4.3 MMOL/L (3.5-5.1); SODIUM LEVEL 141 MMOL/L (136-145)
[2022-09-09] MEDS: levETIRAcetam 250MG TABLET (KEPPRA) PO SCH (21:09)
[2022-09-09] MEDS: ROSUVASTATIN 10 MG TAB (CRESTOR) PO SCH (21:09)
[2022-09-09] MEDS: VALSARTAN 80 MG TAB (DIOVAN) PO SCH (21:09)
[2022-09-10] VITALS (8 sets, daily range): BP systolic 123–144; BP diastolic 58–78; TEMP 97.1–97.3; O2SAT 96–98
[2022-09-10] MEDS: ACETAMINOPHEN TAB 650MG DOSE (2X325MG) PO PRN (03:40)
[2022-09-10] MEDS: ceFAZolin SOD 1 GM in D5W MINI-BAG PLUS 50 ML IV SCH (06:03)
[2022-09-10] MEDS: traMADol 50 MG TAB PO PRN (06:03)
[2022-09-10] MEDS ORDERED: BACI1CAP PO (07:14)
[2022-09-10] MEDS ORDERED: ASPI81TAEC PO (07:14)
[2022-09-10] MEDS ORDERED: CEPH500C PO (07:14)
[2022-09-10] MEDS: OXcarbazepine 150 MG TAB PO SCH (09:20)
[2022-09-10] MEDS: oxyBUTYnin *DITROPAN XL* 5 MG TABCR PO SCH (09:20)
[2022-09-10] MEDS: INSULIN LISPRO (NovoLOG) PER UNIT SC SCH ×2 (09:20→12:09)
[2022-09-10] MEDS: ASPIRIN 81MG ENTERIC TABLET PO SCH (09:20)
[2022-09-10] MEDS: TORSEMIDE 20 MG TAB PO SCH (09:20)
[2022-09-10] MEDS: rOPINIRole 2MG TAB PO SCH (09:20)
[2022-09-10] MEDS: APIXABAN 5 MG TAB (ELIQUIS) PO SCH (09:20)
[2022-09-10] MEDS: METOPROLOL TART 25 MG TABLET PO SCH (09:21)
[2022-09-13 10:10] LABS: ACETYLCHOLINE RCPTOR BINDING A < 0.03 nmol/L (0.00-0.24); VITAMIN B1 LEVEL WHOLE BLOOD 112.4 nmol/L (66.5-200.0)
== END 2022-09-10 13:24 | disposition home health service (06) | DRG 69 ==
LOC: M ED 13:53 → M ED INP 20:40 → ENRESERV 22:16 → M PCU 22:53
PROVIDERS: ADMIT Family Medicine; ATTEND General Practice
DX: G45.9 Transient cerebral ischemic attack, unspecified (principal); I50.32 Chronic diastolic (congestive) heart failure; I48.20 Chronic atrial fibrillation, unspecified; L03.115 Cellulitis of right lower limb; L03.116 Cellulitis of left lower limb; E11.42 Type 2 diabetes mellitus with diabetic polyneuropathy; I11.0 Hypertensive heart disease with heart failure; I89.0 Lymphedema, not elsewhere classified; R53.83 Other fatigue; R47.81 Slurred speech; M62.81 Muscle weakness (generalized); E04.1 Nontoxic single thyroid nodule; I27.20 Pulmonary hypertension, unspecified; I67.2 Cerebral atherosclerosis; I67.82 Cerebral ischemia; G47.33 Obstructive sleep apnea (adult) (pediatric); G40.909 Epilepsy, unspecified, not intractable, without status epilepticus; G25.81 Restless legs syndrome; Z86.711 Personal history of pulmonary embolism; Z86.718 Personal history of other venous thrombosis and embolism; Z79.01 Long term (current) use of anticoagulants; Z79.84 Long term (current) use of oral hypoglycemic drugs; Z79.899 Other long term (current) drug therapy; Z88.5 Allergy status to narcotic agent; Z96.651 Presence of right artificial knee joint; Z95.828 Presence of other vascular implants and grafts

== ENCOUNTER → 2023-02-01 | Outpatient (REF) | payer MEDICARE, OTHER ==
[~2023-02-01] MED LIST changes: +ASPI81TAEC PO; +BACI1CAP PO; +CEPH500C PO; -DEXT4TAB15 PO; +DEXT4TAB9 PO; +DICL100G10 TOP; -DICL1GEL3 TOP; +MECL-209 PO; -MECL1TAB31 PO; -PREG150C PO; +PREG150C2 PO; -PREG200C PO; +PREG200C2 PO; +ROSU20TA61 PO
== END ==
LOC: M LAB REF 12:39
PROVIDERS: ATTEND Physician Assistant Medical
DX: S81.801A Unspecified open wound, right lower leg, initial encounter (principal); L03.115 Cellulitis of right lower limb; X58.XXXA Exposure to other specified factors, initial encounter; Y92.9 Unspecified place or not applicable; Y93.9 Activity, unspecified; Y99.9 Unspecified external cause status

== ENCOUNTER 2023-08-18 18:27 | Inpatient (IN) | payer OTHER, MEDICARE ==
[~2023-08-18] VITALS: Ht 182.9 cm; Wt 120.5 kg
[~2023-08-18 18:27] MED LIST changes: +DOXY-323 PO; -DOXY-443 PO; -GARL500C2 PO; +GARL500C6 PO; -ROPI2TAB PO; +ROPI2TAB20 PO; -ROSU10TA6 PO; +ROSU10TA61 PO
[2023-08-18 18:58] LABS: VENOUS BASE EXCESS 0.8 (-2.0-2.0); VENOUS HCO3 26.5 MMOL/L (23.0-27.0); VENOUS O2 SATURATION 94.5 % (60.0-80.0); VENOUS PARTIAL PRESSURE CO2 45.9 mmHg (38.0-50.0); VENOUS PARTIAL PRESSURE O2 76.6 mmHg (30.0-50.0); VENOUS PH 7.379 UNITS (7.330-7.430); VENOUS STANDARD HCO3 25.1 MMOL/L; VENOUS TOTAL CO2 27.9 MMOL/L (24.0-28.0)
[2023-08-18 19:10] LABS: BASO # 0.1 10^3/uL (0.0-0.2); BASO % 0.8 % (0.0-1.0); EOS # 0.3 10^3/uL (0.0-0.5); EOS % 4.6 % (0.0-3.0); HEMATOCRIT 44.3 % (42.0-52.0); HEMOGLOBIN 14.2 g/dl (13.5-17.5); LYMPH # 1.7 10^3/uL (1.5-5.0); LYMPH % 22.9 % (24.0-44.0); MEAN CORPUSCULAR HEMOGLOBIN 28.2 pg (27.0-33.0); MEAN CORPUSCULAR HGB CONC 32.1 g/dl (32.0-36.5); MEAN CORPUSCULAR VOLUME 88.1 fl (80.0-96.0); MONO # 0.6 10^3/uL (0.0-0.8); MONO % 7.6 % (2.0-8.0); NEUTROPHILS # 4.7 10^3/uL (1.5-8.5); NEUTROPHILS % 63.8 % (36.0-66.0); PLATELET COUNT, AUTOMATED 228 10^3/uL (150-450); RED BLOOD COUNT 5.03 10^6/uL (4.30-6.10); WHITE BLOOD COUNT 7.4 10^3/uL (4.0-10.0)
[2023-08-18 20:24] LABS: OSMOLALITY SERUM 299 MOSM/KG (280-301); THYROID STIMULATING HORMONE 0.738 uIU/ML (0.55-4.78)
[2023-08-18 20:25] LABS: ALBUMIN 3.7 G/DL (3.2-5.2); ALKALINE PHOSPHATASE 114 U/L (46-116); ALT/SGPT 14 U/L (7.0-40); AST/SGOT 10 U/L (<34); BILIRUBIN,DIRECT 0.2 MG/DL (<0.4); BILIRUBIN,TOTAL 0.5 MG/DL (0.3-1.2); BLOOD UREA NITROGEN 21 MG/DL (9-23); CARBON DIOXIDE LEVEL 30 MMOL/L (20-31); CHLORIDE LEVEL 104 MMOL/L (98-107); CREATININE FOR GFR 0.93 MG/DL (0.70-1.30); GLOMERULAR FILTRATION RATE > 60.0 (>42); GLUCOSE, FASTING 114 MG/DL (74-106); POTASSIUM SERUM 4.1 MMOL/L (3.5-5.1); SODIUM LEVEL 141 MMOL/L (136-145); TOTAL PROTEIN 6.7 G/DL (5.7-8.2)
[2023-08-18 20:51] LABS: ETHYL ALCOHOL (ETHANOL) < 0.003 % (0.000-0.010)
[2023-08-18 21:05] LABS: AMPHETAMINES LEVEL URINE NEGATIVE (NEGATIVE); BARBITURATES URINE NEGATIVE (NEGATIVE); BENZODIAZEPINES URINE NEGATIVE (NEGATIVE); COCAINE METABOLITE URINE NEGATIVE (NEGATIVE); METHADONE URINE NEGATIVE (NEGATIVE); OPIATES URINE NEGATIVE (NEGATIVE)
[2023-08-18 21:06] LABS: CANNABINOIDS URINE NEGATIVE (NEGATIVE); PHENCYCLIDINE URINE NEGATIVE (NEGATIVE)
[2023-08-18] MEDS ORDERED: ISOVUE-370 76% 100ML VIAL As Ordered ONE (22:38)
[2023-08-18] MEDS ORDERED: TRAZ-252 PO (22:51)
[2023-08-18] MEDS ORDERED: INSULANT SC (22:51)
[2023-08-18] MEDS ORDERED: DULO30CA9 PO (22:51)
[2023-08-18] MEDS ORDERED: GLIP5TAB17 PO (22:55)
[2023-08-18] MEDS ORDERED: [UNRECOGNIZED DRUG - OTHER] PO (22:55)
[2023-08-18] MEDS ORDERED: HOME MED LIST COMPLETE! XX SCH (23:00)
[2023-08-19] VITALS (12 sets, daily range): BP systolic 102–133; BP diastolic 54–69; TEMP 96.7–98.8; O2SAT 94–100
[2023-08-19] MEDS ORDERED: MAALOX 30 ML SUSP *UDC PO PRN (00:05)
[2023-08-19] MEDS ORDERED: DEXTROSE 50% 50ML SYRINGE IV PRN (00:05)
[2023-08-19] MEDS ORDERED: GLUCAGON INJ 1MG VIAL SC PRN (00:05)
[2023-08-19] MEDS ORDERED: GLUCOSE 4 GM CHEW PO PRN (00:05)
[2023-08-19] MEDS ORDERED: MOM 30ML SUSPENSION UDC PO PRN (00:05)
[2023-08-19] MEDS: LACTULOSE 20GM/30ML SYRUP UDC PO SCH (00:13)
[2023-08-19 00:55] LABS: ERYTHROCYTE SEDIMENTATION RATE 15 mm/hr (0-20)
[2023-08-19 01:11] LABS: HEMOGLOBIN A1c 7.8 % (4.0-6.0)
[2023-08-19 01:20] LABS: CK-MB VALUE MASS < 1.0 NG/ML (<3.6)
[2023-08-19 01:21] LABS: C REACTIVE PROTEIN QUANTITATIV < 0.40 MG/DL (<1.0)
[2023-08-19 01:22] LABS: CPK CREATINE PHOSPHOKINASE 59 U/L (46-171); MB/CK RELATIVE INDEX 1.69 (< OR =4)
[2023-08-19 01:23] LABS: ALBUMIN 3.6 G/DL (3.2-5.2); ALKALINE PHOSPHATASE 115 U/L (46-116); ALT/SGPT 14 U/L (7.0-40); AST/SGOT 11 U/L (<34); BILIRUBIN,DIRECT 0.2 MG/DL (<0.4); BILIRUBIN,TOTAL 0.6 MG/DL (0.3-1.2); CHOLESTEROL LEVEL 83 MG/DL (<200); CHOLESTEROL RISK RATIO 2.02 (<5); CREATININE FOR GFR 0.85 MG/DL (0.70-1.30); GLOMERULAR FILTRATION RATE > 60.0 (>42); LDL CHOLESTEROL 27.8 MG/DL (<100); MAGNESIUM LEVEL 1.9 MG/DL (1.8-2.4); RHEUMATOID FACTOR QUANT < 3.5 IU/ML (<14); TOTAL PROTEIN 6.7 G/DL (5.7-8.2); TRIGLYCERIDES LEVEL 71 MG/DL (<150)
[2023-08-19] MEDS: INSULIN LISPRO (NovoLOG) PER UNIT SC SCH ×3 (01:35→20:35)
[2023-08-19 01:49] LABS: INR 1.17; PARTIAL THROMBOPLASTIN TIME 24.8 SECONDS (24.8-34.2); PROTHROMBIN TIME 14.6 SECONDS (12.5-14.5)
[2023-08-19] MEDS: rOPINIRole 1MG TAB PO SCH (03:13)
[2023-08-19] MEDS ORDERED: rOPINIRole 1MG TAB PO SCH (09:00)
[2023-08-19] MEDS: DOCUSATE SODIUM 100MG CAPSULE PO SCH (09:00)
[2023-08-19] MEDS: LEVEMIR (INSULIN DETEMIR) 1 UNITS/0.01ML SC SCH (09:00)
[2023-08-19] MEDS: ASPIRIN 81MG CHEW TABLET PO SCH (09:52)
[2023-08-19] MEDS: APIXABAN 5 MG TAB (ELIQUIS) PO SCH (09:52)
[2023-08-19] MEDS: PREGABALIN 100 MG CAP (LYRICA) PO SCH (09:52)
[2023-08-19] MEDS: DULoxetine 30MG CAPSULE (CYMBALTA) PO SCH (09:53)
[2023-08-19] MEDS: clonazePAM 1 MG TAB PO SCH (09:53)
[2023-08-19] MEDS: ROSUVASTATIN 10 MG TAB (CRESTOR) PO SCH (20:35)
[2023-08-19] MEDS: levETIRAcetam 250MG TABLET (KEPPRA) PO SCH (20:35)
[2023-08-19] MEDS: ACETAMINOPHEN TAB 650MG DOSE (2X325MG) PO PRN (23:15)
[2023-08-20] MEDS: traMADol 50 MG TAB PO ONE (00:54)
[2023-08-20] MEDS: IBUPROFEN 400MG TAB PO ONE (03:01)
[2023-08-20 03:03] VITALS: BP 125/65; TEMP 97; O2SAT 100
[2023-08-20 06:15] LABS: HEMATOCRIT 40.7 % (42.0-52.0); MEAN CORPUSCULAR HGB CONC 31.9 g/dl (32.0-36.5); MEAN CORPUSCULAR VOLUME 87.7 fl (80.0-96.0); PLATELET COUNT, AUTOMATED 209 10^3/uL (150-450); RED BLOOD COUNT 4.64 10^6/uL (4.30-6.10)
[2023-08-20 06:39] LABS: ALBUMIN 3.2 G/DL (3.2-5.2); ALKALINE PHOSPHATASE 102 U/L (46-116); ALT/SGPT 15 U/L (7.0-40); AST/SGOT 10 U/L (<34); BILIRUBIN,TOTAL 0.4 MG/DL (0.3-1.2); BLOOD UREA NITROGEN 20 MG/DL (9-23); CALCIUM LEVEL 8.8 MG/DL (8.3-10.6); CARBON DIOXIDE LEVEL 30 MMOL/L (20-31); CHLORIDE LEVEL 104 MMOL/L (98-107); GLOMERULAR FILTRATION RATE > 60.0 (>42); GLUCOSE, FASTING 73 MG/DL (74-106); POTASSIUM SERUM 4.2 MMOL/L (3.5-5.1); SODIUM LEVEL 137 MMOL/L (136-145)
[2023-08-20 07:41] VITALS: BP 120/56; TEMP 97; O2SAT 99
[2023-08-20] MEDS: LEVEMIR (INSULIN DETEMIR) 1 UNITS/0.01ML SC SCH (08:38)
[2023-08-20 15:33] LABS: SSA SJOGRENS A <1.0 NEG AI (<1.0 NEG); SSB SJOGRENS B <1.0 NEG AI (<1.0 NEG)
[2023-08-21 00:06] LABS: CARDIOLIPIN IGA ANTIBODY < 2.0 APL-U/mL (<20.0); CARDIOLIPIN IGG ANTIBODY < 2.0 GPL-U/mL (<20.0); CARDIOLIPIN IGM ANTIBODY 3.6 MPL-U/mL (<20.0)
[2023-08-21 14:52] LABS: PROTEIN S ANTIGEN FREE 109 % normal (57-171); PROTEIN S ANTIGEN TOTAL 111 % normal (70-140)
[2023-08-21 18:53] LABS: PROTEIN C ANTIGEN 86 % normal (70-140)
[2023-08-22 09:54] LABS: DRVV SCREEN 50.3 SECONDS
[2023-08-22 10:23] LABS: PTT LUPUS TYPE ANTICOAG SCREEN 1.26 (0-1.20)
[2023-08-22 10:31] LABS: DRVV CONFIRM 47.4 SECONDS; LUPUS CONFIRM RATIO 1.2
[2023-08-22 11:23] LABS: NORMALIZED RATIO 1.05 (0.00-1.20)
[2023-08-22 17:13] LABS: FACTOR V111 ACTIVITY, CLOTTING 161 % normal (50-180); FACTOR VIII APTT 26 sec (23-32); RISTOCETIN COFACTOR 208 % normal (42-200); VW FACTOR ANTIGEN 206 % (50-217)
[2023-08-23 00:52] LABS: ANTI THROMBIN 3 ANTIGEN IMMUNO 84 % normal (80-120); ANTI THROMBIN 3 FUNCT ACTIVITY 99 % normal (80-135)
== END 2023-08-20 12:08 | disposition home or self-care (01) | DRG 556 ==
LOC: M ED 18:27 → EDBD 18:27 → M ED INP 23:39 → M PCU 08-19 02:00
PROVIDERS: ADMIT Family Medicine; ATTEND Family Medicine
PROC: B246ZZZ Ultrasonography of Right and Left Heart (ICD-10-PCS; principal; 2023-08-19)
DX: R29.898 Other symptoms and signs involving the musculoskeletal system (principal); L97.919 Non-pressure chronic ulcer of unspecified part of right lower leg with unspecified severity; I50.32 Chronic diastolic (congestive) heart failure; I69.351 Hemiplegia and hemiparesis following cerebral infarction affecting right dominant side; L97.929 Non-pressure chronic ulcer of unspecified part of left lower leg with unspecified severity; I48.91 Unspecified atrial fibrillation; E04.1 Nontoxic single thyroid nodule; I25.10 Atherosclerotic heart disease of native coronary artery without angina pectoris; I25.2 Old myocardial infarction; E11.42 Type 2 diabetes mellitus with diabetic polyneuropathy; G25.81 Restless legs syndrome; G47.33 Obstructive sleep apnea (adult) (pediatric); I11.0 Hypertensive heart disease with heart failure; N32.81 Overactive bladder; R56.9 Unspecified convulsions; Z96.653 Presence of artificial knee joint, bilateral; Z98.41 Cataract extraction status, right eye; Z98.42 Cataract extraction status, left eye; Z86.718 Personal history of other venous thrombosis and embolism; Z95.0 Presence of cardiac pacemaker; Z95.828 Presence of other vascular implants and grafts; Z79.01 Long term (current) use of anticoagulants; Z79.84 Long term (current) use of oral hypoglycemic drugs; Z79.4 Long term (current) use of insulin; Z79.899 Other long term (current) drug therapy; Z88.5 Allergy status to narcotic agent

== ENCOUNTER 2024-01-11 16:18 | Emergency (ER) | payer MEDICARE, OTHER ==
[~2024-01-11] VITALS: Ht 182.9 cm; Wt 130.7 kg
[~2024-01-11 16:18] MED LIST changes: -DOXY-323 PO; +DOXY-441 PO; +DULO30CA9 PO; +GLIP5TAB17 PO; +INSULANT SC; -ROSU20TA61 PO; +ROSU20TA86 PO; +TRAZ-252 PO; +[UNRECOGNIZED DRUG - OTHER] PO
[2024-01-11 17:57] LABS: BASO # 0.1 10^3/uL (0.0-0.2); BASO % 0.7 % (0.0-1.0); EOS # 0.5 10^3/uL (0.0-0.5); EOS % 6.6 % (0.0-3.0); HEMOGLOBIN 12.9 g/dl (13.5-17.5); LYMPH % 14.1 % (24.0-44.0); MEAN CORPUSCULAR HEMOGLOBIN 28.7 pg (27.0-33.0); MEAN CORPUSCULAR HGB CONC 32.3 g/dl (32.0-36.5); MEAN CORPUSCULAR VOLUME 89.1 fl (80.0-96.0); MONO # 0.4 10^3/uL (0.0-0.8); NEUTROPHILS % 72.2 % (36.0-66.0); PLATELET COUNT, AUTOMATED 208 10^3/uL (150-450); RED BLOOD COUNT 4.49 10^6/uL (4.30-6.10)
[2024-01-11 18:04] LABS: ERYTHROCYTE SEDIMENTATION RATE 9 mm/hr (0-20)
[2024-01-11 18:25] LABS: BLOOD UREA NITROGEN 18 MG/DL (9-23); CALCIUM LEVEL 8.8 MG/DL (8.3-10.6); CARBON DIOXIDE LEVEL 30 MMOL/L (20-31); CHLORIDE LEVEL 105 MMOL/L (98-107); CREATININE FOR GFR 0.78 MG/DL (0.70-1.30); GLOMERULAR FILTRATION RATE > 60.0 (>42); GLUCOSE, FASTING 220 MG/DL (74-106); SODIUM LEVEL 138 MMOL/L (136-145)
[2024-01-11] MEDS ORDERED: CEPH500C PO (18:27)
[2024-01-11 18:42] VITALS: BP 136/85; TEMP 96.8; O2SAT 99
== END 2024-01-11 18:57 | disposition home or self-care (01) ==
LOC: M ED 16:18
DX: L03.116 Cellulitis of left lower limb (principal); I11.0 Hypertensive heart disease with heart failure; I48.91 Unspecified atrial fibrillation; I50.22 Chronic systolic (congestive) heart failure; F10.10 Alcohol abuse, uncomplicated; Z88.5 Allergy status to narcotic agent; Z79.01 Long term (current) use of anticoagulants; Z79.2 Long term (current) use of antibiotics; Z79.4 Long term (current) use of insulin; Z79.84 Long term (current) use of oral hypoglycemic drugs; Z79.899 Other long term (current) drug therapy